=== PATIENT | male | born 1945 | race Caucasian/White ===

== ENCOUNTER → 2020-12-18 11:51 | Outpatient (CLI) | payer MEDICARE, SELFPAY ==
--- NOTE | ~2020-12-18 | XR_ITS ---
EXAMINATION: XR knee RT 3V DATE: 12/18/2020 12:29 INDICATION: Right knee pain. TECHNIQUE: 3 views of right knee were obtained. COMPARISON: None. FINDINGS: Bone alignment is normal. No fracture. There is mild tricompartmental osteoarthritis. There is a small knee joint effusion. IMPRESSION: 1. Mild right knee osteoarthritis. 2. Small right knee joint effusion. Reviewed, dictated and finalized at location A.
== END ==
PROVIDERS: PCP Family Medicine; Visit Provider Physician Assistant
DX: M17.11 Unilateral primary osteoarthritis, right knee (principal); M25.461 Effusion, right knee
CPT/HCPCS: 73562

== ENCOUNTER → 2021-02-05 10:34 | Outpatient (CLI) | payer MEDICARE, SELFPAY ==
--- NOTE | ~2021-02-05 | XR_ITS ---
EXAMINATION: XR foot RT min 3V DATE: 02/05/2021 11:13 INDICATION: Right foot pain TECHNIQUE: Dorsoplantar, two oblique and lateral views of the right foot were obtained. COMPARISON: None. FINDINGS: Bone alignment is normal. No fracture. Polyarticular osteoarthritis, mild to moderate at the first me tatarsophalangeal joint and minimal to mild at several tarsal metatarsal, interphalangeal and remaini ng metatarsophalangeal joints. Soft tissues are unremarkable. IMPRESSION: 1. 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 Reviewed, dictated and finalized at location A. IMPRESSION: 1. 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
== END ==
PROVIDERS: PCP Family Medicine; Visit Provider Physician Assistant Medical
DX: M19.071 Primary osteoarthritis, right ankle and foot (principal)
CPT/HCPCS: 73630

== ENCOUNTER 2021-12-25 18:33 | Emergency (ER) | payer MEDICARE, SELFPAY ==
[2021-12-25 18:44] VITALS: BP 167/83; PULSE 82; RESP 16; TEMP 36.2; O2SAT 99
--- NOTE | 2021-12-25 18:52 | ED.EYEPROB ---
HPI - Eye Problem General Chief complaint: Eye Problems Stated complaint: Left eye reddness Time Seen by Provider: 12/25/21 18:53 Source: patient Mode of arrival: ambulatory Limitations: no limitations History of Present Illness HPI Narrative: 76-year-old male presented for complaints of redness to the left eye, first noticed today about 3 hours prior to arrival. He denies injury. 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 He denies foreign body sensation, itching, pain, or drainage, denies headache or photophobia. Related Data Home Medications Medication Instructions Recorded Confirmed aspirin 81 mg tablet,delayed 81 mg PO DAILY 09/09/19 12/25/21 release biotin 5,000 mcg disintegrating 10,000 mcg PO DAILY 05/20/21 12/25/21 tablet mecobalamin (vitamin B12) 5,000 5,000 mcg PO DAILY tablet 05/20/21 12/25/21 mcg disintegrating tablet Allergies Allergy/AdvReac Type Severity Reaction Status Date / Time celecoxib [From Celebrex] AdvReac Intermediate diarrhea Verified 12/25/21 18:37 Review of Systems Review of Systems: CONSTITUTIONAL: Denies body aches, fever, chills EYES:Endorses redness to left eye; denies FB sensation, photophobia, visual changes or pain ENT: Denies rhinorrhea, congestion, sore throat, or otalgia. CARDIOVASCULAR: Denies chest pain, palpitations RESPIRATORY: Denies cough or dyspnea. GASTROINTESTINAL: Denies abdominal pain, nausea, vomiting, or diarrhea. SKIN: Denies rash, itching, or wounds. MUSCULOSKELETAL: Denies back pain, joint pain, or myalgia. NEUROLOGIC: Denies headache, numbness, tingling, or weakness. PSYCH: Denies depression or anxiety. All systems reviewed & are unremarkable except as noted in HPI and below PMFSH Past Medical History Medical History Bone spur Sacroiliitis Tendonitis of shoulder, right Surgical History Surgical History History of repair of right rotator cuff (06/27/19) Family History Family History Father Family history of malignant neoplasm of stomach, Onset Age: 57 Family history of lung cancer, Onset Age: 57 Family history of malignant neoplasm of esophagus, Onset Age: 57 Family history of malignant neoplasm Mother Family history of dementia Social History Social History Alcohol intake: current Comments At time of signature, I have reviewed and agree with nursing past medical, surgical, social and family history unless otherwise noted. Please see nursing chart for further information. There is no relevant family history pertinent to the presenting complaint Exam Narrative: GENERAL: Well-appearing HEAD: Normocephalic, atraumatic. EYES: subconjunctival hemorrhage to left medial eye and spreading under the pupil, no eye lid swelling; PERRLA, EOMI. Lid eversion shows no FB. ENT: Mucous membranes pink and moist. No rhinorrhea. TMs normal bilaterally. Throat normal. Uvula midline. NECK: Normal AROM. Supple. No lymphadenopathy. CHEST: No respiratory distress. Clear to auscultation. HEART: Regular rate and rhythm. No murmur appreciated. Normal peripheral pulses. ABDOMEN: Soft, nontender, nondistended MUSCULOSKELETAL: No bony tenderness. EXTREMITIES: Normal range of motion. SKIN: Warm, dry, no rash. Normal skin turgor. NEURO: No focal deficits. Alert and oriented x3. Steady gait PSYCH: Normal affect. Course Course Emergency Course: Patient is aware of diagnosis, understands and agrees to treatment plan. Anticipatory guidance given. Patient agrees to follow-up as directed and is aware of reasons to seek care at the emergency department. Portions of this record may have been created with voice recognition software Level of Care: Tabyb Limon
[2021-12-25] MEDS: DACRIOSE EYE IRRIGATION 118 ML BOTTLE LEFT EYE (19:03)
[2021-12-25] MEDS: FLUORESCEIN SOD 1 MG/STRIP EACH EYE (19:03)
[2021-12-25] MEDS: TETRACAINE HCL 0.5% OPHTH SOLN 4 ML BTL 1 DROP EACH EYE (19:04)
== END 2021-12-25 19:08 | disposition home or self-care (01) ==
PROVIDERS: Emergency Provider Nurse Practitioner Family
DX: H11.32 Conjunctival hemorrhage, left eye (principal); I10 Essential (primary) hypertension; N40.0 Benign prostatic hyperplasia without lower urinary tract symptoms; M17.11 Unilateral primary osteoarthritis, right knee; E11.9 Type 2 diabetes mellitus without complications; E03.9 Hypothyroidism, unspecified
CPT/HCPCS: 99213; A9270; G0463

== ENCOUNTER 2022-06-12 14:03 | Emergency (ER) | payer MEDICARE, SELFPAY ==
[2022-06-12 14:30] VITALS: BP 142/65; PULSE 80; RESP 16; TEMP 36.8; O2SAT 100
--- NOTE | 2022-06-12 15:29 | ED.MALEGU ---
HPI - Male Genitourinary General Chief complaint: Urogenital-Male Stated complaint: UTI Time Seen by Provider: 06/12/22 15:29 Source: patient and RN notes reviewed Mode of arrival: ambulatory Limitations: no limitations History of Present Illness HPI Narrative: 77-year-old male presents to the [facility] with complaints of urinary frequency. States he was fine yesterday. Got up at 430 this morning and started having frequency and urgency of urination. Patient states he has no symptoms currently. Denies any abdominal pain or flank pain. No CVA tenderness. Had a history of similar in the past. Related Data Home Medications Medication Instructions Recorded Confirmed aspirin 81 mg tablet,delayed 81 mg PO DAILY 09/09/19 06/12/22 release biotin 5,000 mcg disintegrating 10,000 mcg PO DAILY 05/20/21 06/12/22 tablet mecobalamin (vitamin B12) 5,000 5,000 mcg PO DAILY 05/20/21 06/12/22 mcg disintegrating tablet Allergies Allergy/AdvReac Type Severity Reaction Status Date / Time celecoxib [From Celebrex] AdvReac Intermediate diarrhea Verified 04/22/22 11:01 Review of Systems Review of Systems: All systems reviewed & are unremarkable except as noted in HPI and below Constitutional: Constitutional: Reports no additional constitutional complaints, Denies chills and Denies fever(s) Eyes: Eyes: Reports no additional eye complaints ENT: Reports system reviewed and no additional complaints, except as documented Cardiovascular: Cardiovascular: Reports no additional cardiovascular complaints Respiratory: Respiratory: Reports no additional respiratory complaints Gastrointestinal: Gastrointestinal: Reports no additional gastrointestinal complaints Genitourinary: Genitourinary: Reports as per HPI, Reports urinary frequency and Reports urinary urgency Musculoskeletal: Musculoskeletal: Reports no additional musculoskeletal complaints Integumentary/Breasts: Skin/Breast: Reports system reviewed and no additional complaints, except as docu Neurologic: Reports system reviewed and no additional complaints, except as documented Psychiatric: Psychiatric: Reports no additional psychiatric complaints Allergic/Immunologic: Allergic/Immunologic: Reports no additional allergic/immunologic complaints [facility] Past Medical History Medical History Bone spur Sacroiliitis Tendonitis of shoulder, right Surgical History Surgical History History of repair of right rotator cuff (06/27/19) Family History Family History Father Family history of malignant neoplasm of stomach, Onset Age: 57 Family history of lung cancer, Onset Age: 57 Family history of malignant neoplasm of esophagus, Onset Age: 57 Family history of malignant neoplasm Mother Family history of dementia Social History Social History Smoking status: Never smoker Alcohol intake: current Comments At the time of my signature, I reviewed and agree with the nursing past medical, surgical, social, and family history. There is no relevant family history pertinent to the patient complaint. Exam Const: General: healthy appearing, no acute distress, alert and well nourished Nutritional Appearance: well nourished Orientation/consciousness: patient oriented x3 Limitations: no limitations HENMT: Head: normal to inspection Ears: external ears normal Eyes: General: appearance normal, both eyes and all related structures Pupils: Equal, round and reactive pupils present Neck: Neck: normal visual inspection, no lymphadenopathy and no meningeal signs Chest: Chest palpation & inspection: normal inspection of the chest Resp: Effort & Inspection: normal respiratory effort and no use of accessory muscles Auscultation: clear to auscultation bilaterally
== END 2022-06-12 15:42 | disposition home or self-care (01) ==
PROVIDERS: Emergency Provider Nurse Practitioner; PCP Emergency Medicine
DX: R35.0 Frequency of micturition (principal); Z79.82 Long term (current) use of aspirin
CPT/HCPCS: 81003; 99212; G0463

== ENCOUNTER → 2022-08-07 10:11 | Outpatient (CLI) | payer MEDICARE, SELFPAY ==
--- NOTE | ~2022-08-07 | XR_ITS ---
XR knee LT min 4V DATE: 08/07/2022 10:36 INDICATION: Bilateral knee pain for 3 to 4 years. No injury. TECHNIQUE: 4 views COMPARISON: 03/13/2004 left knee FINDINGS: There is moderately severe loss of medial compartment joint space and mild medial compartme nt and periarticular spurring. There is periarticular spurring at the patellofemoral compartment. Lat eral compartment joint space appears well preserved. No fracture or dislocation or significant joint effusion is noted. No radiopaque intra-articular loos e body or chondrocalcinosis. No periosteal reaction or bone destruction. IMPRESSION: Osteoarthritis primarily at the medial and patellofemoral compartments Reviewed, dictated and finalized at location B. UCTION TECHNICIAN IMPRESSION: Osteoarthritis primarily at the medial and patellofemoral compartme nts
--- NOTE | ~2022-08-07 | XR_ITS ---
XR knee RT min 4V DATE: 08/07/2022 10:37 INDICATION: Bilateral knee pain for 3 to 4 years. No injury. TECHNIQUE: 4 views COMPARISON: 12/18/2020 right knee FINDINGS: There is prominent loss of height of the lateral and patellofemoral compartments.. There is periarticular spurring at all 3 compartments of the knee. There is hypertrophic change of the tibial spines. Mild suprapatellar knee joint effusion. No fracture or dislocation, periosteal reaction or bone destruction. No radiopaque intra-articular lo ose body or chondrocalcinosis. IMPRESSION: Prominent osteoarthritis, greatest at the lateral and patellofemoral compartments Mild suprapatellar knee joint effusion Reviewed, dictated and finalized at location B. LER MAKER IMPRESSION: Prominent osteoarthritis, greatest at the lateral and patellofemora l compartments Mild suprapatellar knee joint effusion
== END ==
PROVIDERS: PCP Emergency Medicine; Visit Provider Emergency Medicine
DX: M17.0 Bilateral primary osteoarthritis of knee (principal); M25.461 Effusion, right knee
CPT/HCPCS: 73564

== ENCOUNTER → 2022-08-07 10:16 | Outpatient (CLI) | payer MEDICARE, SELFPAY ==
--- NOTE | ~2022-08-07 | XR_ITS ---
XR_CERV2-3V_CR DATE: 08/07/2022 10:37 INDICATION: Neck pain for 3 weeks. No injury. TECHNIQUE: AP, open-mouth and lateral views COMPARISON: None FINDINGS: There is a suture of the anterior left body of the mandible. C1 and C2 are normally aligned and the odontoid process is intact. No fracture or dislocation or lock ed facet or prevertebral soft tissue swelling is evident. There is prominent degenerative change throughout the apophyseal joints of the cervical spine. There is associated mild anterolisthesis at C5-6. Mild loss of interspace height at C2-3, moderate loss of interspace height at C4-5. There is uncovertebral joint spurring in the mid and lower cervical spine. IMPRESSION: Moderate cervical spondylosis Reviewed, dictated and finalized at Location A. Reviewed, dictated and finalized at location B. ERSAL WINDING MACHINE OPERATOR
== END ==
PROVIDERS: PCP Emergency Medicine; Visit Provider Clinical Nurse Specialist
DX: M47.892 Other spondylosis, cervical region (principal)
CPT/HCPCS: 72040

== ENCOUNTER 2022-12-12 09:24 | Emergency (ER) | payer MEDICARE, SELFPAY ==
[2022-12-12 09:36] VITALS: BP 143/79; PULSE 79; RESP 16; TEMP 36.4; O2SAT 98
--- NOTE | 2022-12-12 09:37 | ED.URI ---
HPI - URI/Sore Throat General Chief Complaint: Upper Respiratory Infection Stated Complaint: Cough/Sinus Time Seen by Provider: 12/12/22 09:37 Source: patient Mode of arrival: ambulatory Limitations: no limitations History of Present Illness HPI Narrative: Jony is a 77-year-old male patient presenting to the clinic today with complaints of sinus drainage and cough times 2-3 days. He reports cough is productive at times with clear phlegm. He denies being a smoker. Denies any fever or chills. Did at home COVID test today and was negative. MD elicited complaint: sore throat and nasal congestion Related Data Home Medications Medication Instructions Recorded Confirmed aspirin 81 mg tablet,delayed 81 mg PO DAILY 09/09/19 10/27/22 release multivitamin 1 tablet PO DAILY 10/27/22 10/27/22 Allergies Allergy/AdvReac Type Severity Reaction Status Date / Time celecoxib [From Celebrex] AdvReac Intermediate diarrhea Verified 12/12/22 09:44 Review of Systems Review of Systems: Pertinent positives per HPI. Patient denies any fever, chills, rash, headache, visual changes, dizziness, sore throat, shortness of breath, chest pain, palpitations, nausea, vomiting, diarrhea, constipation, abdominal pain, or any urinary issues. [facility] Past Medical History Medical History Bone spur Sacroiliitis Tendonitis of shoulder, right Surgical History Surgical History History of repair of right rotator cuff (06/27/19) Family History Family History Father Family history of malignant neoplasm of stomach, Onset Age: 57 Family history of lung cancer, Onset Age: 57 Family history of malignant neoplasm of esophagus, Onset Age: 57 Family history of malignant neoplasm Mother Family history of dementia Social History Social History Smoking status: Never smoker Alcohol intake: current Comments At the time of my signature, I reviewed and agree with the nursing past medical, surgical, social, and family history. There is no relevant family history pertinent to the patient complaint. Exam Narrative: General: Well-developed, well nourished, in no apparent distress Head: Normocephalic, atraumatic Eyes: Pupils equally round and reactive to light bilaterally, EOM intact, sclera and conjunctive clear, no discharge, lids normal Ears: TMs intact and clear, ear canals clear, no drainage, grossly hearing normal. Nose: Nares patent, clear discharge, no inflammation, no sinus tenderness. Mouth: Oropharynx without lesions or masses, good dentition, MMM. Postnasal drip Neck: Supple, trachea midline, no enlargement of anterior or posterior cervical nodes, no thyroid masses or goiter palpable. Cardio: Regular rate and rhythm, s1 and s2 normal, no murmur appreciated. Resp: Clear to auscultation bilaterally anteriorly and posteriorly, no rhonchi, rales, wheezing or rubs Course Course Emergency Course: Portions of this record may have been created with voice recognition software. Level of Care: Express Care Visit Vital Signs Vital signs: Vital Signs Temperature 36.4 C 12/12/22 09:36 Pulse Rate 79 12/12/22 09:36 Respiratory Rate 16 12/12/22 09:36 Blood Pressure 143/79 H 12/12/22 09:36 Pulse Oximetry 98 12/12/22 09:36 Oxygen Delivery Room Air 12/12/22 09:36 Temperature 36.4 C 12/12/22 09:36 Pulse Rate 79 12/12/22 09:36 Respiratory Rate 16 12/12/22 09:36 Blood Pressure 143/79 H 12/12/22 09:36 Pulse Oximetry 98 12/12/22 09:36 Oxygen Delivery Room Air 12/12/22 09:36 Vital signs reviewed MDM - URI/Sore Throat MDM Narrative Medical decision making narrative: At the time of visit patient is resting comfortably on the exam table. I suspect patient h
== END 2022-12-12 09:48 | disposition home or self-care (01) ==
PROVIDERS: Emergency Provider Nurse Practitioner Family; PCP Emergency Medicine
DX: J30.9 Allergic rhinitis, unspecified (principal)
CPT/HCPCS: 99213; G0463

== ENCOUNTER → 2023-04-16 13:27 | Outpatient (CLI) | payer MEDICARE, SELFPAY ==
--- NOTE | ~2023-04-16 | XR_ITS ---
EXAM: XR lumbar spine 2-3V DATE: 04/16/2023 13:49 HISTORY: M25.551 - Pain in right hip . COMPARISON: 08/05/2011. FINDINGS: Moderate lumbar scoliosis. Partial sacralization on the left at L5. 4 mm retrolisthesis at L1-2. 5 nonrib-bearing lumbar-type vertebral bodies. Pedicles intact. Vertebral body heights preserve d. Disc space narrowing and marginal osteophytosis at all lumbar levels, severe at L1-2, L4-5, and L5 -S1. Large lateral bridging osteophytes on the left at L1-2 and L2-3. Severe mid and lower lumbar fac et hypertrophy and sclerosis, with interspinous narrowing. No fracture or dislocation. IMPRESSION: Grade 1 retrolisthesis at L1-2. Multilevel severe degenerative disc disease and facet arthropathy. Reviewed, dictated and finalized at location K.
--- NOTE | ~2023-04-16 | XR_ITS ---
AP and lateral views of the right hip Clinical history: Pain Findings: No acute fracture or dislocation is seen. Osseous alignment is anatomic. Right hip joint an d right SI joint are preserved. Soft tissues are unremarkable. Impression: No significant abnormality is seen. Reviewed, dictated and finalized at [facility]. Impression: No significant abnormality is seen.
== END ==
PROVIDERS: PCP Emergency Medicine; Visit Provider Physician Assistant
DX: M25.551 Pain in right hip (principal); M54.16 Radiculopathy, lumbar region; M51.36 Other intervertebral disc degeneration, lumbar region
CPT/HCPCS: 72100; 73502

== ENCOUNTER → 2023-05-14 08:53 | Outpatient (CLI) | payer MEDICARE, SELFPAY ==
--- NOTE | ~2023-05-14 | MR_ITS ---
MRI of the lumbar spine Clinical History: Radiculopathy Technique: Axial T2-weighted images, and sagittal T1-weighted, T2-weighted, and T2 fat-sat images wer e acquired. Findings: No acute fracture identified. There is 6 mm retrolisthesis of L1 over L2. There is 3 mm ret rolisthesis of L2 over L3. There is a 6 mm anterolisthesis of L4 over L5. No suspicious bone marrow s ignal abnormality seen. At L1-L2, there is severe degenerative disc narrowing. There is mild diffuse disc bulge with advanced facet arthropathy. No central canal stenosis. There is severe bilateral neural foraminal narrowing, left worse than right. At L2-L3, there is advanced degenerative disc narrowing. There is mild disc bulge with severe facet a rthropathy. No central canal stenosis. There is severe bilateral neural foraminal narrowing. At L3-L4, there is diffuse disc bulge and severe facet arthropathy. There is severe central canal dejuan nosis/thecal sac compression. There is severe right neural foraminal narrowing. There is moderate lef t neural foraminal narrowing. At L4-L5, there is advanced degenerative disc narrowing. There is severe facet arthropathy with disc bulge and severe right lateral recess stenosis. There is severe right neural foraminal narrowing, and moderate to severe left neural foraminal narrowing. At L5-S1, there is advanced degenerative disc narrowing. There is severe facet arthropathy with minim al disc bulge. There is moderate to severe left neural foraminal narrowing, and mild to moderate righ t neural foraminal narrowing. Paravertebral soft tissues are unremarkable. Impression: Severe degenerative spondylosis, as detailed above, probably worst at L3-L4. 6 mm retrolisthesis of L1 over L2. 3 mm retrolisthesis of L2 over L3. 6 mm anterolisthesis of L4 over L5. Reviewed, dictated and finalized at location . Impression: Severe degenerative spondylosis, as detailed above, probably worst at L3-L4. 6 mm retrolisthesis of L1 over L2. 3 mm retrolisthesis of L2 over L3. 6 mm anterolisthesis of L4 over L5.
--- NOTE | ~2023-05-14 | MR_ITS ---
EXAMINATION: MR cervical spine wo con DATE: 05/14/2023 09:35 INDICATION: Neck pain. TECHNIQUE: Magnetic resonance imaging (MRI) of the cervical spine was performed without intravenous c ontrast. COMPARISON: Cervical spine radiographs 08/07/2022 FINDINGS: There is 7 degrees levocurvature of cervicothoracic spine. There is 2 mm anterolisthesis of C3 on C4. Vertebral body heights are normal. There is mildly decreased disc height at C4-C5. There i s severe osteoarthritis of anterior atlantoaxial joint with peridens inflammatory pseudopannus with m ild central canal stenosis. The spinal cord signal intensity is normal. The following disc levels are specifically discussed: C2-C3: There is a right central protrusion. There is moderate right uncovertebral joint osteoarthriti s. There is severe bilateral facet joint osteoarthritis. There is mild lateral neural foraminal steno sis. There is no central canal stenosis. C3-C4: The disc does not extend beyond the endplate margin. There is mild right and severe left uncov ertebral joint osteoarthritis. There is moderate right and severe left facet joint osteoarthritis. Th ere is mild right and severe left neural foraminal stenosis. There is mild central canal stenosis. C4-C5: The disc is bulging. There is severe bilateral uncovertebral joint osteoarthritis. There is se quang bilateral facet joint osteoarthritis. There is mild bilateral neural foraminal stenosis. There i s mild central canal stenosis. C5-C6: The disc does not extend beyond the endplate margin. There is moderate bilateral uncovertebral joint osteoarthritis. There is severe bilateral facet joint osteoarthritis. There is mild bilateral neural foraminal stenosis. There is no central canal stenosis. C6-C7: There is a central protrusion. There is mild bilateral uncovertebral joint osteoarthritis. The re is mild bilateral facet joint osteoarthritis. There is no neural foraminal stenosis. There is mild central canal stenosis. C7-T1: The disc does not extend beyond the endplate margin. There is no uncovertebral joint osteoarth ritis. There is mild bilateral facet joint osteoarthritis. There is mild bilateral neural foraminal s tenosis. There is no central canal stenosis. IMPRESSION: 1. Moderate cervical spondylosis. Reviewed, dictated and finalized at location E.
== END ==
PROVIDERS: PCP Physician Assistant; Visit Provider Physician Assistant
DX: M47.22 Other spondylosis with radiculopathy, cervical region (principal); M43.16 Spondylolisthesis, lumbar region
CPT/HCPCS: 72141; 72148

== ENCOUNTER → 2023-05-28 13:49 | Outpatient (CLI) | payer MEDICARE, SELFPAY ==
--- NOTE | ~2023-05-28 | XR_ITS ---
Left ankle Technique: AP, oblique, and lateral views were obtained. Clinical History: Injury Findings: No acute fracture or dislocation is seen. Osseous alignment is anatomic. Ankle mortise and other visualized joint spaces are preserved. Soft tissues are otherwise unremarkable. Impression: Unremarkable left ankle. Reviewed, dictated and finalized at location . Impression: Unremarkable left ankle.
== END ==
PROVIDERS: PCP Physician Assistant; Visit Provider Physician Assistant
DX: M25.572 Pain in left ankle and joints of left foot (principal)
CPT/HCPCS: 73610

== ENCOUNTER 2023-07-07 07:22 | Day surgery (SDC) | payer MEDICARE, SELFPAY ==
[2023-07-03 14:04] VITALS: BMI 24.3
--- NOTE | ~2023-07-07 | XR_ITS ---
Indication: Left C2-3, C3-4 medial branch block TECHNIQUE: Fluoroscopy used during Left C2-3, C3-4 medial branch block performed by [Lul Bernal MD] on 07/07/2023. 71 seconds of fluoroscopy with 2 fluoroscopic images captured. FINDINGS: Correlate with procedure note. IMPRESSION: Fluoroscopy used during Left C2-3, C3-4 medial branch block. Reviewed, dictated and finalized at location A.
--- NOTE | 2023-07-07 05:51 | WPDHPUPDATE1 ---
History and Physical Update Update Date/Time: 07/07/23 05:51 History and Physical has been reviewed, including an updated exam of the patient. There are NO changes in the patient's condition. Risks, benefits, and alternatives have been discussed and questions answered. Patient agrees to proceed with procedure.
[2023-07-07 09:56] VITALS: BP 121/81; PULSE 75; RESP 20; TEMP 37.2; O2SAT 97
[2023-07-07 12:20] VITALS: BP 149/66; PULSE 71; RESP 17; O2SAT 96
[2023-07-07] MEDS: LIDOCAINE HCL 1% PF INJ 5 ML VIAL 1 ML INFILTRATE (12:24)
[2023-07-07 12:28] VITALS: BP 135/57; PULSE 71; RESP 17; O2SAT 96
[2023-07-07] MEDS: BUPivacaine HCL 0.5% 10 ML AMP INFILTRATE (12:29)
--- NOTE | 2023-07-07 12:31 | W.PM.PROC2 ---
Procedure Note - Detailed Date of Procedure 07/07/23 Pre-op Diagnosis Cervical Spondylosis, Cervicalgia Post-op Diagnosis Same Procedure Performed Left C2-3, C3, C4 medial branch blocks addressing the left C2-3, C3-4 facet joints under fluoroscopic guidance with contrast. Surgeon Lul Bernal MD Anesthesia Local Description of Procedure INFORMED CONSENT: Risks, benefits and alternatives to the procedure were discussed in detail with the patient who expressed explicit understanding and consent to proceed. Patient was informed verbally and in written form regarding the risks associated with the procedure including the low risk of serious infection, bleeding/bruising, allergic reaction, nerve or organ injury, paralysis, procedural site pain or discomfort, worsening pain and/or mobility, failure to treat and/or disfigurement. The patient expressed explicit understanding and consent to proceed. All materials required for the procedure were available prior to procedure start. Site and side was marked prior to procedure and confirmed in the presence of the patient. PROCEDURE IN DETAIL: The patient was brought to the procedural suite and placed in the right lateral decubitus position with head stabilized. Patient was made comfortable with use of pillows under the head/chest and between the knees and ankles. Skin overlying the injection site on the affected side(s) was prepared broadly with ChloraPrep applicator and draped in a sterile manner. Aseptic technique was used throughout. The endplates of the vertebral bodies at the site(s) of interest were aligned in the Lateral view. Image was optimized for visualization of the pars interarticularis at each target site. Local anesthesia was established by infiltration with approximately 5 mL of 1% lidocaine via a 1-1/2 inch 27- gauge needle. A 25-gauge 3.5 inch Quincke spinal needle was advanced until the needle tip contacted the periosteum of the pars interarticularis at the target site, left C2-3 peripheral branch. AP view was utilized to confirm the appropriate placement of the needle tip just lateral to the periosteum at the center point of the pars interarticularis. In the Lateral view, 0.25 mL of Omnipaque 300 contrast medium was injected after negative aspiration for CSF, blood or other bodily fluid, showing appropriate extra-articular spread of contrast without evidence of intravascular, foraminal or intrathecal placement. A 0.5 mL solution of 0.5% PF bupivacaine was injected after negative repeat aspiration. Appropriate spread of the injectate was confirmed with washout of previously injected contrast. No parasthesias were elicited. Needle was removed completely intact without difficulty. The same procedure was repeated for all additional intended levels/structures treated on the ipsilateral side, left C3, C4 medial branches with identical methodology modified to compensate for different location, with similar results and no evidence of complication. Patient tolerated this well. Images were saved and documented in the patient chart. Patient's skin was cleaned and sterile bandage applied. The patient tolerated the procedure well. The patient was transported to the recovery area in stable condition where they were observed for an appropriate amount of time prior to discharge, without evidence of complication. Patient was instructed on the appropriate completion of a pain diary over the next 12-24 hours. The patient was instructed to avoid excessive activity for the next 48 hours, including climbing and frequent use of stairs. Showers only for 48 hours. They were instructed not to drive or operate heavy machinery for 24 hours. They are to monitor for severe headaches, fevers, chills, night sweats, erythema/swelling at the site or any other signs of infection, bleeding/bruising, bowel or bladder changes as well as new pain, weakness or numbness in the upper or lower extremity. Should they notice these changes, they a
[2023-07-07 12:35] VITALS: BP 159/86; PULSE 79; RESP 18; TEMP 36.8; O2SAT 100
== END 2023-07-07 12:50 | disposition home or self-care (01) ==
LOC: ASC 09:32
PROVIDERS: PCP Emergency Medicine; Visit Provider Anesthesiology Pain Medicine
PROC: (CPT 64490; principal; 2023-07-07 10:30)
DX: M47.812 Spondylosis without myelopathy or radiculopathy, cervical region (principal); M54.2 Cervicalgia
CPT/HCPCS: 64490; 64491; 99199

== ENCOUNTER 2023-07-08 12:53 | Outpatient (CLI) | payer MEDICARE, SELFPAY | END 2023-07-08 12:54 | disposition home or self-care (01) | LOC: ANHAUDASC 12:54 | PROVIDERS: PCP Emergency Medicine; Visit Provider Physician Assistant | DX: H90.3 Sensorineural hearing loss, bilateral (principal) | CPT/HCPCS: 92557; 92567 ==

== ENCOUNTER 2023-08-18 09:53 | Day surgery (SDC) | payer MEDICARE, SELFPAY ==
[2023-08-13 10:55] VITALS: BMI 24.6
--- NOTE | ~2023-08-18 | XR_ITS ---
EXAMINATION: XR fluoroscopy no charge INDICATION: Left C3, C4, and C5 medial block TECHNIQUE: 47 intraoperative fluoroscopic images are submitted for review. Total fluoroscopic time wa s 18.8 seconds. COMPARISON: 07/07/2023 FINDINGS: Fluoroscopic images appear to demonstrate injections of the C3, C4, and C5 neural foramina. Please refer to procedure note for full details. IMPRESSION: 1. Please refer to procedure note for full details. Reviewed, dictated and finalized at location L. R POOL DRIVER
--- NOTE | 2023-08-18 05:51 | PM.HPGS ---
History of Present Illness History of Present Illness Consent: Risks, benefits, and alternatives have been discussed and questions answered. Patient agrees to proceed with procedure. Chief complaint: Cervical Spondylosis, Cervicalgia Narrative: Jony Rice is a 78 year old male at baseline health with chronic, recalcitrant and disabling right-sided neck pain secondary to cervical spondylosis and cervical facet syndrome unresponsive to more conservative therapies over the past several years who presents for Diagnostic/prognostic right-sided C3, C4, C5 medial branch blocks to address the right C3-4, C4-5 facet joints under fluoroscopic guidance. Review of Systems Review of Systems: All systems reviewed & are unremarkable except as noted in HPI and below PMFSH Past Medical History Medical History BMI 25.0-25.9,adult Bone spur H/O facial injury Sacroiliitis Tendonitis of shoulder, right Surgical History Surgical History History of repair of right rotator cuff (06/27/19) Family History Family History Father Family history of malignant neoplasm of stomach, Onset Age: 57 Family history of lung cancer, Onset Age: 57 Family history of malignant neoplasm of esophagus, Onset Age: 57 Family history of malignant neoplasm , Onset Age: 50 exposure to dioxin. 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 Gender identity (if verbalized by the patient): Male Spiritual care concerns: No Meds Home Medications and Allergies Home Medications Medication Instructions Recorded Confirmed Type aspirin 81 mg tablet,delayed 81 mg PO DAILY 09/09/19 08/13/23 History release multivitamin 1 tablet PO DAILY 10/27/22 08/13/23 History levothyroxine 50 mcg tablet See Rx Instructions .Route 07/22/23 08/13/23 Rx .COMPLEX #100 tabs meloxicam 15 mg tablet 15 mg PO DAILY #90 tabs 07/22/23 08/13/23 Rx simvastatin 40 mg tablet See Rx Instructions .Route 07/22/23 08/13/23 Rx .COMPLEX #90 tabs metformin 500 mg tablet,extended See Rx Instructions .Route .COMPLEX 08/05/23 08/13/23 History release 24 hr Allergies Allergy/AdvReac Type Severity Reaction Status Date / Time diclofenac Allergy Mild Nausea and Verified 08/13/23 10:53 Vomiting Exam Const: General: cooperative, healthy appearing and no acute distress Orientation/consciousness: patient oriented x3 HENMT: Head: normal to inspection, normocephalic and atraumatic Eyes: General: appearance normal, both eyes and all related structures Neck: Neck: normal visual inspection Chest: Chest palpation & inspection: normal inspection of the chest Resp: Effort & Inspection: normal respiratory effort Auscultation: clear to auscultation bilaterally Cardio: Rate: regular rate Rhythm: regular rhythm Peripheral pulses: Peripheral pulses 2+ throughout GI: Inspection: normal to inspection Back/Spine/Pelvis: Back: no CVA tenderness Skin: General skin exam: normal color and no rashes or lesions noted Neuro: General: moves all extremities Cranial nerves: Yes CN's II-XII in
--- NOTE | 2023-08-18 05:55 | WPDHPUPDATE1 ---
History and Physical Update Update Date/Time: 08/18/23 05:55 History and Physical has been reviewed, including an updated exam of the patient. There are NO changes in the patient's condition. Risks, benefits, and alternatives have been discussed and questions answered. Patient agrees to proceed with procedure.
[2023-08-18 10:40] VITALS: BP 134/89; PULSE 78; RESP 20; TEMP 37.2; O2SAT 98
[2023-08-18 12:00] VITALS: BP 156/79; PULSE 72; RESP 19; O2SAT 98
[2023-08-18 12:05] VITALS: BP 144/79; PULSE 72; RESP 17; O2SAT 96
[2023-08-18] MEDS: BUPivacaine HCL 0.5% 10 ML AMP 2 ML INFILTRATE (12:11)
[2023-08-18] MEDS: LIDOCAINE HCL 1% PF INJ 5 ML VIAL 3 ML AFFCTD EYE (12:11)
[2023-08-18 12:13] VITALS: BP 147/82; PULSE 78; RESP 16; O2SAT 100
--- NOTE | 2023-08-18 12:25 | W.PM.PROC2 ---
Procedure Note - Detailed Date of Procedure 08/18/23 Pre-op Diagnosis Cervical Spondylosis, Cervicalgia Post-op Diagnosis Same Procedure Performed left C3, C4, C5 medial branch blocks addressing the left C3-4, C4-5 facet joints under fluoroscopic guidance with contrast control. Surgeon Lul Bernal MD Anesthesia Local Description of Procedure INFORMED CONSENT: Risks, benefits and alternatives to the procedure were discussed in detail with the patient who expressed explicit understanding and consent to proceed. Patient was informed verbally and in written form regarding the risks associated with the procedure including the low risk of serious infection, bleeding/bruising, allergic reaction, nerve or organ injury, paralysis, procedural site pain or discomfort, worsening pain and/or mobility, failure to treat and/or disfigurement. The patient expressed explicit understanding and consent to proceed. All materials required for the procedure were available prior to procedure start. Site and side were marked prior to procedure and confirmed in the presence of the patient. PROCEDURE IN DETAIL: The patient was brought to the procedural suite and placed in the prone position with head stabilized with a ProneView pillow. Patient was made comfortable with use of pillows under the head/chest, hips and ankles. Skin overlying the injection site on the affected side(s) was prepared broadly with ChloraPrep applicator and draped in a sterile manner. Aseptic technique was used throughout. The endplates of the vertebral bodies at the site(s) of interest were aligned in the AP view. Ipsilateral oblique angulation was utilized to optimize visualization of the pars interarticularis at each target site. Local anesthesia was established by infiltration with approximately 5 mL of 1% lidocaine via a 1-1/2 inch 27-gauge needle. A 25-gauge 3.5 inch Quincke spinal needle was advanced until the needle tip contacted the periosteum of the pars interarticularis at the target site, Left C5. Lateral view was utilized to confirm the appropriate placement of the needle tip just anterior to the center point of the interarticularis. In the Lateral view, 0.25 mL of Omnipaque 300 contrast medium was injected after negative aspiration for CSF, blood or other bodily fluid, showing appropriate extra-articular spread of contrast without evidence of intravascular, foraminal or intrathecal placement. A 0.25 mL solution of 0.5% PF bupivacaine was injected after negative repeat aspiration. Appropriate spread of the injectate was confirmed with washout of previously injected contrast. No parasthesias were elicited. Needle was removed completely intact without difficulty. The same exact procedure was repeated for all remaining levels on the ipsilateral side, left C3, C4 medial branches, modified as necessary to accommodate for the new target location with identical findings and results and no evidence of complication. Images were saved and documented in the patient chart. Patient's skin was cleansed and sterile bandage applied. The patient tolerated the procedure well. The patient was transported to the recovery area in stable condition where they were observed for an appropriate amount of time prior to discharge, without evidence of complication. Patient was instructed on the appropriate completion of a pain diary over the next 12-24 hours. The patient was instructed to avoid excessive activity for the next 48 hours, including climbing and frequent use of stairs. Showers only for 48 hours. They were instructed not to drive or operate heavy machinery for 24 hours. They are to monitor for severe headaches, fevers, chills, night sweats, erythema/swelling at the site or any other signs of infection, bleeding/bruising, bowel or bladder changes as well as new pain, weakness or numbness in the upper or lower extremity. Should they notice these changes, they are instructed to call our office immediately or report
== END 2023-08-18 12:27 | disposition home or self-care (01) ==
LOC: ASC 10:27
PROVIDERS: PCP Emergency Medicine; Visit Provider Anesthesiology Pain Medicine
PROC: (CPT 64490; principal; 2023-08-18 11:30)
DX: M47.812 Spondylosis without myelopathy or radiculopathy, cervical region (principal); M54.2 Cervicalgia
CPT/HCPCS: 64490; 64491; 64492; 99199

== ENCOUNTER → 2023-09-04 08:42 | Outpatient (CLI) | payer MEDICARE, SELFPAY ==
--- NOTE | ~2023-09-04 | XR_ITS ---
XR elbow LT min 3V DATE: 09/04/2023 09:14 INDICATION: Medial elbow pain. No injury. TECHNIQUE: 4 views COMPARISON: None FINDINGS: There is osteoarthritic spurring of the elbow. No fracture or dislocation or joint effusion is evident. No periosteal reaction or bone destruction. IMPRESSION: Osteoarthritis Reviewed, dictated and finalized at location A. ER DRIER TAILER IMPRESSION: Osteoarthritis
== END ==
PROVIDERS: PCP Nurse Practitioner Family; Visit Provider Nurse Practitioner Family
DX: M19.022 Primary osteoarthritis, left elbow (principal)
CPT/HCPCS: 73080

== ENCOUNTER 2023-09-29 07:42 | Day surgery (SDC) | payer MEDICARE, SELFPAY ==
[2023-09-14 11:04] VITALS: BMI 24.3
--- NOTE | ~2023-09-29 | XR_ITS ---
EXAMINATION: XR fluoroscopy no charge DATE: 09/29/2023 11:07 INDICATION: Cervical spondylosis. Neck pain. TECHNIQUE: 13 intraoperative fluoroscopic views of the cervical spine were obtained. I was not presen t. Fluoroscopy exposure time was 15 seconds. COMPARISON: None. FINDINGS: [place] and contrast are seen at the left C3, C4, and C5 medial branch nerves. IMPRESSION: 1. Left C3, C4, and C5 medial branch nerve blocks. Reviewed, dictated and finalized at location E. HANDISE MARKER
--- NOTE | 2023-09-29 08:49 | PM.HPGS ---
History of Present Illness History of Present Illness Consent: Risks, benefits, and alternatives have been discussed and questions answered. Patient agrees to proceed with procedure. Chief complaint: Cervical Spondylosis, Cervicalgia Narrative: Jony Rice is a 78 year old male with chronic, recalcitrant and disabling left cervical pain secondary to degenerative spondylosis with failure to respond to aggressive conservative measures including PT, oral and topical analgesics, opioid and nonopioid analgesics, rest, time and activity/behavioral modification over the past 1-2 years who presents for diagnostic/prognostic medial branch blocks (#2) under fluoroscopic guidance and with contrast control. patient has had a successful and concordant response to a previous left-sided cervical medial branch block procedure with bupivacaine within the past 1-2 months. Review of Systems Review of Systems: Patient denies any new infectious, allergic, cardiopulmonary, neurologic or constitutional symptoms or changes in activity tolerance or exercise capacity including new or progressive SOB/BETTENCOURT, peripheral edema, productive cough, dysuria, nausea/vomiting, diarrhea, weight change, fevers/chills/night sweats, new or progressive neurologic deficit, cognitive or mood changes since last seen, except as documented in the HPI. [facility] Past Medical History Medical History (Updated 09/16/23 @ 13:48 by Mary Jane Condon) BMI 25.0-25.9,adult Bone spur H/O facial injury Primary osteoarthritis of left knee Sacroiliitis Tendonitis of shoulder, right Surgical History Surgical History History of repair of right rotator cuff (06/27/19) Family History Family History Father Family history of malignant neoplasm of stomach, Onset Age: 57 Family history of lung cancer, Onset Age: 57 Family history of malignant neoplasm of esophagus, Onset Age: 57 Family history of malignant neoplasm , Onset Age: 50 exposure to dioxin. Mother Family history of dementia Septicemia Social History Social History Smoking status: Never smoker Second hand tobacco smoke exposure: No Alcohol intake: current Substance use: never Substance use type: does not use Do You Feel Safe in your Home?: Yes Lack of Transportation: No Lack of Food: Never True Current Housing: I Have Housing Concerned About Future Housing: No Difficulty Paying Gas/Electric Bills: No Difficulty Paying for Meds: No Currently Unemployed: No Education: Trade/Vocational Certificate Difficulty w/ Childcare or Family Care: No Living arrangements: with family Occupation/Education: retired 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 Gender identity (if verbalized by the patient): Male Spiritual care concerns: No Meds Home Medications and Allergies Home Medications Medication Instructions Recorded Confirmed Type aspirin 81 mg tablet,delayed 81 mg PO DAILY 09/09/19 09/16/23 History release multivitamin 1 tablet PO DAILY 10/27/22 09/16/23 History levothyroxine 50 mcg tablet See Rx Instructions .Route 07/22/23 09/16/23 Rx .COMPLEX #100 tabs metformin 500 mg tablet,extended See Rx Instructions .Route .COMPLEX 08/05/23 09/16/23 History release 24 hr meloxicam 15 mg tablet 15 mg PO DAILY #90 tabs 09/15/23 09/16/23 Rx simvastatin 40 mg tablet See Rx Instructions .Route 09/15/23 09/16/23 Rx .COMPLEX #90 tabs Allergies Allergy/AdvReac Type Severity Reaction Status Date / Time diclofenac Allergy Mild Nausea and Verified 09/16/23 13:28 Vomiting Exam Narrative: The patient's physical exam is essentially unchanged from prior examination on 08/25/2023. Specifically, patient demonstrates normal lung capacity, tidal
--- NOTE | 2023-09-29 08:52 | WPDHPUPDATE1 ---
History and Physical Update Update Date/Time: 09/29/23 08:52 History and Physical has been reviewed, including an updated exam of the patient. There are NO changes in the patient's condition. Risks, benefits, and alternatives have been discussed and questions answered. Patient agrees to proceed with procedure.
[2023-09-29 09:00] VITALS: BP 141/79; PULSE 74; RESP 20; TEMP 37.1; O2SAT 97
[2023-09-29 09:30] VITALS: BP 147/83; PULSE 71; RESP 26; O2SAT 97
[2023-09-29] MEDS: LIDOCAINE HCL 1% PF INJ 5 ML VIAL XX (09:36)
[2023-09-29 09:40] VITALS: BP 142/88; PULSE 70; RESP 16; O2SAT 95
[2023-09-29] MEDS: LIDOCAINE HCL 2% PF INJ 5 ML VIAL INFILTRATE (09:43)
--- NOTE | 2023-09-29 09:44 | W.PM.PROC2 ---
Procedure Note - Detailed Date of Procedure 09/29/23 Pre-op Diagnosis Cervical Spondylosis, Cervicalgia Post-op Diagnosis Same Procedure Performed left C3, C4, C5 medial branch blocks (#2) addressing the left C3-4, C4-5 facet joints under fluoroscopic guidance with contrast control Surgeon Lul Bernal MD Anesthesia Local Description of Procedure INFORMED CONSENT: Risks, benefits and alternatives to the procedure were discussed in detail with the patient who expressed explicit understanding and consent to proceed. Patient was informed verbally and in written form regarding the risks associated with the procedure including the low risk of serious infection, bleeding/bruising, allergic reaction, nerve or organ injury, paralysis, procedural site pain or discomfort, worsening pain and/or mobility, failure to treat and/or disfigurement. The patient expressed explicit understanding and consent to proceed. All materials required for the procedure were available prior to procedure start. Site and side were marked prior to procedure and confirmed in the presence of the patient. PROCEDURE IN DETAIL: The patient was brought to the procedural suite and placed in the prone position with head stabilized with a ProneView pillow. Patient was made comfortable with use of pillows under the head/chest, hips and ankles. Skin overlying the injection site on the affected side(s) was prepared broadly with ChloraPrep applicator and draped in a sterile manner. Aseptic technique was used throughout. The endplates of the vertebral bodies at the site(s) of interest were aligned in the AP view. Ipsilateral oblique angulation was utilized to optimize visualization of the pars interarticularis at each target site. Local anesthesia was established by infiltration with approximately 5 mL of 1% lidocaine via a 1-1/2 inch 27-gauge needle. A 25-gauge 3.5 inch Quincke spinal needle was advanced until the needle tip contacted the periosteum of the pars interarticularis at the target site, left C5. Lateral view was utilized to confirm the appropriate placement of the needle tip just anterior to the center point of the interarticularis. In the Lateral view, 0.25 mL of Omnipaque 300 contrast medium was injected after negative aspiration for CSF, blood or other bodily fluid, showing appropriate extra-articular spread of contrast without evidence of intravascular, foraminal or intrathecal placement. A 0.25 mL solution of 2.0% preservative-free lidocaine was injected after negative repeat aspiration. Appropriate spread of the injectate was confirmed with washout of previously injected contrast. No parasthesias were elicited. Needle was removed completely intact without difficulty. The same exact procedure was repeated for all remaining levels on the ipsilateral side, left C3, C4 medial branches, modified as necessary to accommodate for the new target location with identical findings and results and no evidence of complication. Images were saved and documented in the patient chart. Patient's skin was cleansed and sterile bandage applied. The patient tolerated the procedure well. The patient was transported to the recovery area in stable condition where they were observed for an appropriate amount of time prior to discharge, without evidence of complication. Patient was instructed on the appropriate completion of a pain diary over the next 12-24 hours. The patient was instructed to avoid excessive activity for the next 48 hours, including climbing and frequent use of stairs. Showers only for 48 hours. They were instructed not to drive or operate heavy machinery for 24 hours. They are to monitor for severe headaches, fevers, chills, night sweats, erythema/swelling at the site or any other signs of infection, bleeding/bruising, bowel or bladder changes as well as new pain, weakness or numbness in the upper or lower extremity. Should they notice these changes, they are instructed to call our office immedi
[2023-09-29 09:49] VITALS: BP 148/80; PULSE 73; RESP 16; O2SAT 100
== END 2023-09-29 10:00 | disposition home or self-care (01) ==
PROVIDERS: PCP Emergency Medicine; Visit Provider Anesthesiology Pain Medicine
PROC: (CPT 64490; principal; 2023-09-29 09:30)
DX: M47.812 Spondylosis without myelopathy or radiculopathy, cervical region (principal); M54.2 Cervicalgia
CPT/HCPCS: 64490; 64491; 64492; 99199

== ENCOUNTER 2023-10-08 09:03 | Outpatient (CLI) | payer MEDICARE, SELFPAY ==
--- NOTE | ~2023-10-08 | CT_ITS ---
EXAMINATION: CT LE LT wo con DATE: 10/08/2023 08:57 INDICATION: Left knee primary osteoarthritis. Preoperative planning. TECHNIQUE: Computed tomography (CT) of the left lower extremity was performed without intravenous con trast. Automated exposure control and iterative reconstruction technique were employed. The dose-octavia th product was 1810.52 mGy-cm. COMPARISON: None FINDINGS: Bone alignment is normal. No fracture. There is mild left hip osteoarthritis. Left knee dem onstrates severe osteoarthritis of medial compartment, mild osteoarthritis of lateral compartment, an d moderate osteoarthritis of the left femoral compartment. There is a small left knee joint effusion. There are loose bodies in the knee joint posteriorly. There is a small Moser's cyst. There is an old healed fracture deformity of calcaneus. 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 There is moderate ankle joint osteoarthritis. IMPRESSION: 1. Severe left knee osteoarthritis. 2. Small left knee joint effusion with loose bodies. 3. Small Moser's cyst. Reviewed, dictated and finalized at location A. WARE SALES ASSISTANT
[2023-10-08 09:26] LABS: Hematocrit 47.2 % (42.0-52.0); Hemoglobin 15.2 g/dL (14.0-18.0)
[2023-10-08 09:48] LABS: Albumin Level 4.6 g/dL (3.5-5.1); Estimated Glomerular Filt Rate > 60; Glucose 113 mg/dL (65-110)
--- NOTE | 2023-10-08 10:44 | ECG_ITS ---
Measurements Intervals [place] Rate: 61 P: 49 IN: 212 QRS: -23 QRSD: 97 T: 32 QT: 394 QTc: 399 Interpretive Statements SINUS RHYTHM WITH FIRST DEGREE AV BLOCK BORDERLINE LEFT AXIS DEVIATION [QRS AXIS < -20] MODERATE VOLTAGE CRITERIA FOR LVH, CONSIDER NORMAL VARIANT [MEETS CRITERIA IN ONE OF: R(aVL), S(V1), R(V5), R(V5/V6)+S(V1)] COMPARED TO ECG 06/23/2019 14:52:29 FIRST DEGREE AV BLOCK NOW PRESENT Electronically Signed On 10-08-2023 14:05:27 STRUCTURAL FITTER by Carrol Mccoy M.D.
[2023-10-08 11:40] LABS: Hemoglobin A1C 7.4 % (<5.7)
[2023-10-08 12:09] LABS: Urine Cotinine NEGATIVE
== END 2023-10-08 09:04 | disposition home or self-care (01) ==
PROVIDERS: PCP Emergency Medicine; Visit Provider Orthopaedic Surgery
DX: M17.12 Unilateral primary osteoarthritis, left knee (principal); E11.59 Type 2 diabetes mellitus with other circulatory complications; I15.2 Hypertension secondary to endocrine disorders; G89.29 Other chronic pain; M54.2 Cervicalgia; M25.462 Effusion, left knee; M23.42 Loose body in knee, left knee; M71.22 Synovial cyst of popliteal space [Baker], left knee; I44.0 Atrioventricular block, first degree
CPT/HCPCS: 73700; 80307; 82040; 82565; 82947; 83036; 85014; 85018; 93005

== ENCOUNTER 2023-11-19 09:19 | Outpatient (CLI) | payer MEDICARE, SELFPAY ==
--- NOTE | ~2023-11-19 | NM_ITS ---
EXAMINATION: NM ashley stress w perfusion DATE: 11/19/2023 11:44 INDICATION: Other forms of dyspnea TECHNIQUE: Rest images were obtained following intravenous administration of 9.4 mCi Tc99m tetrofosmi n (Myoview). The patient was infused intravenously with Lexiscan (Regadenoson). Then, 29.4 mCi Tc99m tetrofosmin (Myoview) was administered intravenously, and stress images were obtained. Data was recon structed into short axis and horizontal and vertical long axis SPECT images. Gated SPECT images were also obtained. COMPARISON: None. FINDINGS: There is no definite reversible or fixed perfusion abnormality to suggest ischemia or infar ction. There is normal left ventricular chamber size, wall motion and ejection fraction. Left ventr icular ejection fraction measures >70%. IMPRESSION: 1. Normal myocardial perfusion at rest and during stress. 2. Left ventricular ejection fraction measuring >70%. Reviewed, dictated and finalized at location L.
--- NOTE | 2023-11-19 10:47 | EST_ITS ---
Patient Info Name: Jony Rice Age: 78 years : 1945 Gender: Male Ht: 68 in Wt: 160 lbs BSA: 1.87 m2 HR: 74 bpm BP: 167 / 84 mmHg Heart Rhythm: Sinus Rhythm Exam Date: 11/19/2023 11:00 AM Exam Location: Echo Lab Patient Status: Outpatient Admit Date: 11/19/2023 Staff Ordering Physician: Maciel Wen DO Attending Provider: Maciel Wen DO Exercise Technologist: Roxanne Fajardo CT Exercise Physician: Maciel Wen DO Exam Type: CA stress ashley w NM Study Info Indications R06.09 - Other forms of dyspnea A regadenoson stress test was performed. Summary 1. 1. Negative lexiscan stress test for ischemic ST changes by ECG criteria. 2. 2. Baseline hypertension. 3. 3. Nuclear scan to follow and will be reported separately. Please correlate with it. 4. 4. Patient informed of the above results. Protocol: Lexiscan Stress ECG Details Stage: REST Duration (min): 1 min : 45 sec HR (bpm): 72 SBP (mmHg): 167 DBP (mmHg): 84 Stage: REST Duration (min): 6 min : 19 sec HR (bpm): 72 SBP (mmHg): 167 DBP (mmHg): 84 Stage: STAGE 1 Duration (min): 0 min : 59 sec HR (bpm): 98 SBP (mmHg): 155 DBP (mmHg): 68 Stage: RECOVERY Duration (min): 1 min : 0 sec HR (bpm): 97 SBP (mmHg): 155 DBP (mmHg): 68 Stage: RECOVERY Duration (min): 2 min : 0 sec HR (bpm): 95 SBP (mmHg): 155 DBP (mmHg): 68 Stage: RECOVERY Duration (min): 2 min : 58 sec HR (bpm): 91 SBP (mmHg): 166 DBP (mmHg): 79 Rest HR: 72 bpm Peak HR: 99 bpm Rest Sys BP: 167 mmHg Peak Sys BP: 166 mmHg Max Pred HR: 142 bpm % Max Pred HR: 70 % Target HR: 121 bpm Max RPP: 16,434 bpm*mmHg Termination Reason: Completed protocol Cardiac Symptoms: Shortness of breath, Stomach discomfort Total Time: 1 min : 0 sec Rest Vicente BP: 84 mmHg Peak Vicente BP: 79 mmHg Total Dose: 0.4 mg Resting ECG Sinus rhythm. Stress ECG No ST changes. Arrhythmias None. Report Signatures
== END 2023-11-19 09:20 | disposition home or self-care (01) ==
PROVIDERS: PCP Emergency Medicine; Visit Provider Internal Medicine Cardiovascular Disease
DX: R06.09 Other forms of dyspnea (principal)
CPT/HCPCS: 78452; 93017; A9502; J2785

== ENCOUNTER 2023-11-24 05:51 | Day surgery (SDC) | payer MEDICARE, SELFPAY ==
[2023-11-12 11:26] VITALS: BMI 23.4
--- NOTE | ~2023-11-24 | XR_ITS ---
EXAMINATION: XR fluoroscopy no charge DATE: 11/24/2023 7:25 CDT INDICATION: LEFT C3,C4,C5 NERVE THERMAL RADIOFREQUENCY ABLATION . TECHNIQUE: 7 fluoroscopic images and 2 cine clips of 12 and 4 images of the cervical spine were obtai rush during left C3-C5 nerve thermal radiofrequency ablation, performed by Lul Bernal MD. I was not present during the procedure. Fluoroscopy exposure time was 25.6 seconds. Air Kerma 3.15 mGy. COMPARISON: None FINDINGS/IMPRESSION: Fluoroscopic documentation of left C3-C5 nerve thermal radiofrequency ablation. Please refer to the o perative note for complete procedural details. Reviewed, dictated and finalized at location K.
[2023-11-24 06:25] VITALS: BP 151/83; PULSE 78; RESP 14; TEMP 37.2; O2SAT 97
[2023-11-24 06:50] LABS: Glucose Point of Care 127 mg/dl (65-105)
--- NOTE | 2023-11-24 06:54 | WPDANESEPPF ---
Anes - Initial Pre Proc Eval Procedure: Operation Date: 11/24/23 07:30 Proposed Procedures p Left C3, C4, C5 Nerve Thermal Radiofrequency Ablation to Denervate Left C3-4, C4-5 Facet Joints under Fluoroscopic Guidance - Lul Bernal MD Date/Time: 11/24/23 06:54 Surgeon: Lul Bernal MD Pre Op Diagnosis: Cervical Spondylosis Patient Data Age: 78 Gender: M Height: 1.73 m Weight: 76 kg Last Vital Signs Temp 37.2 C 11/24/23 06:25 Pulse 78 11/24/23 06:25 Resp 14 11/24/23 06:25 BP 151/83 H 11/24/23 06:25 Pulse Ox 97 11/24/23 06:25 O2 Del Method Room Air 11/24/23 06:25 Allergies Allergy/AdvReac Type Severity Reaction Status Date / Time diclofenac AdvReac Mild Nausea and Verified 11/24/23 06:21 Vomiting Home Medications Medication Instructions Recorded Confirmed Type aspirin 81 mg tablet,delayed 81 mg PO DAILY 09/09/19 11/24/23 History release multivitamin 1 tablet PO DAILY 10/27/22 11/24/23 History levothyroxine 50 mcg tablet See Rx Instructions .Route 07/22/23 11/24/23 Rx .COMPLEX #100 tabs metformin 500 mg tablet,extended See Rx Instructions .Route .COMPLEX 08/05/23 11/24/23 History release 24 hr simvastatin 40 mg tablet See Rx Instructions .Route 09/15/23 11/24/23 Rx .COMPLEX #90 tabs meloxicam 15 mg tablet 15 mg PO DAILY #90 tabs 10/26/23 11/24/23 Rx Laboratory Tests 11/24/23 06:38 POC Capillary Glucose 127 H mg/dl (65-105) Patient hx anesthesia problems: none Family hx anesthesia problems: none Results Review: All pre-operative results and documents have been reviewed as part of the pre-operative evaluation. [facility] Past Medical History Medical History (Updated 11/24/23 @ 06:55 by Nasir Corona DO) BMI 25.0-25.9,adult Bone spur H/O facial injury Hyperlipidemia associated with type 2 diabetes mellitus Hypertension associated with diabetes Primary osteoarthritis of left knee Sacroiliitis Tendonitis of shoulder, right Type 2 diabetes mellitus with hyperglycemia Surgical History Surgical History History of repair of right rotator cuff (06/27/19) Family History Family History Father Family history of malignant neoplasm of stomach, Onset Age: 57 Family history of lung cancer, Onset Age: 57 Family history of malignant neoplasm of esophagus, Onset Age: 57 Family history of malignant neoplasm , Onset Age: 50 exposure to dioxin. Mother Family history of dementia Septicemia Social History Social History Smoking status: Never smoker Second hand tobacco smoke exposure: No Alcohol intake: never Substance use: never Substance use type: does not use Do You Feel Safe in your Home?: Yes Lack of Transportation: No Lack of Food: Never True Current Housing: I Have Housing Concerned About Future Housing: No Difficulty Paying Gas/Electric Bills: No Difficulty Paying for Meds: No Currently Unemployed: No Education: Trade/Vocational Certificate Difficulty w/ Childcare or Family Care: No Living arrangements: alone Occupation/Education: retired 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/education comments: [employer]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
[2023-11-24] MEDS: LACTATED RINGERS 1,000 ML 30 ML IV CONT (06:59)
--- NOTE | 2023-11-24 07:17 | PM.HPGS ---
History of Present Illness History of Present Illness Consent: Risks, benefits, and alternatives have been discussed and questions answered. Patient agrees to proceed with procedure. Chief complaint: Cervical Spondylosis Narrative: Jony Rice is a 78 year old male with chronic, recalcitrant and disabling cervical pain secondary to degenerative spondylosis with failure to respond to aggressive conservative measures including PT, oral and topical analgesics, opioid and nonopioid analgesics, rest, time and activity/behavioral modification over the past 1-2 years who presents for thermal radiofrequency ablation left C3, C4, C5 medial branches under fluoroscopic guidance. patient has had Priorconsistent response to series to cervical medial branch blocks with concordant pain relief within the past 6 months. [facility] Past Medical History Medical History (Updated 11/24/23 @ 06:55 by Nasir Corona DO) BMI 25.0-25.9,adult Bone spur H/O facial injury Hyperlipidemia associated with type 2 diabetes mellitus Hypertension associated with diabetes Primary osteoarthritis of left knee Sacroiliitis Tendonitis of shoulder, right Type 2 diabetes mellitus with hyperglycemia Surgical History Surgical History History of repair of right rotator cuff (06/27/19) Family History Family History Father Family history of malignant neoplasm of stomach, Onset Age: 57 Family history of lung cancer, Onset Age: 57 Family history of malignant neoplasm of esophagus, Onset Age: 57 Family history of malignant neoplasm , Onset Age: 50 exposure to dioxin. Mother Family history of dementia Septicemia Social History Social History Smoking status: Never smoker Second hand tobacco smoke exposure: No Alcohol intake: never Substance use: never Substance use type: does not use Do You Feel Safe in your Home?: Yes Lack of Transportation: No Lack of Food: Never True Current Housing: I Have Housing Concerned About Future Housing: No Difficulty Paying Gas/Electric Bills: No Difficulty Paying for Meds: No Currently Unemployed: No Education: Trade/Vocational Certificate Difficulty w/ Childcare or Family Care: No Living arrangements: alone Occupation/Education: retired 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/education comments: [employer]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 Gender identity (if verbalized by the patient): Male Spiritual care concerns: No Meds Home Medications and Allergies Home Medications Medication Instructions Recorded Confirmed Type aspirin 81 mg tablet,delayed 81 mg PO DAILY 09/09/19 11/24/23 History release multivitamin 1 tablet PO DAILY 10/27/22 11/24/23 History levothyroxine 50 mcg tablet See Rx Instructions .Route 07/22/23 11/24/23 Rx .COMPLEX #100 tabs metformin 500 mg tablet,extended See Rx Instructions .Route .COMPLEX 08/05/23 11/24/23 History release 24 hr simvastatin 40 mg tablet See Rx Instructions .Route 09/15/23 11/24/23 Rx .COMPLEX #90 tabs meloxicam 15 mg tablet 15 mg PO DAILY #90 tabs 10/26/23 11/24/23 Rx Allergies Allergy/AdvReac Type Severity Reaction Status Date / Time diclofenac AdvReac Mild Nausea and Verified 11/24/23 06:21 Vomiting Vital Signs Vital Signs - 24 hr 11/24/23 06:25 Temperature 99 F Pulse Rate 78 Respiratory Rate 14 Blood Pressure 151/83 H Pulse Oximetry 97 Oxygen Delivery Room Air Exam Narrative: The patient's physical exam is essentially unchanged from prior examination on 10/20/2023. Specifically, patient demonstrates normal lung capacity, tidal volume and respiratory rate without wheezes, crackles, rales or rubs. Heart rate and rhythm are regular without murmurs, gallops or rubs. No JVD. Pulses 2+ globally without increasing peripheral
--- NOTE | 2023-11-24 07:21 | WPDHPUPDATE1 ---
History and Physical Update Update Date/Time: 11/24/23 07:21 History and Physical has been reviewed, including an updated exam of the patient. There are NO changes in the patient's condition. Risks, benefits, and alternatives have been discussed and questions answered. Patient agrees to proceed with procedure.
--- NOTE | 2023-11-24 07:21 | W.PM.PROC2 ---
Procedure Note - Detailed Date of Procedure 11/24/23 Pre-op Diagnosis Cervical Spondylosis Post-op Diagnosis Same Procedure Performed Left C3, C4, C5 medial branch thermal radiofrequency ablation under fluoroscopic guidance. Surgeon Lul Bernal MD Anesthesia MAC and Local Description of Procedure INFORMED CONSENT: Risks, benefits and alternatives to the procedure were discussed in detail with the patient who expressed explicit understanding and consent to proceed. Patient was informed verbally and in written form regarding the risks associated with the procedure including the low risk of serious infection, bleeding/bruising, allergic reaction, nerve or organ injury, paralysis, procedural site pain or discomfort, worsening pain and/or mobility, failure to treat and/or disfigurement. The patient expressed explicit understanding and consent to proceed. All materials required for the procedure were available prior to procedure start. Site and side was marked prior to procedure and confirmed in the presence of the patient. PROCEDURE IN DETAIL: The patient was brought to the procedural suite and placed in the prone position with head stabilized with a ProneView pillow. Patient was made comfortable with use of pillows under the head/chest, hips and ankles. Skin overlying the injection site on the affected side(s) was prepared broadly with ChloraPrep applicator and draped in a sterile manner. Aseptic technique was used throughout. The endplates of the vertebral bodies at the site(s) of interest were aligned in the AP view. Ipsilateral oblique angulation was utilized to optimize visualization of the pars interarticularis at each target site. Local anesthesia was established by infiltration with approximately 5 mL of 1% lidocaine via a 1-1/2 inch 27-gauge needle. An 18-gauge 100mm RF needle with curved 10mm active tip was advanced in the AP view until the needle tip contacted the periosteum of the pars interarticularis at the target site, Left C3 parallel to the course of the targeted branch. Lateral view was utilized to adjust and confirm the appropriate placement of the needle tip just anterior to the center point of the interarticularis, bisecting the distance between adjacent joint spaces. The appropriately-sized RF cannula was inserted into the RF needle and motor stimulation performed with no subjective or objective evidence of recruited muscle activity with stimulation up to 3.0 volts at a frequency of 2Hz. 0.5 mL solution of 2.0% PF lidocaine was injected after negative aspiration. Grounding electrode in place and functioning. After a 90s pause, lesioning was performed to 90 degrees centigrade for 90s ensuring lack of symptoms in the extremity throughout. Needle was withdrawn approcimately 1-2 mm and rotated 180 degrees. Lesioning repeated in a similar manner. Patient tolerated this well. No parasthesias were elicited. Needle was removed completely intact without difficulty. The same procedure was repeated for all intended levels/ structures on the ipsilateral side, left C4, C5 with identical methodology, modified to compensate for new location, with similar results and no evidence of complication. Patient tolerated this well. Images were saved and documented in the patient chart. Patient's skin was cleaned and sterile bandage applied. The patient tolerated the procedure well. The patient was transported to the recovery area in stable condition where they were observed for an appropriate amount of time prior to discharge, without evidence of complication. The patient was instructed to avoid excessive activity for the next 48 hours, including overhead work, reaching and device/computer usage. Showers only for 48 hours. They were instructed not to drive or operate heavy machinery for 24 hours. They are to monitor for severe headaches, fevers, chills, night sweats, erythema/swelling at the site or any other signs of infection, bleeding/bruising, bowel or bladd
[2023-11-24] MEDS: LIDOCAINE HCL 2% PF INJ 5 ML VIAL INFILTRATE (07:37)
[2023-11-24] MEDS: LIDOCAINE HCL 1% PF INJ 5 ML VIAL XX (07:55)
[2023-11-24 08:16] VITALS: BP 149/77; PULSE 74; RESP 16; O2SAT 99
[2023-11-24 08:34] VITALS: BP 144/110; PULSE 70; RESP 16; O2SAT 100
[2023-11-24 08:43] VITALS: BP 163/83; PULSE 74; RESP 16; O2SAT 100
--- NOTE | 2023-11-24 09:15 | WPDANESPN ---
Anes - Prog Note Post-Op Date/Time: 11/24/23 09:15 Cardiovascular status: normal Respiratory status: normal Airway patency: baseline Mental status: baseline Post-Op hydration status: normal Vital Signs: Last Vital Signs Temp 37.2 C 11/24/23 06:25 Pulse 74 11/24/23 08:43 Resp 16 11/24/23 08:43 BP 163/83 H 11/24/23 08:43 Pulse Ox 100 11/24/23 08:43 O2 Del Method Room Air 11/24/23 08:43 Pain Score (VAS): 0 I/O: Intake & Output 11/23/23 11/24/23 11/24/23 23:59 07:59 15:59 Intake Total 0 Balance 0 11/24/23 06:38 POC Capillary Glucose 127 H Post-procedural complaints: none Patient Feedback: Patient satisfied with anesthetic care. Other Findings: Patient vital signs back to baseline. Patient denies nausea and vomiting. Patient's pain under control. Patient OK for discharge.
== END 2023-11-24 08:49 | disposition home or self-care (01) ==
PROVIDERS: PCP Emergency Medicine; Visit Provider Anesthesiology Pain Medicine
PROC: (CPT 64633; principal; 2023-11-24 07:30)
DX: M47.812 Spondylosis without myelopathy or radiculopathy, cervical region (principal)
CPT/HCPCS: 64633; 64634; 99199

== ENCOUNTER 2023-11-30 05:43 | Emergency (ER) | payer MEDICARE, SELFPAY ==
--- NOTE | ~2023-11-30 | CT_ITS ---
EXAMINATION: CT abdomen pelvis w con DATE: 11/30/2023 06:39 INDICATION: Right lower quadrant abdominal pain. TECHNIQUE: Computed tomography (CT) of the abdomen and pelvis was performed with 100 mL Omnipaque 350 intravenous contrast. Automated exposure control and iterative reconstruction technique were employe d. The dose-length product was 508.35 mGy-cm. COMPARISON: None. FINDINGS: The visualized portions of the lung bases demonstrate mild atelectasis. No pleural effusion . The heart size is normal. No pericardial effusion. There is a small sliding hiatal hernia. Calcific ations in the liver and spleen are consistent with old granulomatous disease. There are gallstones in the gallbladder, which is normal in size. There is a 4.7 x 2.1 cm cystic lesion of the body of pancr eas with likely communication with the pancreatic duct. There is a peripheral calcification. The panc reatic duct is mildly dilated to 6 mm. The adrenal glands are normal. There are approximately 3 stone s in right kidney measuring up to 3 mm. There is mild right hydronephrosis. There is a delayed right- sided contrast nephrogram. There is a 5 mm stone in proximal right ureter. The prostate is mildly enl arged. There is diverticulosis of the colon without evidence of diverticulitis. The appendix is marisol l. There is an umbilical hernia containing fat. There are no pathologically enlarged lymph nodes. The re is no free intraperitoneal fluid. There is lumbar dextroscoliosis and severe spondylosis. IMPRESSION: 1. 5 mm stone in proximal right ureter with mild right hydronephrosis. 2. Nonobstructing kidney stones. 3. 4.7 cm cystic lesion of the body of pancreas. The differential diagnosis includes pseudocyst, intr aductal papillary mucinous neoplasm (IPMN), mucinous cystic neoplasm (MCN), serous cystadenoma, and n euroendocrine tumor. Surgical consultation is recommended. Reviewed, dictated and finalized at location E. IMPRESSION: 1. 5 mm stone in proximal right ureter with mild right hydronephrosis. 2. Nonobstructing kidney stones. 3. 4.7 cm cystic lesion of the body of pancreas. The differential diagnosis inc ludes pseudocyst, intraductal papillary mucinous neoplasm (IPMN), mucinous cyst ic neoplasm (MCN), serous cystadenoma, and neuroendocrine tumor. Surgical consu ltation is recommended.
[2023-11-30 05:44] VITALS: BP 159/74; PULSE 90; RESP 18; TEMP 36.5; O2SAT 100
[2023-11-30 06:01] VITALS: BP 144/78; PULSE 81; RESP 19; O2SAT 100
[2023-11-30 06:07] LABS: Basophils Percent Auto 0.2 % (0.2-1.2); Eosinophils Absolute Auto 0.1 K/mm3 (0-0.3); Eosinophils Percent Auto 0.5 % (0-4.4); Hematocrit 49.8 % (42.0-52.0); Hemoglobin 16.3 g/dL (14.0-18.0); Immature Granulocyte Absolute 0.04 K/mm3 (0.00-0.031); Immature Granulocyte Percent A 0.3 % (0-0.5); Lymphocytes Absolute Auto 1.65 K/mm3 (0.9-3.2); Mean Corpuscular HGB Conc 32.7 g/dl (32-36); Mean Corpuscular Hemoglobin 31.2 pg (26-34); Mean Corpuscular Volume 95.4 fl (80-100); Mean Platelet Volume 8.9 fl (7.4-10.4); Monocytes Absolute Auto 1.1 K/mm3 (0.1-0.6); Monocytes Percent Auto 9.1 % (2.6-8.5); Neutrophils Percent Auto 75.9 % (45.5-73.1); Platelet Count Result 274 k/mm3 (150-375); Red Blood Count 5.22 M/mm3 (4.6-6.20); Red Cell Distribution Width 12.4 % (11.5-14.5); White Blood Count 11.8 K/mm3 (4.5-10.0)
[2023-11-30 06:16] VITALS: BP 144/89; RESP 22; O2SAT 98
[2023-11-30 06:16] LABS: Alanine Aminotransferase 21 U/L (6-50); Albumin Level 4.9 g/dL (3.5-5.1); Alkaline Phosphatase 82 U/L (38-126); Anion Gap 10 mmol/L (8-16); Aspartate Amino Transferase 26 U/L (17-59); Bilirubin,Total 1.6 mg/dL (0.2-1.3); Blood Urea Nitrogen 20 mg/dL (9-20); Carbon Dioxide 28 mmol/L (22-30); Chloride 100 mmol/L (98-107); Estimated CRCL calculation 33 ml/min; Estimated Glomerular Filt Rate 42; Glucose 117 mg/dL (65-110); Lipase 59 U/L (23-300); Potassium 3.7 mmol/L (3.4-5.0); Sodium 138 mmol/L (137-145)
[2023-11-30] MEDS: MORPHINE SULFATE (*CRX) 2 MG/ML INJ IV PUSH (06:21)
[2023-11-30] MEDS: ONDANSETRON INJ 4 MG/2 ML VIAL IV PUSH (06:21)
--- NOTE | 2023-11-30 06:27 | PC.NURSE ---
Patient taken to CT via w/c at this time.
--- NOTE | 2023-11-30 06:42 | ED.ABDPAIN ---
HPI - Abdominal Pain General Chief Complaint: Abdominal Pain Stated Complaint: abdominal pain Time Seen by Provider: 11/30/23 06:04 History of Present Illness HPI narrative: Patient is 78-year-old male who presents to the emergency department this morning complaining of right mid abdominal pain. Patient states that symptoms started Thursday with nausea and vomiting. Patient states that he vomited most of the day Thursday and by Thursday evening the vomiting did subside. Patient then started to have right-sided periumbilical abdominal pain that does not radiate. Patient admits that the pain is colicky and does come and go but mild discomfort so was present. Patient denies any urinary symptoms including dysuria or hematuria, he denies any diarrhea and any back pain. Patient admits that he does have a history of inflammatory bowel disease and normally has 3 bowel movements a day, however, the last 2 days he has only had 1 bowel movement per day which is very unusual for him. He denies any additional symptoms including chest pain or shortness of breath, any fevers or chills. There are no other modifying, alleviating, or precipitating factors at this time. Related Data Home Medications Medication Instructions Recorded Confirmed aspirin 81 mg tablet,delayed 81 mg PO DAILY 09/09/19 11/24/23 release multivitamin 1 tablet PO DAILY 10/27/22 11/24/23 Allergies Allergy/AdvReac Type Severity Reaction Status Date / Time diclofenac AdvReac Mild Nausea and Verified 11/30/23 05:46 Vomiting Review of Systems Review of Systems: All systems are reviewed and are negative unless stated otherwise in the HPI. [facility] Past Medical History Medical History BMI 25.0-25.9,adult Bone spur H/O facial injury Hyperlipidemia associated with type 2 diabetes mellitus Hypertension associated with diabetes Primary osteoarthritis of left knee Sacroiliitis Tendonitis of shoulder, right Type 2 diabetes mellitus with hyperglycemia Surgical History Surgical History History of repair of right rotator cuff (06/27/19) Family History Family History Father Family history of malignant neoplasm of stomach, Onset Age: 57 Family history of lung cancer, Onset Age: 57 Family history of malignant neoplasm of esophagus, Onset Age: 57 Family history of malignant neoplasm , Onset Age: 50 exposure to dioxin. Mother Family history of dementia Septicemia Social History Social History Smoking status: Never smoker Second hand tobacco smoke exposure: No Alcohol intake: never Substance use: never Substance use type: does not use Do You Feel Safe in your Home?: Yes Lack of Transportation: No Lack of Food: Never True Current Housing: I Have Housing Concerned About Future Housing: No Difficulty Paying Gas/Electric Bills: No Difficulty Paying for Meds: No Currently Unemployed: No Education: Trade/Vocational Certificate Difficulty w/ Childcare or Family Care: No Living arrangements: alone Occupation/Education: retired 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 HEENT: PERRL, no rhinorrhea, no post nasal drip, oropharynx clear. Neck: Trachea midline, no JVD, no lymphadenopathy. Cardiovascular: Regular rate and rhythm, no murmurs, rubs or gallops, no peripheral edema. Respiratory: Clear to auscultation bilaterally, no tachypnea, no wheezing, no rhonchi, no rubs, no respiratory distress. Abdomen: Soft, tenderness to palpation over the right mid abdominal region, nondistended, no rebound
[2023-11-30 06:43] LABS: Lactic Acid Reflex 1.5 mmol/L (0.7-2.0)
[2023-11-30 06:46] VITALS: BP 146/71; PULSE 82; RESP 19; TEMP 36.6; O2SAT 95
[2023-11-30 07:15] VITALS: PULSE 83; RESP 19; O2SAT 97
[2023-11-30] MEDS: KETOROLAC 15 MG/ML VIAL (*BKC) IV PUSH (07:20)
[2023-11-30 07:30] VITALS: BP 142/80; PULSE 80; RESP 16; TEMP 36.6; O2SAT 98
[2023-11-30 07:40] LABS: Appearance Urine Clear (Clear); Bacteria Urine None Seen /hpf; Bilirubin Urine 1+ (Negative); Blood Urine 1+ (Negative); Color Urine Yellow (Yellow); Glucose Urine UA Negative (Negative); Ketones Urine 3+ (Negative); Nitrate Urine Negative (Negative); Non Pathogenic Casts 0-2; Protein Urine Negative (Negative); Squamous Epithelial Cell Urine None Seen /hpf (Few); WBC Urine 0-5 /hpf (0-3); pH Urine 5.5 (5.0-8.0)
[2023-11-30 07:41] LABS: Add Urine Microscopic? YES; Leukocyte Esterase Ur Negative LEU/UL (Negative); Urobilinogen Urine 0.2 mg/dL (0.2-1.0)
[2023-11-30] MEDS: SODIUM CHLORIDE 0.9% IV 1,000 ML 999 ML IV CONT (07:49)
== END 2023-11-30 08:20 | disposition home or self-care (01) ==
PROVIDERS: Emergency Provider Emergency Medicine; PCP Emergency Medicine
DX: N13.2 Hydronephrosis with renal and ureteral calculous obstruction (principal); N17.9 Acute kidney failure, unspecified; E86.0 Dehydration; K86.2 Cyst of pancreas; E11.69 Type 2 diabetes mellitus with other specified complication; E78.5 Hyperlipidemia, unspecified; I15.2 Hypertension secondary to endocrine disorders; Z79.82 Long term (current) use of aspirin; Z79.84 Long term (current) use of oral hypoglycemic drugs
CPT/HCPCS: 36415; 74177; 80053; 81001; 83605; 83690; 85025; 96361; 96374; 96375; 99284; J1885; J2270; J2405; J7030; Q9967

== ENCOUNTER 2023-12-22 09:42 | Outpatient (CLI) | payer MEDICARE, SELFPAY ==
--- NOTE | ~2023-12-22 | XR_ITS ---
Supine and upright views of the abdomen Clinical history: Right ureteral stone Findings: Bowel gas pattern is nonspecific. No evidence for obstruction or free air. Questionable 4 m m distal right ureteral stone versus calcified pelvic phleboliths. Osseous structures are intact. Impression: Questionable 4 mm distal right ureteral stone versus calcified pelvic phleboliths. Correlate with pat ient's symptomatology. Reviewed, dictated and finalized at [facility]. Impression: Questionable 4 mm distal right ureteral stone versus calcified pelvic phlebolit hs. Correlate with patient's symptomatology.
== END 2023-12-22 09:43 ==
LOC: MICIMG 09:44
PROVIDERS: PCP Urology; Visit Provider Urology
DX: N20.1 Calculus of ureter (principal)
CPT/HCPCS: 74018

== ENCOUNTER 2024-01-07 00:41 | Day surgery (SDC) | payer MEDICARE, SELFPAY ==
[2024-01-04 15:45] VITALS: BMI 24.5
--- NOTE | 2024-01-04 16:04 | PC.NURSE ---
Report to the Outpatient Waiting Room, entrance under the green pavilion located off [facility], at time __6:00AM on date __01/07/24 . Planned Procedure Time: ___7:30AM . Time changes happen often and if your time is changed the preop area will call you the afternoon before. - You and your visitor will be asked to self-screen and do not enter if you have any COVID symptoms. - A mask is optional within the hospital at this time. Patients may have clear liquids (water, carbonated beverages, clear teas, apple juice) until 3 hours prior to surgery with a maximum of 20 ounces. - No food from midnight until time of surgery. Take the following medications with a SIP of water the morning of surgery: LEVOTHYROXINE DO NOT STOP ANY OF YOUR OTHER PRESCRIPTION MEDICATIONS PRIOR TO SURGERY ?EXCEPT THE FOLLOWING Medications to discontinue per physician ___HOLD ASPIRIN, MELOXICAM AND ALL VITAMINS/SUPPLEMENTS 7 DAYS PRE-OP PER DR ALFONSO_ Date to take last dose 12/30/23 Please no make-up, nail amharic, hairspray, perfume, deodorant, or body powder the day of surgery. No jewelry (including any body piercings) or valuables the day of surgery, leave them at home. Please take a shower or bath the night before, or the morning of, surgery with an antibacterial soap. Wear comfortable, loose fitting clothing. Children are encouraged to wear pajamas. - Jewelry must be removed prior to entering the operating room. Rings and piercings that are not removed may be cut off. - The hospital will not accept responsibility for valuables. - Please leave all valuables, including medications, at home the day of surgery. If you are going home after surgery, a licensed dedicated regional driver must drive you home. - NO public transportation without another adult if you receive anesthesia. - We recommend that an adult stay with you for 24 hours following discharge. - We also recommend that you do not drive, make important decision, drink alcoholic beverages, or take any drugs that were not prescribed by your health care provider for at least 24 hours after your discharge time. For Pediatric surgeries, we recommend two adults accompany the child home. Follow any additional instructions given to you from your surgeon. If you or anyone in your household have experienced Covid symptoms in the past week, please notify your surgeon or the nurse liaison at the phone number below for possible testing. Telephone instructions given to ____PATIENT and asked if any additional questions and then verbalized understanding. Patient advised to call surgeon office or pre surgery nurse liaison [phone] if any additional questions.
[2024-01-07] VITALS (8 sets, daily range): BP systolic 119–152; BP diastolic 70–86; PULSE 53–75; RESP 12–20; TEMP 35.9–36.6; O2SAT 97–100
--- NOTE | ~2024-01-07 | XR_ITS ---
XR fluoroscopy no charge Indication: Stone extraction TECHNIQUE: Fluoroscopy used during Stone extraction performed by [Alex Gilliam MD] on 10/2023. 12 seconds of fluoroscopy with 3 fluoroscopic images captured. FINDINGS: Correlate with procedure note. IMPRESSION: Fluoroscopy used during Stone extraction. Please refer to procedural report. Reviewed, dictated and finalized at location B. IMPRESSION: Fluoroscopy used during Stone extraction. Please refer to procedura l report.
[2024-01-07 07:32] LABS: Glucose Point of Care 121 mg/dl (65-105)
[2024-01-07] MEDS: LACTATED RINGERS 1,000 ML 30 ML IV CONT (07:45)
--- NOTE | 2024-01-07 08:20 | WPDANESEPPF ---
Anes - Initial Pre Proc Eval Procedure: Operation Date: 01/07/24 07:30 Proposed Procedures p Cystoscopy, Right Ureteroscopy, Right Stone Extraction, Possible Right Retrograde Pyelogram, Possible Right Stent Placement, Possible Holmium Laser - Alex Gilliam MD Date/Time: 01/07/24 08:20 Surgeon: Alex Gilliam MD Pre Op Diagnosis: right ureteral stone Patient Data Age: 78 Gender: M Height: 1.73 m Weight: 73 kg Allergies Allergy/AdvReac Type Severity Reaction Status Date / Time diclofenac AdvReac Mild Nausea and Verified 01/04/24 15:41 Vomiting Home Medications Medication Instructions Recorded Confirmed Type aspirin 81 mg tablet,delayed 81 mg PO DAILY 09/09/19 01/04/24 History release multivitamin 1 tablet PO DAILY 10/27/22 01/04/24 History simvastatin 40 mg tablet See Rx Instructions .Route 09/15/23 01/04/24 Rx .COMPLEX #90 tabs meloxicam 15 mg tablet 15 mg PO DAILY #90 tabs 10/26/23 01/04/24 Rx levothyroxine 50 mcg tablet 50 mcg PO QAM 01/04/24 01/04/24 History metformin 750 mg tablet,extended 750 mg PO BID 01/04/24 01/04/24 History release 24 hr Laboratory Tests 01/07/24 07:27 POC Capillary Glucose 121 H mg/dl (65-105) Patient hx anesthesia problems: none Family hx anesthesia problems: none Results Review: All pre-operative results and documents have been reviewed as part of the pre-operative evaluation. [facility] Past Medical History Medical History BMI 25.0-25.9,adult Bone spur H/O facial injury Hyperlipidemia associated with type 2 diabetes mellitus Hypertension associated with diabetes Primary osteoarthritis of left knee Sacroiliitis Tendonitis of shoulder, right Type 2 diabetes mellitus with hyperglycemia Surgical History Surgical History History of repair of right rotator cuff (06/27/19) Family History Family History Father Family history of malignant neoplasm of stomach, Onset Age: 57 Family history of lung cancer, Onset Age: 57 Family history of malignant neoplasm of esophagus, Onset Age: 57 Family history of malignant neoplasm , Onset Age: 50 exposure to dioxin. Mother Family history of dementia Septicemia Social History Social History Smoking status: Never smoker Second hand tobacco smoke exposure: No Alcohol intake: current Substance use: never Substance use type: does not use Do You Feel Safe in your Home?: Yes Lack of Transportation: No Lack of Food: Never True Current Housing: I Have Housing Concerned About Future Housing: No Difficulty Paying Gas/Electric Bills: No Difficulty Paying for Meds: No Currently Unemployed: No Education: Trade/Vocational Certificate Difficulty w/ Childcare or Family Care: No Living arrangements: with family Additional living arrangements comments: DAUGHTER Occupation/Education: retired 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 Informed Consent: The patient's anesthetic plan and its attendant risks and benefits were discussed with the patient/family/POA. Questions were solicited and answers provided to the sati
--- NOTE | 2024-01-07 08:43 | WPDHPUPDATE1 ---
History and Physical Update Update Date/Time: 01/07/24 08:43 History and Physical has been reviewed, including an updated exam of the patient. There are NO changes in the patient's condition. Risks, benefits, and alternatives have been discussed and questions answered. Patient agrees to proceed with procedure.
[2024-01-07] MEDS: ceFAZolin 2 GM/D5W 50 ML 2 GM/50 ML BAG IVPB (08:45)
[2024-01-07] MEDS: LIDOCAINE HCL 2% GEL UROJET 10 ML PKG MUCOUS MEM (08:59)
--- NOTE | 2024-01-07 08:59 | W.PM.PROC2 ---
Procedure Note - Detailed Date of Procedure 01/07/24 Pre-op Diagnosis Right ureteral stone Post-op Diagnosis Same Procedure Performed Cystoscopy, right ureteroscopy with stone extraction Surgeon Alex Gilliam MD Anesthesia General Description of Procedure patient brought to the operative suite where he was prepped and draped in routine sterile fashion while in dorsal lithotomy position and after the uneventful induction of a general anesthetic. Cystoscopy was undertaken with a 19 F rigid cystoscope. There was no urethral stricture. He has lateral lobe hyperplasia with a very small median lobe. Bladder mucosa is normal the hyperemia and there was no intravesical neoplasm. Prostatic urethra was 2.5 cm. The bladder was slightly trabeculated. A 0.035 in glidewire was advanced in his right renal pelvis. Distal ureter was dilated with an 8 F 10 F dilator. distal ureteroscopy undertaken with a semi-rigid ureteral scope. His ureteral stone is extracted with a 1.9 cm disposable stone basket with ease. Because of the ease of this manipulation I opted not to place ureteral stent. Scopes/wires removed he was taken recovery room good condition. Drains No Packing No Pathology None sent Complications No immediate complications Condition Stable
[2024-01-07 09:10] LABS: Glucose Point of Care 134 mg/dl (65-105)
== END 2024-01-07 10:40 | disposition home or self-care (01) ==
PROVIDERS: PCP Emergency Medicine; Visit Provider Urology
PROC: (CPT 52352; principal; 2024-01-07 07:30)
DX: N20.1 Calculus of ureter (principal); N40.0 Benign prostatic hyperplasia without lower urinary tract symptoms; I10 Essential (primary) hypertension; E78.5 Hyperlipidemia, unspecified; E11.65 Type 2 diabetes mellitus with hyperglycemia; Z79.82 Long term (current) use of aspirin; Z79.84 Long term (current) use of oral hypoglycemic drugs; Z98.890 Other specified postprocedural states; Z80.0 Family history of malignant neoplasm of digestive organs; Z80.1 Family history of malignant neoplasm of trachea, bronchus and lung
CPT/HCPCS: 52352; 82365; 82948; 88300; 99199; C1769; J0690; J1100; J2405; J2704; J3010; J7120

== ENCOUNTER 2024-01-19 07:18 | Day surgery (SDC) | payer MEDICARE, SELFPAY ==
--- NOTE | ~2024-01-19 | XR_ITS ---
EXAMINATION: XR fluoroscopy no charge DATE: 01/19/2024 8:45 CDT INDICATION: RIGHT L3-4,L4-5 TRANSFORAMINAL EPIDURAL STEROID INJ . TECHNIQUE: 5 fluoroscopic images and 3 cine clips of the lumbar spine were obtained during right L3-4 and L4-5 transforaminal epidural steroid injection, performed by Lul Bernal MD. I was not pres ent during the procedure. Fluoroscopy exposure time was 17.1 seconds. Air Kerma 4.22 mGy. COMPARISON: None FINDINGS/IMPRESSION: Fluoroscopic documentation of right L3-4 and L4-5 transforaminal epidural steroid injection. Please r efer to the operative note for complete procedural details . Reviewed, dictated and finalized at location K.
--- NOTE | 2024-01-19 05:55 | WPDHPUPDATE1 ---
History and Physical Update Update Date/Time: 01/19/24 05:55 History and Physical has been reviewed, including an updated exam of the patient. There are NO changes in the patient's condition. Risks, benefits, and alternatives have been discussed and questions answered. Patient agrees to proceed with procedure.
--- NOTE | 2024-01-19 05:56 | W.PM.PROC2 ---
Procedure Note - Detailed Date of Procedure 01/19/24 Pre-op Diagnosis Lumbar Radiculopathy, Chronic Pain Post-op Diagnosis Same Procedure Performed right Lumbar Transforaminal Epidural Steroid Injection under Fluoroscopic Guidance and with Contrast Control at L3-4, L4-5. Surgeon Lul Bernal MD Anesthesia Local Description of Procedure INFORMED CONSENT: Risks, benefits and alternatives to the procedure were discussed in detail with the patient who expressed explicit understanding and consent to proceed. Patient was informed verbally and in written form regarding the risks associated with the procedure including the low risk of serious infection, bleeding/bruising, allergic reaction, nerve or organ injury, paralysis, procedural site pain or discomfort, worsening pain and/or mobility, failure to treat and/or disfigurement. The patient expressed explicit understanding and consent to proceed. All materials required for the procedure were available prior to procedure start. Site and side was marked prior to procedure and confirmed in the presence of the patient. PROCEDURE IN DETAIL: The patient was brought to the procedural suite and placed in the prone position. Patient was made comfortable with use of pillows under the head/chest, hips and ankles. Skin overlying the injection site was prepared broadly with ChloraPrep applicator and draped in a sterile manner. Aseptic technique was employed throughout. The endplates of the vertebral body at the site of interest were aligned in the AP view. Ipsilateral oblique angulation was utilized to better visualize the neuroforamen of interest. Local anesthesia was established by infiltration with approximately 5 mL of 2% lidocaine via a 1-1/2 inch 27-gauge needle. A 22-gauge 3.5 inch [place] (pencil point) spinal needle was advanced until the needle approached the 6 o'clock position on the pedicle just superior to the exiting nerve root. on the right at L4-5. Lateral view was utilized to confirm appropriate position of the needle tip within the superior and posterior portion of the respective foramen. In an AP view, 1 mL of Omnipaque 300 contrast medium was injected after negative aspiration for CSF, blood or other bodily fluid, showing appropriate neurogram without evidence of intravascular or intrathecal spread of contrast. Digital subtraction imaging was used with an additional 1ml of the same contrast medium to confirm absence of intravascular contrast spread. A 1mL solution containing 3 mg of betamethasone was injected after negative repeat aspiration. Appropriate spread of the injectate was confirmed with washout of previously injected contrast. No parasthesias were elicited. Needle was removed completely intact without difficulty. The same exact procedure was repeated for all remaining levels on the ipsilateral side, right L3-4 neural foramen, modified as necessary to accommodate for the new target location with identical findings and results and no evidence of complication. Images were saved and documented in the patient chart. Patient's skin was cleaned and sterile bandage applied. The patient tolerated the procedure well. The patient was transported to the recovery area in stable condition where they were observed for an appropriate amount of time prior to discharge, without evidence of complication. The patient was instructed to avoid excessive activity for the next 48 hours, including climbing and frequent use of stairs. Showers only for 48 hours. They were instructed not to drive or operate heavy machinery for 24 hours. They are to monitor for severe headaches, fevers, chills, night sweats, erythema/swelling at the site or any other signs of infection, bleeding/bruising, bowel or bladder changes as well as new pain, weakness or numbness in the upper or lower extremity. Should they notice these changes, they are instructed to call our office immediately or report directly to the nearest Emergency Department if no
[2024-01-19 08:10] VITALS: BP 144/82; PULSE 76; RESP 16; TEMP 36.9; O2SAT 97
[2024-01-19 08:22] VITALS: BMI 24.3
[2024-01-19 08:50] VITALS: BP 143/78; PULSE 74; RESP 15; O2SAT 97
[2024-01-19 08:55] VITALS: BP 139/76; PULSE 73; RESP 16; O2SAT 95
[2024-01-19 09:00] VITALS: BP 132/75; PULSE 73; RESP 16; O2SAT 95
[2024-01-19 09:05] VITALS: BP 138/74; PULSE 74; RESP 15; O2SAT 95
[2024-01-19] MEDS: LIDOCAINE HCL 1% PF INJ 5 ML VIAL 3 ML INFILTRATE (09:05)
[2024-01-19] MEDS: LIDOCAINE HCL 2% PF INJ 5 ML VIAL 1 ML INFILTRATE (09:06)
[2024-01-19] MEDS: BETAMETHASONE SODIUM PHOSPHATE PF INJ 6 MG/ML VIAL INFILTRATE (09:06)
[2024-01-19 09:10] VITALS: BP 138/78; PULSE 74; RESP 14; O2SAT 98
== END 2024-01-19 09:20 | disposition home or self-care (01) ==
PROVIDERS: PCP Emergency Medicine; Visit Provider Anesthesiology Pain Medicine
PROC: (CPT 64483; principal; 2024-01-19 09:00)
DX: M54.16 Radiculopathy, lumbar region (principal); G89.4 Chronic pain syndrome
CPT/HCPCS: 64483; 64484; 99199

== ENCOUNTER 2024-01-20 10:05 | Outpatient (CLI) | payer MEDICARE, SELFPAY ==
--- NOTE | ~2024-01-20 | XR_ITS ---
Right Knee Technique: AP, lateral, and sunrise views were obtained. Clinical History: Pain Findings: No fracture or dislocation is seen. Moderate tricompartmental osteoarthritis is present. Th ere is collateral compartment narrowing. Soft tissues are unremarkable. No joint effusion is seen. Impression: Moderate tricompartmental osteoarthritis, with lateral compartment narrowing. Reviewed, dictated and finalized at location . Impression: Moderate tricompartmental osteoarthritis, with lateral compartment narrowing.
--- NOTE | ~2024-01-20 | XR_ITS ---
Left Knee Technique: AP, lateral, and sunrise views were obtained. Clinical History: Osteoporosis arthritis Findings: No fracture or dislocation is seen. There is medial compartment narrowing. There is mild tr icompartmental degenerative spurring. Probable loose body posteriorly measuring 9 mm.. Soft tissues a re unremarkable. No joint effusion is seen. Impression: Medial compartment narrowing with mild bicompartmental degenerative spurring. Probable 9 mm posterior loose body. Reviewed, dictated and finalized at location . Impression: Medial compartment narrowing with mild bicompartmental degenerative spurring. Probable 9 mm posterior loose body.
== END 2024-01-20 10:06 | disposition home or self-care (01) ==
LOC: ANHIMG 10:08
PROVIDERS: PCP Emergency Medicine; Visit Provider Orthopaedic Surgery
DX: M17.0 Bilateral primary osteoarthritis of knee (principal)
CPT/HCPCS: 73564

== ENCOUNTER 2024-05-06 09:50 | Outpatient (CLI) | payer MEDICARE, SELFPAY ==
[2024-05-06 11:21] LABS: Hematocrit 44.1 % (42.0-52.0); Hemoglobin 14.8 g/dL (14.0-18.0)
[2024-05-06 11:37] LABS: Albumin Level 4.6 g/dL (3.5-5.1)
[2024-05-06 11:39] LABS: Urine Cotinine NEGATIVE
[2024-05-06 11:40] LABS: Anion Gap 11 mmol/L (4-12); Blood Urea Nitrogen 21 mg/dL (9-20); Calcium 9.7 mg/dL (8.4-10.2); Carbon Dioxide 28 mmol/L (22-30); Chloride 100 mmol/L (98-107); Estimated Glomerular Filt Rate > 60; Glucose 108 mg/dL (65-110); Potassium 4.3 mmol/L (3.4-5.0); Sodium 139 mmol/L (137-145)
[2024-05-06 11:47] LABS: Basophils Percent Auto 0.3 % (0.2-1.2); Eosinophils Absolute Auto 0.1 K/mm3 (0-0.3); Eosinophils Percent Auto 0.9 % (0-4.4); Hematocrit 44.1 % (42.0-52.0); Hemoglobin 14.8 g/dL (14.0-18.0); Immature Granulocyte Absolute 0.02 K/mm3 (0.00-0.031); Immature Granulocyte Percent A 0.2 % (0-0.5); Lymphocytes Absolute Auto 1.72 K/mm3 (0.9-3.2); Mean Corpuscular HGB Conc 33.6 g/dl (32-36); Mean Corpuscular Hemoglobin 31.6 pg (26-34); Mean Platelet Volume 9.3 fl (7.4-10.4); Monocytes Absolute Auto 0.7 K/mm3 (0.1-0.6); Monocytes Percent Auto 7.7 % (2.6-8.5); Neutrophils Absolute Auto 6.1 K/mm3 (1.3-6.7); Neutrophils Percent Auto 70.9 % (45.5-73.1); Platelet Count Result 316 k/mm3 (150-375); Red Blood Count 4.69 M/mm3 (4.6-6.20); Red Cell Distribution Width 13.3 % (11.5-14.5); White Blood Count 8.6 K/mm3 (4.5-10.0)
[2024-05-06 12:01] LABS: Hemoglobin A1C 6.6 % (<5.7)
[2024-05-06 12:34] LABS: MRSA (PCR) NOT DETECTED (NOT DETECTE)
== END 2024-05-06 09:51 | disposition home or self-care (01) ==
PROVIDERS: Anesthesiology; PCP Emergency Medicine; Visit Provider Orthopaedic Surgery
DX: Z01.818 Encounter for other preprocedural examination (principal); E11.65 Type 2 diabetes mellitus with hyperglycemia; E11.59 Type 2 diabetes mellitus with other circulatory complications; I15.2 Hypertension secondary to endocrine disorders; M17.12 Unilateral primary osteoarthritis, left knee
CPT/HCPCS: 36415; 80048; 80307; 82040; 83036; 85014; 85018; 85025; 87641

== ENCOUNTER 2024-05-23 01:29 | Day surgery (SDC) | payer MEDICARE, SELFPAY ==
[2024-05-06 10:53] VITALS: BMI 24.4
--- NOTE | 2024-05-06 10:56 | PC.NURSE ---
Addendum entered by Anna Henderson RN 05/06/24 11:18: Pt was again reminded to hold all vitamins, supplements, probiotics and herbs 3 days prior to Surgery per Anesthesia, last dose 05/19/24. Original Note: Report to the Outpatient Waiting Room, entrance under the green pavilion located off [facility], at time __0700am__on date 05/23/24 . Planned Procedure Time: ___0900am .? Time changes happen often and if your time is changed the preop area will call you the afternoon before. - You and your visitor will be asked to self-screen and do not enter if you have any COVID symptoms. Please call surgeon if you need to reschedule. - A mask is optional within the hospital at this time. - No food from midnight until time of surgery and no smoking Take only the following medications with a SIP of water on the morning of surgery: ____Levothyroxine DO NOT STOP ANY OF YOUR OTHER PRESCRIPTION MEDICATIONS PRIOR TO SURGERY EXCEPT THE FOLLOWING Medications to discontinue per physician ___Pt to check with Dr Bernal regarding dates to hold these if needed Preop. Date to take last dose___Per Dr Bernal ____ Please no make-up, nail singaporean, hairspray, perfume, deodorant, or body powder the day of surgery.? No jewelry (including any body piercings) or valuables the day of surgery, leave them at home.? Please take a shower or bath the night before, or the morning of, surgery with an antibacterial soap.? Wear comfortable, loose fitting clothing.? Children are encouraged to wear pajamas. - Jewelry must be removed prior to entering the operating room.? Rings and piercings that are not removed may be cut off. - The hospital will not accept responsibility for valuables.? - Please leave all valuables, including medications, at home the day of surgery. If you are going home after surgery, a licensed tilt tray driver must drive you home.? - NO public transportation without another adult if you receive anesthesia. - We recommend that an adult stay with you for 24 hours following discharge. - We also recommend that you do not drive, make important decision, drink alcoholic beverages, or take any drugs that were not prescribed by your health care provider for at least 24 hours after your discharge time. Follow any additional instructions given to you from your surgeon. Telephone instructions given to _patient and asked if any additional questions and then verbalized understanding. Patient advised to call surgeon office or pre surgery nurse liaison [phone] if any additional questions.
[2024-05-23] VITALS (8 sets, daily range): BP systolic 123–140; BP diastolic 54–85; PULSE 56–81; RESP 13–20; TEMP 36.1–36.2; O2SAT 98–100
--- NOTE | ~2024-05-23 | XR_ITS ---
EXAMINATION: XR fluoroscopy no charge DATE: 05/23/2024 9:46 CDT INDICATION: BILATERAL L3-4, L4-5 MINIMALLY INVASIVE LUMBAR DECOMPRESSION . TECHNIQUE: 19 fluoroscopic images of the lumbar spine were obtained during bilateral L3-4 and L4-5 mi nimally invasive lumbar decompression, performed by Lul Bernal MD. I was not present during the procedure. Fluoroscopy exposure time was 4 minutes 7.2 seconds. Air Kerma 133.06 mGy. DAP 18.285 mGy m2. COMPARISON: None FINDINGS/IMPRESSION: Fluoroscopic documentation of bilateral L3-4 and L4-5 minimally invasive lumbar decompression. Please refer to the operative note for complete procedural details . Reviewed, dictated and finalized at location K.
[2024-05-23] MEDS: LACTATED RINGERS 1,000 ML 30 ML IV CONT ×2 (07:15→10:08)
[2024-05-23 07:53] LABS: Glucose Point of Care 105 mg/dl (65-105)
--- NOTE | 2024-05-23 08:40 | PM.HPGS ---
History of Present Illness History of Present Illness Consent: Risks, benefits, and alternatives have been discussed and questions answered. Patient agrees to proceed with procedure. 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 Review of Systems Review of Systems: Patient denies any new infectious, allergic, cardiopulmonary, neurologic or constitutional symptoms or changes in activity tolerance or exercise capacity including new or progressive SOB/BETTENCOURT, peripheral edema, productive cough, dysuria, nausea/vomiting, diarrhea, weight change, fevers/chills/night sweats, new or progressive neurologic deficit, cognitive or mood changes since last seen, except as documented in the HPI. All systems reviewed & are unremarkable except as noted in HPI and below PMFSH Past Medical History Medical History BMI 25.0-25.9,adult Bone spur H/O facial injury Hyperlipidemia associated with type 2 diabetes mellitus Hypertension associated with diabetes Primary osteoarthritis of left knee Sacroiliitis Tendonitis of shoulder, right Type 2 diabetes mellitus with hyperglycemia Surgical History Surgical History History of repair of right rotator cuff (06/27/19) Family History Family History Father Family history of malignant neoplasm of stomach, Onset Age: 57 Family history of lung cancer, Onset Age: 57 Family history of malignant neoplasm of esophagus, Onset Age: 57 Family history of malignant neoplasm , Onset Age: 50 exposure to dioxin. Mother Family history of dementia Septicemia Social History Social History Smoking status: Never smoker Second hand tobacco smoke exposure: No Alcohol intake: current Alcohol use details: 1 drink per month Substance use: never Substance use type: does not use Do You Feel Safe in your Home?: Yes Lack of Transportation: No Lack of Food: Never True Current Housing: I Have Housing Concerned About Future Housing: No Difficulty Paying Gas/Electric Bills: No Difficulty Paying for Meds: No Currently Unemployed: No Education: High School Diploma/GED Difficulty w/ Childcare or Family Care: No Living arrangements: with family Additional living arrangements comments: daughter Occupation/Education: retired 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 Gender identity (if verbalized by the patient): Male Spiritual care concerns: No Meds Home Medications and Allergies Home Medications Medication Instructions Recorded Confirmed Type aspirin 81 mg tablet,delayed 81 mg PO DAILY 09/09/19 05/23/24 History release multivitamin 1 tablet PO DAILY 10/27/22 05/06/24 History levothyroxine 50 mcg tablet 50 mcg PO QAM #90 tabs 01/18/24 05/06/24 Rx simvastatin 40 mg tablet See Rx Instructions .Route 04/04/24 05/06/24 Rx .COMPLEX #90 tabs meloxicam 15 mg tablet 15 mg PO DAILY #90 tabs 04/05/24 05/23/24 Rx biotin 1,000 mcg chewable tablet 1,000 mcg PO DAILY 05/06/24 05/06/24 History psyllium husk (aspartame) 3.4 gram 1 packet PO DAILY 05/06/24 05/06/24 History oral powder packet (Metamucil
--- NOTE | 2024-05-23 08:44 | WPDHPUPDATE1 ---
History and Physical Update Update Date/Time: 05/23/24 08:44 History and Physical has been reviewed, including an updated exam of the patient. There are NO changes in the patient's condition. Risks, benefits, and alternatives have been discussed and questions answered. Patient agrees to proceed with procedure.
--- NOTE | 2024-05-23 08:45 | W.PM.PROC2 ---
Procedure Note - Detailed Date of Procedure 05/23/24 Pre-op Diagnosis lumbar stenosis w/ Neurogenic Claudication Post-op Diagnosis Same Procedure Performed Bilateral Minimally Invasive Lumbar Decompression (MILD) at L3-4, L4-5 under Fluoroscopic Guidance. Surgeon Lul Bernal MD Health Plan Manager None Anesthesia Other ([Moderate IV sedation/MAC] with local anesthetic infiltration in the prone position) Description of Procedure INFORMED CONSENT: Risks, benefits, and alternatives to the procedure were discussed in detail with the patient who expressed explicit understanding and consent to proceed. Risks discussed with the patient included but were not limited to risk of serious local or systemic infection, bleeding/bruising, epidural hematoma, dural puncture or tear resulting in CSF leak and acute or chronic post-dural puncture headache, scarring/deformity, immediate or delayed allergic reaction, decreased mobility, failure to treat pain, inadvertent neurologic injury resulting in increased pain, weakness/paralysis or numbness, inadvertent organ injury, need for additional surgery, allergic reaction, heart attack, stroke, seizure, coma, . Anesthetic risks were also briefly discussed by myself and the vaccine manager. The patient expressed understanding and consent to proceed, agreeing that potential benefits outweigh risk of harm. All materials required for the procedure were immediately available prior to procedure start. Site and side were confirmed with the patient, compared carefully to the patient chart and consent, and marked prior to transport to the operating room. Appropriate time out procedure was performed per protocol prior to procedure start. PROCEDURE IN DETAIL: The patient was brought to the operative suite and placed in the prone position. Appropriate ASA standard monitors were attached. Anesthesia was initiated without difficulty or event. Eyes were protected. Pressure points were padded with joints in neutral position. When appropriate, breasts and genitals were evaluated and protected. Eyes were checked and were free from undue pressure. Skin overlying the procedure site was marked with sterile marker. Surgical area was prepared in a typical sterile fashion with ChloraPrep and allowed to dry for at least 3 minutes prior to sterilely draping the surgical site. The lumbar spine was identified in the AP fluoroscopic view with slight cephalad tilt perfectly aligning the endplates at the targeted levels with spinous processes bisecting the transpedicular plane. After identifying the intended incision site approximately 1.5 levels inferior to the level of interest, the area was anesthetized by infiltration with no more than 10ml of a 1:1 admixture of 0.5% PF bupivacaine with epinephrine and 2% PF lidocaine with epinepherine via a 27-gauge needle after negative aspiration. A 22-gauge spinal needle was used to provide additional and adequate local anesthesia to the level of the interspinous ligament, ligamentum flavum and the periosteum of the lamina at the intended treatment levels. In the AP view, a #11 scalpel blade was used to create a single stab incision at the intended incision site on the targeted side. The Vertos MILD kit was opened and the included cannula and trocar assembly was advanced through the incision to contact the midportion of the right lamina just adjacent to the spinous process at L5. Once seated, the lateral view was used to gauge depth demonstrating the most anterior tip of the trocar posterior to the epidural space at all times. The cattle producers-provided cannula stabilizer was placed over the trocar flush to the patient's lumbar flank. Cannula obturator with handle was removed. Included depth guide was then attached to the insertion port on the cannula and set to an intitial depth of 15 mm. The bone rongeur was advanced to the depth of the lumbar lamina at the targeted level. Depth gauge was then adjusted allowing rongeu
--- NOTE | 2024-05-23 08:46 | WPDANESEPPF ---
Anes - Initial Pre Proc Eval Procedure: Operation Date: 05/23/24 09:00 Proposed Procedures p Bilateral L3-4, L4-5 Minimally Invasive Lumbar Decompression Under Flurosocopic Guidance, Possible Epidurogram - Lul Bernal MD Date/Time: 05/23/24 08:46 Surgeon: Lul Bernal MD Pre Op Diagnosis: lumbar stenosis w/ Neurogenic Claudication Patient Data Age: 79 Gender: M Height: 1.73 m Weight: 72.9 kg Last Vital Signs Temp 36.2 C L 05/23/24 06:48 Pulse 81 05/23/24 06:48 Resp 20 05/23/24 06:48 BP 130/67 05/23/24 06:48 Pulse Ox 98 05/23/24 06:48 O2 Del Method Room Air 05/23/24 06:48 Allergies Allergy/AdvReac Type Severity Reaction Status Date / Time diclofenac AdvReac Mild Nausea and Verified 05/06/24 10:05 Vomiting Home Medications Medication Instructions Recorded Confirmed Type aspirin 81 mg tablet,delayed 81 mg PO DAILY 09/09/19 05/23/24 History release multivitamin 1 tablet PO DAILY 10/27/22 05/06/24 History levothyroxine 50 mcg tablet 50 mcg PO QAM #90 tabs 01/18/24 05/06/24 Rx simvastatin 40 mg tablet See Rx Instructions .Route 04/04/24 05/06/24 Rx .COMPLEX #90 tabs meloxicam 15 mg tablet 15 mg PO DAILY #90 tabs 04/05/24 05/23/24 Rx biotin 1,000 mcg chewable tablet 1,000 mcg PO DAILY 05/06/24 05/06/24 History psyllium husk (aspartame) 3.4 gram 1 packet PO DAILY 05/06/24 05/06/24 History oral powder packet (Metamucil Fiber Singles) metformin 750 mg tablet,extended 750 mg PO BID #180 tabs 05/20/24 Rx release 24 hr Laboratory Tests 05/23/24 07:22 POC Capillary Glucose 105 mg/dl (65-105) Patient hx anesthesia problems: none Family hx anesthesia problems: none Results Review: All pre-operative results and documents have been reviewed as part of the pre-operative evaluation. [facility] Past Medical History Medical History BMI 25.0-25.9,adult Bone spur H/O facial injury Hyperlipidemia associated with type 2 diabetes mellitus Hypertension associated with diabetes Primary osteoarthritis of left knee Sacroiliitis Tendonitis of shoulder, right Type 2 diabetes mellitus with hyperglycemia Surgical History Surgical History History of repair of right rotator cuff (06/27/19) Family History Family History Father Family history of malignant neoplasm of stomach, Onset Age: 57 Family history of lung cancer, Onset Age: 57 Family history of malignant neoplasm of esophagus, Onset Age: 57 Family history of malignant neoplasm , Onset Age: 50 exposure to dioxin. Mother Family history of dementia Septicemia Social History Social History Smoking status: Never smoker Second hand tobacco smoke exposure: No Alcohol intake: current Alcohol use details: 1 drink per month Substance use: never Substance use type: does not use Do You Feel Safe in your Home?: Yes Lack of Transportation: No Lack of Food: Never True Current Housing: I Have Housing Concerned About Future Housing: No Difficulty Paying Gas/Electric Bills: No Difficulty Paying for Meds: No Currently Unemployed: No Education: High School Diploma/GED Difficulty w/ Childcare or Family Care: No Living arrangements: with family Additional living arrangements comments: daughter Occupation/Education: retired 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
[2024-05-23] MEDS: ceFAZolin SODIUM 1 GM VIAL 2 GM IV PUSH (09:13)
[2024-05-23] MEDS: LIDOCAINE HCL 1% LOCAL INJ 20 ML VIAL 10 ML INFILTRATE (09:57)
[2024-05-23] MEDS: BUPIVACAINE/EPINEPHRINE 0.5% 50 ML VIAL 10 ML INFILTRATE (09:58)
[2024-05-23 10:47] LABS: Glucose Point of Care 104 mg/dl (65-105)
== END 2024-05-23 11:40 | disposition home or self-care (01) ==
PROVIDERS: PCP Emergency Medicine; Visit Provider Anesthesiology Pain Medicine
PROC: (CPT 0275T; principal; 2024-05-23 09:00)
DX: M48.062 Spinal stenosis, lumbar region with neurogenic claudication (principal); I10 Essential (primary) hypertension; E78.5 Hyperlipidemia, unspecified; E11.65 Type 2 diabetes mellitus with hyperglycemia; M17.12 Unilateral primary osteoarthritis, left knee; G89.18 Other acute postprocedural pain; Z79.82 Long term (current) use of aspirin; Z79.84 Long term (current) use of oral hypoglycemic drugs; Z98.890 Other specified postprocedural states; Z80.0 Family history of malignant neoplasm of digestive organs; Z80.1 Family history of malignant neoplasm of trachea, bronchus and lung; Z00.6 Encounter for examination for normal comparison and control in clinical research program
CPT/HCPCS: 0275T; 82948; 99199; C1889; J0330; J0690; J2405; J2704; J7120; Q9965

== ENCOUNTER 2024-06-02 01:31 | Day surgery (SDC) | payer MEDICARE, SELFPAY ==
[2024-05-06 10:11] VITALS: BP 130/86; PULSE 96; RESP 16; TEMP 37.4; O2SAT 96; BMI 24.4
--- NOTE | 2024-05-06 10:32 | PC.NURSE ---
Report to the Outpatient Waiting Room, entrance under the green pavilion located off [facility], at time _0600am__ on date _06/02/24 . Planned Procedure Time: __07:30am .? Time changes happen often and if your time is changed the preop area will call you the afternoon before. - You and your visitor will be asked to self-screen and do not enter if you have any COVID symptoms. Please call surgeon if you need to reschedule. - A mask is optional within the hospital at this time. Patients may have clear liquids (water, carbonated beverages, clear teas, apple juice) until 3 hours (0430am) prior to surgery with a maximum of 20 ounces. - No food from midnight until time of surgery and no smoking Take only the following medications with a SIP of water on the morning of surgery: ____Levothyroid DO NOT STOP ANY OF YOUR OTHER PRESCRIPTION MEDICATIONS PRIOR TO SURGERY EXCEPT THE FOLLOWING Medications to discontinue per physician Hold Meloxicam and Aspirin 7 days prior to surgery per Dr. Fernandes Date to take last dose____05/25/24 All vitamins, supplements, probiotics and herbs for 3 days prior to surgery per Anesthesia. Date to take last dose 05/29/24. Please no make-up, nail vietnamese, hairspray, perfume, deodorant, or body powder the day of surgery.? No jewelry (including any body piercings) or valuables the day of surgery, leave them at home.? Please take a shower or bath the night before, or the morning of, surgery with an antibacterial soap.? Wear comfortable, loose fitting clothing.? Children are encouraged to wear pajamas. - Jewelry must be removed prior to entering the operating room.? Rings and piercings that are not removed may be cut off. - The hospital will not accept responsibility for valuables.? - Please leave all valuables, including medications, at home the day of surgery. If you are going home after surgery, a licensed taxi truck driver must drive you home.? - NO public transportation without another adult if you receive anesthesia. - We recommend that an adult stay with you for 24 hours following discharge. - We also recommend that you do not drive, make important decision, drink alcoholic beverages, or take any drugs that were not prescribed by your health care provider for at least 24 hours after your discharge time. Follow any additional instructions given to you from your surgeon. Telephone instructions given to ___patient and asked if any additional questions and then verbalized understanding. Patient advised to call surgeon office or pre surgery nurse liaison [phone] if any additional questions.
[2024-06-02] VITALS (15 sets, daily range): BP systolic 107–148; BP diastolic 58–75; PULSE 60–83; RESP 8–18; TEMP 36.1–36.7; O2SAT 96–100; BMI 25.4
--- NOTE | ~2024-06-02 | XR_ITS ---
[id number] Ordering provider: Donavon Fernandes MD History: . POST-OP, LEFT CUSTOM TKA . Comparison: None. FINDINGS: BONES: No acute fracture or dislocation. JOINT SPACES: Total knee arthroplasty. SOFT TISSUES: Postoperative changes in the subcutaneous tissues. IMPRESSION: No acute osseous abnormality right knee. Total knee arthroplasty. Reviewed, dictated and finalized at location A.
[2024-06-02 06:12] LABS: Glucose Point of Care 103 mg/dl (65-105)
[2024-06-02] MEDS: LACTATED RINGERS 1,000 ML 30 ML IV CONT ×2 (06:58→09:27)
[2024-06-02] MEDS: ACETAMINOPHEN 500 MG TABLET 1000 MG PO (06:58)
--- NOTE | 2024-06-02 07:15 | WPDANESEPPF ---
Anes - Initial Pre Proc Eval Procedure: Operation Date: 06/02/24 07:30 Proposed Procedures p Left Custom Total Knee Arthroplasty - Donavon Fernandes MD Date/Time: 06/02/24 07:15 Surgeon: Donavon Fernandes MD Pre Op Diagnosis: Prim OA Left Knee Patient Data Age: 79 Gender: M Height: 1.73 m Weight: 76 kg Last Vital Signs Temp 97.4 F L 06/02/24 06:56 Pulse 80 06/02/24 06:56 Resp 16 05/06/24 10:11 BP 127/64 06/02/24 06:56 Pulse Ox 98 06/02/24 06:56 O2 Del Method Room Air 06/02/24 06:56 Allergies Allergy/AdvReac Type Severity Reaction Status Date / Time diclofenac AdvReac Mild Nausea and Verified 06/02/24 06:52 Vomiting Home Medications Medication Instructions Recorded Confirmed Type aspirin 81 mg tablet,delayed 81 mg PO DAILY 09/09/19 05/23/24 History release multivitamin 1 tablet PO DAILY 10/27/22 05/06/24 History levothyroxine 50 mcg tablet 50 mcg PO QAM #90 tabs 01/18/24 05/06/24 Rx simvastatin 40 mg tablet See Rx Instructions .Route 04/04/24 05/06/24 Rx .COMPLEX #90 tabs meloxicam 15 mg tablet 15 mg PO DAILY #90 tabs 04/05/24 05/23/24 Rx biotin 1,000 mcg chewable tablet 1,000 mcg PO DAILY 05/06/24 05/06/24 History psyllium husk (aspartame) 3.4 gram 1 packet PO DAILY 05/06/24 05/06/24 History oral powder packet (Metamucil Fiber Singles) metformin 750 mg tablet,extended 750 mg PO BID #180 tabs 05/20/24 Rx release 24 hr cyclobenzaprine 10 mg tablet 10 mg PO TID PRN muscle spasm 7 05/23/24 Rx days #21 tabs hydrocodone 5 mg-acetaminophen 325 1 tablet PO Q6-8H PRN pain 7 days 05/23/24 Rx mg tablet #20 tabs Laboratory Tests 06/02/24 06:09 POC Capillary Glucose 103 mg/dl (65-105) Patient hx anesthesia problems: none Family hx anesthesia problems: none Results Review: All pre-operative results and documents have been reviewed as part of the pre-operative evaluation. [facility] Past Medical History Medical History BMI 25.0-25.9,adult Bone spur H/O facial injury Hyperlipidemia associated with type 2 diabetes mellitus Hypertension associated with diabetes Primary osteoarthritis of left knee Sacroiliitis Tendonitis of shoulder, right Type 2 diabetes mellitus with hyperglycemia Surgical History Surgical History History of repair of right rotator cuff (06/27/19) Family History Family History Father Family history of malignant neoplasm of stomach, Onset Age: 57 Family history of lung cancer, Onset Age: 57 Family history of malignant neoplasm of esophagus, Onset Age: 57 Family history of malignant neoplasm , Onset Age: 50 exposure to dioxin. Mother Family history of dementia Septicemia Social History Social History Smoking status: Never smoker Second hand tobacco smoke exposure: No Alcohol intake: current Alcohol use details: 1 drink per month Substance use: never Substance use type: does not use Do You Feel Safe in your Home?: Yes Lack of Transportation: No Lack of Food: Never True Current Housing: I Have Housing Concerned About Future Housing: No Difficulty Paying Gas/Electric Bills: No Difficulty Paying for Meds: No Currently Unemployed: No Education: High School Diploma/GED Difficulty w/ Childcare or Family Care: No Living arrangements: other Additional living arrangements comments: daughter Occupation/Education: retired 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
--- NOTE | 2024-06-02 07:16 | WPDHPUPDATE1 ---
History and Physical Update Update Date/Time: 06/02/24 07:16 History and Physical has been reviewed, including an updated exam of the patient. There are NO changes in the patient's condition. Risks, benefits, and alternatives have been discussed and questions answered. Patient agrees to proceed with procedure.
[2024-06-02] MEDS: ceFAZolin 2 GM/D5W 50 ML 2 GM/50 ML BAG IVPB ×2 (07:26→14:41)
[2024-06-02] MEDS: TRANEXAMIC ACID 1,000MG/ISO100 1,000 MG/100 ML BAG 200 MG IVPB (07:26)
[2024-06-02] MEDS: SODIUM CHLORIDE 0.9% IV 37.7 ML, MORPHINE SULFATE INJ (*CRX) 2 MG, ROPivacaine HCL 1% 2... INFILTRATE (08:09)
[2024-06-02 09:50] LABS: Glucose Point of Care 117 mg/dl (65-105)
--- NOTE | 2024-06-02 11:07 | ADMGEN ---
This patient, Jony Riec IV, was admitted to 3 Med Surg Room 309-01. Report received from ODETTE Tam. Patient/family oriented to hospital policies and general routines including ID bracelet, bed and alarms, visiting hours, pain management, procedures, bathroom and other care routines, personal items, smoking policy, room service/diet, and visiting hours. Information on how to activate the Rapid Response Team has been discussed. Patient/Family are encouraged to report perceived risks to care and to ask questions if they do not understand what they are told or what they should do.
[2024-06-02] MEDS: ACETAMINOPHEN 325 MG TABLET 650 MG PO ×2 (11:13→17:24)
[2024-06-02] MEDS: SODIUM CHLORIDE 0.9% IV 1,000 ML 125 ML IV CONT (11:13)
[2024-06-02 11:18] LABS: Basophils Percent Auto 0.2 % (0.2-1.2); Eosinophils Percent Auto 0.5 % (0-4.4); Hematocrit 36.8 % (42.0-52.0); Hemoglobin 11.8 g/dL (14.0-18.0); Immature Granulocyte Absolute 0.04 K/mm3 (0.00-0.031); Immature Granulocyte Percent A 0.5 % (0-0.5); Lymphocytes Absolute Auto 1.33 K/mm3 (0.9-3.2); Mean Corpuscular HGB Conc 32.1 g/dl (32-36); Mean Corpuscular Hemoglobin 30.6 pg (26-34); Mean Corpuscular Volume 95.3 fl (80-100); Mean Platelet Volume 8.4 fl (7.4-10.4); Monocytes Absolute Auto 0.5 K/mm3 (0.1-0.6); Monocytes Percent Auto 6.5 % (2.6-8.5); Neutrophils Absolute Auto 6.3 K/mm3 (1.3-6.7); Neutrophils Percent Auto 76.3 % (45.5-73.1); Platelet Count Result 337 k/mm3 (150-375); Red Blood Count 3.86 M/mm3 (4.6-6.20); Red Cell Distribution Width 12.8 % (11.5-14.5); White Blood Count 8.3 K/mm3 (4.5-10.0)
[2024-06-02 11:22] LABS: Anion Gap 9 mmol/L (4-12); Blood Urea Nitrogen 14 mg/dL (9-20); Calcium 8.9 mg/dL (8.4-10.2); Carbon Dioxide 27 mmol/L (22-30); Chloride 102 mmol/L (98-107); Estimated CRCL calculation 51 ml/min; Estimated Glomerular Filt Rate > 60; Glucose 119 mg/dL (65-110); Potassium 3.8 mmol/L (3.4-5.0); Sodium 138 mmol/L (137-145)
--- NOTE | 2024-06-02 12:35 | W.PM.PROC2 ---
Procedure Note - Detailed Date of Procedure 06/02/24 Pre-op Diagnosis Severe left knee osteoarthritis Post-op Diagnosis Same Procedure Performed Total knee arthroplasty, left knee Surgeon Donavon Fernandes MD Fee Clerk Mercy Rico PA-C Anesthesia General and Regional (Subsartorial block.) Description of Procedure Preoperative antibiotics were given. The limb was prepped and draped in the usual sterile fashion with a well-padded tourniquet high on the thigh. The limb was exsanguinated and the tourniquet inflated to 300 mmHg, during exposure. A longitudinal incision was created just medial to the patella. A trivector approach to the knee was performed. Arthrotomy was taken down through the joint capsule. No significant releases were initially taken. The femur was exposed and the F1 jig was applied. The coring tool was used to remove the cartilage for the F2 jig to sit flush with the bone. The jig was pinned and the distal cut carefully taken. Caliper measurements confirmed appropriate bony resections according to the preoperative templated plan. The F4 cutting jig for the femur was applied, at the standard rotation. The AP and anterior chamfer cuts were taken. The F5 jig was applied and the posterior chamfer cuts were taken. The tibia was prepared using the T1 jig, after removing cartilage for the jig contact points. Proper alignment was checked with the alignment thelma. The tibia was cut using the T1u guide. Gap balancing was performed. Gap measurements were taken and the knee was trialed. Excellent alignment and soft tissue balancing was confirmed. The posterior cruciate ligament was recessed along the proximal tibia. The patella was cut for resurfacing. Three lug holes were drilled. Meniscal remnants were removed. The trial components were assembled. Excellent range of motion and proper soft tissue balancing were confirmed throughout the full range of motion. Patellar tracking was excellent. The knee was copiously irrigated periodically throughout the procedure. The real implants were cemented into position. Excess cement was carefully removed. The wound was closed in layers with interrupted #1 Vicryl suture, 2-0 strata fix suture, 0 strata fix suture, 2-0 strata fix suture. Steri-Strips placed on the skin with the knee flexed. Sterile bulky dressing applied. The patient was brought to the recovery room in stable condition. There were no complications. Physician medical lab assistant, Mercy Pisarski, PA-C, required for surgery; including patient positioning, draping, tissue retraction, maintaining instrument position, cement removal, wound closure, and dressing placement. Implants Conformis Custom total knee arthroplasty. Cemented. Cruciate retaining. 7C insert. 41 mm oval patella. Drains No Complications No immediate complications Condition Stable Disposition PACU [facility] Billing Surgery - Charge Forward: Surgery Billing
[2024-06-02] MEDS: ONDANSETRON INJ 4 MG/2 ML VIAL IV PUSH ×2 (13:34→17:26)
[2024-06-02] MEDS: SENNA/DOCUSATE SODIUM TABLET 2 TAB PO (17:24)
[2024-06-02] MEDS: predniSONE 5 MG TABLET PO (17:25)
[2024-06-02] MEDS: MELOXICAM 7.5 MG TABLET PO (17:25)
[2024-06-02] MEDS: ASPIRIN 81 MG ENTERIC TABLET PO (17:25)
[2024-06-02] MEDS: oxyCODONE/ACETAMINOPHEN (*CRX) 10-325 MG TABLET 1 TAB PO (20:19)
[2024-06-02] MEDS: FAMOTIDINE 20 MG TABLET PO (21:24)
[2024-06-02] MEDS: SIMVASTATIN 20 MG TABLET 40 MG PO (21:24)
[2024-06-02] MEDS: CYCLOBENZAPRINE HCL 10 MG TABLET PO (21:24)
[2024-06-03 04:30] VITALS: BP 109/62; PULSE 63; RESP 14; TEMP 36.4; O2SAT 98
[2024-06-03] MEDS: HYDROmorphone HCL INJ (*CRX) 1 MG/ML SYR IV PUSH (04:30)
[2024-06-03] MEDS: ceFAZolin 2 GM/D5W 50 ML 2 GM/50 ML BAG IVPB ×2 (06:11)
[2024-06-03] MEDS: ACETAMINOPHEN 325 MG TABLET 650 MG PO ×2 (06:11)
[2024-06-03 06:24] LABS: Basophils Percent Auto 0.2 % (0.2-1.2); Eosinophils Absolute Auto 0.1 K/mm3 (0-0.3); Eosinophils Percent Auto 0.5 % (0-4.4); Hematocrit 35.4 % (42.0-52.0); Hemoglobin 11.5 g/dL (14.0-18.0); Immature Granulocyte Absolute 0.08 K/mm3 (0.00-0.031); Immature Granulocyte Percent A 0.8 % (0-0.5); Lymphocytes Absolute Auto 1.28 K/mm3 (0.9-3.2); Lymphocytes Percent Auto 12.4 % (18.3-44.2); Mean Corpuscular HGB Conc 32.5 g/dl (32-36); Mean Corpuscular Hemoglobin 31.1 pg (26-34); Mean Corpuscular Volume 95.7 fl (80-100); Mean Platelet Volume 8.8 fl (7.4-10.4); Monocytes Percent Auto 9.9 % (2.6-8.5); Neutrophils Absolute Auto 7.9 K/mm3 (1.3-6.7); Neutrophils Percent Auto 76.2 % (45.5-73.1); Platelet Count Result 351 k/mm3 (150-375); Red Cell Distribution Width 13.1 % (11.5-14.5); White Blood Count 10.3 K/mm3 (4.5-10.0)
[2024-06-03 06:39] LABS: Anion Gap 7 mmol/L (4-12); Blood Urea Nitrogen 13 mg/dL (9-20); Calcium 8.3 mg/dL (8.4-10.2); Carbon Dioxide 26 mmol/L (22-30); Chloride 103 mmol/L (98-107); Estimated CRCL calculation 51 ml/min; Estimated Glomerular Filt Rate > 60; Glucose 111 mg/dL (65-110); Potassium 3.8 mmol/L (3.4-5.0); Sodium 136 mmol/L (137-145)
--- NOTE | 2024-06-03 07:35 | PM.DS ---
DS: Admitting Diagnosis Discharge Date 06/03/24 Admitting Diagnosis knee arthritis DS: Discharge Diagnosis Discharge Diagnosis (1) Status post total left knee replacement: Code(s): Z96.652 - Presence of left artificial knee joint Status: Acute Assessment and Plan: Postop day 1: Left total knee arthroplasty. Patient tolerated procedure well. No complications. Pain manageable with pain medication. No numbness or tingling. We had a lengthy discussion regarding postoperative wound care, limitations, expectations, and exercises. Patient shows good understanding. He has had initial physical therapy and is tolerating it well. DVT prophylaxis: 81 mg baby aspirin b.i.d. for 14 days. Pain medication: Percocet. Prednisone. Patient has followup appointment with Dr. Fernandes in 3 weeks. DS: Summary Hospital Course Reason for hospitalization: Total knee arthroplasty Hospital Course: Patient tolerated procedure well. Has had initial PT/OT. Status at Discharge Functional status at discharge: uses cane/walker Overall status at discharge: patient is progressing back to baseline Time Spent with Patient Time attestation: Total time spent providing and/or coordinating discharge services: Exam Narrative: Normal weight 79 y/o Male. Resting comfortably in bed. Wearing compression socks bilaterally. Dressing intact with no drainage. Moderate swelling. Small area of ecchymosis. No erythema. No hematoma. Range of motion limited due to pain. Calf nontender. Neurologic status intact. No varicosities. Distal pulses palpable. DS: Data Data Completed and Pending Labs on day of discharge: Labs from last 24 hours 06/03/24 06/02/24 06/02/24 05:43 11:04 09:47 WBC 10.3 H 8.3 RBC 3.70 L 3.86 L Hgb 11.5 L 11.8 L D Hct 35.4 L 36.8 L MCV 95.7 95.3 MCH 31.1 30.6 MCHC 32.5 32.1 RDW 13.1 12.8 Plt Count 351 337 MPV 8.8 8.4 Immature Gran % (Auto) 0.8 H 0.5 Neut % (Auto) 76.2 H 76.3 H Lymph % (Auto) 12.4 L 16.0 L Hughes % (Auto) 9.9 H 6.5 Eos % (Auto) 0.5 0.5 Baso % (Auto) 0.2 0.2 Lymph # (Auto) 1.28 1.33 Hughes # (Auto) 1.0 H 0.5 Eos # (Auto) 0.1 0.0 Baso # (Auto) 0.0 0.0 Abs Immat Gran (auto) 0.08 H 0.04 H Absolute Neuts (auto) 7.9 H 6.3 Absolute Nucleated RBC 0.000 0.000 Nucleated RBC % 0.0 0.0 Sodium 136 L 138 Potassium 3.8 3.8 Chloride 103 102 Carbon Dioxide 26 27 Anion Gap 7 9 BUN 13 14 D Creatinine 1.00 1.00 Estim Creat Clear Calc 51 51 Estimated GFR > 60 > 60 Glucose 111 H 119 H POC Capillary Glucose 117 H Calcium 8.3 L 8.9 Discharge Plan Discharge Patient Disposition: Home, Self-Care Discharge Instructions: See green instruction sheets Stand Alone Forms: General Discharge Instructions Follow-up/Referrals: Mercy Rico PA [Physician Ophthalmologist] - Discharge Medications: New aspirin 81 mg tablet,delayed release (DR/EC) 81 mg PO BID 14 Days Qty: 28 0RF prednisone 5 mg tablet 5 mg PO DAILY 21 Days Qty: 21 0RF oxycodone-acetaminophen 5-325 mg tablet 1 - 2 tablet PO Q4-6H MDD 6 PRN (Reason: pain) 7 Days Qty: 30 0RF Continued aspirin 81 mg tablet,delayed release (DR/EC) 81 mg PO DAILY Hold Instructions: Resume on 05/26/24. hold x 48 hours post procedure multivitamin Tablet 1 tablet PO DAILY Metamucil Fiber Singles 3.4 gram Powder In Packet 1 packet PO DAILY biotin 1,000 mcg Tablet,Chewable 1,000 mcg PO DAILY hydrocodone-acetaminophen 5-325 mg tablet 1 tablet PO Q6-8H MDD 3 PRN (Reason: pain) 7 Days Qty: 20 0RF Rx Instructions: take one tab po every 6-8 hours as needed for severe postoperative pain, max 3/day cyclobenzaprine 10 mg tablet 10 mg PO TID MDD 3 PRN (Reason: muscle spasm) 7 Days Qty: 21 0RF Rx Instructions: take one tab po q8 hours prn spasm levothyroxine 50 mcg table
[2024-06-03 08:30] VITALS: BP 107/59; PULSE 62; RESP 18; TEMP 36.1; O2SAT 100
[2024-06-03] MEDS: polyethylene glycoL 3350 17 GM POWD.PACK PO (09:02)
[2024-06-03] MEDS: oxyCODONE/ACETAMINOPHEN (*CRX) 10-325 MG TABLET 1 TAB PO (09:02)
[2024-06-03] MEDS: LEVOTHYROXINE SODIUM 50 MCG TABLET PO (09:03)
[2024-06-03] MEDS: FAMOTIDINE 20 MG TABLET PO (09:03)
[2024-06-03] MEDS: SENNA/DOCUSATE SODIUM TABLET 2 TAB PO (09:03)
[2024-06-03] MEDS: MULTIVITAMINS THERAPEUTIC TAB (*BKC) 1 TABLET PO (09:03)
[2024-06-03] MEDS: MELOXICAM 7.5 MG TABLET PO (09:03)
[2024-06-03] MEDS: ASPIRIN 81 MG ENTERIC TABLET PO (09:03)
[2024-06-03 09:22] VITALS: O2SAT 93
== END 2024-06-03 10:20 | disposition home or self-care (01) ==
LOC: ANHSURGERY 05:46 → ANH3MEDSUR 10:46
PROVIDERS: Physician Assistant Surgical; PCP Emergency Medicine; Visit Provider Orthopaedic Surgery
PROC: (CPT 27447; principal; 2024-06-02 07:30)
DX: M17.12 Unilateral primary osteoarthritis, left knee (principal); I10 Essential (primary) hypertension; E78.5 Hyperlipidemia, unspecified; E11.9 Type 2 diabetes mellitus without complications
CPT/HCPCS: 27447; 36415; 73560; 80048; 80307; 82040; 82948; 83036; 85014; 85018; 85025; 86850; 86900; 86901; 87641; 97110; 97116; 97161; 97165; 97530; 97535; A9270; C1713; C1776; J0171; J0690; J1100; J1170; J1885; J2250; J2270; J2405; J2704; J2795; J3010; J7030; J7120; J7512

== ENCOUNTER 2024-07-20 13:47 | Outpatient (CLI) | payer MEDICARE, SELFPAY ==
--- NOTE | ~2024-07-20 | XR_ITS ---
XR knee LT 3V Ordering provider: Donavon Fernandes MD History: . Z47.1 - Aftercare following joint replacement surgery . Comparison: None. FINDINGS: BONES: No acute fracture or dislocation. JOINT SPACES: Total knee arthroplasty. SOFT TISSUES: Normal. IMPRESSION: No acute osseous abnormality left knee. Total knee arthroplasty. Reviewed, dictated and finalized at location A. 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
== END 2024-07-20 13:48 | disposition home or self-care (01) ==
PROVIDERS: PCP Orthopaedic Surgery; Visit Provider Orthopaedic Surgery
DX: Z47.1 Aftercare following joint replacement surgery (principal)
CPT/HCPCS: 73562

== ENCOUNTER 2024-09-30 10:15 | Outpatient (CLI) | payer MEDICARE, SELFPAY ==
[2024-09-30 11:00] LABS: Anion Gap 8 mmol/L (4-12); Blood Urea Nitrogen 23 mg/dL (9-20); Calcium 9.5 mg/dL (8.4-10.2); Carbon Dioxide 28 mmol/L (22-30); Chloride 102 mmol/L (98-107); Estimated Glomerular Filt Rate > 60; Glucose 113 mg/dL (65-110); Potassium 4.6 mmol/L (3.4-5.0); Sodium 138 mmol/L (137-145)
== END 2024-09-30 10:16 | disposition home or self-care (01) ==
LOC: ANHSURGERY 10:18
PROVIDERS: Anesthesiology; PCP Nurse Practitioner Family; Visit Provider Anesthesiology Pain Medicine
DX: Z01.818 Encounter for other preprocedural examination (principal); E11.65 Type 2 diabetes mellitus with hyperglycemia
CPT/HCPCS: 36415; 80048

== ENCOUNTER 2024-10-04 00:21 | Day surgery (SDC) | payer MEDICARE, SELFPAY ==
--- NOTE | 2024-09-28 11:01 | PC.NURSE ---
Report to the Outpatient Waiting Room, entrance under the green pavilion located off [facility], at time 11:15 am on date _10/04/24 . Planned Procedure Time: _1:15 pm .? Time changes happen often and if your time is changed the preop area will call you the afternoon before. - You and your visitor will be asked to self-screen and do not enter if you have any COVID symptoms. Please call surgeon if you need to reschedule. - A mask is optional within the hospital at this time. NOTHING TO EAT OR DRINK AFTER MIDNIGHT PER DR JADE Take only the following medications with a SIP of water on the morning of surgery: __LEVOTHYROXINE DO NOT STOP ANY OF YOUR OTHER PRESCRIPTION MEDICATIONS PRIOR TO SURGERY EXCEPT THE FOLLOWING Medications to discontinue per physician _ASPIRIN PER DR JADE. HOLD ALL VITAMINS AND SUPPLEMENTS 3 DAYS PRE OP Date to take last dose__09/30/24 Please no make-up, nail scottish, hairspray, perfume, deodorant, or body powder the day of surgery.? No jewelry (including any body piercings) or valuables the day of surgery, leave them at home.? Please take a shower or bath the night before, AND the morning of, surgery with an antibacterial soap.? Wear comfortable, loose fitting clothing.? Children are encouraged to wear pajamas. - Jewelry must be removed prior to entering the operating room.? Rings and piercings that are not removed may be cut off. - The hospital will not accept responsibility for valuables.? - Please leave all valuables, including medications, at home the day of surgery. If you are going home after surgery, a licensed otr company truck driver must drive you home.? - NO public transportation without another adult if you receive anesthesia. - We recommend that an adult stay with you for 24 hours following discharge. - We also recommend that you do not drive, make important decision, drink alcoholic beverages, or take any drugs that were not prescribed by your health care provider for at least 24 hours after your discharge time. Follow any additional instructions given to you from your surgeon. Telephone instructions given to __patient and asked if any additional questions and then verbalized understanding. Patient advised to call surgeon office or pre surgery nurse liaison [phone] if any additional questions.
[2024-09-28 11:21] VITALS: BMI 24.3
--- NOTE | ~2024-10-04 | XR_ITS ---
INTRAOPERATIVE FLUOROSCOPY: CLINICAL HISTORY: 79 years old Male; CERVICAL ABLATION C3-5 PROCEDURE COMMENTS: Limited intraoperative fluoroscopy of the cervical spine was performed. CUMULATIVE DOSE: 14.5 mGy FLUOROSCOPY TIME: 51 seconds FINDINGS/IMPRESSION: Please refer to operative note for further details. Reviewed, dictated and finalized at location A. TS SIFTER
--- OUTSIDE RECORDS SUMMARY | 2024-10-04 00:28 | XMS_ITS | Encounter Summary ---
Author Organization [facility] Address [address] [place] [address] Phone Care Team Providers Care Cloth Dyer Name Role Phone Referral, Self Primary Care Provider Unavailabl e Fidel Ferguson MD Primary Care Provider [phone] Encounter Details Date Type Department Care Team (Late st Contact Info) Description 11/30/2023 Orders Only [facility] Scanning, Provider Social History Tobacco Use Types Packs/Day Years Used Date Smoking Tobacco: Never Assessed Sex and Gender Information Value Date Recorded Sex Assigned at Not on file Legal Sex Male 8:12 AM CDT Gender Identity Male 03/01/2024 5:54 AM CDT Sexual Orientation Straight 03/01/2024 5: 54 AM CDT documented as of this encounter Plan of Treatment Not on file documented as of this encounter Procedures Procedure Name Priority Date/Time Associated Diagnosis Comments SCAN - RADIOLOGY/IMAGING 11/30/2023 documented in this encounter Results * SCAN - RADIOLOGY/IMAGING (11/30/2023) Anatomical Region Laterality Modality Other us Provider Scanning Final Result documented in this encounter Visit Diagnoses Not on filedocumented in this encounter Care Teams Cloth Dyer Relationship Specialty Start Date End Date Referral, Self PCP - General 02/02/24 06/15/24 Fidel Ferguson MD [facility] [place] [address] PCP - General Family Medicine 06/16/24 documented as of this encounter
--- OUTSIDE RECORDS SUMMARY | 2024-10-04 00:28 | XMS_ITS | Clinical Summary ---
Author Organization [facility] Address [facility] [place] [address] Care Team Providers Care Script Manager Name Role Phone Fidel Ferguson MD Primary Care Provider [phone] Allergies Active Allergy Reactions Criticality Noted Date Comments Diclofenac Nausea & Vomiting Low 08/02/2024 Medications levothyroxine (SYNTHROID) 50 mcg tablet 01/24/2024 Active simvastatin (ZOCOR) 40 mg tablet 01/24/2024 Active metFORMIN XR (GLUCOPHAGE XR) 750 mg 24 hr tablet 01/29/2024 Active meloxicam (MOBIC) 15 mg tablet 01/29/2024 Active Active Problems Problem Noted Date Diagnosed Date Cyst of pancreas 02/02/2024 Encounters Date Type Department Care Team Description 08/02/2024 11:45 AM GLUE JOINTER OPERATOR Lab [facility] [address] [place] [address] [address] [place] [place] [phone] 08/02/2024 11:30 AM GLUE JOINTER OPERATOR Lab [facility] at [address] [place] [phone] Cyst of pancreas; 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 08/02/2024 11:00 AM GLUE JOINTER OPERATOR Office Visit [facility] [address] [place] [address] [address] [place] [place] [phone] Shanique Gutierrez MD IPMN (intraductal papillary mucinous neoplasm); Cyst of pancreas 08/02/2024 Orders Only [facility] [address] [facility] [address] [place] [phone] Shanique Gutierrez MD IPMN (intraductal papillary mucinous neoplasm) (Primary Dx); Neoplasm of uncertain behavior of digestive organ, unspecified 07/19/2024 Orders Only [facility] [address] [place] [facility] [address] [place] [address] Melida Chen PA Cyst of pancreas (Primary Dx); 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 07/18/2024 Telephone [facility] [address] [facility] 12th [place] [address] [place] [address] Vivi Espitia RN GI Results and MD Recommendations 07/18/2024 Telephone [facility] [address] [facility] [address], [address] [place] [address] Nadine King RN Procedure Results from Last 3 Months Immunizations Name Administration Dates Next Due Influenza, Quadrivalent, Hig h Dose, Preservative Free, Intrr 06/11/2023,06/19/2022,06/10/2021 Influenza, Quadrivalent, Rec ombinant, Egg Free, Preservative Free, Intramuscular 07/13/2018 RSV Vaccine, Pref, Recombina nt, Subunit, Adjuvanted, PF, IM (Arexvy) 06/11/2023 Tdap 08/23/2016 ZOSTER Recombinant 04/09/2023,01/30/2023 Surgical History Surgery Date Site/Laterality Comments FACIAL COSMETIC SURGERY ROTATOR CUFF REPAIR Right WRIST FRACTURE SURGERY Medical History Medical History Date Comments Heart block atrioventricular Hyperlipidemia Hypothyroidism Diabetes (HCC) Arthritis History of transfusion Social History Tobacco Use Types Packs/Day Years Used Date Smoking Tobacco: Never Tobacco Cessation:Counseling Given: Not Answered AUDIT-C Answer Date Recorded Q1: How often do you have a drink containing alcohol? Monthly or less 02/11/2024 Q2: How many drinks containi ng alcohol do you have on a typical day when you are drinking? Patient does not drink Q3: How often do you have si x or more drinks on one occasion? Never 02/11/2024 Personal Safety Answer Date Recorded Have you ever been in or are you currently in a harmful physical or emotional relationship or is someone making you feel afraid or unsafe? Denies 02/11/2024 Sex and Gender Information Value Date Recorded Sex Assigned at Not on file Legal Sex Male 8:12 AM CDT Gender Identity Male 03/01/2024 5:54 AM CDT Sexual Orientation Straight 03/01/2024 5: 54 AM CDT Obstetrics History Last Filed Vital Signs Vital Sign Reading Time Taken Comments Blood Pressure 168/82 08/02/2024 10:46 AM GLUE JOINTER OPERATOR Pulse 61 08/02/2024 10:46 AM GLUE JOINTER OPERATOR Temperature 36.3 ??C (97.3 ??F) 08/02/2024 10:[address] Respiratory Rate 15 08/02/2024 10:46 AM GLUE JOINTER OPERATOR Oxygen Saturation 98% 08/02/2024 10:46 AM GLUE JOINTER OPERATOR Inhaled Oxygen Concentration - - Weight 73.7 kg (162 lb 8 oz) 08/02/2024 10:46 AM GLUE JOINTER OPERATOR Height 169 cm (5' 6.54 ) 08/02/2024 10:46 AM GLUE JOINTER OPERATOR Body Mass Index 25.81 08/02/2024 10:46 AM GLUE JOINTER OPERATOR Plan of Treatment Health Maintenance Due Date Last Done Comments Depression Screening 1945 Hepatitis C Screening 1945 Hepatitis B Screening 1963 Pneumococcal vaccine 65+ (1 of 1 - PCV) 2010 Well Visit 65+ 2010 Covid-19 Vaccine (2023-2 5 season) 2024 06/29/2023, 05/29/2022, 12/17/2021, Additional history exists Influenza Vaccine (#1) 2024 , 06/19/2022, 06/10/2021, Additional history exists Fall Risk Assessment 02/10/2025 02/11/2024 DTaP/Tdap/Td Vaccine (2 - Td or Tdap) 08/23/2026 08/23/2016 Zoster Vaccine Completed 04/09/2023, 01/30/2023 Procedures Procedure Name Priority Date/Time Associated Diagnosis Comments CANCER ANTIGEN 19-9 Routine 08/02/2024 1 1:39 AM GLUE JOINTER OPERATOR Cyst of pancreas 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 from Last 3 Months Results * Cancer antigen 19-9 (08/02/2024 11:39 AM GLUE JOINTER OPERATOR) CA 19-9 ag 34.2 0.0 - 35.0 units/mL Comment: Interpretive Data The Asuncion CA 19-9 assay procedure was used. Results from different manufacturers or methods may not be comparable. Serial testing should be performed using the same method. Testing performed by: [facility], [facility], [place]., [address] Blood 08/02/2024 11:3 9 AM GLUE JOINTER OPERATOR 08/02/2024 2:39 PM GLUE JOINTER OPERATOR Melida ESTRADA LAB BLOOD ORDERABLES Yin kumar Result Performing Organization Address City/State/[facility] Co de Phone Number [facility] [address] [facility]. [place] [address] from Last 3 Months Insurance MEDICARE [employer] [facility] MEDICARE Address: [facility] [address] [place] [address] MEDICARE SOL[employer]IONS Advance Directives For more information, please contact: [phone] * Full Code (Latest Code Status on File) Date Activated Date Inactivated Comments 02/11/2024 12:25 PM 02/11/2024 7:22 PM Care Teams Script Manager Relationship Specialty Start Date End Date Fidel Ferguson MD [facility] [place] [address] PCP - General Family Medicine 06/16/24
--- OUTSIDE RECORDS SUMMARY | 2024-10-04 00:28 | XMS_ITS | Referral Summary ---
Author Organization [facility] Address [facility] [place] [address] Care Team Providers Care Manager Residential Name Role Phone Fidel Ferguson MD Primary Care Provider Encounters Date Type Department Care Team Description 08/02/2024 Orders Only [facility] [address] [place] [address] [address] [place] [phone] Shanique Gutierrez MD IPMN (intraductal papillary mucinous neoplasm) (Primary Dx); Neoplasm of uncertain behavior of digestive organ, unspecified 08/02/2024 11:30 AM MOLD FILLER Lab [facility] at [address] [place] [phone] Cyst of pancreas; 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 08/02/2024 11:45 AM MOLD FILLER Lab [facility] Oncology [address] [place] [address] [address] [place] [phone] 08/02/2024 11:00 AM MOLD FILLER Office Visit [facility] Surgery [address] [place] [address] [address] [place] [phone] Shanique Gutierrez MD IPMN (intraductal papillary mucinous neoplasm); Cyst of pancreas 07/19/2024 Orders Only [facility] Surgery [address] [place] [address] [address] [place] [phone] Melida Chen PA Cyst of pancreas (Primary Dx); 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 07/18/2024 Telephone [facility] Gastroenterology [address] [facility] 12th [place] [address] [place] [address] Vivi Espitia RN GI Results and MD Recommendations 07/18/2024 Telephone [facility] Gastroenterology [address] [facility] [address], [address] [place] [address] Nadine King RN Procedure Results from Last 3 Months Allergies Active Allergy Reactions Criticality Noted Date Comments Diclofenac Nausea & Vomiting Low 08/02/2024 Medications levothyroxine (SYNTHROID) 50 mcg tablet 01/24/2024 Active simvastatin (ZOCOR) 40 mg tablet 01/24/2024 Active metFORMIN XR (GLUCOPHAGE XR) 750 mg 24 hr tablet 01/29/2024 Active meloxicam (MOBIC) 15 mg tablet 01/29/2024 Active Active Problems Problem Noted Date Diagnosed Date Cyst of pancreas 02/02/2024 Immunizations Name Administration Dates Next Due Influenza, Quadrivalent, Hig h Dose, Preservative Free, Intrr 06/11/2023,06/19/2022,06/10/2021 Influenza, Quadrivalent, Rec ombinant, Egg Free, Preservative Free, Intramuscular 07/13/2018 RSV Vaccine, Pref, Recombina nt, Subunit, Adjuvanted, PF, IM (Arexvy) 06/11/2023 Tdap 08/23/2016 ZOSTER Recombinant 04/09/2023,01/30/2023 Social History Tobacco Use Types Packs/Day Years [...] Orientation Straight 03/01/2024 5: 54 AM CDT Last Filed Vital Signs Vital Sign Reading Time Taken Comments Blood Pressure 168/82 08/02/2024 10:46 AM MOLD FILLER Pulse 61 08/02/2024 10:46 AM MOLD FILLER Temperature 36.3 ??C (97.3 ??F) 08/02/2024 10:[address] Respiratory Rate 15 08/02/2024 10:46 AM MOLD FILLER Oxygen Saturation 98% 08/02/2024 10:46 AM MOLD FILLER Inhaled Oxygen Concentration - - Weight 73.7 kg (162 lb 8 oz) 08/02/2024 10:46 AM MOLD FILLER Height 169 cm (5' 6.54 ) 08/02/2024 10:46 AM MOLD FILLER Body Mass Index 25.81 08/02/2024 10:46 AM MOLD FILLER Plan of Treatment Not on file Procedures Procedure Name Priority Date/Time Associated Diagnosis Comments CANCER ANTIGEN 19-9 Routine 08/02/2024 1 1:39 AM MOLD FILLER Cyst of pancreas 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 from Last 3 Months Results * Cancer antigen 19-9 (08/02/2024 11:39 AM MOLD FILLER) CA 19-9 ag 34.2 0.0 - 35.0 units/mL Comment: Interpretive Data The Asuncion CA 19-9 assay procedure was used. Results from different manufacturers or methods may not be comparable. Serial testing should be performed using the same method. Testing performed by: [facility], [facility] [facility], [place]., [address] Blood 08/02/2024 11:3 9 AM MOLD FILLER 08/02/2024 2:39 PM MOLD FILLER us Melida ESTRADA LAB BLOOD ORDERABLES Yin kumar Result [facility] [address] [facility]. [place] [address] from Last 3 Months Insurance [employer] Advance Directives For more information, please contact: [phone] * Full Code (Latest Code Status on File) Date Activated Date Inactivated Comments 02/11/2024 12:25 PM 02/11/2024 7:22 PM Care Teams Manager Residential Relationship Specialty Start Date End Date Fidel Ferguson MD [address] [facility] [place] [place] [address] PCP - General Family Medicine 06/16/24
[2024-10-04 11:10] VITALS: BP 147/71; PULSE 73; RESP 14; TEMP 36.8; O2SAT 97
[2024-10-04] MEDS: LACTATED RINGERS 1,000 ML 30 ML IV CONT (11:30)
[2024-10-04 11:37] LABS: Glucose Point of Care 98 mg/dl (65-105)
[2024-10-04 11:44] VITALS: BMI 25.3
--- NOTE | 2024-10-04 13:49 | WPDANESEPPF ---
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 and Patient Data Age: 79 Gender: M Height: 1.73 m Weight: 75.6 kg Last Vital Signs Temp 36.8 C 10/04/24 11:10 Pulse 73 10/04/24 11:10 Resp 14 10/04/24 11:10 BP 147/71 H 10/04/24 11:10 Pulse Ox 97 10/04/24 11:10 O2 Del Method Room Air 10/04/24 11:10 Allergies Allergy/AdvReac Type Severity Reaction Status Date / Time diclofenac AdvReac Mild Nausea and Verified 10/04/24 11:43 Vomiting Home Medications ?Medication ?Instructions ?Recorded ?Confirmed ?Type aspirin 81 mg tablet,delayed 81 mg PO DAILY 09/09/19 10/04/24 History release multivitamin 1 tablet PO DAILY 10/27/22 10/04/24 History biotin 1,000 mcg chewable tablet 1,000 mcg PO DAILY 05/06/24 10/04/24 History psyllium husk (aspartame) 3.4 gram 1 packet PO DAILY 05/06/24 10/04/24 History oral powder packet (Metamucil Fiber Singles) metformin 750 mg tablet,extended 750 mg PO BID #180 tabs 05/20/24 10/04/24 Rx release 24 hr levothyroxine 50 mcg tablet 50 mcg PO QAM #90 tabs 06/17/24 10/04/24 Rx meloxicam 15 mg tablet 15 mg PO DAILY #90 tabs 09/05/24 09/29/24 Rx simvastatin 40 mg tablet See Rx Instructions .Route 09/05/24 10/04/24 Rx .COMPLEX #90 tabs Laboratory Tests 10/04/24 11:32 POC Capillary Glucose 98 mg/dl (65-105) Patient hx anesthesia problems: none Family hx anesthesia problems: none Results Review: All pre-operative results and documents have been reviewed as part of the pre-operative evaluation. [facility] Past Medical History Medical History (Updated 09/29/24 @ 11:15 by Izzy Maradiaga APRN) Primary osteoarthritis of left knee H/O facial injury BMI 25.0-25.9,adult Hypertension associated with diabetes Hyperlipidemia associated with type 2 diabetes mellitus Bone spur Sacroiliitis Tendonitis of shoulder, right Type 2 diabetes mellitus with hyperglycemia Surgical History Surgical History History of repair of right rotator cuff (06/27/19) Family History Family History Father Family history of malignant neoplasm of stomach, Onset Age: 57 Family history of lung cancer, Onset Age: 57 Family history of malignant neoplasm of esophagus, Onset Age: 57 Family history of malignant neoplasm , Onset Age: 50 exposure to dioxin. Mother Family history of dementia Septicemia Social History Social History Smoking status: Never smoker Second hand tobacco smoke exposure: No Alcohol intake: current Drinks per week: 1 Alcohol use details: 1 - 2 DRINKS PER MONTH Substance use: never Substance use type: does not use Do You Feel Safe in your Home?: Yes Lack of Transportation: No Lack of Food: Never True Current Housing: I Have Housing Concerned About Future Housing: No Difficulty Paying Gas/Electric Bills: No Difficulty Paying for Meds: No Currently Unemployed: No Education: High School Diploma/GED Difficulty w/ Childcare or Family Care: No Living arrangements: with family Additional living arrangements comments: daughter Occupation/Education: retired 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 Informed Consent: The patient's anesthetic plan and its attendant risks and benefits were discussed with the patient/family/POA. Questions were solicited and answers provided to the satisfaction of the patient/family/POA.
--- NOTE | 2024-10-04 14:25 | PM.HPGS ---
History of Present Illness History of Present Illness Consent: Risks, benefits, and alternatives have been discussed and questions answered. Patient agrees to proceed with procedure. 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 Review of Systems Review of Systems: Patient denies any new infectious, allergic, cardiopulmonary, neurologic or constitutional symptoms or changes in activity tolerance or exercise capacity including new or progressive SOB/BETTENCOURT, peripheral edema, productive cough, dysuria, nausea/vomiting, diarrhea, weight change, fevers/chills/night sweats, new or progressive neurologic deficit, cognitive or mood changes since last seen, except as documented in the HPI. All systems reviewed & are unremarkable except as noted in HPI and below PMFSH Past Medical History Medical History (Updated 09/29/24 @ 11:15 by Izzy Maradiaga, GONZALES) Primary osteoarthritis of left knee H/O facial injury BMI 25.0-25.9,adult Hypertension associated with diabetes Hyperlipidemia associated with type 2 diabetes mellitus Bone spur Sacroiliitis Tendonitis of shoulder, right Type 2 diabetes mellitus with hyperglycemia Surgical History Surgical History History of repair of right rotator cuff (06/27/19) Family History Family History Father Family history of malignant neoplasm of stomach, Onset Age: 57 Family history of lung cancer, Onset Age: 57 Family history of malignant neoplasm of esophagus, Onset Age: 57 Family history of malignant neoplasm , Onset Age: 50 exposure to dioxin. Mother Family history of dementia Septicemia Social History Social History Smoking status: Never smoker Second hand tobacco smoke exposure: No Alcohol intake: current Drinks per week: 1 Alcohol use details: 1 - 2 DRINKS PER MONTH Substance use: never Substance use type: does not use Do You Feel Safe in your Home?: Yes Lack of Transportation: No Lack of Food: Never True Current Housing: I Have Housing Concerned About Future Housing: No Difficulty Paying Gas/Electric Bills: No Difficulty Paying for Meds: No Currently Unemployed: No Education: High School Diploma/GED Difficulty w/ Childcare or Family Care: No Living arrangements: with family Additional living arrangements comments: daughter Occupation/Education: retired 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 Gender identity (if verbalized by the patient): Male Spiritual care concerns: No Meds Home Medications and Allergies Home Medications ?Medication ?Instructions ?Recorded ?Confirmed ?Type aspirin 81 mg tablet,delayed 81 mg PO DAILY 09/09/19 10/04/24 History release multivitamin 1 tablet PO DAILY 10/27/22 10/04/24 History biotin 1,000 mcg chewable tablet 1,000 mcg PO DAILY 05/06/24 10/04/24 History psyllium husk (aspartame) 3.4 gram 1 packet PO DAILY 05/06/24 10/04/24 History oral powder packet (Metamucil Fiber Singles) metformin 750 mg tablet,extended 750 mg PO BID #180 tabs 05/20/24 10/04/24 Rx release 24 hr levothyroxine 50 mcg tablet 50 mcg PO QAM #90 tabs 06/17/24 10/04/24 Rx meloxicam 15 mg tablet 15 mg PO DAILY #90 tabs 09/05/24 09/29/24 Rx simvastatin 40 mg tablet See Rx Instructions .Route 09/05/24 10/04/24 Rx .COMPLEX #90 tabs Allergies Allergy/AdvReac Type Severity Reaction Status Date / Time diclofenac AdvReac Mild Nausea and Verified 10/04/24 11:43 Vomiting Vital Signs Vital Signs - 24 hr 10/04/24 11:10 Temperature 98.2 F Pulse Rate 73 Respiratory Rate 14 Blood Pressure 147/71 H Pulse Oximetry 97 Oxygen Delivery Room Air Exam Narrative: The patient's physical exam is essentially unchanged from prior examination on 07/04/2024. Specifically, patient demonstrates normal lung capacity, tidal volume and respiratory rate without wheezes, crackles, rales or rubs. Heart rate and rhythm are regular without murmurs, gallops or rubs. No JVD. Pulses 2+ globally without increasing peripheral edema. AAOx3 with no evidence of confusion, intoxication or altered mental state, NC/AT without acute distress or altered consciousness. Speech, cognition, mood, insight and judgment at baseline and within normal limits. Assessment and Plan Assessment and plan (1) Spondylosis of cervical region without myelopathy or radiculopathy: Code(s): M47.812 - Spondylosis without myelopathy or radiculopathy, cervical region Status: Acute (2) Cervicalgia: Code(s): M54.2 - Cervicalgia Status: Acute (3) Chronic neck pain: Code(s): M54.2 - Cervicalgia; G89.29 - Other chronic pain Status: Acute Plan Proceed with planned left C3, C4, C5 thermal radiofrequency ablation under fluoroscopic guidance to address the left C3-4, C4-5 facet joints.
--- NOTE | 2024-10-04 14:28 | WPDHPUPDATE1 ---
History and Physical Update Update Date/Time: 10/04/24 14:28 History and Physical has been reviewed, including an updated exam of the patient. There are NO changes in the patient's condition. Risks, benefits, and alternatives have been discussed and questions answered. Patient agrees to proceed with procedure.
--- NOTE | 2024-10-04 14:30 | W.PM.PROC2 ---
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 Surgeon Lul Bernal MD Telemarketing Supervisor None. Anesthesia Local (w/ IV Moderate Sedation) Description of Procedure INFORMED CONSENT: Risks, benefits and alternatives to the procedure were discussed in detail with the patient who expressed explicit understanding and consent to proceed. Patient was informed verbally and in written form regarding the risks associated with the procedure including the low risk of serious infection, bleeding/bruising, allergic reaction, nerve or organ injury, paralysis, procedural site pain or discomfort, worsening pain and/or mobility, failure to treat and/or disfigurement. The patient expressed explicit understanding and consent to proceed. All materials required for the procedure were available prior to procedure start. Site and side was marked prior to procedure and confirmed in the presence of the patient. PROCEDURE IN DETAIL: The patient was brought to the procedural suite and placed in the prone position with head stabilized with a horseshoe pillow and cervical ramp. Patient was made comfortable with use of pillows under the head/chest, hips and ankles. Skin overlying the injection site on the affected side(s) was prepared broadly with 10mL tinted ChloraPrep applicator and draped in a sterile manner. Strict aseptic technique was utilized throughout. The endplates of the vertebral bodies at the site(s) of interest were aligned in the AP view. Ipsilateral oblique angulation was utilized to optimize visualization of the pars interarticularis at each target site. Local anesthesia was established by infiltration with approximately 5 mL of 1% lidocaine via a 1-1/2 inch 27-gauge needle. An 18-gauge 100mm RF needle with curved 10mm active tip was advanced in the AP view until the needle tip contacted the periosteum of the pars interarticularis at the target site, left C3 parallel to the course of the targeted peripheral nerve branch. Lateral view was utilized to adjust and confirm the appropriate placement of the needle tip just anterior to the center point of the interarticularis, bisecting the distance between adjacent joint spaces. The appropriately-sized RF cannula was inserted into the RF needle and motor stimulation performed with no subjective or objective evidence of recruited muscle activity with stimulation up to 2.0 volts at a frequency of 2Hz. A 1.5 mL solution of 2.0% PF lidocaine was injected via the appropriately positioned RF cannula after negative aspiration. The grounding electrode was confirmed to be in place with good contact and functioning appropriately. After a 90s pause, lesioning was performed to 90 degrees centigrade for 90s ensuring lack of symptoms in the extremity throughout. Needle was withdrawn approximately 1-2 mm and rotated 180 degrees at each level. Lesioning was then repeated in a similar manner as above. The patient tolerated this well. No parasthesias were elicited. Needle was removed completely intact without difficulty. The same procedure was then repeated for all intended levels/ structures on the ipsilateral side, left C4, C5, with identical methodology, modified to compensate for new location, with similar results and no evidence of complication. Images were saved and documented in the patient's chart. The patient's skin was cleaned and sterile bandages applied. The patient tolerated the procedure well. The patient was transported to the recovery area in stable condition where they were observed for an appropriate amount of time prior to discharge, without evidence of complication. The patient was instructed to avoid excessive activity for the next 48 hours, including overhead work, reaching and device/computer usage. Showers only for 48 hours. They were instructed not to drive or operate heavy machinery for 24 hours. They are to monitor for severe headaches, fevers, chills, night sweats, erythema/swelling at the site or any other signs of infection, bleeding/bruising, bowel or bladder changes as well as new pain, weakness or numbness in the upper or lower extremity. Should they notice these changes, they are instructed to call our office immediately or report directly to the nearest Emergency Department if no answer or if after posted office hours. Complications None Condition Stable Disposition PACU [facility] Billing Surgery - Charge Forward: Surgery Billing
[2024-10-04] MEDS: ceFAZolin 2 GM/D5W 50 ML 2 GM/50 ML BAG IVPB (15:32)
[2024-10-04] MEDS: BUPivacaine HCL 0.5% 10 ML AMP 5 ML INFILTRATE (15:42)
[2024-10-04] MEDS: LIDOCAINE 2% PF LOCAL INJ 5 ML VIAL 10 ML INFILTRATE (15:42)
[2024-10-04] MEDS: LIDOCAINE 1% LOCAL INJ 10 ML VIAL 5 ML INFILTRATE (15:43)
[2024-10-04 16:01] VITALS: BP 135/69; PULSE 72; RESP 16; O2SAT 97
[2024-10-04 16:20] LABS: Glucose Point of Care 100 mg/dl (65-105)
[2024-10-04 16:30] VITALS: BP 122/53; PULSE 61; O2SAT 97
[2024-10-04 17:00] VITALS: BP 140/65; PULSE 62
[2024-10-04 17:20] VITALS: BP 137/63; PULSE 63; RESP 18
== END 2024-10-04 17:29 | disposition home or self-care (01) ==
PROVIDERS: PCP Nurse Practitioner Family; Visit Provider Anesthesiology Pain Medicine
PROC: (CPT 64633; principal; 2024-10-04 13:15)
DX: M47.812 Spondylosis without myelopathy or radiculopathy, cervical region (principal); G89.29 Other chronic pain; E11.9 Type 2 diabetes mellitus without complications; Z79.84 Long term (current) use of oral hypoglycemic drugs
CPT/HCPCS: 64633; 64634; 82948; 99199; J0690; J2003; J2250; J3010; J7120

== ENCOUNTER 2024-11-22 07:33 | Day surgery (SDC) | payer MEDICARE, SELFPAY ==
--- NOTE | ~2024-11-22 | XR_ITS ---
XR fluoroscopy no charge Indication: Right L4-5, L5-S1 transforaminal epidural steroid injection TECHNIQUE: Fluoroscopy used during Right L4-5, L5-S1 transforaminal epidural steroid injection perfo rmed by [Lul Bernal MD] on 11/22/2024. Fluoroscopy time of 51 seconds with 39 fluoroscopic i mages captured. FINDINGS: Correlate with procedure note. IMPRESSION: Fluoroscopy used during Right L4-5, L5-S1 transforaminal epidural steroid injection. Reviewed, dictated and finalized at location B. IMPRESSION: Fluoroscopy used during Right L4-5, L5-S1 transforaminal epidural s teroid injection.
--- OUTSIDE RECORDS SUMMARY | 2024-11-22 08:15 | XMS_ITS | Referral Summary ---
Author Organization [facility] Address [address] [place] [address] Care Team Providers Care Training Personnel Supervisor Name Role Phone Fidel Ferguson MD Primary Care Provider [phone] Encounters Date Type Department Care Team Description 11/03/2024 Telephone [facility] Gastroenterology [address] [facility] Advanced Medicine 12th [place] [address] [place] [address] Bairon Watts 11/02/2024 Telephone [facility] Gastroenterology [address] [facility] Medicine 12th [place] [address] [place] [address] Bairon Watts imaging due 11/02/2024 Telephone [facility] Gastroenterology [address] [facility] 12th [place] [address] [place] [address] Bairon Watts imaging due 11/01/2024 1:30 PM TUNG NUT GROWER Lab [facility] at [facility] [address] [facility] [place] [place] [phone] IPMN (intraductal papillary mucinous neoplasm); Neoplasm of uncertain behavior of digestive organ, unspecified 11/01/2024 7:30 AM TUNG NUT GROWER - 11/01/2024 11:59 PM TUNG NUT GROWER Hospital Encounter [facility] Imaging [address] [place] [address] IPMN (intraductal papillary mucinous neoplasm) Discharge Disposition: Discharge to home or self care 11/01/2024 10:45 AM TUNG NUT GROWER Office Visit [facility] Surgery [address] [facility] [address] [place] [address] Shanique Gutierrez MD IPMN (intraductal papillary mucinous neoplasm) (Primary Dx); 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) from Last 3 Months Allergies Active Allergy Reactions Criticality Noted Date Comments Diclofenac Nausea & Vomiting Low 08/02/2024 Medications levothyroxine (SYNTHROID) 50 mcg tablet 01/24/2024 Active simvastatin (ZOCOR) 40 mg tablet 01/24/2024 Active metFORMIN XR (GLUCOPHAGE XR) 750 mg 24 hr tablet 01/29/2024 Active meloxicam (MOBIC) 15 mg tablet 01/29/2024 Active Active Problems Problem Noted Date Diagnosed Date Cyst of pancreas 02/02/2024 Immunizations Immunization Administration Dates Next Due Influenza, Quadrivalent, Hig [...] Sign Reading Time Taken Comments Blood Pressure 144/81 11/01/2024 10:50 AM TUNG NUT GROWER Pulse 85 11/01/2024 10:50 AM TUNG NUT GROWER Temperature 36.5 C (97.7 F) 11/01/2024 10:50 AM TUNG NUT GROWER Respiratory Rate 16 11/01/2024 10:5 0 AM TUNG NUT GROWER Oxygen Saturation 96% 11/01/2024 10: 50 AM TUNG NUT GROWER Inhaled Oxygen Concentration - - Weight 77.5 kg (170 lb 12.8 oz) 025 10:50 AM TUNG NUT GROWER Height 169 cm (5' 6.54 ) 11/01/2024 10: 50 AM TUNG NUT GROWER Body Mass Index 27.13 11/01/2024 10:50 AM TUNG NUT GROWER Plan of Treatment Not on file Procedures Procedure Name Priority Date/Time Associated Diagnosis Comments CANCER ANTIGEN 19-9 Routine 11/01/2024 11:25 AM TUNG NUT GROWER IPMN (intraductal papillary mucinous neoplasm) Neoplasm of uncertain behavior of digestive organ, unspecified MRI ABDOMEN MRCP W WO CONTRAST Schedule Routine, Read Routine (OP Routine) 11/01/2024 9:04 AM TUNG NUT GROWER IPMN (intraductal papillary mucinous neoplasm) from Last 3 Months Results * Cancer antigen 19-9 (11/01/2024 11:25 AM TUNG NUT GROWER) CA 19-9 ag 30.0 0.0 - 35.0 units/mL Comment: Interpretive Data The Asuncion CA 19-9 assay procedure was used. Results from different manufacturers or methods may not be comparable. Serial testing should be performed using the same method. Testing performed by: [facility], [address] [facility], [place]., [address] Blood 11/01/2024 11:2 5 AM TUNG NUT GROWER 11/01/2024 4:04 PM TUNG NUT GROWER us Shanique Gutierrez MD LAB BLOOD ORDERABLE S Final Result [facility] [address] [facility] [address] * MRI Abdomen MRCP W WO Contrast (11/01/2024 9:04 AM TUNG NUT GROWER) Anatomical Region Laterality Modality Body N/A Magnetic Resonan ce 11/01/2024 11:2 2 AM TUNG NUT GROWER Impressions 11/01/2024 11:22 AM TUNG NUT GROWER 1. 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 No enhancing mural nodularity. Electronically signed by: Maninder Ortiz M.D. Narrative 11/01/2024 11:22 AM TUNG NUT GROWER EXAMINATION: 1. MAGNETIC RESONANCE IMAGING OF THE ABDOMEN WITH AND WITHOUT CONTRAST 2. THREE DIMENSIONAL RECONSTRUCTION OF THE BILIARY TREE AND PANCREATIC DUCT HISTORY: 79-year-old male with pancreatic cystic lesion TECHNIQUE: Magnetic resonance imaging of the abdomen was performed prior to and following the uneventful administration of intravenous Gadolinium contrast. The raw data was processed on the scanner by the technologist for 3 dimensional reconstructions of the intrahepatic ducts, extrahepatics ducts, and pancreatic duct. Protocol: Liver MRCP Contrast: gadoterate 14 mL COMPARISON: 06/29/2024, 03/03/2020 FINDINGS: Liver: No morphologic features of cirrhosis. No hepatic steatosis or increased iron deposition. - Bile ducts: No intra or extrahepatic bile duct dilatation. - Focal liver lesions: No suspicious liver lesion. Small area of hypoenhancement in segment IVb just anterior to the gallbladder is unchanged dating back to 11/30/2023 and may represent a sclerosed hemangioma (series 37, image 42). - Vasculature: Patent hepatic and portal veins. Sensory right hepatic artery arising from the superior mesenteric artery. Gallbladder: Distended, but otherwise unremarkable Pancreas: The duct through the pancreatic head measures up to 0.7 cm and is unchanged. There is dilation of the main pancreatic duct at the level of the body measuring up to 1.6 cm, unchanged. Overall, the most marked area of dilation coalescing into a cystic mass spans 5.5 cm and is unchanged. There is layering at T2 intermediate hypointense debris, likely small mucin balls. There is diffuse parenchymal atrophy present. Several dilated side branches are also present and unchanged. Spleen: Normal Adrenals: Normal Kidneys: No suspicious enhancing renal lesions. Bilateral renal cysts, one of which is hemorrhagic on the right, and left peripelvic cysts. Other Findings: Visualized lung bases are unremarkable. No abdominal ascites. The visualized bowel is normal in caliber without intestinal obstruction. Normal caliber abdominal aorta. No upper abdominal or retroperitoneal lymphadenopathy. No aggressive marrow replacing lesions. Multilevel degenerative disc disease. Multilevel degenerative disc disease. Procedure Note Maninder Ortiz MD - 11/01/2024 EXAMINATION: 1. MAGNETIC RESONANCE IMAGING OF THE ABDOMEN WITH AND WITHOUT CONTRAST 2. THREE DIMENSIONAL RECONSTRUCTION OF THE BILIARY TREE AND PANCREATIC DUCT HISTORY: 79-year-old male with pancreatic cystic lesion TECHNIQUE: Magnetic resonance imaging of the abdomen was performed prior to and following the uneventful administration of intravenous Gadolinium contrast. The raw data was processed on the scanner by the technologist for 3 dimensional reconstructions of the intrahepatic ducts, extrahepatics ducts, and pancreatic duct. Protocol: Liver MRCP Contrast: gadoterate 14 mL COMPARISON: 06/29/2024, 03/03/2020 FINDINGS: Liver: No morphologic features of cirrhosis. No hepatic steatosis or increased iron deposition. - Bile ducts: No intra or extrahepatic bile duct dilatation. - Focal liver lesions: No suspicious liver lesion. Small area of hypoenhancement in segment IVb just anterior to the gallbladder is unchanged dating back to 11/30/2023 and may represent a sclerosed hemangioma (series 37, image 42). - Vasculature: Patent hepatic and portal veins. Sensory right hepatic artery arising from the superior mesenteric artery. Gallbladder: Distended, but otherwise unremarkable Pancreas: The duct through the pancreatic head measures up to 0.7 cm and is unchanged. There is dilation of the main pancreatic duct at the level of the body measuring up to 1.6 cm, unchanged. Overall, the most marked area of dilation coalescing into a cystic mass spans 5.5 cm and is unchanged. There is layering at T2 intermediate hypointense debris, likely small mucin balls. There is diffuse parenchymal atrophy present. Several dilated side branches are also present and unchanged. Spleen: Normal Adrenals: Normal Kidneys: No suspicious enhancing renal lesions. Bilateral renal cysts, one of which is hemorrhagic on the right, and left peripelvic cysts. Other Findings: Visualized lung bases are unremarkable. No abdominal ascites. The visualized bowel is normal in caliber without intestinal obstruction. Normal caliber abdominal aorta. No upper abdominal or retroperitoneal lymphadenopathy. No aggressive marrow replacing lesions. Multilevel degenerative disc disease. Multilevel degenerative disc disease. IMPRESSION: 1. 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 No enhancing mural nodularity. Electronically signed by: Maninder Ortiz M.D. [facility] Raymond Marx MD IMG MRI PROCEDURES Final Result from Last 3 Months Insurance MEDICARE SOLUTIONS MEDICARE SOLUTIONS Advance Directives For more information, please contact: [phone] * Full Code (Latest Code Status on File) Date Activated Date Inactivated Comments 02/11/2024 12:25 PM 02/11/2024 7:22 PM Care Teams Training Personnel Supervisor Relationship Specialty Start Date End Date Fidel Ferguson MD [facility] [facility] [place] [address] PCP - General Family Medicine 06/16/24
--- OUTSIDE RECORDS SUMMARY | 2024-11-22 08:15 | XMS_ITS | Encounter Summary ---
Author Organization [facility] Address [address] [place] [address] Phone Care Team Providers Care Boat Camp Operator Name Role Phone Referral, Self Primary Care Provider Judy e Fidel Ferguson MD Primary Care Provider [phone] Encounter Details Date Type Department Care Team [...] on filedocumented in this encounter Care Teams Boat Camp Operator Relationship Specialty Start Date End Date Referral, Self PCP - General 02/02/24 06/15/24 Fidel Ferguson MD [address] [address] PCP - General Family Medicine 06/16/24 documented as of this encounter
--- OUTSIDE RECORDS SUMMARY | 2024-11-22 08:15 | XMS_ITS | Clinical Summary ---
Author Organization [facility] Address [address] [place] [address] Care Team Providers Care Industrial Real Estate Agent Name Role Phone Fidel Ferguson MD Primary Care Provider [phone] Allergies Active Allergy Reactions Criticality Noted Date [...] Type Department Care Team Description 11/03/2024 Telephone [facility] Gastroenterology [facility] Medicine [address]th [place] [address] [place] [address] Bairon Watts 11/02/2024 Telephone [facility] Gastroenterology [address] [facility] Medicine [address]th [place] [address] [place] [address] Bairon Watts imaging due 11/02/2024 Telephone [facility] Gastroenterology [address] [facility] 12th [place] [address] [place] [address] Bairon Watts imaging due 11/01/2024 1:30 PM TEACHER CCLC Lab [facility] [address] [facility] [place] [phone] IPMN (intraductal papillary mucinous neoplasm); Neoplasm of uncertain behavior of digestive organ, unspecified 11/01/2024 10:45 AM TEACHER CCLC Office Visit [facility] Surgery [address] [facility] [address] [place] [phone] Shanique Gutierrez MD IPMN (intraductal papillary mucinous neoplasm) (Primary Dx); 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) 11/01/2024 7:30 AM TEACHER CCLC - 11/01/2024 11:59 PM TEACHER CCLC Hospital Encounter [facility] Imaging [address] [place] [address] IPMN (intraductal papillary mucinous neoplasm) Discharge Disposition: Discharge to home or self care from Last 3 Months Immunizations Immunization Administration Dates Next Due Influenza, [...] Comments Blood Pressure 144/81 11/01/2024 10:50 AM TEACHER CCLC Pulse 85 11/01/2024 10:50 AM TEACHER CCLC Temperature 36.5 C (97.7 F) 11/01/2024 10:50 AM TEACHER CCLC Respiratory Rate 16 11/01/2024 10:5 0 AM TEACHER CCLC Oxygen Saturation 96% 11/01/2024 10: 50 AM TEACHER CCLC Inhaled Oxygen Concentration - - Weight 77.5 kg (170 lb 12.8 oz) 025 10:50 AM TEACHER CCLC Height 169 cm (5' 6.54 ) 11/01/2024 10: 50 AM TEACHER CCLC Body Mass Index 27.13 11/01/2024 10:50 AM TEACHER CCLC Plan of Treatment Health Maintenance Due Date Last Done Comments Depression Screening 1945 Hepatitis C Screening 1945 Hepatitis B Screening 1963 Pneumococcal vaccine 65+ (1 of 1 - PCV) 1995 Well Visit 65+ 2010 Covid-19 Vaccine (2023-2 5 season) 2024 06/29/2023, 05/29/2022, 12/17/2021, Additional history exists Influenza Vaccine (#1) 2024 , 06/19/2022, 06/10/2021, Additional history exists Fall Risk Assessment 02/10/2025 02/11/2024 DTaP/Tdap/Td Vaccine (2 - Td or Tdap) 08/23/2026 08/23/2016 Zoster Vaccine Completed 04/09/2023, 01/30/2023 Procedures Procedure Name Priority Date/Time Associated Diagnosis Comments CANCER ANTIGEN 19-9 Routine 11/01/2024 11:25 AM TEACHER CCLC IPMN (intraductal papillary mucinous neoplasm) Neoplasm of uncertain behavior of digestive organ, unspecified MRI ABDOMEN MRCP W WO CONTRAST Schedule Routine, Read Routine (OP Routine) 11/01/2024 9:04 AM TEACHER CCLC IPMN (intraductal papillary mucinous neoplasm) from Last 3 Months Results * Cancer antigen 19-9 (11/01/2024 11:25 AM TEACHER CCLC) CA 19-9 ag 30.0 0.0 - 35.0 units/mL Comment: Interpretive Data The Asuncion CA 19-9 assay procedure was used. Results from different manufacturers or methods may not be comparable. Serial testing should be performed using the same method. Testing performed by: [facility], [facility] [facility], [place]., [address] Blood 11/01/2024 11:2 5 AM TEACHER CCLC 11/01/2024 4:04 PM TEACHER CCLC us Shanique Gutierrez MD LAB BLOOD ORDERABLE S Final Result Performing Organization Address [facility] Co de Phone Number [facility] [address] [facility] [place] [address] * MRI Abdomen MRCP W WO Contrast (11/01/2024 9:04 AM TEACHER CCLC) Anatomical Region Laterality Modality Body N/A Magnetic Resonan ce 11/01/2024 11:2 2 AM TEACHER CCLC Impressions 11/01/2024 11:22 AM TEACHER CCLC 1. 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 No enhancing mural nodularity. Electronically signed by: Maninder Ortiz M.D. Narrative 11/01/2024 11:22 AM TEACHER CCLC EXAMINATION: 1. MAGNETIC RESONANCE IMAGING OF THE [...] nodularity. Electronically signed by: Maninder Ortiz M.D. [facility] Raymond Marx MD IM MRI PROCEDURES Final Result from Last 3 Months Insurance MEDICARE SOLUTIONS [facility] MEDICARE Address: [address] [address] [place] [address] MEDICARE SOLUTIONS Advance Directives For more information, please contact: [phone] * Full Code (Latest Code Status on File) Date Activated Date Inactivated Comments 02/11/2024 12:25 PM 02/11/2024 7:22 PM Care Teams Industrial Real Estate Agent Relationship Specialty Start Date End Date Fidel Ferguson MD [facility] [place] [address] PCP - General Family Medicine 06/16/24
[2024-11-22 08:36] VITALS: BP 134/82; PULSE 70; RESP 18; TEMP 36.4; O2SAT 100; BMI 25.9
--- NOTE | 2024-11-22 09:38 | WPDHPUPDATE1 ---
History and Physical Update Update Date/Time: 11/22/24 09:38 History and Physical has been reviewed, including an updated exam of the patient. There are NO changes in the patient's condition. Risks, benefits, and alternatives have been discussed and questions answered. Patient agrees to proceed with procedure.
--- NOTE | 2024-11-22 09:39 | W.PM.PROC2 ---
Procedure Note - Detailed Date of Procedure 11/22/24 Pre-op Diagnosis Spinal Stenosis, Lumbar Region with Post-op Diagnosis Same Procedure Performed Right Lumbar Transforaminal Epidural Steroid Injection under Fluoroscopic Guidance and with Contrast Control at L4-5, L5-S1. Surgeon Lul Bernal MD Anesthesia Local Description of Procedure INFORMED CONSENT: Risks, benefits and alternatives to the procedure were discussed in detail with the patient who expressed explicit understanding and consent to proceed. Patient was informed verbally and in written form regarding the risks associated with the procedure including the low risk of serious infection, bleeding/bruising, allergic reaction, nerve or organ injury, paralysis, procedural site pain or discomfort, worsening pain and/or mobility, failure to treat and/or disfigurement. The patient expressed explicit understanding and consent to proceed. All materials required for the procedure were available prior to procedure start. Site and side was marked prior to procedure and confirmed in the presence of the patient. PROCEDURE IN DETAIL: The patient was brought to the procedural suite and placed in the prone position. Patient was made comfortable with use of pillows under the head/chest, hips and ankles. Skin overlying the injection site was prepared broadly with ChloraPrep applicator and draped in a sterile manner. Aseptic technique was employed throughout. The endplates of the vertebral body at the site of interest were aligned in the AP view. Ipsilateral oblique angulation was utilized to better visualize the neuroforamen of interest. Local anesthesia was established by infiltration with approximately 5 mL of 0.5% PF lidocaine via a 1-1/2 inch 27-gauge needle. A 22-gauge 3.5 inch [place] (pencil point) spinal needle was advanced until the needle approached the 6 o'clock position on the pedicle just superior to the exiting nerve root. on the right at L4-5. Lateral view was utilized to confirm appropriate position of the needle tip within the superior and posterior portion of the respective foramen. In an AP view, 1 mL of Omnipaque 300 contrast medium was injected after negative aspiration for CSF, blood or other bodily fluid, showing appropriate neurogram without evidence of intravascular or intrathecal spread of contrast. Digital subtraction imaging was used with an additional 1ml of the same contrast medium to confirm absence of intravascular contrast spread. A 1mL solution containing 3 mg of betamethasone was injected after negative repeat aspiration. Appropriate spread of the injectate was confirmed with washout of previously injected contrast. No parasthesias were elicited. Needle was removed completely intact without difficulty. The same exact procedure was repeated for all remaining levels on the ipsilateral side, right L5-S1 neuroforamen, modified as necessary to accommodate for the new target location with identical findings and results and no evidence of complication. Images were saved and documented in the patient chart. Patient's skin was cleaned and sterile bandage applied. The patient tolerated the procedure well. The patient was transported to the recovery area in stable condition where they were observed for an appropriate amount of time prior to discharge, without evidence of complication. The patient was instructed to avoid excessive activity for the next 48 hours, including climbing and frequent use of stairs. Showers only for 48 hours. They were instructed not to drive or operate heavy machinery for 24 hours. They are to monitor for severe headaches, fevers, chills, night sweats, erythema/swelling at the site or any other signs of infection, bleeding/bruising, bowel or bladder changes as well as new pain, weakness or numbness in the upper or lower extremity. Should they notice these changes, they are instructed to call our office immediately or report directly to the nearest Emergency Department if no answer or if after posted office hours. COMPLICATIONS: None COMMENTS: None CONTRAST WASTED: 26 mL Omnipaque 300. STEROID WASTED: 0 mg of betamethasone. Complications No immediate complications Condition Stable Disposition Same day [facility] Billing Surgery - Charge Forward: Surgery Billing
[2024-11-22 09:45] VITALS: BP 138/65; PULSE 67; RESP 14; O2SAT 98
[2024-11-22 09:49] VITALS: BP 143/68; PULSE 65; RESP 12; O2SAT 98
[2024-11-22] MEDS: BETAMETHASONE SODIUM PHOSPHATE PF INJ 6 MG/ML VIAL INFILTRATE (09:51)
[2024-11-22] MEDS: LIDOCAINE 2% PF LOCAL INJ 5 ML VIAL 3 ML INFILTRATE (09:51)
[2024-11-22 09:52] VITALS: BP 136/70; PULSE 66; RESP 12; O2SAT 99
[2024-11-22] MEDS: LIDOCAINE 1% PF INJ 5 ML VIAL 3 ML INFILTRATE (09:52)
[2024-11-22 09:56] VITALS: BP 121/71; PULSE 72; RESP 18; O2SAT 100
== END 2024-11-22 10:08 | disposition home or self-care (01) ==
PROVIDERS: PCP Emergency Medicine; Visit Provider Anesthesiology Pain Medicine
PROC: (CPT 64483; principal; 2024-11-22 09:30)
DX: M48.061 Spinal stenosis, lumbar region without neurogenic claudication (principal); M54.16 Radiculopathy, lumbar region
CPT/HCPCS: 64483; 64484; 99199

== ENCOUNTER 2024-12-08 14:43 | Outpatient (CLI) | payer MEDICARE, SELFPAY ==
--- NOTE | ~2024-12-08 | XR_ITS ---
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 Pelvic rings are intact. No acute fractu re or traumatic malalignment. No significant soft tissue abnormality. There is lower lumbar spondylos is. Sacral foramen are symmetric. Impression: 1: Mild-moderate symmetric osteoarthritis of the hips. Reviewed, dictated and finalized at location A. Impression: 1: Mild-moderate symmetric osteoarthritis of the hips.
--- OUTSIDE RECORDS SUMMARY | 2024-12-08 15:06 | XMS_ITS | Referral Summary ---
Author Organization [facility] Address [address] [place] [address] Care Team Providers Care Sulky Driver Name Role Phone Fidel Ferguson MD Primary Care Provider [phone] Encounters Date Type Department Care Team Description 11/03/2024 Telephone [facility] Gastroenterology [address] [facility] [address]th [place] [address] [place] [address] Bairon Watts 11/02/2024 Telephone [facility] Gastroenterology [address] [facility] 12th [place] [address] [place] [address] Bairon Watts imaging due 11/02/2024 Telephone [facility] Gastroenterology [address] [facility] 12th [place] [address] [place] [address] Bairon Watts imaging due 11/01/2024 1:30 PM LOBSTER MAN Lab [facility] [address] [facility] [place] [phone] IPMN (intraductal papillary mucinous neoplasm); Neoplasm of uncertain behavior of digestive organ, unspecified 11/01/2024 7:30 AM LOBSTER MAN - 11/01/2024 11:59 PM LOBSTER MAN Hospital Encounter [facility] Imaging [address] [place] [address] IPMN (intraductal papillary mucinous neoplasm) Discharge Disposition: Discharge to home or self care 11/01/2024 10:45 AM LOBSTER MAN Office Visit [facility] Surgery [address] [facility] [address] [place] [address] Shanique Gutierrez MD IPMN (intraductal papillary [...] Comments Blood Pressure 144/81 11/01/2024 10:50 AM LOBSTER MAN Pulse 85 11/01/2024 10:50 AM LOBSTER MAN Temperature 36.5 C (97.7 F) 11/01/2024 10:50 AM LOBSTER MAN Respiratory Rate 16 11/01/2024 10:5 0 AM LOBSTER MAN Oxygen Saturation 96% 11/01/2024 10: 50 AM LOBSTER MAN Inhaled Oxygen Concentration - - Weight 77.5 kg (170 lb 12.8 oz) 025 10:50 AM LOBSTER MAN Height 169 cm (5' 6.54 ) 11/01/2024 10: 50 AM LOBSTER MAN Body Mass Index 27.13 11/01/2024 10:50 AM LOBSTER MAN Plan of Treatment Not on file Procedures Procedure Name Priority Date/Time Associated Diagnosis Comments CANCER ANTIGEN 19-9 Routine 11/01/2024 11:25 AM LOBSTER MAN IPMN (intraductal papillary mucinous neoplasm) Neoplasm of uncertain behavior of digestive organ, unspecified MRI ABDOMEN MRCP W WO CONTRAST Schedule Routine, Read Routine (OP Routine) 11/01/2024 9:04 AM LOBSTER MAN IPMN (intraductal papillary mucinous neoplasm) from Last 3 Months Results * Cancer antigen 19-9 (11/01/2024 11:25 AM LOBSTER MAN) CA 19-9 ag 30.0 0.0 - 35.0 units/mL Comment: Interpretive Data The Asuncion CA 19-9 assay procedure was used. Results from different manufacturers or methods may not be comparable. Serial testing should be performed using the same method. Testing performed by: [facility], [address] [facility], [place]., [address] Blood 11/01/2024 11:2 5 AM LOBSTER MAN 11/01/2024 4:04 PM LOBSTER MAN us Shanique Gutierrez MD LAB BLOOD ORDERABLE S Final Result [facility] [address] [facility] [address] * MRI Abdomen MRCP W WO Contrast (11/01/2024 9:04 AM LOBSTER MAN) Anatomical Region Laterality Modality Body N/A Magnetic Resonan ce 11/01/2024 11:2 2 AM LOBSTER MAN Impressions 11/01/2024 11:22 AM LOBSTER MAN 1. 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 No enhancing mural nodularity. Electronically signed by: Maninder Ortiz M.D. Narrative 11/01/2024 11:22 AM LOBSTER MAN EXAMINATION: 1. MAGNETIC RESONANCE IMAGING OF THE [...] nodularity. Electronically signed by: Maninder Ortiz M.D. [facility] Raymond Marx MD IMG MRI PROCEDURES Final Result from Last 3 Months Insurance MEDICARE ADVANTAGE [employer] MEDICARE ADVANTAGE Advance Directives For more information, please contact: [phone] * Full Code (Latest Code Status on File) Date Activated Date Inactivated Comments 02/11/2024 12:25 PM 02/11/2024 7:22 PM Care Teams Sulky Driver Relationship Specialty Start Date End Date Fidel Ferguson MD [facility] [facility] [place] [place] [address] PCP - General Family Medicine 06/16/24
--- OUTSIDE RECORDS SUMMARY | 2024-12-08 15:06 | XMS_ITS | Clinical Summary ---
Author Organization [facility] Address [address] [place] [address] Care Team Providers Care Division Road Supervisor Name Role Phone Fidel Ferguson MD Primary Care Provider [phone] Allergies Active Allergy Reactions Criticality Noted Date [...] Type Department Care Team Description 11/03/2024 Telephone [facility] G[facility]enterology [facility] Medicine [address]th [place] [address] [place] [address] Bairon Watts 11/02/2024 Telephone [facility] Gastroenterology [address] [facility] Medicine [address]th [place] [address] [place] [address] Bairon Watts imaging due 11/02/2024 Telephone [facility] Gastroenterology [address] [facility] 12th [place] [address] [place] [address] Bairon Watts imaging due 11/01/2024 1:30 PM OLIVER FILTER OPERATOR Lab [facility] [address] [facility] [place] [phone] IPMN (intraductal papillary mucinous neoplasm); Neoplasm of uncertain behavior of digestive organ, unspecified 11/01/2024 10:45 AM OLIVER FILTER OPERATOR Office Visit [facility] Surgery [address] 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) 11/01/2024 7:30 AM OLIVER FILTER OPERATOR - 11/01/2024 11:59 PM OLIVER FILTER OPERATOR Hospital Encounter [facility] [address] [place] [address] IPMN (intraductal papillary mucinous neoplasm) Discharge Disposition: [...] Comments Blood Pressure 144/81 11/01/2024 10:50 AM OLIVER FILTER OPERATOR Pulse 85 11/01/2024 10:50 AM OLIVER FILTER OPERATOR Temperature 36.5 C (97.7 F) 11/01/2024 10:50 AM OLIVER FILTER OPERATOR Respiratory Rate 16 11/01/2024 10:5 0 AM OLIVER FILTER OPERATOR Oxygen Saturation 96% 11/01/2024 10: 50 AM OLIVER FILTER OPERATOR Inhaled Oxygen Concentration - - Weight 77.5 kg (170 lb 12.8 oz) 025 10:50 AM OLIVER FILTER OPERATOR Height 169 cm (5' 6.54 ) 11/01/2024 10: 50 AM OLIVER FILTER OPERATOR Body Mass Index 27.13 11/01/2024 10:50 AM OLIVER FILTER OPERATOR Plan of Treatment Health Maintenance Due [...] CANCER ANTIGEN 19-9 Routine 11/01/2024 11:25 AM OLIVER FILTER OPERATOR IPMN (intraductal papillary mucinous neoplasm) Neoplasm of uncertain behavior of digestive organ, unspecified MRI ABDOMEN MRCP W WO CONTRAST Schedule Routine, Read Routine (OP Routine) 11/01/2024 9:04 AM OLIVER FILTER OPERATOR IPMN (intraductal papillary mucinous neoplasm) from Last 3 Months Results * Cancer antigen 19-9 (11/01/2024 11:25 AM OLIVER FILTER OPERATOR) CA 19-9 ag 30.0 0.0 - 35.0 units/mL Comment: Interpretive Data The Asuncion CA 19-9 assay procedure was used. Results from different manufacturers or methods may not be comparable. Serial testing should be performed using the same method. Testing performed by: [facility], [facility] [facility], [place]., [address] Blood 11/01/2024 11:2 5 AM OLIVER FILTER OPERATOR 11/01/2024 4:04 PM OLIVER FILTER OPERATOR us Shanique Gutierrez MD LAB BLOOD ORDERABLE S Final Result Performing Organization Address City/State/[facility] Co de Phone Number [facility] [address] [facility] Department [place] [employer] [place] [address] * MRI Abdomen MRCP W WO Contrast (11/01/2024 9:04 AM OLIVER FILTER OPERATOR) Anatomical Region Laterality Modality Body N/A Magnetic Resonan ce 11/01/2024 11:2 2 AM OLIVER FILTER OPERATOR Impressions 11/01/2024 11:22 AM OLIVER FILTER OPERATOR 1. 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 No enhancing mural nodularity. Electronically signed by: Maninder Ortiz M.D. Narrative 11/01/2024 11:22 AM OLIVER FILTER OPERATOR EXAMINATION: 1. MAGNETIC RESONANCE IMAGING OF THE [...] nodularity. Electronically signed by: Maninder Ortiz M.D. [facility] Raymond Marx MD IMG MRI PROCEDURES Final Result from Last 3 Months Insurance [facility] MEDICARE ADVANTAGE [facility] MEDICARE ADVANTAGE Advance Directives For more information, please contact: [phone] * Full Code (Latest Code Status on File) Date Activated Date Inactivated Comments 02/11/2024 12:25 PM 02/11/2024 7:[address] Supervisor Relationship Specialty Start Date End Date Fidel Ferguson MD [address] [facility] [address] PCP - General Family Medicine 06/16/24
--- OUTSIDE RECORDS SUMMARY | 2024-12-08 15:06 | XMS_ITS | Encounter Summary ---
Author Organization [facility] Address [address] [place] [address] Phone Care Team Providers Care Aging Room Hand Name Role Phone Referral, Self Primary Care Provider Judy e Fidel Ferguson MD Primary Care Provider [phone] Encounter Details Date Type Department Care Team [...] on filedocumented in this encounter Care Teams Aging Room Hand Relationship Specialty Start Date End Date Referral, Self PCP - General 02/02/24 06/15/24 Fidel Ferguson MD [address] [facility] [place] [address] PCP - General Family Medicine 06/16/24 documented as of this encounter
== END 2024-12-08 14:44 | disposition home or self-care (01) ==
PROVIDERS: PCP Nurse Practitioner Family; Visit Provider Anesthesiology Pain Medicine
DX: M16.0 Bilateral primary osteoarthritis of hip (principal)
CPT/HCPCS: 73502

== ENCOUNTER 2024-12-21 10:24 | Outpatient (CLI) | payer MEDICARE, SELFPAY ==
--- NOTE | ~2024-12-21 | MR_ITS ---
MRI of the cervical spine Clinical History: Radiculopathy Technique: Axial T2-weighted and gradient images, and sagittal T1-weighted, T2-weighted, and STIR antoine ges were acquired. COMPARISON: 05/14/2023 Findings: No acute fracture or subluxation. Osseous alignment unchanged. Stable severe degenerative c hange at the articulation of the odontoid process with the anterior arch of C1. No suspicious bone ma rrow signal abnormality seen. At C2-C3, there is no disc bulge or herniation. There is mild bilateral neural foraminal narrowing wi th bilateral facet arthropathy. No central canal stenosis or cord compression. C3-C4, there is severe left facet arthropathy and probable left foraminal osteophyte complex. No kyle l stenosis or cord compression. There is preservation right neural foramen. There is severe left neur al foraminal narrowing. At C4-C5, there is moderate degenerative disc narrowing. There is mild canal stenosis without pastora c ord compression. There is bilateral neural foraminal narrowing with bilateral facet arthropathy. At C5-C6 there is no significant disc bulge or herniation. No canal stenosis or cord compression. The re is probable mild bilateral neural foraminal narrowing, left worse on right, with bilateral facet a rthropathy. At C6-C7, there is no disc bulge or herniation. No spinal canal stenosis, cord compression, or defini te neural foraminal narrowing. No abnormal signal seen in the spinal cord. Paravertebral soft tissues are unremarkable. Impression: Moderate degenerative spondylosis, worst at C3-C4. Reviewed, dictated and finalized at [facility]. Impression: Moderate degenerative spondylosis, worst at C3-C4.
== END 2024-12-21 10:25 | disposition home or self-care (01) ==
LOC: GOSHIMG 10:24
PROVIDERS: PCP Anesthesiology Pain Medicine; Visit Provider Anesthesiology Pain Medicine
DX: M47.892 Other spondylosis, cervical region (principal)
CPT/HCPCS: 72141

== ENCOUNTER 2025-01-31 09:47 | Day surgery (SDC) | payer MEDICARE, SELFPAY ==
[2025-01-16 14:32] VITALS: BMI 24.5
--- NOTE | ~2025-01-31 | XR_ITS ---
INTRAOPERATIVE FLUOROSCOPY: CLINICAL HISTORY: 79 years old Male; LEFTWARD C6-7 INTERLAMINAR CERVICAL EPI STEROID INJ PROCEDURE COMMENTS: Limited intraoperative fluoroscopy of the cervical spine was performed. CUMULATIVE DOSE: 3.6 mGy FLUOROSCOPY TIME: 34.2 seconds FINDINGS/IMPRESSION: Please refer to operative note for further details. Reviewed, dictated and finalized at location A.
[2025-01-31 10:38] VITALS: BP 141/73; PULSE 62; RESP 16; TEMP 36.6; O2SAT 100
--- NOTE | 2025-01-31 11:22 | WPDHPUPDATE1 ---
History and Physical Update Update Date/Time: 01/31/25 11:22 History and Physical has been reviewed, including an updated exam of the patient. There are NO changes in the patient's condition. Risks, benefits, and alternatives have been discussed and questions answered. Patient agrees to proceed with procedure.
--- NOTE | 2025-01-31 11:23 | P.OP_ITS ---
Procedure Note - Detailed Date of Procedure 01/31/25 Pre-op Diagnosis Cervical radiculopathy, cervical spinal stenosis Post-op Diagnosis Same Procedure Performed Leftward Cervical Interlaminar Epidural Steroid Injection at C6-7 under Fluo roscopic Guidance and with Contrast Control. Surgeon Lul Bernal MD Anesthesia Local Description of Procedure INFORMED CONSENT: Risks, benefits and alternatives to the procedure were discussed in detail with the patient who expressed explicit understanding and consent to proceed. Patient was informed verbally and in written form regarding the risks associated with the procedure including the low risk of serious infection, bleeding/bruising, allergic reaction, nerve or organ injury, paralysis, procedural site pain or discomfort, worsening pain and/or mobility, failure to treat and/or disfigurement. The patient expressed explicit understanding and consent to proceed. All materials required for the procedure were available prior to procedure start. Site and side was marked prior to procedure and confirmed in the presence of the patient. PROCEDURE IN DETAIL: The patient was brought to the procedural suite and placed in the prone position. Patient's head was positioned and stabilized with a ProneView pillow or equivalent. Patient was made comfortable with use of pillows under the chest, hips and ankles. Skin overlying the injection site was prepared broadly with ChloraPrep applicator and draped in a sterile manner. Aseptic technique was employed throughout. The endplates of the vertebral body at the site of interest were aligned in the AP view. Slight caudad tilt and ipsilateral oblique angulation was utilized to optimize visualization of the targeted posterior intervertebral foramen at C6-7. Local anesthesia was established by infiltration with approximately 5 mL of 2% lidocaine via a 1-1/2 inch 27-gauge needle. A 20-gauge 4-inch Tuohy epidural needle was advanced intermittently until appropriate loss of resistance to air was identified via plastic loss of resistance syringe. Lateral view was used to confirm the appropriate positioning of the needle tip within the posterior epidural space. In the AP view, 2.0 mL of Omnipaque 300 contrast medium was injected after negative aspiration for CSF, blood or other bodily fluid, showing appropriate epidural spread of contrast without evidence of intravascular or intrathecal placement. After negative repeat aspiration for CSF, blood or other bodily fluid, A 4 mL solution containing 6 mg of betamethasone in sterile PF Normal Saline was injected after negative repeat aspiration. Appropriate spread of the injectate was confirmed with washout of previously injected contrast. No parasthesias were elicited. Needle was removed completely intact without difficulty. Images were saved and documented in the patient chart. Patient's skin was cleansed and sterile bandage applied. The patient tolerated the procedure well. The patient was transported to the recovery area in stable condition where they were observed for an appropriate amount of time prior to discharge, without evidence of complication. The patient was instructed to avoid excessive activity for the next 48 hours, including overhead work, reaching or extended device/computer usage. Showers only for 48 hours. They were instructed not to drive or operate heavy machinery for 24 hours. They are to monitor for severe headaches, fevers, chills, night sweats, erythema/swelling at the site or any other signs of infection, bleeding/bruising, bowel or bladder changes as well as new pain, weakness or numbness in the upper or lower extremity. Should they notice these changes, they are instructed to call our office immediately or report directly to the nearest Emergency Department if no answer or if after posted office hours. CONTRAST WASTED: 28mL Omnipaque 300. Complications No immediate complications Condition Stable Disposition Same day [facility] Billing Surgery - Charge Forward: Surgery Billing
[2025-01-31 12:03] VITALS: BP 143/67; PULSE 59; RESP 13; O2SAT 100
[2025-01-31 12:07] VITALS: PULSE 62; RESP 12; O2SAT 97
[2025-01-31] MEDS: LIDOCAINE 1% PF INJ 5 ML VIAL INFILTRATE (12:09)
[2025-01-31] MEDS: BETAMETHASONE SODIUM PHOSPHATE PF INJ 6 MG/ML VIAL INFILTRATE (12:09)
[2025-01-31 12:10] VITALS: BP 147/86; PULSE 60; RESP 15; O2SAT 100
== END 2025-01-31 12:24 | disposition home or self-care (01) ==
PROVIDERS: PCP Family Medicine; Visit Provider Anesthesiology Pain Medicine
PROC: (CPT 62321; principal; 2025-01-31 11:15)
DX: M48.02 Spinal stenosis, cervical region (principal); M54.12 Radiculopathy, cervical region
CPT/HCPCS: 62321; 99199

== ENCOUNTER 2025-03-20 10:19 | Emergency (ER) | payer MEDICARE, SELFPAY ==
--- NOTE | ~2025-03-20 | US_ITS ---
US venous doppler UE LT Ordering provider: Comfort Mata APRN History: . CT showing Left Jugular thrombosis requesting US . Comparison: None. FINDINGS/impression: Possible thrombus seen in the anterior wall of the distal left subclavian vein at the level of a valv e. Echoes are seen in the area with no color Doppler filling. Reviewed, dictated and finalized at location A.
--- NOTE | ~2025-03-20 | CT_ITS ---
CTA brain carotid Ordering provider: Comfort Mata APRN History: . headache . Comparison: None. Technique: CT angiogram head and neck was performed following timed intravenous injection of contrast . Thin slice axial images and reformatted coronal images were obtained. Three dimensional reformatted images of the brain were also obtained using a Yapp[employer] workstation. Radiation reduction technique ut ilized. The dose-length product was 1587.69 mGy-cm. 100 mL Omnipaque 350 was given IV. FINDINGS: HEAD: --ANTERIOR AND MIDDLE CEREBRAL ARTERIES AND BRANCHES: Normal caliber and contour. --INTERNAL CAROTID ARTERIES: Mild atheromatous disease but no significant stenosis. No occlusion. --BASILAR ARTERY AND BRANCHES: Normal caliber and contour. No atheromatous disease. --POSTERIOR CEREBRAL ARTERIES: Normal caliber and contour --POSTERIOR COMMUNICATING ARTERIES: Not visualized which is probably related to congenital absence or small size. --ANEURYSM: None visualized. --BRAIN: Mild brain atrophy with deep white matter ischemic changes. Old Lacunar infarct in the left basal ganglia. --BONES AND SUPERFICIAL SOFT TISSUES: Normal. --PARANASAL SINUSES AND MASTOIDS: Well aerated. NECK: --RIGHT CERVICAL CAROTID SYSTEM: Mild atheromatous disease of the carotid bulb and proximal internal carotid artery without significant stenosis. Percent stenosis per NASCET criteria is 0%. No carotid dissection. Otherwise, no significant atheromatous disease or stenosis of the cervical carotid system . --LEFT CERVICAL CAROTID SYSTEM: Mild atheromatous disease of the carotid bulb and proximal internal c arotid artery without significant stenosis. Percent stenosis per NASCET criteria is 0%. No carotid d issection. Otherwise, no significant atheromatous disease or stenosis of the cervical carotid system. --VERTEBRAL ARTERIES: Normal caliber and contour. --VISUALIZED AORTIC ARCH AND BRANCHING VESSELS: Normal caliber and contour. No significant atheromato us disease. --SOFT TISSUES: Normal. Possible thrombus in the left internal jugular vein are mixing of blood with contrast. Ultrasound juwan luation advised. --CERVICAL SPINE: Age appropriate degenerative changes. IMPRESSION: 1. Normal CTA head. 2. CTA neck. Percent stenosis per NASCET criteria is 0%. 3. Possible thrombus in the left internal jugular vein. Reviewed, dictated and finalized at location A.
--- OUTSIDE RECORDS SUMMARY | 2025-03-20 10:25 | XMS_ITS | Clinical Summary ---
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) 02/10/2025 2:15 PM CDT Office Visit [facility] Surgery [address] [place] [address] [address] [place] [id number] Melida Chen PA IPMN (intraductal papillary mucinous neoplasm) (Primary Dx); 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 02/10/2025 9:01 AM CDT - 02/10/2025 11:59 PM CDT Hospital Encounter [facility] [address] [place] [address] IPMN (intraductal papillary mucinous neoplasm) Discharge Disposition: [...] Sign Reading Time Taken Comments Blood Pressure 133/72 02/10/2025 2:13 PM CDT Pulse 84 02/10/2025 2:13 PM CDT Temperature 36.9 C (98.5 F) 02/10/2025 2:13 PM CDT Respiratory Rate 16 02/10/2025 2:13 PM CDT Oxygen Saturation 95% 02/10/2025 2:13 PM CDT Inhaled Oxygen Concentration - - Weight 76.7 kg (169 lb 1.5 oz) 02/10/2025 2:13 P M CDT Height 169.9 cm (5' 6.89) 02/10/2025 2:13 PM CD T Body Mass Index 26.57 02/10/2025 2:13 PM CDT Plan of Treatment Health Maintenance Due Date Last Done Comments Depression Screening 1945 Hepatitis B Screening 1963 Pneumococcal vaccine 65+ (1 of 1 - PCV) 1995 Well Visit 65+ 2010 Covid-19 Vaccine (2023-2 5 season) 2024 06/29/2023, 05/29/2022, 12/17/2021, Additional history exists Fall Risk Assessment 02/10/2025 02/11/2024 Influenza Vaccine (#1) 2025 , 06/19/2022, 06/10/2021, Additional history exists DTaP/Tdap/Td Vaccine (2 - Td or Tdap) 08/23/2026 08/23/2016 Zoster Vaccine Completed 04/09/2023, 01/30/2023 Medical Devices Implanted Type Area Supervisor Sawing [employer] Device Identifier Shelf Expiration Date Model / Serial / Lot Left Knee Replacement Knee Metal Wire In Jaw Mandible Procedures Procedure Name Priority Date/Time Associated Diagnosis Comments CANCER ANTIGEN 19-9 Routine 02/10/2025 3:00 PM CDT 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 Results from different manufacturers or methods may not be comparable. Serial testing should be performed using the same method. Testing performed by: [facility], [facility], [place]., [address] Blood 02/10/2025 3:00 PM CDT 02/10/2025 5:10 PM CDT us Shanique Gutierrez MD LAB BLOOD ORDERABLE S Final Result [facility] [address] [facility]. [place] [employer] [place] [place] [address] * MRI Abdomen MRCP W WO Contrast Incl 3D (02/10/2025 10:05 AM CDT) Anatomical Region Laterality Modality Body N/A Magnetic Resonan ce 02/10/2025 12:5 5 PM CDT Impressions 02/10/2025 12:55 PM CDT 1. 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 This is unchanged from prior examinations. 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 Narrative 02/10/2025 12:55 PM CDT EXAMINATION: 1. MAGNETIC RESONANCE IMAGING OF THE ABDOMEN WITH AND WITHOUT CONTRAST 2. THREE DIMENSIONAL RECONSTRUCTION OF THE BILIARY TREE AND PANCREATIC DUCT HISTORY: Pancreatic cyst follow-up TECHNIQUE: Magnetic resonance imaging of the abdomen was performed prior to and following the uneventful administration of intravenous Gadolinium contrast. The raw data was processed on the scanner by the technologist for 3 dimensional reconstructions of the intrahepatic ducts, extrahepatics ducts, and pancreatic duct. Protocol: Liver MRCP Contrast: gadoterate 15 mL COMPARISON: 11/01/2024, 03/03/2024 FINDINGS: Liver: No cirrhosis, steatosis, or iron deposition. - Bile ducts: No intrahepatic or extrahepatic biliary duct dilatation. - Focal liver lesions: Redemonstrated small area of hypoenhancement segment IVb adjacent to gallbladder and unchanged, possibly sclerosed hemangioma. - Vasculature: Hepatic veins portal veins and superior mesenteric vein are patent. Gallbladder: Normal Pancreas: Pancreatic parenchyma: atrophic within the body and tail distal to the below described cystic mass Peripancreatic soft tissues: normal Main pancreatic duct (MPD): dilated diffusely, up to 1.6 cm with dilatation of sidebranches up to 1 cm. MPD wall thickening or mural nodularity: absent Solid pancreatic mass: none Pancreatic cystic lesion(s): - Number of lesions: none Lesion 1: * Location: Neck and body, series 25, image 32 * Size (outer wall to outer wall): 5.5 cm cm in longest dimension * Morphology: multilocular and macrocystic * Shape: tubular * Communication with MPD: present * Wall thickening, septae or mural nodule within cyst: absent This is unchanged from prior examinations. Spleen: Normal Adrenals: Normal Kidneys: Unchanged tiny hemorrhagic and simple cysts. Other Findings: Lung bases are clear. Heart size normal. No pericardial effusion. Extensive colonic diverticulosis without evidence of diverticulitis. No abdominal adenopathy. No suspicious osseous lesions. Procedure Note Marco Antonio Harkins MD PhD - 02/10/2025 EXAMINATION: 1. MAGNETIC RESONANCE IMAGING OF THE ABDOMEN WITH AND WITHOUT CONTRAST 2. THREE DIMENSIONAL RECONSTRUCTION OF THE BILIARY TREE AND PANCREATIC DUCT HISTORY: Pancreatic cyst follow-up TECHNIQUE: Magnetic resonance imaging of the abdomen was performed prior to and following the uneventful administration of intravenous Gadolinium contrast. The raw data was processed on the scanner by the technologist for 3 dimensional reconstructions of the intrahepatic ducts, extrahepatics ducts, and pancreatic duct. Protocol: Liver MRCP Contrast: gadoterate 15 mL COMPARISON: 11/01/2024, 03/03/2024 FINDINGS: Liver: No cirrhosis, steatosis, or iron deposition. - Bile ducts: No intrahepatic or extrahepatic biliary duct dilatation. - Focal liver lesions: Redemonstrated small area of hypoenhancement segment IVb adjacent to gallbladder and unchanged, possibly sclerosed hemangioma. - Vasculature: Hepatic veins portal veins and superior mesenteric vein are patent. Gallbladder: Normal Pancreas: Pancreatic parenchyma: atrophic within the body and tail distal to the below described cystic mass Peripancreatic soft tissues: normal Main pancreatic duct (MPD): dilated diffusely, up to 1.6 cm with dilatation of sidebranches up to 1 cm. MPD wall thickening or mural nodularity: absent Solid pancreatic mass: none Pancreatic cystic lesion(s): - Number of lesions: none Lesion 1: * Location: Neck and body, series 25, image 32 * Size (outer wall to outer wall): 5.5 cm cm in longest dimension * Morphology: multilocular and macrocystic * Shape: tubular * Communication with MPD: present * Wall thickening, septae or mural nodule within cyst: absent This is unchanged from prior examinations. Spleen: Normal Adrenals: Normal Kidneys: Unchanged tiny hemorrhagic and simple cysts. Other Findings: Lung bases are clear. Heart size normal. No pericardial effusion. Extensive colonic diverticulosis without evidence of diverticulitis. No abdominal adenopathy. No suspicious osseous lesions. IMPRESSION: 1. 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 This is unchanged from prior examinations. 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 Shanique Gutierrez MD IMG MRI PROCEDURES Final Result from Last 3 Months Insurance [facility] MEDICARE ADVANTAGE [facility] Address: [address] [place], [place] [id number] MEDICARE ADVANTAGE [facility] Address: [address] [place] [address] Advance Directives For more information, please contact: [phone] * Full Code (Latest Code Status on File) Date Activated Date Inactivated Comments 02/11/2024 12:25 PM 02/11/2024 7:22 PM Care Teams Diesel Service Journeyman Relationship Specialty Start Date End Date Fidel Ferguson MD [facility] [place] [address] PCP - General Family Medicine 06/16/24
--- OUTSIDE RECORDS SUMMARY | 2025-03-20 10:25 | XMS_ITS | Encounter Summary ---
Author Organization [facility] Address [address] [place] [address] Phone Care Team Providers Care Railroad Carman Name Role Phone Referral, Self Primary Care Provider Judy e Fidel Ferguson MD Primary Care Provider [phone] Encounter Details Date Type Department Care Team [...] on filedocumented in this encounter Care Teams Railroad Carman Relationship Specialty Start Date End Date Referral, Self PCP - General 02/02/24 06/15/24 Fidel Ferguson MD [address] [facility] [place] [address] PCP - General Family Medicine 06/16/24 documented as of this encounter
--- OUTSIDE RECORDS SUMMARY | 2025-03-20 10:25 | XMS_ITS | Referral Summary ---
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 [address] [facility] [address] [place] [address] Melida Chen PA IPMN (intraductal papillary mucinous neoplasm) (Primary Dx); 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 from Last 3 Months Allergies Active Allergy [...] 02/10/2025 2:13 PM CDT Plan of Treatment Not on file Medical Devices Implanted Type Area Fieldwork Coordinator Device Identifier Shelf Expiration Date Model / [...] using the same method. Testing performed by: [facility], [facility], [place]., [address] Blood 02/10/2025 3:00 PM CDT 02/10/2025 5:10 PM CDT us Shanique Gutierrez MD LAB BLOOD ORDERABLE S Final Result [facility] [address] [facility]. [place] [address] * MRI Abdomen MRCP W [...] Electronically signed by: Marco Antonio Harkins M.D. [facility] Mariella Eun Gutierrez MD IMG MRI PROCEDURES Final Result from Last 3 Months Insurance [id number] MEDICARE ADVANTAGE [facility] MEDICARE ADVANTAGE Advance Directives For more information, please contact: [phone] * Full Code (Latest Code Status on File) Date Activated Date Inactivated Comments 02/11/2024 12:25 PM 02/11/2024 7:22 PM Care Teams Upholstery Bundler Relationship Specialty Start Date End Date Fidel Ferguson MD [address] [facility] [place] [address] PCP - General Family Medicine 06/16/24
[2025-03-20 10:35] VITALS: BP 136/70; PULSE 79; RESP 15; TEMP 36.8; O2SAT 96
--- NOTE | 2025-03-20 10:59 | ED.GENADULT ---
HPI - General Adult General Chief complaint: Headache <Comfort Mata, ADVERTISING DISPATCH CLERKS SUPERVISOR - Last Filed: 03/20/25 15:45> Stated complaint: shooting head pain <Comfort Mata, ADVERTISING DISPATCH CLERKS SUPERVISOR - Last Filed: 03/20/25 15:45> Time Seen by Provider: 03/20/25 10:27 <Comfort Chadwick January, ADVERTISING DISPATCH CLERKS SUPERVISOR - Last Filed: 03/20/25 15:45> History of Present Illness HPI narrative: Jony Mathis IV is an 80-year-old male with past medical history of chronic neck pain who takes Lyrica for this, who presents with complaints of having a left upper forehead pain that started 4 days ago worse with exertion. He states his pain gets a little bit better when he sits down and rests. He denies any trauma denies falls he is not on any blood thinners. He states that when the pain comes on it is throbbing it is always on the left frontal forehead area they also reports he gets nauseous with the pain. He is not taking anything for this pain. Denies any vision changes denies numbness tingling or weakness. <Comfort Chadwick January, ADVERTISING DISPATCH CLERKS SUPERVISOR - Last Filed: 03/20/25 15:45> Related Data Home medications: Home Medications ?Medication ?Instructions ?Recorded ?Confirmed ?Last Taken ?Type aspirin 81 mg tablet,delayed 81 mg PO DAILY 09/09/19 02/17/25 01/30/25 History release multivitamin 1 tablet PO DAILY 10/27/22 02/17/25 01/30/25 History biotin 1,000 mcg chewable tablet 1,000 mcg PO DAILY 05/06/24 02/17/25 01/30/25 History psyllium husk 3.4 gram oral powder 1 packet PO DAILY 05/06/24 02/17/25 01/30/25 History packet (Metamucil Fiber (aspartame)) pregabalin 150 mg capsule 150 mg PO DAILY 01/16/25 02/17/25 01/30/25 History <Comfort Mata, ADVERTISING DISPATCH CLERKS SUPERVISOR - Last Filed: 03/20/25 15:45> Allergies/adverse reactions: Allergies Allergy/AdvReac Type Severity Reaction Status Date / Time duloxetine Allergy Nausea and Verified 03/20/25 10:41 Vomiting diclofenac AdvReac Mild Nausea and Verified 03/20/25 10:41 Vomiting <Comfort Mata APRN - Last Filed: 03/20/25 15:45> Review of Systems Review of Systems: All systems reviewed & are unremarkable except as noted in HPI and below <Comfort Mata APRN - Last Filed: 03/20/25 15:45> [facility]LY [facility] Past Medical History Medical History: Medical History Primary osteoarthritis of left knee H/O facial injury BMI 25.0-25.9,adult Hypertension associated with diabetes Hyperlipidemia associated with type 2 diabetes mellitus Bone spur Sacroiliitis Tendonitis of shoulder, right Type 2 diabetes mellitus with hyperglycemia <Comfort Mata APRN - Last Filed: 03/20/25 15:45> Surgical History Surgical History: Surgical History History of repair of right rotator cuff (06/27/19) <Comfort Mata APRN - Last Filed: 03/20/25 15:45> Family History Family History: Family History Father Family history of malignant neoplasm of stomach, Onset Age: 57 Family history of lung cancer, Onset Age: 57 Family history of malignant neoplasm of esophagus, Onset Age: 57 Family history of malignant neoplasm , Onset Age: 50 exposure to dioxin. Mother Family history of dementia Septicemia <Comfort Mata APRN - Last Filed: 03/20/25 15:45> Social History Social History: Social History Smoking status: Never smoker Second hand tobacco smoke exposure: No Alcohol intake: current Drinks per week: 1 Alcohol use details: 1 - 2 DRINKS PER MONTH Substance use: never Substance use type: does not use Do You Feel Safe in your Home?: Yes Lack of Transportation: No Lack of Food: Never True Current Housing: I Have Housing Concerned About Future Housing: No Difficulty Paying Gas/Electric Bills: No Difficulty Paying for Meds: No Currently Unemployed: No Education: High School Diploma/GED Difficulty w/ Childcare or Family Care: No Living arrangements: with family Additional living arrangements comments: daughter Occupation/Education: retired 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 HEAD: Normocephalic, atraumatic. EYES: PERRLA and EOMI. ENT: Nares clear, no rhinorrhea or epistaxis. Mucous membranes moist. Oropharynx without tonsillar hypertrophy exudate or other lesions. NECK: Supple. No adenopathy or masses. No carotid bruits or JVD CHEST: Clear to auscultation. No respiratory distress. No wheezes rales or rhonchi HEART: Regular rate and rhythm. No murmur heard. Normal peripheral pulses. ABDOMEN: Soft, nontender, nondistended, normal active bowel sounds. EXTREMITIES: Normal range of motion. No edema. SKIN: Warm, dry, no rash. NEURO: No focal deficits. Alert and oriented x3. PSYCH: Normal mood and affect. <Comfort Chadwick January, ADVERTISING DISPATCH CLERKS SUPERVISOR - Last Filed: 03/20/25 15:45> Course JAVA XML DEVELOPER/PA Physician Supervision I agree with midlevel documentation; I performed the medical decision making component of this evaluation. Patient with some neck and headache, found to have possible thrombosis and subclavian/IJ, with shared decision making discussion with patient, will opt to anticoagulate at this time, no obvious signs of thoracic outlet obstruction, will have him follow up with Hematology and PCP with return precautions. <Yanique Driver MD - Last Filed: 03/20/25 15:48> Vital Signs Vital signs: Vital Signs Temperature 98.2 F 03/20/25 10:35 Pulse Rate 79 03/20/25 10:35 Respiratory Rate 15 03/20/25 10:35 Blood Pressure 136/70 03/20/25 10:35 Pulse Oximetry 96 03/20/25 10:35 Oxygen Delivery Room Air 03/20/25 10:35 Temperature 98.2 F 03/20/25 10:35 Pulse Rate 72 03/20/25 14:30 Respiratory Rate 15 03/20/25 14:30 Blood Pressure 132/69 03/20/25 14:30 Pulse Oximetry 95 03/20/25 14:30 Oxygen Delivery Room Air 03/20/25 10:35 <Comfort Mata APRN - Last Filed: 03/20/25 15:45> Vital Signs Temperature 98.2 F 03/20/25 10:35 Pulse Rate 79 03/20/25 10:35 Respiratory Rate 15 03/20/25 10:35 Blood Pressure 136/70 03/20/25 10:35 Pulse Oximetry 96 03/20/25 10:35 Oxygen Delivery Room Air 03/20/25 10:35 Temperature 98.2 F 03/20/25 10:35 Pulse Rate 72 03/20/25 14:30 Respiratory Rate 15 03/20/25 14:30 Blood Pressure 132/69 03/20/25 14:30 Pulse Oximetry 95 03/20/25 14:30 Oxygen Delivery Room Air 03/20/25 10:35 <Yanique Driver MD - Last Filed: 03/20/25 15:48> Medical Decision Making MDM Narrative Medical decision making narrative: 80 y/o with complaints of left frontal /forehead pain that comes on with activity for the past 4 days. He states that when he rests the pain improves but does not go completely away. Denies vision changes/ no numbness/tingling/ no generalized weakness / On exam patient is alert oriented x4 no focal deficits noted on exam hand audience development manager equal and strong lower extremities strong ambulatory without difficulty pupils equal reactive no nystagmus noted EOM intact negative test of skew Based on patient's age and complaint of headache that sounds like it is exertional with activity discussed case with Dr. Driver and plan to check CTA head and neck with non con while checking basic labs and treating him with acetaminophen and zofran as he states sometimes when his headache gets really bad he feels a little nauseated. CTA; 1. Normal CTA head. 2. CTA neck. Percent stenosis per NASCET criteria is 0%. 3. Possible thrombus in the left internal jugular vein. Venous Doppler CT: Possible thrombus seen in the anterior wall of the distal left subclavian vein at the level of a valve. Echoes are seen in the area with no color Doppler filling. Wth these findings, collaborated with Dr. Driver and plan to treat as DVT with Xeralto and provide follow up with Hematology Patient re-evaluated and updated on the results of imaging and labs and updated him on plan to start anticoagulants, this was thoroughly discussed regarding starting a blood thinner we talked about risks of being on blood thinners and it was stressed to return to the ER for any falls/ signs of bleeding / chest pain/ shortness of breath He verbalizes understanding and denies having any further questions or concerns. <Comfort Mata, ADVERTISING DISPATCH CLERKS SUPERVISOR - Last Filed: 03/20/25 15:45> Medical Records Medical records reviewed: Yes I reviewed the external patient's medical records. <Comfort Mata, ADVERTISING DISPATCH CLERKS SUPERVISOR - Last Filed: 03/20/25 15:45> Vital Signs Vital Signs: Vital Signs Temperature 98.2 F 03/20/25 10:35 Pulse Rate 79 03/20/25 10:35 Respiratory Rate 15 03/20/25 10:35 Blood Pressure 136/70 03/20/25 10:35 Pulse Oximetry 96 03/20/25 10:35 Oxygen Delivery Room Air 03/20/25 10:35 Temperature 98.2 F 03/20/25 10:35 Pulse Rate 72 03/20/25 14:30 Respiratory Rate 15 03/20/25 14:30 Blood Pressure 132/69 03/20/25 14:30 Pulse Oximetry 95 03/20/25 14:30 Oxygen Delivery Room Air 03/20/25 10:35 <Comfort Mata, ADVERTISING DISPATCH CLERKS SUPERVISOR - Last Filed: 03/20/25 15:45> Vital Signs Temperature 98.2 F 03/20/25 10:35 Pulse Rate 79 03/20/25 10:35 Respiratory Rate 15 03/20/25 10:35 Blood Pressure 136/70 03/20/25 10:35 Pulse Oximetry 96 03/20/25 10:35 Oxygen Delivery Room Air 03/20/25 10:35 Temperature 98.2 F 03/20/25 10:35 Pulse Rate 72 03/20/25 14:30 Respiratory Rate 15 03/20/25 14:30 Blood Pressure 132/69 03/20/25 14:30 Pulse Oximetry 95 03/20/25 14:30 Oxygen Delivery Room Air 03/20/25 10:35 <Yanique Driver MD - Last Filed: 03/20/25 15:48> Lab Data Lab results reviewed: Yes I reviewed the patient's lab results. <Comfort Mata, ADVERTISING DISPATCH CLERKS SUPERVISOR - Last Filed: 03/20/25 15:45> Result diagrams: 03/20/25 11:08 03/20/25 11:19 <Comfort Chadwick January, ADVERTISING DISPATCH CLERKS SUPERVISOR - Last Filed: 03/20/25 15:45> Labs: Lab Results 03/20/25 03/20/25 03/20/25 Range/Units 11:08 11:09 11:19 WBC 8.1 (4.5-10.0) K/mm3 RBC 4.18 L (4.6-6.20) M/mm3 Hgb 12.8 L (14.0-18.0) g/dL Hct 39.6 L (42.0-52.0) % MCV 94.7 (80-100) fl MCH 30.6 (26-34) pg MCHC 32.3 (32-36) g/dl RDW 12.9 (11.5-14.5) % Plt Count 245 (150-375) k/mm3 MPV 9.7 (7.4-10.4) fl Immature Gran % (Auto) 0.2 (0-0.5) % Neut % (Auto) 72.6 (45.5-73.1) % Lymph % (Auto) 19.2 (18.3-44.2) % Blanco % (Auto) 7.6 (2.6-8.5) % Eos % (Auto) 0.2 (0-4.4) % Baso % (Auto) 0.2 (0.2-1.2) % Lymph # (Auto) 1.55 (0.9-3.2) K/mm3 Blanco # (Auto) 0.6 (0.1-0.6) K/mm3 Eos # (Auto) 0.0 (0-0.3) K/mm3 Baso # (Auto) 0.0 (0.0-0.1) K/mm3 Abs Immat Gran (auto) 0.02 (0.00-0.031) K/mm3 Absolute Neuts (auto) 5.9 (1.3-6.7) K/mm3 Absolute Nucleated RBC 0.000 (0.0-0.012) K/mm3 Nucleated RBC % 0.0 (0.0-0.2) % PT 13.9 (11.1-14.7) Seconds INR 1.1 APTT 27.5 (22.3-36.8) Seconds Sodium 137 (137-145) mmol/L Potassium 3.9 (3.4-5.0) mmol/L Chloride 102 (98-107) mmol/L Carbon Dioxide 28 (22-30) mmol/L Anion Gap 7 (4-12) mmol/L BUN 22 H (9-20) mg/dL Creatinine 1.04 1.20 (0.7-1.3) mg/dL Estim Creat Clear Calc 49 42 ml/min Estimated GFR > 60 58 L (59 - ) Glucose 135 H (65-110) mg/dL Calcium 9.1 (8.4-10.2) mg/dL Total Bilirubin 0.4 (0.2-1.3) mg/dL AST 34 (17-59) U/L ALT 21 (6-50) U/L Alkaline Phosphatase 50 (38-126) U/L Total Protein 6.7 (6.3-8.2) g/dL Albumin 4.2 (3.5-5.1) g/dL <Comfort Mata, ADVERTISING DISPATCH CLERKS SUPERVISOR - Last Filed: 03/20/25 15:45> Lab Results 03/20/25 03/20/25 03/20/25 Range/Units 11:08 11:09 11:19 WBC 8.1 (4.5-10.0) K/mm3 RBC 4.18 L (4.6-6.20) M/mm3 Hgb 12.8 L (14.0-18.0) g/dL Hct 39.6 L (42.0-52.0) % MCV 94.7 (80-100) fl MCH 30.6 (26-34) pg MCHC 32.3 (32-36) g/dl RDW 12.9 (11.5-14.5) % Plt Count 245 (150-375) k/mm3 MPV 9.7 (7.4-10.4) fl Immature Gran % (Auto) 0.2 (0-0.5) % Neut % (Auto) 72.6 (45.5-73.1) % Lymph % (Auto) 19.2 (18.3-44.2) % Blanco % (Auto) 7.6 (2.6-8.5) % Eos % (Auto) 0.2 (0-4.4) % Baso % (Auto) 0.2 (0.2-1.2) % Lymph # (Auto) 1.55 (0.9-3.2) K/mm3 Blanco # (Auto) 0.6 (0.1-0.6) K/mm3 Eos # (Auto) 0.0 (0-0.3) K/mm3 Baso # (Auto) 0.0 (0.0-0.1) K/mm3 Abs Immat Gran (auto) 0.02 (0.00-0.031) K/mm3 Absolute Neuts (auto) 5.9 (1.3-6.7) K/mm3 Absolute Nucleated RBC 0.000 (0.0-0.012) K/mm3 Nucleated RBC % 0.0 (0.0-0.2) % PT 13.9 (11.1-14.7) Seconds INR 1.1 APTT 27.5 (22.3-36.8) Seconds Sodium 137 (137-145) mmol/L Potassium 3.9 (3.4-5.0) mmol/L Chloride 102 (98-107) mmol/L Carbon Dioxide 28 (22-30) mmol/L Anion Gap 7 (4-12) mmol/L BUN 22 H (9-20) mg/dL Creatinine 1.04 1.20 (0.7-1.3) mg/dL Estim Creat Clear Calc 49 42 ml/min Estimated GFR > 60 58 L (59 - ) Glucose 135 H (65-110) mg/dL Calcium 9.1 (8.4-10.2) mg/dL Total Bilirubin 0.4 (0.2-1.3) mg/dL AST 34 (17-59) U/L ALT 21 (6-50) U/L Alkaline Phosphatase 50 (38-126) U/L Total Protein 6.7 (6.3-8.2) g/dL Albumin 4.2 (3.5-5.1) g/dL <Yanique Driver MD - Last Filed: 03/20/25 15:48> Imaging Data Radiologist's impression: Impressions Head/Neck CTA 03/20/25 11:32 IMPRESSION: 1. Normal CTA head. 2. CTA neck. Percent stenosis per NASCET criteria is 0%. 3. Possible thrombus in the left internal jugular vein. <Comfort Chadwick January, Last Filed: 03/20/25 15:45> Discharge Plan Discharge Clinical Impression: Acute thrombosis of left subclavian vein <Comfort Chadwick January, Last Filed: 03/20/25 15:45> Patient Disposition: Home <Comfort Chadwick January, Last Filed: 03/20/25 15:45> Condition: Stable <Comfort Chadwick January, Last Filed: 03/20/25 15:45> Instructions: Antibiotic Form, Rivaroxaban (By mouth), Blood Thinners (ED) <Comfort NicholasGertrude January, Last Filed: 03/20/25 15:45> Additional Instructions: Start taking the Xarelto once daily for the next 35 days, You cannot take any additional Ibuprofen or Meloxicam with this medication As we talked about this is a blood thinner, meaning that you will bleed more from injuries, if you fall or hit your head you will need to come to the ER for a head CT. If you develop any bleeding, headaches, vision changes, chest pain, or shortness of breath return to the ER Follow up with your PCP in the next 3-5 days Call to follow up with the Upholstery Restorer Dr. Davis as we discussed <Comfort PetersonGertrude January, Last Filed: 03/20/25 15:45> Patient Language: Palestinian <Comfort Chadwick January, Last Filed: 03/20/25 15:45> Prescriptions: New Xarelto 10 mg tablet 10 mg PO DAILY Qty: 35 0RF Rx Instructions: for 35 days No Action aspirin 81 mg tablet,delayed release (DR/EC) 81 mg PO DAILY multivitamin Tablet 1 tablet PO DAILY ondansetron HCl 4 mg tablet 4 mg PO Q8H PRN (Reason: nausea and vomiting) Qty: 30 0RF levothyroxine 50 mcg tablet 50 mcg PO QAM Qty: 90 1RF Rx Instructions: TAKE 1 TABLET BY MOUTH DAILY meloxicam 15 mg tablet 15 mg PO DAILY Qty: 90 1RF metformin 750 mg tablet extended release 24 hr 750 mg PO BID Qty: 180 1RF simvastatin 40 mg tablet See Rx Instructions .ROUTE .COMPLEX Qty: 90 1RF Dose Instruction: TAKE 1 TABLET BY MOUTH DAILY Rx Instructions: TAKE 1 TABLET BY MOUTH DAILY sulfamethoxazole-trimethoprim 800-160 mg tablet 1 tablet PO Q12H Qty: 14 0RF phenazopyridine [Pyridium] 200 mg tablet 200 mg PO TID PRN (Reason: pain with urination) Qty: 10 0RF Metamucil Fiber (aspartame) 3.4 gram Powder In Packet 1 packet PO DAILY biotin 1,000 mcg Tablet,Chewable 1,000 mcg PO DAILY pregabalin 150 mg capsule 150 mg PO Q12H 30 Days Qty: 60 2RF Rx Instructions: take one capsule po q12 pregabalin 150 mg capsule 150 mg PO DAILY Rx Instructions: take one capsule po q12 as tolerated <Comfort Mata APRN - Last Filed: 03/20/25 15:45> Follow-up/Referrals: Izzy Maradiaga APRN [Primary Care Provider] - 1 Week <Comfort Mata APRN - Last Filed: 03/20/25 15:45> Time of Disposition: 14:13 <Comfort Mata APRN - Last Filed: 03/20/25 15:45> 14:13 <Yanique Driver MD - Last Filed: 03/20/25 15:48>
[2025-03-20] MEDS: ACETAMINOPHEN 500 MG TABLET 1000 MG PO (11:12)
[2025-03-20] MEDS: ONDANSETRON INJ 4 MG/2 ML VIAL IV PUSH (11:13)
[2025-03-20 11:21] LABS: Estimated CRCL calculation 42 ml/min; Estimated Glomerular Filt Rate 58
[2025-03-20 11:22] LABS: Hematocrit 39.6 % (42.0-52.0); Hemoglobin 12.8 g/dL (14.0-18.0); Immature Granulocyte Percent A 0.2 % (0-0.5); Lymphocytes Absolute Auto 1.55 K/mm3 (0.9-3.2); Mean Corpuscular HGB Conc 32.3 g/dl (32-36); Mean Corpuscular Hemoglobin 30.6 pg (26-34); Mean Corpuscular Volume 94.7 fl (80-100); Nucleated Red Blood Cells Absolute Auto 0.000 K/mm3 (0.0-0.012); Nucleated Red Blood Cells Perc 0.0 % (0.0-0.2); Platelet Count Result 245 k/mm3 (150-375); Red Blood Count 4.18 M/mm3 (4.6-6.20); White Blood Count 8.1 K/mm3 (4.5-10.0)
[2025-03-20 11:30] LABS: INR 1.1; Prothrombin Time 13.9 Seconds (11.1-14.7)
[2025-03-20 11:31] LABS: Partial Thromboplastin Time 27.5 Seconds (22.3-36.8)
[2025-03-20 11:38] LABS: Alanine Aminotransferase 21 U/L (6-50); Albumin Level 4.2 g/dL (3.5-5.1); Alkaline Phosphatase 50 U/L (38-126); Anion Gap 7 mmol/L (4-12); Aspartate Amino Transferase 34 U/L (17-59); Bilirubin,Total 0.4 mg/dL (0.2-1.3); Blood Urea Nitrogen 22 mg/dL (9-20); Calcium 9.1 mg/dL (8.4-10.2); Carbon Dioxide 28 mmol/L (22-30); Chloride 102 mmol/L (98-107); Estimated CRCL calculation 49 ml/min; Estimated Glomerular Filt Rate > 60; Glucose 135 mg/dL (65-110); Potassium 3.9 mmol/L (3.4-5.0); Sodium 137 mmol/L (137-145); Total Protein 6.7 g/dL (6.3-8.2)
--- OUTSIDE RECORDS SUMMARY | 2025-03-20 11:43 | XMS_ITS | Encounter Summary ---
Author Organization [facility] Address [address] [place] [address] Phone Care Team Providers Care Funeral Director And Embalmer Name Role Phone Referral, Self Primary Care Provider Judy e Fidel Ferguson MD Primary Care Provider [phone] Encounter Details Date Type Department Care Team [...] on filedocumented in this encounter Care Teams Funeral Director And Embalmer Relationship Specialty Start Date End Date Referral, Self PCP - General 02/02/24 06/15/24 Fidel Ferguson MD [address] [place] [address] PCP - General Family Medicine 06/16/24 documented as of this encounter
--- OUTSIDE RECORDS SUMMARY | 2025-03-20 11:43 | XMS_ITS | Referral Summary ---
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 Testing performed by: [facility], [facility] [facility], [place]., [address] Blood 02/10/2025 3:00 PM CDT 02/10/2025 5:10 PM CDT us Shanique Gutierrez MD LAB BLOOD ORDERABLE S Final Result [facility] [id number] [facility]. Department [place] [address] * MRI Abdomen MRCP W [...] Electronically signed by: Marco Antonio Harkins M.D. [facility] Mariella Eun Gutierrez MD IMG MRI PROCEDURES Final Result from Last [address] Mon[id number] MEDIC[place] ADVANTAGE [facility] MEDICARE ADVANTAGE Advance Directives For more information, please contact: [phone] * Full Code (Latest Code Status on File) Date Activated Date Inactivated Comments 02/11/2024 12:25 PM 02/11/2024 7:22 PM Care Teams Circulation Supervisor Relationship Specialty Start Date End Date Fidel Ferguson MD [address] [facility] [address] PCP - General Family Medicine 06/16/24
--- OUTSIDE RECORDS SUMMARY | 2025-03-20 11:43 | XMS_ITS | Clinical Summary ---
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) 02/10/2025 2:15 PM CDT Office Visit [facility] Surgery [address] [place] [address] [address] [place] [phone] Melida Chen PA IPMN (intraductal papillary mucinous neoplasm) (Primary Dx); 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 Testing performed by: [facility], [facility] [facility], [place]., [address] Blood 02/10/2025 3:00 PM CDT 02/10/2025 5:10 PM CDT us Shanique Gutierrez MD LAB BLOOD ORDERABLE S Final Result [facility] [id number] [facility]. [place] [address] * MRI Abdomen MRCP W [...] Final Result from Last 3 Months Insurance [facility] MEDICARE ADVANTAGE [facility] Address: [address] [place], [place] [id number] MEDICARE ADVANTAGE [facility] Address: [address] [place] [address] Advance Directives For more information, please contact: [phone] * Full Code (Latest Code Status on File) Date Activated Date Inactivated Comments 02/11/2024 12:25 PM 02/11/2024 7:22 PM Care Teams Wire Wrapper Machine Operator Relationship Specialty Start Date End Date Fidel Ferguson MD [facility] [facility] [address] PCP - General Family Medicine 06/16/24
[2025-03-20 12:30] VITALS: BP 136/70; PULSE 79; RESP 16; O2SAT 96
[2025-03-20 14:30] VITALS: BP 132/69; PULSE 72; RESP 15; O2SAT 95
== END 2025-03-20 15:26 | disposition home or self-care (01) ==
PROVIDERS: Emergency Provider Nurse Practitioner Family; PCP Nurse Practitioner Family
DX: I82.B12 Acute embolism and thrombosis of left subclavian vein (principal); E11.69 Type 2 diabetes mellitus with other specified complication; E78.5 Hyperlipidemia, unspecified; I15.2 Hypertension secondary to endocrine disorders; M17.12 Unilateral primary osteoarthritis, left knee; Z79.82 Long term (current) use of aspirin; Z79.84 Long term (current) use of oral hypoglycemic drugs; Z79.899 Other long term (current) drug therapy
CPT/HCPCS: 36415; 70496; 70498; 80053; 85025; 85610; 85730; 93971; 96374; 99284; A9270; J2405; Q9967

== ENCOUNTER 2025-04-08 12:07 | Inpatient (IN) | payer MEDICARE, SELFPAY ==
[2025-04-08] VITALS (20 sets, daily range): BP systolic 138–156; BP diastolic 77–96; PULSE 71–96; RESP 13–21; TEMP 36.4–36.8; O2SAT 95–100; BMI 23.5
--- NOTE | ~2025-04-08 | XR_ITS ---
EXAMINATION: XR chest 1V portable DATE: 04/08/2025 12:53 INDICATION: Shortness of breath TECHNIQUE: frontal view of the chest was obtained. COMPARISON: Chest radiograph dated 07/19/2013 FINDINGS: Increase in airspace opacity extending between the apex of the heart and the left costophrenic angle but without definitive blunting to suggest pleural effusion and this could represent atelectasis or p neumonia in the appropriate clinical setting. There are few scattered bilateral calcified pulmonary n odules consistent with old granulomatous disease. No pulmonary edema,, pleural effusion or pneumothor ax. Heart size is normal. IMPRESSION: 1. Focal opacity at the left costophrenic angle which could represent atelectasis or less likely pneu monia. Reviewed, dictated and finalized at location A. IMPRESSION: 1. Focal opacity at the left costophrenic angle which could represent atelectas is or less likely pneumonia.
--- NOTE | ~2025-04-08 | CT_ITS ---
EXAMINATION: CTA BRAIN/CAROTID DATE: 04/08/2025 13:34 INDICATION: New confusion and neck pain. Internal jugular vein thrombosis. TECHNIQUE: Computed tomographic angiography (CTA) of the head and neck was performed with 100 mL Omni paque-350 intravenous contrast. Multiplanar reconstructions and maximum intensity projection 3D-recon structions of the carotid arteries and of the intracranial arteries were created by the technologist on a separate workstation. Automated exposure control and iterative reconstruction technique were emp loyed.The dose-length product was 958.71 mGy-cm. COMPARISON: Head CT dated 04/08/2025 and carotid and brain CT angiogram dated 03/20/2025 FINDINGS: Carotid arteries: Visualized portion of the aortic arch is normal caliber with no dissection. Minimal atherosclerotic p laque at the origin of the innominate artery. There is minimal atherosclerotic plaque with 0% stenosi s of the right and left carotid bulbs relative to normal distal artery lumen diameter (NASCET criteri a). Mild to moderate cervical spondylosis with multilevel severe bilateral facet osteoarthritis. Calc ified nodules in the right upper and left lower lobes along with calcified mediastinal lymph nodes co nsistent with old granulomatous disease. There is some inflow mixing artifact in the bilateral human resources intern al jugular veins resulting from inflow of less densely opacified or nonopacified blood from the veins in the neck. This appears likely to account for the apparent filling defect suspected as thrombus on the prior study. Intracranial arteries Vertebral arteries are codominant. There is no hemodynamically significant stenosis in the vertebral, basilar and internal carotid arteries. Both A1 and P1 segments are patent. Patent left posterior com municating artery. There are no aneurysms identified. Cerebral arterial arborization appears symmetr ic. Old healed right zygomaticomaxillary complex fracture. IMPRESSION: 1. Normal atherosclerotic plaque with 0% stenosis of the right and left carotid bulbs relative to nor mal distal artery lumen diameter (NASCET criteria). 2. Unremarkable cerebral CT angiogram with no hemodynamically significant stenosis, thrombosis or ane urysm. 3. Heterogeneous contrast in the bilateral internal jugular veins which appears much more likely to r eflect mixing artifact from additional veins draining into the internal jugular vein with unopacified are less well opacified blood due to to phase of contrast rather than thrombus. Reviewed, dictated and finalized at location A. IMPRESSION: 1. Normal atherosclerotic plaque with 0% stenosis of the right and left carotid bulbs relative to normal distal artery lumen diameter (NASCET criteria). 2. Unremarkable cerebral CT angiogram with no hemodynamically significant steno sis, thrombosis or aneurysm. 3. Heterogeneous contrast in the bilateral internal jugular veins which appears much more likely to reflect mixing artifact from additional veins draining int o the internal jugular vein with unopacified are less well opacified blood due to to phase of contrast rather than thrombus.
--- NOTE | ~2025-04-08 | CT_ITS ---
EXAMINATION: CT chest abdomen pelvis wo con DATE: 04/09/2025 09:02 INDICATION: right CVA tenderness, confusion . TECHNIQUE: Computed tomography (CT) of the chest, abdomen, and pelvis was performed without intraveno us contrast. Automated exposure control and iterative reconstruction technique were employed. The dos e-length product was 498.59 mGy-cm. COMPARISON: X-ray chest, same date; 11/30/2023 FINDINGS: CHEST: Thoracic aorta: No significant dilation. No dissection. Lung parenchyma and airways: Scattered calcified granulomas and noncalcified sub-6 mm pulmonary nodul es. Bibasilar scar/atelectasis. Patent airways. Thoracic inlet, axillae and chest wall: No thyroid mass. Mild symmetric gynecomastia. No axillary lym phadenopathy. Mediastinum: No mass or lymphadenopathy. Heart and pericardium: Normal heart size. No pericardial effusion. Coronary artery calcifications: Mild. Pleura: No effusion or mass. Thoracic bones: No acute osseous finding in the chest. ABDOMEN/PELVIS: Liver: Normal. Biliary/Gallbladder: Gallbladder is distended. Possible wall thickening. Multiple small gallstones. M ild surrounding inflammatory stranding. No bile duct dilation. Pancreas: Stable cystic lesion in the pancreatic body, with stable calcification and pancreatic duct dilation. Spleen: Normal. Adrenals:No mass. Kidneys: Mild bilateral cortical scarring. Excreted contrast in the collecting systems. Small nonobst ructing calculi bilaterally. GI tract: Small hiatal hernia. No small or large bowel dilation. Normal appendix. Diverticulosis with out diverticulitis. Mesentery/Peritoneum: No ascites, mass, or free air. Retroperitoneum: No mass Atherosclerotic calcifications of intra-abdominal arterial vessels. Pelvis: 5 x 7 mm calcification probably within the distal right ureter just proximal to the UVJ. 1.3 cm calcification in the inferior left urinary bladder. Prostatomegaly with calcification. Soft Tissues: Small uncomplicated fat-containing of local hernia. Abdominopelvic bones: No acute osseous finding in the abdomen/pelvis. Multilevel severe degenerative disc disease in the lumbar spine. Lumbar scoliosis. Multilevel minimal degenerative listheses. Sever e central canal narrowing at L3-4 secondary to degenerative changes. IMPRESSION: Multiple sub-6 mm pulmonary nodules, probably benign, consider an optional follow-up CT in 12 months if the patient is at high risk. The prior radiographic opacity in the left lower lung is likely relat ed to prominent pericardial fat. Mild symmetric gynecomastia. Distended gallbladder with mild inflammatory change and possible wall thickening, as can be seen with acute cholecystitis. Consider right upper quadrant ultrasound. Stable cystic lesion in the body of the pancreas. Prior recommendation for surgical consultation is u nchanged if not already performed. 5 x 7 mm calcification, probably within the distal right ureter, without hydronephrosis. 1.3 cm urinary bladder stone. Results pertaining to possible acute cholecystitis reported telephonically to Talib Kelsey RN by Dr. Thomas at 9:39 PM on 04/09/2025. Reviewed, dictated and finalized at location K. IMPRESSION: Multiple sub-6 mm pulmonary nodules, probably benign, consider an optional foll ow-up CT in 12 months if the patient is at high risk. The prior radiographic op acity in the left lower lung is likely related to prominent pericardial fat. Mild symmetric gynecomastia. Distended gallbladder with mild inflammatory change and possible wall thickenin g, as can be seen with acute cholecystitis. Consider right upper quadrant ultra sound. Stable cystic lesion in the body of the pancreas. Prior recommendation for surg ical consultation is unchanged if not already performed. 5 x 7 mm calcification, probably within the distal right ureter, without hydron ephrosis. 1.3 cm urinary bladder stone. Results pertaining to possible acute cholecystitis reported telephonically to Talib Kelsey RN by Dr. Thomas at 9:39 PM on 04/09/2025.
--- NOTE | ~2025-04-08 | MR_ITS ---
EXAMINATION: MR brain/brain stem wo con DATE: 04/09/2025 15:04 INDICATION: r/o CVA TECHNIQUE: Magnetic resonance imaging (MRI) of the brain and brainstem was performed without intraven ous contrast. Sequences included sagittal axial T1, axial T1 FSE, axial DWI, axial 3-D swan, axial T2 FLAIR, and axial T2 Propeller. Apparent diffusion coefficient (ADC) maps and axial eADC, 3D SWAN, an d MinIP sequences were created. COMPARISON: CT brain and CTA brain carotid 04/08/2025 FINDINGS: No abnormal restricted diffusion to suggest acute ischemic infarct. 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 Old focal infarcts in the bilateral frontal and parietal johnson radiata. No MRI evidence of hemorrhage or extra-axial collection. No suspicious foci of susceptibility to suggest prior intra parenchymal hemorrhage. Moderate patchy white matter hyperintensity, likely representing moderate sma ll vessel ischemic disease. Mild generalized parenchymal volume loss. The basilar cisterns are patent . Flow voids are preserved. Paranasal sinuses are within normal limits. Globes and orbital contents a re within normal limits. IMPRESSION: No acute intracranial process. Reviewed, dictated and finalized at location K.
--- NOTE | ~2025-04-08 | CT_ITS ---
EXAMINATION: CT brain wo con DATE: 04/08/2025 13:32 INDICATION: Acute confusion TECHNIQUE: Computed tomography (CT) of the head was performed without intravenous contrast. Sagittal and coronal reconstructions were performed. The mA was adjusted according to patient size. Iterative reconstruction technique was employed. The dose-length product was 681.00 mGy-cm. COMPARISON: head CT dated 03/20/2025 FINDINGS: No acute intracranial hemorrhage, acute infarction or abnormal extra axial fluid collection. Again se en is a small old infarct versus prominent perivascular space at the inferior left basal ganglia. Add itional unchanged small old lacunar infarcts in the bilateral frontal and parietal johnson radiata. Th ere is mild scattered white matter hypoattenuation consistent with chronic small vessel ischemic dise ase. Symmetric prominence of the sulci consistent with mild age-appropriate diffuse cerebral volume l oss. Ventricles are normal and symmetric. No mass/mass effect. The orbits and mastoid air cells are n ormal. Old healed tripod fracture involving the carnes of the right maxillary sinus and the right zygo matic arch.. No sinuses are otherwise unremarkable. IMPRESSION: 1. 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 No acute intracranial process. Reviewed, dictated and finalized at location A. IMPRESSION: 1. 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 No acute intracranial process.
--- NOTE | ~2025-04-08 | US_ITS ---
US abdomen limited INDICATION: Distended gallbladder PROCEDURE: Realtime right upper abdominal ultrasound. COMPARISON: CT dated 04/09/2025 FINDINGS: There is an oval irregular shaped cystic mass of the pancreas measuring 5.2 cm. Liver echo texture is normal without focal mass or intrahepatic biliary dilatation. There is normal directional flow in the portal vein. There is gallbladder sludge. There are gallstones. Common bile duct measures 2.6 mm. No sonographic Hunt's sign. IMPRESSION: 1: Cholelithiasis. Gallbladder sludge. 2: Irregular shaped 5.2 cm cystic mass of the pancreatic body. The differential diagnosis includes ps eudocyst, intraductal papillary mucinous neoplasm (IPMN), mucinous cystic neoplasm (MCN), and the les s common serous cystadenoma and neuroendocrine tumor. Reviewed, dictated and finalized at location A. IMPRESSION: 1: Cholelithiasis. Gallbladder sludge. 2: Irregular shaped 5.2 cm cystic mass of the pancreatic body. The differential diagnosis includes pseudocyst, intraductal papillary mucinous neoplasm (IPMN), mucinous cystic neoplasm (MCN), and the less common serous cystadenoma and susan roendocrine tumor.
--- OUTSIDE RECORDS SUMMARY | 2025-04-08 12:09 | XMS_ITS | Encounter Summary ---
Author Organization [facility] Address [address] [place] [address] Phone Care Team Providers Care Motor Racer Name Role Phone Referral, Self Primary Care Provider Judy e Fidel Ferguson MD Primary Care Provider [phone] Encounter Details Date Type Department Care Team [...] on filedocumented in this encounter Care Teams Motor Racer Relationship Specialty Start Date End Date Referral, Self PCP - General 02/02/24 06/15/24 Fidel Ferguson MD [address] [facility] [place] [address] PCP - General Family Medicine 06/16/24 documented as of this encounter
--- NOTE | 2025-04-08 12:10 | ECG_ITS ---
Test Date: 2025-04-08 12:20:10 Measurements Intervals [place] Rate: 90 P: 44 ID: [id number] QRS: -20 QRSD: 91 T: 66 QT: 342 QTc: 420 Interpretive Statements SINUS RHYTHM WITH FIRST DEGREE AV BLOCK DELAYED PRECORDIAL R/S TRANSITION BASELINE ARTIFACT- I, II, AVR, AVL BORDERLINE ECG No previous ECG available for comparison Electronically Signed On 04-08-2025 14:42:30 CDT by Maciel Wen D.O.
--- OUTSIDE RECORDS SUMMARY | 2025-04-08 12:10 | XMS_ITS | Continuity of Care Document ---
Author Organization [email or web address] [place] Address [address] [place] [address] [address] [place] [address] Phone Care Team Providers Care Acid Polymerization Operator Name Role Phone Bert Woodward Unavailable Unavailable Procedures Procedure Date Therapeutic Activities Neuromuscular Re-Ed Therapeutic Activities Neuromuscular Re-Ed Therapeutic Activities Neuromuscular Re-Ed Hot or Cold Pack Therapeutic Activities Neuromuscular Re-Ed Therapeutic Exercise Hot or Cold Pack Therapeutic Activities Neuromuscular Re-Ed Therapeutic Exercise Therapeutic Activities Neuromuscular Re-Ed Therapeutic Exercise Manual Therapy Hot or Cold Pack Therapeutic Activities Neuromuscular Re-Ed Therapeutic Exercise Hot or Cold Pack Therapeutic Activities Neuromuscular Re-Ed Manual Therapy Hot or Cold Pack Therapeutic Activities Neuromuscular Re-Ed Manual Therapy Hot or Cold Pack Therapeutic Activities Neuromuscular Re-Ed Hot or Cold Pack Therapeutic Activities Therapeutic Exercise Manual Therapy Hot or Cold Pack Doc neg elder mal no plan PT Evaluation Moderate Complexity Therapeutic Exercise Neuromuscular Re-Ed Progress Note Therapeutic Activities Neuromuscular Re-Ed Therapeutic Exercise Therapeutic Activities Neuromuscular Re-Ed Therapeutic Exercise Therapeutic Activities Neuromuscular Re-Ed Therapeutic Activities Neuromuscular Re-Ed Therapeutic Exercise Therapeutic Activities Neuromuscular Re-Ed Therapeutic Exercise Therapeutic Activities Neuromuscular Re-Ed Therapeutic Exercise Therapeutic Activities Neuromuscular Re-Ed Therapeutic Activities Neuromuscular Re-Ed Therapeutic Exercise Therapeutic Activities Neuromuscular Re-Ed Therapeutic Activities Neuromuscular Re-Ed Therapeutic Exercise Doc neg elder mal no plan PT Evaluation Moderate Complexity Therapeutic Activities Neuromuscular Re-Ed Therapeutic Activities Therapeutic Exercise Neuromuscular Re-Ed Therapeutic Activities Neuromuscular Re-Ed Therapeutic Exercise Therapeutic Activities Neuromuscular Re-Ed Therapeutic Exercise Therapeutic Exercise Therapeutic Activities Neuromuscular Re-Ed Therapeutic Activities Neuromuscular Re-Ed Therapeutic Exercise Therapeutic Activities Therapeutic Exercise Neuromuscular Re-Ed Doc neg elder mal no plan Therapeutic Exercise PT Evaluation Moderate Complexity Neuromuscular Re-Ed Therapeutic Activities Neuromuscular Re-Ed Therapeutic Exercise Hot or Cold Pack Therapeutic Activities Therapeutic Exercise Manual Therapy Hot or Cold Pack Electrical Stimulation Progress Note Therapeutic Activities Neuromuscular Re-Ed Therapeutic Exercise Electrical Stimulation Hot or Cold Pack Therapeutic Activities Neuromuscular Re-Ed Manual Therapy Hot or Cold Pack Electrical Stimulation Therapeutic Activities Neuromuscular Re-Ed Therapeutic Exercise Hot or Cold Pack Electrical Stimulation Therapeutic Activities Neuromuscular Re-Ed Therapeutic Exercise Hot or Cold Pack Electrical Stimulation Neuromuscular Re-Ed Therapeutic Exercise Manual Therapy Hot or Cold Pack Electrical Stimulation Therapeutic Activities Neuromuscular Re-Ed Therapeutic Exercise Hot or Cold Pack Therapeutic Activities Neuromuscular Re-Ed Therapeutic Exercise Manual Therapy Hot or Cold Pack Neuromuscular Re-Ed Therapeutic Exercise Hot or Cold Pack Manual Therapy Neuromuscular Re-Ed Therapeutic Exercise Hot or Cold Pack PT Evaluation Moderate Complexity Neuromuscular Re-Ed Therapeutic Exercise Electrical Stimulation Therapeutic Exercise Neuromuscular Re-Ed Therapeutic Activities Hot or Cold Pack Therapeutic Exercise Therapeutic Activities Neuromuscular Re-Ed Hot or Cold Pack Therapeutic Exercise Therapeutic Activities Neuromuscular Re-Ed Hot or Cold Pack Therapeutic Exercise Therapeutic Activities Neuromuscular Re-Ed Hot or Cold Pack Therapeutic Exercise Therapeutic Activities Neuromuscular Re-Ed Hot or Cold Pack Therapeutic Exercise Therapeutic Activities Neuromuscular Re-Ed Manual Therapy Hot or Cold Pack PT Evaluation Moderate Complexity Therapeutic Exercise Neuromuscular Re-Ed Manual Therapy Advance Directives Directive Yes / No Effective Date File Name No Information Encounters Encounter Description Practice Location Reason(s) For Visit Diagnoses Date Provider Providers Copied on Encounter [facility], [id number], tel:[phone] [place] No Information 4 Shemar Crane [address] [facility], [facility] [address], [place], [facility], [place]. tel:[phone] Referring Provider: Donavon Fernandes [address] [place] [address], [address]. tel:[phone] [facility] [address] [place] [address], [id number], tel:[phone] [place] No Information 4 Lainey Loredo Referring Provider: Donavon Fernandes [address] [facility] [address], [place], [address]. tel:[phone] [facility] [address] [facility] [address], [place], [id number], tel:[phone] [place] No Information [id number] [place] [address], [address], [place], [place], [facility], [place]. tel:[phone] Referring Provider: Donavon Fernandes [address] [place] [address], [address]. tel:[phone], [id number], tel:[phone] [place] No Information Jul-0 - 4 Muehl Bert. [address] [place] [address], [address], [place], [facility], [place]. tel:[phone] Referring Provider: Donavon Fernandes [address] [place] [address], [address]. tel:[phone], [id number], tel:[phone] [place] No Information Jul-0 - 4 Muehl Bert. [address] [place] [address], [address], [place], [facility], [place]. tel:[phone] Referring Provider: Donavon Fernandes [address] [place] [address] [place] [address], [address]. tel:[phone], [id number], tel:[phone] [place] No Information Jun-3 4 Muehl Bert. [address] [place] [address], [address], [place], [facility], [place]. tel:[phone] Referring Provider: Donavon Fernandes [address] [place] [address] [place] [address], [address]. tel:[phone], [id number], tel:[phone] [place] No Information Jun-2 - 4 Muehl Bert. [address] [place] [address], [address], [place], [facility], [place]. tel:[phone] Referring Provider: Donavon Fernandes [address] [place] [address] [address], [place], [address]. tel:[phone], [place], [place], [id number], [place] tel:[phone] [place] No Information 4 Muehl Bert. [address] [place] [address], [address], [place], [facility], [place]. tel:[phone] Referring Provider: Donavon Fernandes [address] [place] [address] [address], [place], [facility]. tel:[phone], [place], [id number], [place] tel:[phone] [place] No Information Jun- 2 4 Muehl Bert. [address] [place] [address], [address], [place], [facility], [place]. tel:[phone] Referring Provider: Donavon Fernandes [address] [place] [address] [address], [place], [facility]. tel:[phone] [address], [place], [id number], [place] tel:[phone] [place] No Information 4 Muehl Bert. [address] [place] [address], [address], [place], [facility], [place]. tel:[phone] Referring Provider: Donavon Fernandes [facility] [address], [place], [address]. tel:[phone], [place], [id number], [place] tel:[phone] [place] No Information 4 Muehl Bert. [address] [place] [address], [address], [place], [facility], [place]. tel:[phone] Referring Provider: Donavon Fernandes [address] [place] [address] [address], [place], [address]. tel:[phone] [facility] [address] [place] [address] [address], [place], [place], [id number], [place] tel:[phone] [place] No Information Oct 0-202 4 Muehl Bert. [address] [facility], [address], [place], [facility], . tel:[phone] Referring Provider: Donavon Fernandes [address], [place], [address]. tel:[phone] [address], [place], [place], [id number], tel:[phone] [place] No Information 8-202 3 Muehl Bert. [address] [facility], [address], [place], [facility], [place]. tel:[phone] Referring Provider: Mercy Rico [facility] [address] [facility] [address], [place], [address]. tel:[phone], [id number], tel:[phone] [place] No Information 4-202 3 Muehl Bert. [address] [place] [address], [address], [facility], [place]. tel:[phone] Referring Provider: Mercy Rico, [facility] [address], [place], [address]. tel:[phone], [id number], [place] tel:[phone] [place] No Information Dec-1 2-202 3 Muehl Bert. [address] [facility], [address], [place], [facility], [place]. tel:[phone] Referring Provider: Mercy Rico [facility] [address], [place], [address]. tel:[phone] [facility] [facility] [address], [place], [address], tel:[phone] [place] No Information Apr-0 4-202 3 Muehl Bert. [address] [facility], [address], [place], [facility], [place]. tel:[phone] Referring Provider: Ese Jordan [facility] [address], [place], [address]. tel:[phone], [place], [place], [id number], tel:[phone] [place] No Information Mar-3 0-202 3 Muehl Bert. [address] [facility], [address], [place], [facility], [place]. tel:[phone] Referring Provider: Ese Jordan [address], [place], [address]. tel:[phone] [place] [address], [place], [address], [place] tel:[phone] [place] No Information Mar-2 8-202 3 Muehl Bert. [address] [place] [address], [address], [facility], [place]. tel:[phone] Referring Provider: Ese Jordan [address], [place], [address]. tel:[phone] [address], [place], [id number], [place] tel:[phone] [place] No Information Mar-2 3-202 3 Muehl Bert. [address] [place] [address], [address], [place], [facility], [place]. tel:[phone] Referring Provider: Ese Jordan [address], [place], [address]. tel:[phone], [place], [id number], tel:[phone] [place] No Information Mar-2 1-202 3 Muehl Bert. [address] [facility], [address], [place], [address], [place]. tel:[phone] Referring Provider: Mercy Rico [facility] [address], [place], [address]. tel:[phone] [address] [address], [place], [place], [address], tel:[phone] [place] No Information 3 Muehl Bert. [address] [facility], [address], [place], [facility], [place]. tel:[phone] Referring Provider: Mercy Rico [facility] [address], [place], [address]. tel:[phone], [id number], tel:[phone] [place] No Information 3 Muehl Bert. [address] [facility], [address], [place], [facility], [place]. tel:[phone] Referring Provider: Mercy Rico [address] [place] [address] [address], [place], [address]. tel:[phone], [id number], tel:[phone] [place] No Information 3 Jc Harrington . Referring Provider: Mercy Rico [address] [place] [address] [address], [place], [address]. tel:[phone], [place], [address], [place] tel:[phone] [place] No Information 2 Muehl Bert. [address] [facility], [address], [place], [facility], [place]. tel:[phone] Referring Provider: Rose Marie Dougherty, [address] [place], [place], [address]. tel:[phone] [place] [address] [facility], [place], [place], [address], tel:[phone] [place] No Information 2 Muehl Bert. [address] [place] [address], [address], [place], [facility], [place]. tel:[phone] Referring Provider: Rose Marie Dougherty, [address] [place], [place], [address]. tel:[phone] [facility] [address], [id number], tel:[phone] [place] No Information 2 Muehl Bert. [address] [place] [address], [address], [place], [facility], [place]. tel:[phone] Referring Provider: Rose Marie Dougherty, [address] [place], [place], [address]. tel:[phone] [facility] [address] [place] [address], [id number], tel:[phone] [place] No Information 2 Muehl Bert. [address] [place] [address], [address], [place], [facility], [place]. tel:[phone] Referring Provider: Rose Marie Dougherty, [address] [place], [place], [address]. tel:[phone] [facility] [address] [place] [address], [id number], [place] tel:[phone] [place] No Information 2 Muehl Bert. [address] [place] [address], [address], [place], [facility], [place]. tel:[phone] Referring Provider: Rose Marie Dougherty, [address] [place], [address]. tel:[phone] [facility] [address], [id number], [place] tel:[phone] [place] No Information 2 Muehl Bert. [address] [place] [address], [address], [place], [facility], [place]. tel:[phone] Referring Provider: Rose Marie Dougherty, [address] [place], [place], [address]. tel:[phone] [address] [place] [address], [id number], tel:[phone] [place] No Information 0-202 2 Muehl Bert. [address] [place] [address], [address], [place], [facility], . tel:[phone] Referring Provider: Rose Marie Dougherty, [address] [place], [place], [address]. tel:[phone] [address] [place] [address], [id number], tel:[phone] [place] No Information 0 Muehl Bert. [address] [place] [address], [address], [place], [facility], . tel:[phone] Referring Provider: Donavon Fernandes [address] [place] [address] [address], [place], [address]. tel:[phone], [id number], tel:[phone] [place] No Information 3-202 0 Muehl Bert. [address] [place] [address], [address], [place], [facility], . tel:[phone] Referring Provider: Ese Vuong [facility] [address], [place], [address]. tel:[phone] [address], [place], [address], tel:[phone] [place] No Information 0 Muehl Bert. [address] [place] [address], [address], [place], [facility], . tel:[phone] Referring Provider: Ese Vuong [facility] [address], [place], [address]. tel:[phone] [address], [place], [place], [id number], tel:[phone] [place] No Information Francois-0 6-202 0 Muehl Bert. [address] [place] [address], [address], [place], [facility], . tel:[phone] Referring Provider: Donavon Fernandes [address] [place] [address] [address], [place], [facility]. tel:[phone] [address], [place], [place], [address], tel:[phone] [place] No Information Francois-0 2-202 0 Muehl Bert. [address] [place] [address], [address], [place], [facility], . tel:[phone] Referring Provider: Donavon Fernandes [address] [place] [address] [place] [address], [facility]. tel:[phone] [address], [place], [address], tel:[phone] [place] No Information Dec-3 0-201 9 Muehl Bert. [address] [place] [address], [address], [place], [facility], . tel:[phone] Referring Provider: Donavon Fernandes [address] [place] [address] [address], [place], [facility]. tel:[phone], [place], [address], tel:[phone] [place] No Information Dec-2 7-201 9 Muehl Bert. [address] [place] [address], [address], [place], [facility], . tel:[phone] Referring Provider: Donavon Fernandes [address] [place] [address] [address], [place], [facility]. tel:[phone], [place], [address], tel:[phone] [place] No Information Dec-2 3-201 9 Muehl Bert. [address] [facility], [address], [place], [address], [place]. tel:[phone] Referring Provider: Donavon Fernandes [address] [place] [address] [address], [place], [facility]. tel:[phone] [address], [place], [place], [address], [place] tel:[phone] [place] No Information Dec-2 0-201 9 Muehl Bert. [address] [facility], [address], [place], [address], [place]. tel:[phone] Referring Provider: Beny Vuong[address] [place] [address] [address], [place], [facility]. tel:[phone], [id number], [place] tel:[phone] [place] No Information Dec-1 8-201 9 Muehl Bert. [address] [place] [address], [address], [place], [facility], [place]. tel:[phone] Referring Provider: Ese Vuong [place] [address] [address], [place], [facility]. tel:[phone], [id number], [place] tel:[phone] [place] No Information Dec-1 1-201 9 Threl[place] Kina. . Referring Provider: Ese Vuong [place] [address] [address], [place], [address]. tel:[phone] [address], [place], [address], tel:[phone] [place] No Information Dec-0 9-201 9 Muehl Bert. [address] [facility], [address], [place], [address], [place]. tel:[phone] Referring Provider: Ese Vuong [address], [place], [address]. tel:[phone] [facility], [place], [place], [address], [place] tel:[phone] [place] No Information 9 Muehl Bert. [address] [facility], [address], [place], [facility], [place]. tel:[phone] Referring Provider: Ciro Armendariz, [address] [place], [address]. tel:[phone] [facility], [place], [place], [address], [place] tel:[phone] [place] No Information 9 Muehl Bert. [address] [facility], [address], [place], [address], [place]. tel:[phone] Referring Provider: Ciro Armendariz, [address] [place], [address]. tel:[phone] [facility] [facility], [place], [place], [address], [place] tel:[phone] [place] No Information 9 Muehl Bert. [address] [facility], [address], [place], [address], [place]. tel:[phone] Referring Provider: Ciro Armendariz, [address] [place], [address]. tel:[phone] [facility] [facility] [address], [place], [place], [address], [place] tel:[phone] [place] Low back painStiffness of unspecified joint, not elsewhere classifiedMuscl e weakness (generalized)Ot her specified disorders of muscle 9 [place]relk[place] Kina. . Referring Provider: Ciro Armendariz, [address] [place], [address]. tel:[phone] [facility] [facility], [place], [place], [address], [place] tel:[phone] [place] No Information 9 Muehl Bert. [address], [facility], . tel:[phone] Referring Provider: Ciro Armendariz, [address] [place], [address]. tel:[phone], [id number], tel:[phone] [place] No Information 9 Muehl Bert. [address] [facility] [address], [place], [facility], . tel:[phone] Referring Provider: Ciro Armendariz, [address] [place] [address], [address]. tel:[phone], [id number], tel:[phone] [place] Low back painStiffness of unspecified joint, not elsewhere classifiedMuscl e weakness (generalized)Ot her specified disorders of muscle 9 Muehl Bert. [address], [facility], . tel:[phone] Referring Provider: Ciro Armendariz, [address] [place] [address], [address]. tel:[phone] Family History Family Member Type Diagnosis Age At Onset No Information Payers Payer name Insurance type Covered alliance party ID Staci goff(s) [facility] [employer] [id number] Social History Type Description Quantity Date Captured Comments Sex Male Smoking Status No Information Chief Complaint And Reason For Visit No Information Reason For Referral Reason For Referral No Information History Of Present Illness Encounter Date Complaint History Of Prese nt Illness No Information Functional Status Date Functional Assessmen t No Information Instructions Date Instruction Additional Infor mation Prescribed activity/exercise edu cation Related to Overweight Dietary needs education Related to Overweight Dietary needs education Related to Overweight Prescribed activity/exercise edu cation Related to Overweight Assessments Type Assessment Date No Information Patient Care Teams Name Effective Dates (start - stop) Status Members No Information
--- OUTSIDE RECORDS SUMMARY | 2025-04-08 12:10 | XMS_ITS | Referral Summary ---
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 Testing performed by: [facility], [facility], [place]., [address] Blood 02/10/2025 3:00 PM CDT 02/10/2025 5:10 PM CDT us Shanique Gutierrez MD LAB BLOOD ORDERABLE S Final Result [facility] [address] [facility]. [place] [address] * MRI Abdomen MRCP W [...] Electronically signed by: Marco Antonio Harkins M.D. [facility] Mariella Eun Gutierrez MD IMG MRI PROCEDURES Final Result from Last 3 Months Insurance [id number] MEDICARE ADVANTAGE [facility] MEDICARE ADVANTAGE Advance Directives For more information, please contact: [phone] * Full Code (Latest Code Status on File) Date Activated Date Inactivated Comments 02/11/2024 12:25 PM 02/11/2024 7:22 PM Care Teams City Assessor Relationship Specialty Start Date End Date Fidel Ferguson MD [address] [place] [address] PCP - General Family Medicine 06/16/24
--- OUTSIDE RECORDS SUMMARY | 2025-04-08 12:10 | XMS_ITS | Clinical Summary ---
Author Organization [facility] Saurabh novoa [facility] Address [address] [place] [address] Care Team Providers Care Scouring Machine Tender Name Role Phone Unavailable Primary Care Provider Unavailabl e Social History Tobacco Use Types Packs/Day Years Used Date Smoking Tobacco: Never Assessed Sex and Gender Information Value Date Recorded Sex Assigned at Not on file Legal Sex Male 2:25 PM CDT Gender Identity Not on file Sexual Orientation Not on file Plan of Treatment Upcoming Encounters Date Type Department Care Team (Late st Contact Info) Description 07/19/2025 1:30 PM [employer]OR [employer] L[employer]UT[employer]NT Office Visit [facility] Oncology and Hematology - [place] [address] [facility] [address] [place] [address] Marky Davis MD [address] [place] [address] Health Maintenance Due Date Last Done Comments DTAP/TDAP/TD VACCINES (1 - Tdap) 1964 PNEUMOCOCCAL VACCINE 50+ YEARS (1 of 1 - PCV) 03/05/19 95 ZOSTER VACCINE (1 of 2) 1995 RSV VACCINE (60+ or ) (1 - 1-dose 75+ series) 2020 INFLUENZA VACCINE (#1) 2025 Insurance [facility] [id number]
--- OUTSIDE RECORDS SUMMARY | 2025-04-08 12:10 | XMS_ITS | Clinical Summary ---
Author Organization [facility] Address [address] [place] [address] Care Team Providers Care Scalping Machine Operator Name Role Phone Fidel Ferguson MD Primary Care Provider [phone] Allergies Active Allergy Reactions Criticality Noted Date [...] Team Description 02/10/2025 3:00 PM CDT Lab 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, [place]., [address] Blood 02/10/2025 3:00 PM CDT 02/10/2025 5:10 PM CDT us Shanique Gutierrez MD LAB BLOOD ORDERABLE S Final Result [facility] [address] [facility]. [place] [address] * MRI Abdomen MRCP W [...] Final Result from Last 3 Months Insurance [facility] MEDICARE ADVANTAGE [facility] Address: [address] [place], [place] [id number] MEDICARE ADVANTAGE [facility] Address: [address] [place] [address] Advance Directives For more information, please contact: [phone] * Full Code (Latest Code Status on File) Date Activated Date Inactivated Comments 02/11/2024 12:25 PM 02/11/2024 7:22 PM Care Teams Scalping Machine Operator Relationship Specialty Start Date End Date Fidel Ferguson MD [facility] [place] [address] PCP - General Family Medicine 06/16/24
--- OUTSIDE RECORDS SUMMARY | 2025-04-08 12:18 | XMS_ITS | Continuity of Care Document ---
Author Organization [employer] [place] Address [address] [place] [address] [address] [place] [address] Phone Care Team Providers Care Grades 1 Through 5 Teacher Name Role Phone Bert Woodward Unavailable Unavailable [...] Exercise Therapeutic Activities Neuromuscular Re-Ed Therapeutic Exercise Neuromuscular Re-Ed Therapeutic Exercise Therapeutic Activities Therapeutic Activities Neuromuscular Re-Ed Therapeutic Exercise Therapeutic Activities Therapeutic Exercise Neuromuscular Re-Ed Doc neg elder mal no plan Therapeutic Exercise Neuromuscular Re-Ed PT Evaluation Moderate Complexity Therapeutic Activities Neuromuscular Re-Ed Therapeutic Exercise Hot or Cold Pack Therapeutic Activities Therapeutic Exercise Manual Therapy Hot or Cold Pack Electrical Stimulation Progress Note Therapeutic Activities Therapeutic Exercise Neuromuscular Re-Ed Electrical Stimulation Hot or Cold Pack Therapeutic [...] Re-Ed Therapeutic Exercise Electrical Stimulation Therapeutic Exercise Therapeutic Activities Neuromuscular Re-Ed Hot [...] Diagnoses Date Provider Providers Copied on Encounter [facility], [id number], tel:[phone] [place] No Information 4 Shemar Crane [address] [facility], [facility] [address], [place], [facility], [place]. tel:[phone] Referring Provider: Donavon Fernandes [address] [place] [address], [address]. tel:[phone] [facility] [address] [place] [address], [id number], tel:[phone] [place] No Information 4 Lainey Loredo Referring Provider: Donavon Fernandes 6810 [facility] [address], [address]. tel:[phone] [facility] 2121 [facility] [address], [place], [id number], tel:[phone] [place] No Information [id number] [place] [address], [address], [place], [facility], [place]. tel:[phone] Referring Provider: Donavon Fernandes [address] [place] [address], [address]. tel:[phone], [id number], tel:[phone] [place] No Information Jul-0 - 4 Muehl Bert. [address] [place] [address], [address], [place], [facility], [place]. tel:[phone] Referring Provider: Donavon Fernandes [address] [place] [address], [address]. tel:[phone], [id number], tel:[phone] [place] No Information Jul-0 - 4 Muehl Bert. [address] [place] [address], [address], [place], [facility], [place]. tel:[phone] Referring Provider: Donavon Fernandes [address] [place] [address] [place] [address], [address]. tel:[phone], [id number], tel:[phone] [place] No Information Jun-3 4 Muehl Bert. [address] [place] [address], [address], [place], [facility], [place]. tel:[phone] Referring Provider: Donavon Fernandes [address] [place] [address] [place] [address], [address]. tel:[phone], [id number], tel:[phone] [place] No Information Jun-2 - 4 Muehl Bert. [address] [place] [address], [address], [place], [facility], [place]. tel:[phone] Referring Provider: Donavon Fernandes [address] [place] [address] [address], [place], [address]. tel:[phone], [place], [place], [id number], [place] tel:[phone] [place] No Information 4 Muehl Bert. [address] [place] [address], [address], [place], [facility], [place]. tel:[phone] Referring Provider: Donavon Fernandes [address] [place] [address] [address], [place], [facility]. tel:[phone], [place], [place], [id number], [place] tel:[phone] [place] No Information Jun- 2 4 Muehl Bert. [address] [place] [address], [address], [place], [facility], [place]. tel:[phone] Referring Provider: Donavon Fernandes [address] [place] [address] [address], [place], [facility]. tel:[phone] [address], [place], [id number], [place] tel:[phone] [place] No Information 4 Muehl Bert. [address] [place] [address], [address], [place], [facility], [place]. tel:[phone] Referring Provider: Donavon Fernandes [facility] [address], [place], [address]. tel:[phone], [place], [place], [id number], [place] tel:[phone] [place] No Information 4 Muehl Bert. [address] [place] [address], [address], [place], [facility], [place]. tel:[phone] Referring Provider: Donavon Fernandes [address] [place] [address] [address], [place], [address]. tel:[phone] [facility] [address] [place] [address] [address], [place], [place], [id number], [place] tel:[phone] [place] No Information Oct 0-202 4 Muehl Bert. [address] [facility], [address], [place], [facility], . tel:[phone] Referring Provider: Donavon Fernandes [address], [place], [address]. tel:[phone], [place], [place], [id number], tel:[phone] [place] No Information 8-202 3 Muehl Bert. [address] [facility], [address], [place], [facility], [place]. tel:[phone] Referring Provider: Mercy Rico [facility] [address] [facility] [place] [address], [address]. tel:[phone], [id number], tel:[phone] [place] No Information 4-202 3 Muehl Ebrt. [address] [place] [address], [address], [place], [facility], [place]. tel:[phone] Referring Provider: Mercy Rico, [facility] [address], [address]. tel:[phone], [id number], [place] tel:[phone] [place] No Information Dec-1 2-202 3 Muehl Bert. [address] [facility], [address], [place], [facility], [place]. tel:[phone] Referring Provider: eMrcy Rico [facility] [address], [address]. tel:[phone] [facility] 2[address] [facility] [address], [place], [id number], tel:[phone] [place] No Information Apr-0 4-202 3 Muehl Bert. [address] [facility], [address], [place], [facility], [place]. tel:[phone] Referring Provider: Ese Jordan [facility] [address], [place], [address]. tel:[phone], [place], [place], [id number], tel:[phone] [place] No Information Mar-3 0-202 3 Muehl Bert. [address] [facility], [address], [place], [facility], [place]. tel:[phone] Referring Provider: Ese Jordan [address], [place], [address]. tel:[phone] [place] [address], [place], [id number], [place] tel:[phone] [place] No Information Mar-2 8-202 3 Muehl Bert. [address] [place] [address], [address], [place], [facility], [place]. tel:[phone] Referring Provider: Ese Jordan [address], [place], [address]. tel:[phone] [address], [place], [place], [id number], [place] tel:[phone] [place] No Information Mar-2 3-202 3 Muehl Bert. [address] [place] [address], [address], [place], [facility], [place]. tel:[phone] Referring Provider: Ese Jordan [address], [place], [address]. tel:[phone], [place], [place], [id number], tel:[phone] [place] No Information Mar-2 1-202 3 Muehl Bert. [address] [facility], [address], [place], [address], [place]. tel:[phone] Referring Provider: Mercy Rico [facility] [address], [place], [address]. tel:[phone] [place] [address], [place], [place], [id number], tel:[phone] [place] No Information 3 Muehl Bert. [address] [facility], [address], [place], [facility], [place]. tel:[phone] Referring Provider: Mercy Rico [facility] [address], [place], [address]. tel:[phone], [id number], tel:[phone] [place] No Information 3 Muehl Bert. [address] [facility], [address], [place], [facility], [place]. tel:[phone] Referring Provider: Mercy Rico [address] [place] [address] [address], [place], [address]. tel:[phone], [id number], tel:[phone] [place] No Information 3 Jc Harrington . Referring Provider: Mercy Rico [address] [place] [address] [address], [place], [address]. tel:[phone], [place], [place], [id number], [place] tel:[phone] [place] No Information 2 Muehl Bert. [address] [facility], [address], [place], [facility], [place]. tel:[phone] Referring Provider: Rose Marie Dougherty, [address], [place], [address]. tel:[phone] [place] [address] [facility], [place], [place], [id number], tel:[phone] [place] No Information 2 Muehl Bert. [address] [place] [address], [address], [place], [facility], [place]. tel:[phone] Referring Provider: Rose Marie Dougherty, [address] [place], [place], [address]. tel:[phone] [facility] [address], [id number], tel:[phone] [place] No Information 2 Muehl Bert. [address] [place] [address], [address], [place], [facility], [place]. tel:[phone] Referring Provider: Rose Marie Dougherty, [address] [place], [place], [address]. tel:[phone] [facility] [address] [place] [address], [id number], tel:[phone] [place] No Information 2 Muehl Bert. [address] [place] [address], [address], [place], [facility], [place]. tel:[phone] Referring Provider: Rose Marie Dougherty, [address] [place], [place], [address]. tel:[phone] [facility] [address] [place] [address], [id number], [place] tel:[phone] [place] No Information 2 Muehl Bert. [address] [place] [address], [address], [place], [facility], [place]. tel:[phone] Referring Provider: Rose Marie Dougherty, [address] [place] [place], [address]. tel:[phone] [facility] [address], [id number], [place] tel:[phone] [place] No Information 2 Muehl Bert. [address] [place] [address], [address], [place], [facility], [place]. tel:[phone] Referring Provider: Rose Marie Dougherty, [address] [place], [place], [address]. tel:[phone] [address] [place] [address], [id number], tel:[phone] [place] No Information 0-202 2 Muehl Bert. [address] [place] [address], [address], [place], [facility], . tel:[phone] Referring Provider: Rose Marie Dougherty, [address] [place], [place], [address]. tel:[phone] [address] [place] [address], [id number], tel:[phone] [place] No Information 0 Muehl Bert. [address] [place] [address], [address], [place], [facility], . tel:[phone] Referring Provider: Donavon Fernandes [address] [place] [address] [address], [address]. tel:[phone], [id number], tel:[phone] [place] No Information 3-202 0 Muehl Bert. [address] [place] [address], [address], [place], [facility], . tel:[phone] Referring Provider: Ese Vuong [facility] [address], [address]. tel:[phone] [address], [place], [id number], tel:[phone] [place] No Information 0 Muehl Bert. [address] [place] [address], [address], [place], [facility], . tel:[phone] Referring Provider: Ese Vuong [facility] [address], [address]. tel:[phone] [address], [place], [place], [id number], tel:[phone] [place] No Information Francois-0 6-202 0 Muehl Bert. [address] [place] [address], [address], [place], [facility], . tel:[phone] Referring Provider: Donavon Fernandes [address] [place] [address] [address], [place], [facility]. tel:[phone] [address], [place], [id number], tel:[phone] [place] No Information Francois-0 2-202 0 Muehl Bert. [address] [place] [address], [address], [place], [facility], . tel:[phone] Referring Provider: Donavon Fernandes [address] [place] [address] [place] [address], [facility]. tel:[phone] [address], [place], [id number], tel:[phone] [place] No Information Dec-3 0-201 9 Muehl Bert. [address] [place] [address], [address], [place], [facility], . tel:[phone] Referring Provider: Donavon Fernandes [address] [place] [address] [address], [place], [facility]. tel:[phone], [place], [id number], tel:[phone] [place] No Information Dec-2 7-201 9 Muehl Bert. [address] [place] [address], [address], [place], [facility], . tel:[phone] Referring Provider: Donavon Fernandes [address] [place] [address] [address], [facility]. tel:[phone], [place], [id number], tel:[phone] [place] No Information Dec-2 3-201 9 Muehl Bert. [address] [facility], [address], [place], [address], [place]. tel:[phone] Referring Provider: Donavon Fernandes [address] [place] [address] [address], [place], [facility]. tel:[phone] [address], [place], [id number], [place] tel:[phone] [place] No Information Dec-2 0-201 9 Muehl Bert. [address] [facility], [address], [place], [address], [place]. tel:[phone] Referring Provider: Beny Vuong[address] [place] [address] [address], [place], [facility]. tel:[phone], [id number], [place] tel:[phone] [place] No Information Dec-1 8-201 9 Muehl Bert. [address] [place] [address], [address], [place], [facility], [place]. tel:[phone] Referring Provider: Ese Vuong [place] [address] [address], [place], [facility]. tel:[phone], [id number], [place] tel:[phone] [place] No Information Dec-1 1-201 9 Threlkeld Kina. . Referring Provider: Ese Vuong [place] [address] [address], [address]. tel:[phone], [place], [id number], tel:[phone] [place] No Information Dec-0 9-201 9 Muehl Bert. [address] [facility], [address], [place], [address], [place]. tel:[phone] Referring Provider: Ese Vuong [address], [place], [address]. tel:[phone] [facility], [place], [place], [id number], [place] tel:[phone] [place] No Information 9 Muehl Bert. [address] [facility], [address], [place], [facility], [place]. tel:[phone] Referring Provider: Ciro Armendariz, [address] [place], [address]. tel:[phone] [facility], [place], [place], [id number], [place] tel:[phone] [place] No Information 9 Muehl Bert. [address] [facility], [address], [place], [address], [place]. tel:[phone] Referring Provider: Ciro Armendariz, [address] [place], [address]. tel:[phone] [facility]2[address] [facility], [place], [place], [id number], [place] tel:[phone] [place] No Information 9 Muehl Bert. [address] [facility], [address], [place], [address], [place]. tel:[phone] Referring Provider: Ciro Armendariz, [address] [place], [address]. tel:[phone] [facility] [facility] [address], [place], [place], [id number], [place] tel:[phone] [place] Low back painStiffness of unspecified joint, not elsewhere classifiedMuscl e weakness (generalized)Ot her specified disorders of muscle 9 Threlkeld Kina. . Referring Provider: Ciro Armendariz, [address] [place], [address]. tel:[phone] [facility] [facility], [place], [place], [id number], [place] tel:[phone] [place] No Information 9 Muehl Bert. [address], [facility], . tel:[phone] Referring Provider: Ciro Armendariz, [address] [place], [address]. tel:[phone], [id number], tel:[phone] [place] No Information 9 Muehl Bert. [address] [facility] [address], [place], [facility], . tel:[phone] Referring Provider: Ciro Armendariz, [address] [place] [address], [address]. tel:[phone], [id number], tel:[phone] [place] Low back painStiffness of unspecified joint, not elsewhere classifiedMuscl e weakness (generalized)Ot her specified disorders of muscle 9 Muehl Bert. [address], [facility], . tel:[phone] Referring Provider: Ciro Armendariz, [address] [place] [address], [address]. tel:[phone] Family History Family Member Type Diagnosis Age At Onset No Information Payers Payer name Insurance type Covered constitution party ID Staci goff(s) [facility] [employer] [id number] Social History Type Description Quantity Date Captured [...]
--- NOTE | 2025-04-08 12:31 | ED_ITS ---
HPI - Altered Mental Status General Chief Complaint: Altered Mental Status Stated Complaint: Head/neck pain-confusion x 2 days Time Seen by Provider: 04/08/25 12:10 History of Present Illness HPI narrative: 80-year-old male with history of type 2 diabetes, hypertension, recently diagnosed IJ thrombus currently on Xarelto 15 mg daily. Patient presents to the emergency department with new onset confusion for last 2 days. Patient is normally alert oriented x3 but no history of encephalopathy or dementia. Patient currently is alert oriented times 1-2 with acute confusion for 48 hours time. Family states that he has been seen wandering around the household early and not knowing where he is and occasionally forgetting people's names. This is unusual for him and he has no history of anything like this happened to him previously. No reported trauma and patient denies any falls or head injuries. Patient states he is having some left-sided neck pain for several weeks which is how they found the thrombus during his previous ER visits. He is already followed up with his primary care provider and on anticoagulants for this but has not been able to follow-up with hematology yet. Patient's family and daughter at bedside states that he has a history of urinary infections but never had any confusion from them. Patient of self is very confused during encounter but denies any pain aside from the left side of his neck. No stiffness in his neck or fever, chills. No cough for shortness of breath. No abdominal pain, chest discomfort. No difficulties urinating or diarrhea. Family states otherwise been in his normal state of health. Related Data Home Medications ?Medication ?Instructions ?Recorded ?Confirmed ?Last Taken ?Type aspirin 81 mg tablet,delayed 81 mg PO DAILY 09/09/19 04/08/25 04/08/25 History release multivitamin 1 tablet PO DAILY 10/27/22 04/08/25 01/30/25 History biotin 1,000 mcg chewable tablet 1,000 mcg PO DAILY 05/06/24 04/08/25 01/30/25 History psyllium husk 3.4 gram oral powder 1 packet PO DAILY 05/06/24 04/08/25 01/30/25 History packet (Metamucil Fiber (aspartame)) Allergies Allergy/AdvReac Type Severity Reaction Status Date / Time duloxetine Allergy Nausea and Verified 03/29/25 11:24 Vomiting diclofenac AdvReac Mild Nausea and Verified 03/29/25 11:24 Vomiting Review of Systems 2 Review of Systems: As reviewed above in [facility] Past Medical History Medical History (Updated 04/08/25 @ 19:32 by Chapito Cano MD) Hypertension associated with diabetes Hypothyroidism (acquired) 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, on anticoagulation Primary osteoarthritis of left knee H/O facial injury BMI 25.0-25.9,adult Hyperlipidemia associated with type 2 diabetes mellitus Bone spur Sacroiliitis Tendonitis of shoulder, right Type 2 diabetes mellitus with hyperglycemia Surgical History Surgical History History of repair of right rotator cuff (06/27/19) Family History Family History Father Family history of malignant neoplasm of stomach, Onset Age: 57 Family history of lung cancer, Onset Age: 57 Family history of malignant neoplasm of esophagus, Onset Age: 57 Family history of malignant neoplasm , Onset Age: 50 exposure to dioxin. Mother Family history of dementia Septicemia Social History Social History Smoking status: Never smoker Second hand tobacco smoke exposure: No Alcohol intake: current Drinks per week: 1 Alcohol use details: 1 - 2 DRINKS PER MONTH Substance use: never Substance use type: does not use Do You Feel Safe in your Home?: Yes Lack of Transportation: No Lack of Food: Never True Current Housing: I Have Housing Concerned About Future Housing: No Difficulty Paying Gas/Electric Bills: No Difficulty Paying for Meds: No Currently Unemployed: No Education: High School Diploma/GED Difficulty w/ Childcare or Family Care: No Living arrangements: with family Additional living arrangements comments: daughter Occupation/Education: retired 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 Mucous membranes moist. NECK: Supple. CHEST: [Clear to auscultation. No respiratory distress.] HEART: [Regular rate and rhythm]. No murmur heard. [Normal peripheral pulses.] ABDOMEN: [Soft, nondistended], [nontender], [No rigidity or guarding] EXTREMITIES: Normal range of motion. [No edema.] SKIN: Warm, dry, no rash. NEURO: [No focal deficits]. Alert and oriented times 1-2. Confused on his own date of and the year. Knows his name and family in the room. Very slow to get correct response but does know the location PSYCH: [Normal mood and affect.] Course Vital Signs Vital signs: Vital Signs Temperature 36.4 C L 04/08/25 12:16 Pulse Rate 90 04/08/25 12:16 Respiratory Rate 20 04/08/25 12:16 Blood Pressure 156/86 H 04/08/25 12:16 Pulse Oximetry 100 04/08/25 12:16 Oxygen Delivery Room Air 04/08/25 12:16 Temperature 36.8 C 04/08/25 17:15 Pulse Rate 78 04/08/25 17:15 Respiratory Rate 18 04/08/25 17:15 Blood Pressure 142/77 H 04/08/25 17:15 Pulse Oximetry 99 04/08/25 17:15 Oxygen Delivery Room Air 04/08/25 12:16 MDM - Altered Mental Status MDM Narrative Medical decision making narrative: 80-year-old male with history of type 2 diabetes, hypertension, recently diagnosed IJ thrombus currently on Xarelto 15 mg daily. Patient presents to the emergency department with new onset confusion for last 2 days. Patient is normally alert oriented x3 but no history of encephalopathy or dementia. Patient currently is alert oriented times 1-2 with acute confusion for 48 hours time. Family states that he has been seen wandering around the household early and not knowing where he is and occasionally forgetting people's names. This is unusual for him and he has no history of anything like this happened to him previously. No reported trauma and patient denies any falls or head injuries. Patient states he is having some left-sided neck pain for several weeks which is how they found the thrombus during his previous ER visits. He is already followed up with his primary care provider and on anticoagulants for this but has not been able to follow-up with hematology yet. Patient's family and daughter at bedside states that he has a history of urinary infections but never had any confusion from them. Patient of self is very confused during encounter but denies any pain aside from the left side of his neck. No stiffness in his neck or fever, chills. No cough for shortness of breath. No abdominal pain, chest discomfort. No difficulties urinating or diarrhea. Family states otherwise been in his normal state of health. Patient's symptomatology could be multifactorial in nature, could be related to his new anticoagulation use with potential for intracranial hemorrhage or bleeding especially if there is some minor head trauma associated with this. Patient reports no signs injuries though. Infectious pathology such as urinary infection or pneumonia also possible. Patient has no signs of meningismus on examination is afebrile. His left-sided neck pain going on for several weeks and likely secondary to the thrombus on that side and could also be pointing towards infection such as Lemiere's syndrome, although rare and less likely. No acute neurological deficits other than confusion and he is greater than 48 hours outside window for stroke interventions. CT head and CT angiography of the head neck was obtained as well as a broad workup including chest x-ray, EKG, urinalysis, alcohol level, drug screen, CMP and CBC. Patient placed on chief mechanical engineer and re-evaluated. Workup was reassuring. No leukocytosis or anemia. Normal platelet count. Electrolytes are largely unremarkable. Normal creatinine, normal glucose and LFTs. TSH mildly low at 0.037 but normal T3 and T4, subclinical hyperthyroidism. Urinalysis with no signs of infection. UDS negative. Chest x-ray shows focal opacity in the left side consistent with atelectasis or pneumonia. CT of the head shows old infarcts but no acute intracranial process. CT angiography shows unremarkable CT angiography without any hemodynamic stenosis. No thrombosis or aneurysm. Some mixing contrast rather than occlusion in the bilateral IJ. I discussed with the hospitalist that we currently do not have a great explanation for patient's level of encephalopathy but unremarkable workup here. Recommendations to start antibiotics for the suspicious for atelectasis versus pneumonia. Patient started on azithromycin and Rocephin and admitted to the hospital on a telemetry monitored bed. Discussed with the family members were comfortable with the plan for further workup and admission to the hospital. Medical Records Attestation: I reviewed the patient's medical records. Lab Data Attestation: I reviewed the patient's lab results. 04/08/25 12:21 04/08/25 12:21 Labs: Lab Results 04/08/25 04/08/25 Range/Units 12:21 13:02 WBC 8.7 (4.5-10.0) K/mm3 RBC 4.83 (4.6-6.20) M/mm3 Hgb 14.6 (14.0-18.0) g/dL Hct 44.2 (42.0-52.0) % MCV 91.5 (80-100) fl MCH 30.2 (26-34) pg MCHC 33.0 (32-36) g/dl RDW 12.5 (11.5-14.5) % Plt Count 283 (150-375) k/mm3 MPV 9.1 (7.4-10.4) fl Immature Gran % (Auto) 0.2 (0-0.5) % Neut % (Auto) 73.7 H (45.5-73.1) % Lymph % (Auto) 16.9 L (18.3-44.2) % [place] % (Auto) 8.9 H (2.6-8.5) % Eos % (Auto) 0.1 (0-4.4) % Baso % (Auto) 0.2 (0.2-1.2) % Lymph # (Auto) 1.48 (0.9-3.2) K/mm3 [place] # (Auto) 0.8 H (0.1-0.6) K/mm3 Eos # (Auto) 0.0 (0-0.3) K/mm3 Baso # (Auto) 0.0 (0.0-0.1) K/mm3 Abs Immat Gran (auto) 0.02 (0.00-0.031) K/mm3 Absolute Neuts (auto) 6.4 (1.3-6.7) K/mm3 Absolute Nucleated RBC 0.000 (0.0-0.012) K/mm3 Nucleated RBC % 0.0 (0.0-0.2) % PT 16.5 H (11.1-14.7) Seconds INR 1.3 APTT 33.9 (22.3-36.8) Seconds Sodium 136 L (137-145) mmol/L Potassium 4.1 (3.4-5.0) mmol/L Chloride 97 L (98-107) mmol/L Carbon Dioxide 25 (22-30) mmol/L Anion Gap 14 H (4-12) mmol/L BUN 20 (9-20) mg/dL Creatinine 1.16 (0.7-1.3) mg/dL Estim Creat Clear Calc 47 ml/min Estimated GFR > 60 (59 - ) Glucose 119 H (65-110) mg/dL Calcium 10.4 H (8.4-10.2) mg/dL Total Bilirubin 1.0 (0.2-1.3) mg/dL AST 43 (17-59) U/L ALT 29 (6-50) U/L Alkaline Phosphatase 91 (38-126) U/L Total Protein 7.7 (6.3-8.2) g/dL Albumin 4.7 (3.5-5.1) g/dL TSH (Reflex) 0.037 L (0.465-4.68) uIU/mL Free T4 1.53 (0.78-2.19) ng/dL Total T3 0.97 (0.82-1.58) NG/ML Urine Color Yellow (Yellow) Urine Appearance Clear (Clear) Urine pH 7.0 (5.0-9.0) Ur Specific [place] 1.019 (1.001-1.035) Urine Protein Trace (Negative) mg/dL Urine Glucose (UA) Negative (Negative) mg/dL Urine Ketones 2+ H (Negative) mg/dL Ur Blood (Man) Negative (Negative) Urine Nitrate Negative (Negative) Urine Bilirubin Negative (Negative) Urine Urobilinogen 1.0 (<2.0) mg/dL Leukocyte Esterase Rfl Trace H (Negative) RENAE/UL Urine RBC 0-2 (0-2) /hpf Urine WBC 0-5 (0-3) /hpf Ur Squamous Epith Cells None seen (Few) /hpf Urine Bacteria None seen /hpf Urine Casts 0-2 Urine Opiates Screen Negative (Negative) Urine Methadone Screen Negative (Negative) Ur Barbiturates Screen Negative (Negative) Ur Phencyclidine Scrn Negative (Negative) Ur Amphetamine Screen Negative (Negative) U Benzodiazepines Scrn Negative (Negative) Urine Cocaine Screen Negative (Negative) U Cannabinoids Screen Negative (Negative) Ethyl Alcohol < 10 (<10) mg/dL Imaging Data Attestation: I personally reviewed and interpreted this imaging study as follows: My impression: Impressions Chest X-Ray 04/08/25 13:22 IMPRESSION: 1. Focal opacity at the left costophrenic angle which could represent atelectasis or less likely pneumonia. Head CT 04/08/25 13:33 IMPRESSION: 1. 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 No acute intracranial process. Head/Neck CTA 04/08/25 13:38 IMPRESSION: 1. Normal atherosclerotic plaque with 0% stenosis of the right and left carotid bulbs relative to normal distal artery lumen diameter (NASCET criteria). 2. Unremarkable cerebral CT angiogram with no hemodynamically significant stenosis, thrombosis or aneurysm. 3. Heterogeneous contrast in the bilateral internal jugular veins which appears much more likely to reflect mixing artifact from additional veins draining into the internal jugular vein with unopacified are less well opacified blood due to to phase of contrast rather than thrombus. Discharge Plan Discharge Clinical Impression: Acute alteration in mental status, Pneumonia Patient Disposition: Still a Patient Condition: Stable
[2025-04-08 12:32] LABS: Hematocrit 44.2 % (42.0-52.0); Hemoglobin 14.6 g/dL (14.0-18.0); Immature Granulocyte Percent A 0.2 % (0-0.5); Lymphocytes Absolute Auto 1.48 K/mm3 (0.9-3.2); Mean Corpuscular HGB Conc 33.0 g/dl (32-36); Mean Corpuscular Hemoglobin 30.2 pg (26-34); Mean Corpuscular Volume 91.5 fl (80-100); Nucleated Red Blood Cells Absolute Auto 0.000 K/mm3 (0.0-0.012); Nucleated Red Blood Cells Perc 0.0 % (0.0-0.2); Platelet Count Result 283 k/mm3 (150-375); Red Blood Count 4.83 M/mm3 (4.6-6.20); White Blood Count 8.7 K/mm3 (4.5-10.0)
[2025-04-08 12:39] LABS: INR 1.3; Prothrombin Time 16.5 Seconds (11.1-14.7)
[2025-04-08 12:40] LABS: Partial Thromboplastin Time 33.9 Seconds (22.3-36.8)
[2025-04-08 12:46] LABS: Alanine Aminotransferase 29 U/L (6-50); Albumin Level 4.7 g/dL (3.5-5.1); Alkaline Phosphatase 91 U/L (38-126); Anion Gap 14 mmol/L (4-12); Aspartate Amino Transferase 43 U/L (17-59); Bilirubin,Total 1.0 mg/dL (0.2-1.3); Blood Urea Nitrogen 20 mg/dL (9-20); Calcium 10.4 mg/dL (8.4-10.2); Carbon Dioxide 25 mmol/L (22-30); Chloride 97 mmol/L (98-107); Estimated CRCL calculation 47 ml/min; Estimated Glomerular Filt Rate > 60; Glucose 119 mg/dL (65-110); Potassium 4.1 mmol/L (3.4-5.0); Sodium 136 mmol/L (137-145); Total Protein 7.7 g/dL (6.3-8.2)
[2025-04-08 13:15] LABS: Add Urine Microscopic? YES; Appearance Urine Clear (Clear); Glucose Urine UA Negative (Negative); Leukocyte Esterase Ur Trace LEU/UL (Negative); Nitrate Urine Negative (Negative); Non Pathogenic Casts 0-2; Specific Grav Ur 1.019 (1.001-1.035)
[2025-04-08 13:20] LABS: Thyroid Stimulating Hormone Reflex 0.037 uIU/mL (0.465-4.68)
[2025-04-08 13:27] LABS: Cannabinoid Screen Urine Negative (Negative)
[2025-04-08 13:56] LABS: Free T4 Free Thyroxine Reflex 1.53 ng/dL (0.78-2.19)
--- NOTE | 2025-04-08 14:29 | P.HP_ITS ---
H&P: HPI History of Present Illness Date/Time: 04/08/25 14:29 Chief Complaint: Confusion Narrative: 80 y/o M with PMH of HTN, HLD, thrombus of the left IJ on anticoagulation (03/2025), kidney stones, and DM or oral regimen presents here with confusion. Patient presents here from home for further evaluation of confusion on 04/08. The patient and his daughter provided the following history. New onset confus ion and fatigue developed approximately 2 days ago. At baseline the patient is A&Ox4 with no prior history of encephalopathy, dementia, or Alzheimer's. Does have a history of urinary tract infection, however no previously associated confusion with the infections. He arrived to the emergency department A&O times 1-2. Family at the bedside reported that the patient has been wandering around the house and occasionally forgetting people's names. Confusion was precipitated by trauma, head injury, or fall. He does report some ongoing left- sided neck pain, however this was worked up previously and he was discovered to have a thrombus of the left internal jugular vein for which he was started on anticoagulation. Endorsing accompanying poor p.o. intake. The patient denies neck stiffness, vision changes, focal weakness, focal numbness, dizziness, fever, chills, body aches, chest pain, shortness of breath, abdominal pain, or urinary symptoms. Developed nausea, vomiting, and flank pain that is more on one side (not able to provide which side) post-admission. No blood in his stool, dark tarry stools, diarrhea, or constipation. Denies daily alcohol use. Initial VS at presentation: 97.5? F, HR 90, RR 20, 156/86, and 100% on RA. ED workup showed: No leukocytosis, no anemia, INR 1.3, no significant electrolyte derangements, creatinine 1.16 and GFR >60, glucose 119, TSH 0.037 with normal T3/T4. UA showed 2+ ketones and trace leuk esterase otherwise unremarkable. UDS negative. ETOH negative. CXR showed focal opacity at the left costophrenic angle which could represent atelectasis or less likely pneumonia. 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 Head/neck CTA showed normal atherosclerotic plaque with 0% stenosis of the right and left carotid bulbs, unremarkable cervical CT angiogram, and heterogeneous contrast in the bilateral internal jugular veins which appears much more likely to reflects mixing artifact from additional vein stranding into the internal jugular vein with unopacified are less well opacified blood due to phase of contrast rather than thrombus. 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, on anticoagulation Primary osteoarthritis of left knee H/O facial injury BMI 25.0-25.9,adult Hyperlipidemia associated with type 2 diabetes mellitus Bone spur Sacroiliitis Tendonitis of shoulder, right Type 2 diabetes mellitus with hyperglycemia Surgical History Surgical History History of repair of right rotator cuff (06/27/19) Family History Family History Father Family history of malignant neoplasm of stomach, Onset Age: 57 Family history of lung cancer, Onset Age: 57 Family history of malignant neoplasm of esophagus, Onset Age: 57 Family history of malignant neoplasm , Onset Age: 50 exposure to dioxin. Mother Family history of dementia Septicemia Social History Social History Smoking status: Never smoker Second hand tobacco smoke exposure: No Alcohol intake: current Drinks per week: 1 Alcohol use details: 1 - 2 DRINKS PER MONTH Substance use: never Substance use type: does not use Do You Feel Safe in your Home?: Yes Lack of Transportation: No Lack of Food: Never True Current Housing: I Have Housing Concerned About Future Housing: No Difficulty Paying Gas/Electric Bills: No Difficulty Paying for Meds: No Currently Unemployed: No Education: High School Diploma/GED Difficulty w/ Childcare or Family Care: No Living arrangements: with family Additional living arrangements comments: daughter Occupation/Education: retired 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 Gender identity (if verbalized by the patient): Male Spiritual care concerns: No Meds Home Medications and Allergies Home Medications ?Medication ?Instructions ?Recorded ?Confirmed ?Type aspirin 81 mg tablet,delayed 81 mg PO DAILY 09/09/19 04/08/25 History release multivitamin 1 tablet PO DAILY 10/27/22 04/08/25 History biotin 1,000 mcg chewable tablet 1,000 mcg PO DAILY 05/06/24 04/08/25 History psyllium husk 3.4 gram oral powder 1 packet PO DAILY 05/06/24 04/08/25 History packet (Metamucil Fiber (aspartame)) levothyroxine 50 mcg tablet 50 mcg PO QAM #90 tabs 01/12/25 04/08/25 Rx metformin 750 mg tablet,extended 750 mg PO BID #180 tabs 01/12/25 04/08/25 Rx release 24 hr simvastatin 40 mg tablet See Rx Instructions .Route 01/12/25 04/08/25 Rx .COMPLEX #90 tabs pregabalin 150 mg capsule 150 mg PO Q12H 30 days #60 caps 03/06/25 04/08/25 Rx apixaban 5 mg (74 tabs) tablets in See Rx Instructions PO PER PKG DIR 03/29/25 04/08/25 Rx a dose pack (Ahonya DVT-PE Treat #74 ea 30D Start) rivaroxaban 10 mg tablet (Xarelto) 15 mg (1.5 x 10 mg) PO DAILY #35 03/29/25 04/08/25 Rx tabs tramadol 50 mg tablet 50 mg PO Q6H PRN pain #30 tabs 03/29/25 04/08/25 Rx meloxicam 15 mg tablet 15 mg PO DAILY #90 tabs 04/05/25 04/08/25 Rx Allergies Allergy/AdvReac Type Severity Reaction Status Date / Time duloxetine Allergy Nausea and Verified 03/29/25 11:24 Vomiting diclofenac AdvReac Mild Nausea and Verified 03/29/25 11:24 Vomiting Vital Signs Vital Signs - 24 hr 04/08/25 12:16 Temperature 97.5 F L Pulse Rate 90 Respiratory Rate 20 Blood Pressure 156/86 H Pulse Oximetry 100 Oxygen Delivery Room Air Exam Const: General: comfortable and no acute distress Other: , male, elderly, ill-appearing without toxic appearance HENMT: Face/Nose/Sinus: Normal nares present Mouth: Yes moist mucous membranes Eyes: General: appearance normal, both eyes and all related structures Sclera: sclerae normal Pupils: Equal, round and reactive pupils present EOM: EOMs intact bilaterally Resp: Effort & Inspection: normal respiratory effort Auscultation: clear to auscultation bilaterally Cardio: Rate: regular rate Rhythm: regular rhythm Other: S1-S2 present without murmur, rub, ectopy GI: Other: Abdomen soft, nondistended, nontender. Normoactive bowel sounds in all quadrant s. : Other: Right CVA tenderness Skin: General skin exam: normal color and no rashes or lesions noted Wounds: no wounds Neuro: Speech: normal speech Motor exam (neuro): 5/5 motor strength present throughout Sensory Exam: normal sensation Other: A/Ox self, place, time. Poor situational recall but able to provide majority of his history. Extrem: General: normal to inspection Psych: Mental Status: mental status grossly normal Affect: normal affect Other: Fair to poor insight and judgment at present, pleasant H&P: Results Labs Labs: Short CBC 04/08/25 Range/Units 12:21 WBC 8.7 (4.5-10.0) K/mm3 Hgb 14.6 (14.0-18.0) g/dL Hct 44.2 (42.0-52.0) % Plt Count 283 (150-375) k/mm3 BMP 04/08/25 12:21 Sodium 136 L Potassium 4.1 Chloride 97 L Carbon Dioxide 25 BUN 20 Creatinine 1.16 Glucose 119 H Calcium 10.4 H Liver Function 04/08/25 Range/Units 12:21 Total Bilirubin 1.0 (0.2-1.3) mg/dL AST 43 (17-59) U/L ALT 29 (6-50) U/L Alkaline Phosphatase 91 (38-126) U/L Albumin 4.7 (3.5-5.1) g/dL Urine 04/08/25 Range/Units 13:02 Urine Color Yellow (Yellow) Urine Appearance Clear (Clear) Urine pH 7.0 (5.0-9.0) Ur Specific [place] 1.019 (1.001-1.035) Urine Protein Trace (Negative) mg/dL Urine Glucose (UA) Negative (Negative) mg/dL Assessment and Plan Assessment and plan (1) AMS (altered mental status): Qualifiers: Altered mental status type: disorientation Qualified Code(s): R41.0 - Disorientation, unspecified Code(s): R41.82 - Altered mental status, unspecified Status: Acute Assessment and Plan: - CT head, 04/08: 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 No acute intracranial process. - CTA head/neck, 04/08: 1. Normal atherosclerotic plaque with 0% stenosis of the right and left carotid bulbs relative to normal distal artery lumen diameter (NASCET criteria). 2. Unremarkable cerebral CT angiogram with no hemodynamically significant stenosis, thrombosis or aneurysm. 3. Heterogeneous contrast in the bilateral internal jugular veins which appea rs much more likely to reflect mixing artifact from additional veins draining into the internal jugular vein with unopacified are less well opacified blood due to to phase of contrast rather than thrombus. - CXR, 04/08: Focal opacity at the left costophrenic angle which could represent atelectasis or less likely pneumonia. - no neck pain concerning meningitis, UA showed no signs of infection - recently transitioned from Eliquis to Xarelto around 03/29 due to cost, possible medication SE? Will continue at this time. - now reporting N/V and right flank pain, will check CT of the chest/abdomen/pelvis w/o con and bladder scan - will start broad spectrum abx for PNA as there are no other indicators or abnormalities on the patient's workup to suggest alternative etiology. if no improvement, consider MRI and neurology consultation - neurochecks Q6H (2) Type 2 diabetes mellitus with hyperglycemia: Qualifiers: Diabetes mellitus senior living insulin use: without parts counterman use Qualified Code(s): E11.65 - Type 2 diabetes mellitus with hyperglycemia Code(s): E11.65 - Type 2 diabetes mellitus with hyperglycemia Status: Chronic Assessment and Plan: - hypoglycemia protocol - POC blood glucose ACHS - home medication: Hold metformin in case of need for contrast - correct regimen ordered - low dose TIDWM, based off BMI - A1C 6.9% on 01/05/2025 (3) Hypothyroidism (acquired): Code(s): E03.9 - Hypothyroidism, unspecified Status: Chronic Assessment and Plan: - TSH 0.037, T4 1.53 and T3 0.97 on 04/08 - stable - continue home medication: Synthroid 50 mcg (4) Hypertension associated with diabetes: Code(s): E11.59 - Type 2 diabetes mellitus with other circulatory complications; I15.2 - Hypertension secondary to endocrine disorders Status: Chronic Assessment and Plan: - chronic, currently 156/86 - continue home medications - monitor Plan Diet: regular GI Prophylaxis: n/a DVT Prophylaxis: Xarelto IV fluids: none Lines/Tubes: peripheral IV Code Status: full code Quality VTE Prophylaxis VTE prophylaxis: pharmacologic ordered Hospitalist MIPS Advance Care Plan I have confirmed that the patient's Advanced Care Plan is present, code status is documented, or surrogate decision maker is listed in patient medical record.: Yes Medication Reconciliation I have utilized all available resources to obtain, update and review the patients current medications (includes all prescriptions, OTC, herbals, cannabis, and nutritional supplements).: Yes
[2025-04-08 14:38] LABS: Total Triiodothyronine (T3) 0.97 NG/ML (0.82-1.58)
[2025-04-08] MEDS: cefTRIAXone 1 GM in SODIUM CHLORIDE 0.9% IV 50 ML 100 ML IVPB (15:30)
--- NOTE | 2025-04-08 15:56 | ADMGEN ---
This patient, Jony Rice IV, was admitted to Medical Room 253-01. Patient/family oriented to hospital policies and general routines including ID bracelet, bed and alarms, visiting hours, pain management, procedures, bathroom and other care routines, personal items, smoking policy, room service/diet, and visiting hours. Information on how to activate the Rapid Response Team has been discussed. Patient/Family are encouraged to report perceived risks to care and to ask questions if they do not understand what they are told or what they should do.
--- OUTSIDE RECORDS SUMMARY | 2025-04-08 16:45 | XMS_ITS | Clinical Summary ---
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
--- OUTSIDE RECORDS SUMMARY | 2025-04-08 16:45 | XMS_ITS | Encounter Summary ---
Author Organization [facility] Address [address] [place] [address] Phone Care Team Providers Care Pre Press Manager Name Role Phone Referral, Self Primary Care Provider Judy e Fidel Ferguson MD Primary Care Provider [phone] Encounter Details Date Type Department Care Team [...] on filedocumented in this encounter Care Teams Pre Press Manager Relationship Specialty Start Date End Date Referral, Self PCP - General 02/02/24 06/15/24 Fidel Ferguson MD [address] [place] [address] PCP - General Family Medicine 06/16/24 documented as of this encounter
--- OUTSIDE RECORDS SUMMARY | 2025-04-08 16:45 | XMS_ITS | Clinical Summary ---
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 Testing performed by: [facility], [facility], [place]., [address] Blood 02/10/2025 3:00 PM CDT 02/10/2025 5:10 PM CDT us Shanique Gutierrez MD LAB BLOOD ORDERABLE S Final Result [facility]RELL BJW[facility] [id number] [facility] [address] * MRI Abdomen MRCP W [...] Result from Last 3 Months Insurance [facility] MEDICARE ADVANTAGE MEDICARE ADVANTAGE Advance Directives For more information, please contact: [phone] * Full Code (Latest Code Status on File) Date Activated Date Inactivated Comments 02/11/2024 12:25 PM 02/11/2024 7:22 PM Care Teams Career Counselor Relationship Specialty Start Date End Date Fidel Ferguson MD [facility] [place] [address] PCP - General Family Medicine 06/16/24
--- OUTSIDE RECORDS SUMMARY | 2025-04-08 16:45 | XMS_ITS | Continuity of Care Document ---
Author Organization [employer] [place] Address [address] [place] [address] [address] [place] [address] Phone Care Team Providers Care Block Sawyer Name Role Phone Bert Woodward Unavailable Unavailable [...] Diagnoses Date Provider Providers Copied on Encounter [facility], [id number], tel:[phone] [place] No Information 4 Shemar Crane [address] [facility], [facility] [address], [place], [facility], [place]. tel:[phone] Referring Provider: Donavon Fernandes [address] [place] [address], [address]. tel:[phone] [facility] [address] [place] [address], [id number], tel:[phone] [place] No Information 4 Lainey Loredo Referring Provider: Donavon Fernandes [address] [facility] [address], [place], [address]. tel:[phone] [facility] [address] [facility] [address], [place], [id number], tel:[phone] [place] No Information 4 Shemar Crane [address] [place] [address], [address], [place], [facility], [place]. tel:[phone] Referring Provider: Donavon Fernandes [address] [place] [address], [address]. tel:[phone], [id number], tel:[phone] [place] No Information Jul-0 - 4 Muehl Bert. [address] [place] [address], [address], [place], [facility], [place]. tel:[phone] Referring Provider: Donavon Fernandes [address] [place] [address], [address]. tel:[phone], [id number], tel:[phone] [place] No Information Jul-0 - 4 Muehl Bert. [address] [place] [address], [address], [place], [facility], [place]. tel:[phone] Referring Provider: Donavon Fernandes [address] [place] [address] [place] [address], [address]. tel:[phone], [id number], tel:[phone] [place] No Information Jun-3 4 Muehl Bert. [address] [place] [address], [address], [place], [facility], [place]. tel:[phone] Referring Provider: Donavon Fernandes [address] [place] [address] [place] [address], [address]. tel:[phone], [id number], tel:[phone] [place] No Information Jun-2 - 4 Muehl Bert. [address] [place] [address], [address], [place], [facility], [place]. tel:[phone] Referring Provider: Donavon Fernandes [address] [place] [address] [address], [place], [address]. tel:[phone], [place], [place], [address], [place] tel:[phone] [place] No Information 4 Muehl Bert. [address] [place] [address], [address], [place], [facility], [place]. tel:[phone] Referring Provider: Donavon Fernandes [address] [place] [address] [address], [place], [facility]. tel:[phone], [place], [place], [id number], [place] tel:[phone] [place] No Information Jun- 2 4 Muehl Bert. [address] [place] [address], [address], [place], [facility], [place]. tel:[phone] Referring Provider: Dnoavon Fernandes [address] [place] [address] [address], [place], [facility] [place]. tel:[phone] [address], [place], [id number], [place] tel:[phone] [place] No Information 4 Muehl Bert. [address] [place] [address], [address], [place], [facility], [place]. tel:[phone] Referring Provider: Donavon Fernandes [facility] [address], [place], [address]. tel:[phone], [place], [place], [address], [place] tel:[phone] [place] No Information 4 Muehl Bert. [address] [place] [address], [address], [place], [facility], [place]. tel:[phone] Referring Provider: Donavon Fernandes [address] [place] [address] [address], [place], [address]. tel:[phone] [facility] [address] [place] [address] [address], [place], [id number], [place] tel:[phone] [place] No Information Oct 0-202 4 Muehl Bert. [address] [facility], [address], [place], [facility], . tel:[phone] Referring Provider: Donavon Fernandes [address], [place], [address]. tel:[phone], [place], [place], [address], tel:[phone] [place] No Information 8-202 3 Muehl Bert. [address] [facility], [address], [place], [facility], [place]. tel:[phone] Referring Provider: Mercy Rico [facility] [address] [facility] [address], [place], [address]. tel:[phone], [id number], tel:[phone] [place] No Information 4-202 3 Muehl Bert. [address] [place] [address], [address], [place], [facility], [place]. tel:[phone] Referring Provider: Mercy Rico, [facility] [address], [place], [address]. tel:[phone], [id number], [place] tel:[phone] [place] No Information Dec-1 2-202 3 Muehl Bert[address] [address] [facility], [address], [place], [facility], [place]. tel:[phone] Referring Provider: Mercy Rico [facility] [address], [place], [address]. tel:[phone] [facility] [address] [facility] [address], [place], [id number], tel:[phone] [place] No Information Apr-0 4-202 3 Muehl Bert. [address] [facility], [address], [place], [facility], [place]. tel:[phone] Referring Provider: Ese Jordan [facility] [address], [place], [address]. tel:[phone], [place], [place], [address], tel:[phone] [place] No Information Mar-3 0-202 3 Muehl Bert. [address] [facility], [address], [place], [facility], [place]. tel:[phone] Referring Provider: Ese Jordan [address], [place], [address]. tel:[phone] [address] [address], [place], [place], [address], [place] tel:[phone] [place] No Information Mar-2 8-202 3 Muehl Bert. [address] [place] [address], [address], [place], [facility], [place]. tel:[phone] Referring Provider: Ese Jordan [address], [place], [address]. tel:[phone] [address], [place], [place], [address], [place] tel:[phone] [place] No Information Mar-2 3-202 3 Muehl Bert. [address] [place] [address], [address], [place], [facility], [place]. tel:[phone] Referring Provider: Ese Jordan [address], [place], [address]. tel:[phone], [place], [place], [id number], tel:[phone] [place] No Information Mar-2 1-202 3 Muehl Bert. [address] [facility], [address], [place], [address], [place]. tel:[phone] Referring Provider: Mercy Rico [facility] [address], [place], [address]. tel:[phone] [address] [address], [place], [place], [address], tel:[phone] [place] No Information 3 Muehl Bert. [address] [facility], [address], [place], [facility], [place]. tel:[phone] Referring Provider: Mercy Rico [facility] [address], [place], [address]. tel:[phone], [id number], tel:[phone] [place] No Information 3 Muehl Bert. [address] [facility], [address], [place], [facility], [place]. tel:[phone] Referring Provider: Mercy Rico [address] [place] [address] [address], [place], [address]. tel:[phone], [id number], tel:[phone] [place] No Information 3 Jc Harrington . Referring Provider: Mercy Rico [address] [place] [address] [address], [place], [address]. tel:[phone], [place], [address], [place] tel:[phone] [place] No Information 2 Muehl Bert. [address] [facility], [address], [place], [facility], [place]. tel:[phone] Referring Provider: Rose Marie Dougherty, [address], [place], [address]. tel:[phone] [place] [address] [facility], [place], [place], [address], tel:[phone] [place] No Information 2 Muehl Bert. [address] [place] [address], [address], [place], [facility], [place]. tel:[phone] Referring Provider: Rose Marie Dougherty, [address] [place], [place], [address]. tel:[phone] [facility] [address], [id number], tel:[phone] [place] No Information 2 Muehl Bert. [address] [place] [address], [address], [place], [facility], [place]. tel:[phone] Referring Provider: Rose Marie Dougherty, [address] [place], [place], [address]. tel:[phone] [facility] [address] [place] [address], [id number], tel:[phone] [place] No Information 2 Muehl Bert. [address] [place] [address], [address], [place], [facility], [place]. tel:[phone] Referring Provider: Rose Marie Dougherty, [address] [place], [place], [address]. tel:[phone] [facility] [address] [place] [address], [id number], [place] tel:[phone] [place] No Information 2 Muehl Bert. [address] [place] [address], [address], [place], [facility], [place]. tel:[phone] Referring Provider: Rose Marie Dougherty, [address] [place], [address]. tel:[phone] [facility] [address], [id number], [place] tel:[phone] [place] No Information 2 Muehl Bert. [address] [place] [address], [address], [place], [facility], [place]. tel:[phone] Referring Provider: Rose Marie Dougherty, [address], [place], [address]. tel:[phone] [address] [place] [address], [id number], tel:[phone] [place] No Information 0-202 2 Muehl Bert. [address] [place] [address], [address], [place], [facility], . tel:[phone] Referring Provider: Rose Marie Dougherty, [address] [place], [place], [address]. tel:[phone] [address] [place] [address], [id number], tel:[phone] [place] No Information 0 Muehl Bert. [address] [place] [address], [address], [place], [facility], . tel:[phone] Referring Provider: Donavon Fernandes [address] [address] [address], [address]. tel:[phone], [id number], tel:[phone] [place] No Information 3-202 0 Muehl Bert. [address] [place] [address], [address], [place], [facility], . tel:[phone] Referring Provider: Ese Vuong [facility] [address], [place], [address]. tel:[phone] [address], [place], [address], tel:[phone] [place] No Information 0 Muehl Bert. [address] [place] [address], [address], [place], [facility], . tel:[phone] Referring Provider: Ese Vuong [facility] [address], [place], [address]. tel:[phone] [address], [place], [place], [address], tel:[phone] [place] No Information Francois-0 6-202 0 Muehl Bert. [address] [place] [address], [address], [place], [facility], . tel:[phone] Referring Provider: Donavon Fernandes [address] [place] [address] [address], [place], [facility] [place]. tel:[phone] [address], [place], [place], [address], tel:[phone] [place] No Information Francois-0 2-202 0 Muehl Bert. [address] [place] [address], [address], [place], [facility], . tel:[phone] Referring Provider: Donavon Fernandes [address] [place] [address] [place] [address], [facility] [place]. tel:[phone] [address], [place], [address], tel:[phone] [place] No Information Dec-3 0-201 9 Muehl Bert. [address] [place] [address], [address], [place], [facility], . tel:[phone] Referring Provider: Donavon Fernandes [address] [place] [address] [address], [place], [facility] [place]. tel:[phone], [place], [address], tel:[phone] [place] No Information Dec-2 7-201 9 Muehl Bert. [address] [place] [address], [address], [place], [facility], . tel:[phone] Referring Provider: Donavon Fernandes [address] [place] [address] [address], [facility] [place]. tel:[phone], [place], [address], tel:[phone] [place] No Information Dec-2 3-201 9 Muehl Bert. [address] [facility], [address], [place], [address], [place]. tel:[phone] Referring Provider: Donavon Fernandes [address] [place] [address] [address], [place], [facility] [place]. tel:[phone] [address], [place], [place], [address], [place] tel:[phone] [place] No Information Dec-2 0-201 9 Muehl Bert. [address] [facility], [address], [place], [address], [place]. tel:[phone] Referring Provider: Beny Vuong[address] [place] [address] [address], [place], [facility] [place]. tel:[phone], [id number], [place] tel:[phone] [place] No Information Dec-1 8-201 9 Muehl Bert. [address] [place] [address], [address], [place], [facility], [place]. tel:[phone] Referring Provider: Ese Vuong [place] [address] [address], [place], [facility] [place]. tel:[phone], [id number], [place] tel:[phone] [place] No Information Dec-1 1-201 9 Threlkeld Kina. . Referring Provider: Ese Vuong [address] [address] [address], [place], [address]. tel:[phone], [place], [address], tel:[phone] [place] No Information Dec-0 9-201 9 Muehl Bert. [address] [facility], [address], [place], [address], [place]. tel:[phone] Referring Provider: Ese Vuong [address], [place], [address]. tel:[phone] [facility], [place], [place], [address], [place] tel:[phone] [place] No Information 9 Muehl Bert. [address] [facility], [address], [place], [facility], [place]. tel:[phone] Referring Provider: Ciro Armendariz, [address] [place], [address]. tel:[phone] [facility], [place], [place], [address], [place] tel:[phone] [place] No Information 9 Muehl Bert. [address] [facility], [address], [place], [address], [place]. tel:[phone] Referring Provider: Ciro Armendariz, [address] [place], [address]. tel:[phone] [facility]2[address] [facility], [place], [address], [place] tel:[phone] [place] No Information 9 Muehl Bert. [address] [facility], [address], [place], [address], [place]. tel:[phone] Referring Provider: Ciro Armendariz, [address] [place], [address]. tel:[phone] [facility] [facility], [place], [place], [address], [place] tel:[phone] [place] Low back painStiffness of unspecified joint, not elsewhere classifiedMuscl e weakness (generalized)Ot her specified disorders of muscle 9 Threlkeld Kina. . Referring Provider: Ciro Armendariz, [address] [place], [address]. tel:[phone] [facility] [facility], [place], [address], [place] tel:[phone] [place] No Information 9 Muehl Bert[address], [facility], . tel:[phone] Referring Provider: Ciro Armendariz, [address] [place], [address]. tel:[phone], [id number], tel:[phone] [place] No Information 9 Muehl Bert. [address] [facility] [address], [place], [facility], . tel:[phone] Referring Provider: Ciro Armendariz, [address] [place] [address], [address]. tel:[phone], [id number], tel:[phone] [place] Low back painStiffness of unspecified joint, not elsewhere classifiedMuscl e weakness (generalized)Ot her specified disorders of muscle 9 Muehl Bert[address], [facility], . tel:[phone] Referring Provider: Ciro Armendariz, [address] [place] [address], [address]. tel:[phone] Family History Family Member Type Diagnosis Age At Onset No Information Payers Payer name Insurance type Covered libertarian ID Staci goff(s) [facility] [employer] [id number] Social History Type Description Quantity Date Captured [...]
--- OUTSIDE RECORDS SUMMARY | 2025-04-08 16:45 | XMS_ITS | Referral Summary ---
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 Testing performed by: [facility], [facility], [place]., [address] Blood 02/10/2025 3:00 PM CDT 02/10/2025 5:10 PM CDT us Shanique Gutierrez MD LAB BLOOD ORDERABLE S Final Result [facility] [address] [facility]. [place] [address] * MRI Abdomen MRCP W [...] Electronically signed by: Marco Antonio Harkins M.D. Formerly [facility] Mariella Eun Gutierrez MD IMG MRI PROCEDURES Final Result from Last 3 Months Insurance [id number] MEDICARE ADVANTAGE [facility] MEDICARE ADVANTAGE Advance Directives For more information, please contact: [phone] * Full Code (Latest Code Status on File) Date Activated Date Inactivated Comments 02/11/2024 12:25 PM 02/11/2024 7:22 PM Care Teams Noodle Press Operator Relationship Specialty Start Date End Date Fidel Ferguson MD [address] [facility] [place] [address] PCP - General Family Medicine 06/16/24
--- OUTSIDE RECORDS SUMMARY | 2025-04-08 16:46 | XMS_ITS | Continuity of Care Document ---
Author Organization [facility] Address [address] [place] [address] [address] [place] [address] Phone Care Team Providers Care Chief Investigator Name Role Phone Bert Woodward Unavailable Unavailable [...] Diagnoses Date Provider Providers Copied on Encounter [facility], [id number], tel:[phone] Lindsay No Information [address] [facility], [facility] [address], [place], [facility], [place]. tel:[phone] Referring Provider: Donavon Fernandes [address] [place] [address], [address]. tel:[phone] [facility] [address] [place] [address], [id number], tel:[phone] Lindsay No Information 4 Lainey Loredo Referring Provider: Donavon Fernandes [address] [facility] [address], [address]. tel:[phone] [facility] [address] [facility] [address], [place], [id number], tel:[phone] Lindsay No Information [address] [place] [address], [address], [place], [facility], [place]. tel:[phone] Referring Provider: Donavon Fernandes [address] [place] [address], [address]. tel:[phone], [id number], tel:[phone] Lindsay No Information Jul-0 - 4 Muehl Bert. [address] [place] [address], [address], [place], [facility], [place]. tel:[phone] Referring Provider: Donavon Fernandes [address] [place] [address], [address]. tel:[phone], [id number], tel:[phone] Lindsay No Information Jul-0 - 4 Muehl Bert. [address] [place] [address], [address], [place], [facility], [place]. tel:[phone] Referring Provider: Donavon Fernandes [address] [place] [address] [place] [address], [address]. tel:[phone], [id number], tel:[phone] Lindsay No Information Jun-3 4 Muehl Bert. [address] [place] [address], [address], [place], [facility], [place]. tel:[phone] Referring Provider: Donavon Fernandes [address] [place] [address] [place] [address], [address]. tel:[phone], [id number], tel:[phone] Lindsay No Information Jun-2 - 4 Muehl Bert. [address] [place] [address], [address], [place], [facility], [place]. tel:[phone] Referring Provider: Donavon Fernandes [address] [place] [address] [address], [place], [address]. tel:[phone], [place], [place], [id number], [place] tel:[phone] Lindsay No Information 4 Muehl Bert. [address] [place] [address], [address], [place], [facility], [place]. tel:[phone] Referring Provider: Donavon Fernandes [address] [place] [address] [address], [place], [facility]. tel:[phone], [place], [place], [id number], [place] tel:[phone] Lindsay No Information Jun- 2 4 Muehl Bert. [address] [place] [address], [address], [place], [facility], [place]. tel:[phone] Referring Provider: Donavon Fernandes [address] [place] [address] [address], [place], [facility]. tel:[phone] [address], [place], [place], [id number], [place] tel:[phone] Lindsay No Information 4 Muehl Bert. [address] [place] [address], [address], [place], [facility], [place]. tel:[phone] Referring Provider: Donavon Fernandes [facility] [address], [place], [address]. tel:[phone], [place], [place], [id number], [place] tel:[phone] Lindsay No Information 4 Muehl Bert. [address] [place] [address], [address], [place], [facility], [place]. tel:[phone] Referring Provider: Donavon Fernandes [address] [place] [address] [address], [place], [address]. tel:[phone] [facility] [address] [place] [address] [address], [place], [place], [id number], [place] tel:[phone] Lindsay No Information Oct 0-[address] [facility], [address], [place], [facility], . tel:[phone] Referring Provider: Donavon Fernandes [address], [place], [address]. tel:[phone] [address], [place], [place], [id number], tel:[phone] Lindsay No Information 8-[address] [facility], [address], [place], [facility], [place]. tel:[phone] Referring Provider: Mercy Rico [facility] [address] [facility] [address], [place], [address]. tel:[phone], [id number], tel:[phone] Lindsay No Information 4-202 3 Muehl Bert. [address] [place] [address], [address], [place], [facility], [place]. tel:[phone] Referring Provider: Mercy Rico, [facility] [address], [place], [address]. tel:[phone], [id number], [place] tel:[phone] Lindsay No Information Dec-1 2-[address] [facility], [address], [place], [facility], [place]. tel:[phone] Referring Provider: Mercy Rico [facility] [address], [place], [address]. tel:[phone] [facility] [address] [facility] [address], [place], [id number], tel:[phone] Lindsay No Information Apr-0 4-[address] [facility], [address], [place], [facility], [place]. tel:[phone] Referring Provider: Ese Jordan [facility] [address], [place], [address]. tel:[phone], [place], [place], [id number], tel:[phone] Lindsay No Information Mar-3 0-[address] [facility], [address], [place], [facility], [place]. tel:[phone] Referring Provider: Ese Jordan [address], [place], [address]. tel:[phone] [place] [address], [place], [place], [id number], [place] tel:[phone] Lindsay No Information Mar-2 8-202 3 Muehl Bert. [address] [place] [address], [address], [place], [facility], [place]. tel:[phone] Referring Provider: Ese Jordan [address], [place], [address]. tel:[phone] [address], [place], [place], [id number], [place] tel:[phone] Lindsay No Information Mar-2 3-202 3 Muehl Bert. [address] [place] [address], [address], [place], [facility], [place]. tel:[phone] Referring Provider: Ese Jordan [address], [place], [address]. tel:[phone], [place], [place], [id number], tel:[phone] Lindsay No Information Mar-2 1-[address] [facility], [address], [place], [address], [place]. tel:[phone] Referring Provider: Mercy Rico [facility] [address], [place], [address]. tel:[phone] [place] [address], [place], [place], [address], tel:[phone] Lindsay No Information [address] [facility], [address], [place], [facility], [place]. tel:[phone] Referring Provider: Mercy Rico [facility] [address], [place], [address]. tel:[phone], [id number], tel:[phone] Lindsay No Information [address] [facility], [address], [place], [facility], [place]. tel:[phone] Referring Provider: Mercy Rico [address] [place] [address] [address], [place], [address]. tel:[phone], [id number], tel:[phone] Lindsay No Information 3 Jc Harrington . Referring Provider: Mercy Rico [address] [place] [address] [address], [place], [address]. tel:[phone], [place], [id number], [place] tel:[phone] Lindsay No Information [address] [facility], [address], [place], [facility], [place]. tel:[phone] Referring Provider: Rose Marie Dougherty, [address] [place], [place], [address]. tel:[phone] [place] [address] [facility], [place], [place], [id number], tel:[phone] Lindsay No Information 2 Muehl Bert. [address] [place] [address], [address], [place], [facility], [place]. tel:[phone] Referring Provider: Rose Marie Dougherty, [address] [place], [place], [address]. tel:[phone] [facility] [address], [id number], tel:[phone] Lindsay No Information 2 Muehl Bert. [address] [place] [address], [address], [place], [facility], [place]. tel:[phone] Referring Provider: Rose Marie Dougherty, [address] [place], [place], [address]. tel:[phone] [facility] [address] [place] [address], [id number], tel:[phone] Lindsay No Information 2 Muehl Bert. [address] [place] [address], [address], [place], [facility], [place]. tel:[phone] Referring Provider: Rose Marie Dougherty, [address] [place], [place], [address]. tel:[phone] [facility] [address] [place] [address], [id number], [place] tel:[phone] Lindsay No Information 2 Muehl Bert. [address] [place] [address], [address], [place], [facility], [place]. tel:[phone] Referring Provider: Rose Marie Dougherty, [address] [place], [address]. tel:[phone] [facility] [address], [id number], [place] tel:[phone] Lindsay No Information 2 Muehl Bert. [address] [place] [address], [address], [place], [facility], [place]. tel:[phone] Referring Provider: Rose Marie Dougherty, [address] [place], [place], [address]. tel:[phone] [address] [place] [address], [id number], tel:[phone] Lindsay No Information 0-202 2 Muehl Bert. [address] [place] [address], [address], [place], [facility], . tel:[phone] Referring Provider: Rose Marie Dougherty, [address] [place], [place], [address]. tel:[phone] [address] [place] [address], [id number], tel:[phone] Lindsay No Information 0 Muehl Bert. [address] [place] [address], [address], [place], [facility], . tel:[phone] Referring Provider: Donavon Fernandes [address] [address] [address], [place], [address]. tel:[phone], [id number], tel:[phone] Lindsay No Information 3-202 0 Muehl Bert. [address] [place] [address], [address], [place], [facility], . tel:[phone] Referring Provider: Ese Vuong [facility] [address], [place], [address]. tel:[phone] [address] [address], [place], [id number], tel:[phone] Lindsay No Information 0 Muehl Bert. [address] [place] [address], [address], [place], [facility], . tel:[phone] Referring Provider: Ese Vuong [facility] [address], [place], [address]. tel:[phone] [address], [place], [place], [id number], tel:[phone] Lindsay No Information Francois-0 6-202 0 Muehl Bert. [address] [place] [address], [address], [place], [facility], . tel:[phone] Referring Provider: Donavon Fernandes [address] [place] [address] [address], [place], [facility]. tel:[phone] [address], [place], [place], [id number], tel:[phone] Lindsay No Information Francois-0 2-202 0 Muehl Bert. [address] [place] [address], [address], [place], [facility], . tel:[phone] Referring Provider: Donavon Fernandes [address] [place] [address] [place] [address], [facility]. tel:[phone] [address] [address], [place], [id number], tel:[phone] Lindsay No Information Dec-3 0-201 9 Muehl Bert. [address] [place] [address], [address], [place], [facility], . tel:[phone] Referring Provider: Donavon Fernandes [address] [place] [address] [address], [place], [facility]. tel:[phone] [address], [place], [id number], tel:[phone] Lindsay No Information Dec-2 7-201 9 Muehl Bert. [address] [place] [address], [address], [place], [facility], . tel:[phone] Referring Provider: Donavon Fernandes [address] [place] [address] [address], [place], [facility]. tel:[phone] [address], [place], [id number], tel:[phone] Lindsay No Information Dec-2 3-[address] [facility], [address], [place], [address], [place]. tel:[phone] Referring Provider: Donavon Fernandes [address] [place] [address] [address], [place], [facility]. tel:[phone] [address], [place], [place], [id number], [place] tel:[phone] Lindsay No Information Dec-2 0-[address] [facility], [address], [place], [address], [place]. tel:[phone] Referring Provider: Beny Vuong[address] [place] [address] [address], [place], [facility]. tel:[phone], [id number], [place] tel:[phone] Lindsay No Information Dec-1 8-201 9 Muehl Bert. [address] [place] [address], [address], [place], [facility], [place]. tel:[phone] Referring Provider: Ese Vuong [place] [address] [address], [place], [facility]. tel:[phone], [id number], [place] tel:[phone] Lindsay No Information Dec-1 1-201 9 [place]rel[place] Kina. . Referring Provider: Ese Vuong [address] [address] [address], [place], [address]. tel:[phone] [address], [place], [id number], tel:[phone] Lindsay No Information Dec-0 9-[address] [facility], [address], [place], [address], [place]. tel:[phone] Referring Provider: Ese Vuong [address], [place], [address]. tel:[phone] [facility], [place], [place], [id number], [place] tel:[phone] Lindsay No Information [address] [facility], [address], [place], [facility], [place]. tel:[phone] Referring Provider: Ciro Armendariz, [address] [place], [address]. tel:[phone] [facility], [place], [place], [id number], [place] tel:[phone] Lindsay No Information [address] [facility], [address], [place], [address], [place]. tel:[phone] Referring Provider: Ciro Armendariz, [address] [place], [address]. tel:[phone] [facility] [facility], [place], [place], [id number], [place] tel:[phone] Lindsay No Information [address] [facility], [address], [place], [address], [place]. tel:[phone] Referring Provider: Ciro Armendariz, [address] [place], [address]. tel:[phone] [facility] [facility], [place], [place], [id number], [place] tel:[phone] Lindsay Low back painStiffness of unspecified joint, not elsewhere classifiedMuscl e weakness (generalized)Ot her specified disorders of muscle 9 [place]rel[place] Kina. . Referring Provider: Ciro Armendariz, [address] [place], [address]. tel:[phone] [facility] [facility], [place], [place], [id number], [place] tel:[phone] Lindsay No Information 9 Muehl Bert[address], [facility], . tel:[phone] Referring Provider: Ciro Armendariz, [address] [place], [address]. tel:[phone], [id number], tel:[phone] Lindsay No Information 9 Muehl Bert. [address] [facility] [address], [place], [facility], . tel:[phone] Referring Provider: Ciro Armendariz, [address] [place] [address], [address]. tel:[phone], [id number], tel:[phone] Lindsay Low back painStiffness of unspecified joint, not elsewhere classifiedMuscl e weakness (generalized)Ot her specified disorders of muscle 9 Muehl Bert[address], [facility], . tel:[phone] Referring Provider: Ciro Armendariz, [address] [place] [address], [address]. tel:[phone] Family History Family Member Type Diagnosis Age At Onset No Information Payers Payer name Insurance type Covered republican ID Staci goff(s) [facility] [employer] CI [id number] Social History Type Description Quantity Date Captured [...]
[2025-04-08] MEDS: AZITHROMYCIN IV 500 MG in SODIUM CHLORIDE 0.9% IV 250 ML IVPB (18:14)
[2025-04-08] MEDS: RIVAROXABAN 15 MG TABLET PO (18:15)
[2025-04-08] MEDS: PREGABALIN (*CRX) 75 MG CAPSULE 150 MG PO (20:45)
[2025-04-09] VITALS (10 sets, daily range): BP systolic 153–157; BP diastolic 68–72; PULSE 61–88; RESP 16–17; TEMP 36.3–36.7; O2SAT 94–100
[2025-04-09] MEDS: LEVOTHYROXINE SODIUM 50 MCG TABLET PO (05:23)
[2025-04-09] MEDS: ACETAMINOPHEN 325 MG TABLET 650 MG PO (05:23)
[2025-04-09 05:35] LABS: Hematocrit 42.8 % (42.0-52.0); Hemoglobin 13.8 g/dL (14.0-18.0); Immature Granulocyte Percent A 0.3 % (0-0.5); Lymphocytes Absolute Auto 1.72 K/mm3 (0.9-3.2); Mean Corpuscular HGB Conc 32.2 g/dl (32-36); Mean Corpuscular Hemoglobin 31.4 pg (26-34); Mean Corpuscular Volume 97.3 fl (80-100); Nucleated Red Blood Cells Absolute Auto 0.000 K/mm3 (0.0-0.012); Nucleated Red Blood Cells Perc 0.0 % (0.0-0.2); Platelet Count Result 266 k/mm3 (150-375); Red Blood Count 4.40 M/mm3 (4.6-6.20); White Blood Count 6.8 K/mm3 (4.5-10.0)
[2025-04-09 06:44] LABS: Alanine Aminotransferase 22 U/L (6-50); Albumin Level 4.4 g/dL (3.5-5.1); Alkaline Phosphatase 80 U/L (38-126); Anion Gap 9 mmol/L (4-12); Aspartate Amino Transferase 35 U/L (17-59); Bilirubin,Total 0.8 mg/dL (0.2-1.3); Blood Urea Nitrogen 17 mg/dL (9-20); Calcium 10.0 mg/dL (8.4-10.2); Carbon Dioxide 30 mmol/L (22-30); Chloride 99 mmol/L (98-107); Estimated CRCL calculation 50 ml/min; Estimated Glomerular Filt Rate > 60; Glucose 116 mg/dL (65-110); Potassium 4.6 mmol/L (3.4-5.0); Sodium 138 mmol/L (137-145); Total Protein 7.2 g/dL (6.3-8.2)
[2025-04-09] MEDS: MULTIVITAMINS THERAPEUTIC TAB (*BKC) 1 TABLET PO (08:12)
[2025-04-09] MEDS: MELOXICAM 7.5 MG TABLET 15 MG PO (08:12)
[2025-04-09] MEDS: ASPIRIN 81 MG ENTERIC TABLET PO (08:12)
[2025-04-09] MEDS: SIMVASTATIN 20 MG TABLET 40 MG PO (08:12)
[2025-04-09] MEDS: PSYLLIUM SUGAR FREE POWDER PACKET 1 PACKET PO (08:12)
[2025-04-09] MEDS: PREGABALIN (*CRX) 75 MG CAPSULE 150 MG PO ×2 (08:12→20:39)
[2025-04-09] MEDS: cefTRIAXone 1 GM in SODIUM CHLORIDE 0.9% IV 50 ML 100 ML IVPB (08:15)
[2025-04-09] MEDS: AZITHROMYCIN IV 500 MG in SODIUM CHLORIDE 0.9% IV 250 ML IVPB (08:55)
[2025-04-09] MEDS: ONDANSETRON INJ 4 MG/2 ML VIAL IV PUSH ×3 (09:30→17:15)
--- NOTE | 2025-04-09 10:20 | PM.IMPN ---
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 No acute intracranial process. - CTA head/neck, 04/08: 1. Normal atherosclerotic plaque with 0% stenosis of the right and left carotid bulbs relative to normal distal artery lumen diameter (NASCET criteria). 2. Unremarkable cerebral CT angiogram with no hemodynamically significant stenosis, thrombosis or aneurysm. 3. Heterogeneous contrast in the bilateral internal jugular veins which appears much more likely to reflect mixing artifact from additional veins draining into the internal jugular vein with unopacified are less well opacified blood due to to phase of contrast rather than thrombus. - CXR, 04/08: Focal opacity at the left costophrenic angle which could represent atelectasis or less likely pneumonia. - no neck pain concerning meningitis, UA showed no signs of infection - recently transitioned from Eliquis to Xarelto around 03/29 due to cost, possible medication SE? Will continue at this time. - now reporting N/V and right flank pain, will check CT of the chest/abdomen/pelvis w/o con and bladder scan - will start broad spectrum abx for PNA as there are no other indicators or abnormalities on the patient's workup to suggest alternative etiology. 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 (2) Type 2 diabetes mellitus with hyperglycemia: Qualifiers: Diabetes mellitus buttermaker continuous churn insulin use: without buttermaker continuous churn use Qualified Code(s): E11.65 - Type 2 diabetes mellitus with hyperglycemia Code(s): E11.65 - Type 2 diabetes mellitus with hyperglycemia Status: Chronic Assessment and Plan: - hypoglycemia protocol - POC blood glucose ACHS - home medication: Hold metformin in case of need for contrast - correct regimen ordered - low dose TIDWM, based off BMI - A1C 6.9% on 01/05/2025 (3) Hypothyroidism (acquired): Code(s): E03.9 - Hypothyroidism, unspecified Status: Chronic Assessment and Plan: - TSH 0.037, T4 1.53 and T3 0.97 on 04/08 - stable - continue home medication: Synthroid 50 mcg (4) Hypertension associated with diabetes: Code(s): E11.59 - Type 2 diabetes mellitus with other circulatory complications; I15.2 - Hypertension secondary to endocrine disorders Status: Chronic Assessment and Plan: - chronic, currently 156/86 - continue home medications - monitor Plan Diet: regular GI Prophylaxis: n/a DVT Prophylaxis: Xarelto IV fluids: none Lines/Tubes: peripheral IV Code Status: full code Subjective Date/time seen: 04/09/25 10:20 Interval history: Patient is resting well. Ordered MRI and consulted Neurology and Heme-Onc Review of Systems Review of Systems: All systems reviewed & are unremarkable except as noted in HPI and below (limited, confusion) Exam Narrative: A/Ox self, place, time. Poor situational recall but able to provide majority of his history. R CVA tenderness. Const: General: comfortable and no acute distress Other: , male, elderly, ill-appearing without toxic appearance HENMT: Face/Nose/Sinus: Normal nares present Mouth: Yes moist mucous membranes Eyes: General: appearance normal, both eyes and all related structures Sclera: sclerae normal Pupils: Equal, round and reactive pupils present EOM: EOMs intact bilaterally Resp: Effort & Inspection: normal respiratory effort Auscultation: clear to auscultation bilaterally Cardio: Rate: regular rate Rhythm: regular rhythm Other: S1-S2 present without murmur, rub, ectopy GI: Other: Abdomen soft, nondistended, nontender. Normoactive bowel sounds in all quadrants. : Other: Right CVA tenderness Skin: General skin exam: normal color and no rashes or lesions noted Wounds: no wounds Neuro: Cranial nerves: Yes Equal, round and reactive pupils present Speech: normal speech Motor exam (neuro): 5/5 motor strength present throughout Sensory Exam: normal sensation Other: A/Ox self, place, time. Poor situational recall but able to provide majority of his history. Extrem: General: normal to inspection Psych: Mental Status: mental status grossly normal Affect: normal affect Other: Fair to poor insight and judgment at present, pleasant Objective Data Vital Signs Vital Signs: Vital Signs - 24 hr 04/08/25 12:16 04/08/25 12:16 04/08/25 12:17 Temperature 97.5 F L Pulse Rate 90 89 93 Respiratory Rate 20 21 H 20 Blood Pressure 156/86 H 156/86 H Pulse Oximetry 100 99 95 Oxygen Delivery Room Air 04/08/25 12:30 04/08/25 12:32 04/08/25 12:49 Temperature Pulse Rate 89 89 96 Respiratory Rate 19 17 20 Blood Pressure 142/80 H Pulse Oximetry 99 Oxygen Delivery 04/08/25 13:00 04/08/25 13:34 04/08/25 13:45 Temperature Pulse Rate 81 81 80 Respiratory Rate 19 16 16 Blood Pressure Pulse Oximetry 96 99 98 Oxygen Delivery 04/08/25 14:03 04/08/25 14:15 04/08/25 14:34 Temperature Pulse Rate 80 82 74 Respiratory Rate 16 17 21 H Blood Pressure Pulse Oximetry 98 98 100 Oxygen Delivery 04/08/25 14:45 04/08/25 15:00 04/08/25 15:15 Temperature Pulse Rate Respiratory Rate 13 16 13 Blood Pressure Pulse Oximetry 100 98 99 Oxygen Delivery 04/08/25 15:28 04/08/25 15:43 04/08/25 16:00 Temperature Pulse Rate 74 72 78 Respiratory Rate 18 16 Blood Pressure 143/91 H 143/96 H Pulse Oximetry 100 98 Oxygen Delivery 04/08/25 17:15 04/08/25 20:00 04/08/25 20:00 Temperature 98.2 F Pulse Rate 78 78 78 Respiratory Rate 18 18 Blood Pressure 142/77 H Pulse Oximetry 99 99 Oxygen Delivery Room Air 04/08/25 20:00 04/08/25 21:40 04/09/25 00:00 Temperature 97.6 F Pulse Rate 71 78 81 Respiratory Rate 16 Blood Pressure 138/77 Pulse Oximetry 97 Oxygen Delivery 04/09/25 04:00 04/09/25 04:34 04/09/25 09:17 Temperature 97.6 F Pulse Rate 67 72 Respiratory Rate 16 Blood Pressure 157/72 H Pulse Oximetry 95 94 Oxygen Delivery Room Air Intake/Output Intake/Output: Intake & Output 04/06/25 04/07/25 04/08/25 04/09/25 23:59 23:59 23:59 23:59 Intake Total 540 500 Balance 540 500 Meds/Results Medications: Active Medications Generic Name Dose Route Start Last Admin Trade Name Benjamínq PRN Reason Stop Dose Admin Acetaminophen 650 mg 04/08/25 14:34 04/09/25 05:23 Acetaminophen 325 Mg Tablet PO 650 mg Q4H PRN Administration Mild Pain (1-3) or Fever Aspirin 81 mg 04/09/25 09:00 04/09/25 08:12 Aspirin 81 Mg Enteric Tablet PO 81 mg DAILY AMNA Administration Dextrose 12.5 gm 04/08/25 15:00 Dextrose 50% 25 Gm/50 Ml Syringe IV PUSH PRN PRN Hypoglycemia Protocol Glucagon 1 mg 04/08/25 15:00 Glucagon For Inj 1 Mg Vial IM PRN PRN Hypoglycemia Protocol Glucose 15 gm 04/08/25 15:00 Glucose Oral Gel 15 Gm Of Glucse In 37.5 Gm Tube PO PRN PRN Hypoglycemia Protocol Ceftriaxone Sodium 1 gm/ 50 mls @ 100 mls/hr 04/09/25 09:00 04/09/25 08:15 Sodium Chloride IVPB 100 mls/hr Q24H AMNA Administration Azithromycin 500 mg/ Sodium 250 mls @ 250 mls/hr 04/09/25 09:00 04/09/25 08:55 Chloride IVPB 04/12/25 09:59 250 mls/hr Q24H AMNA Administration Dextrose 1,000 mls @ 100 mls/hr 04/08/25 15:00 Dextrose 5% 1,000 Ml IVPB PRN PRN Hypoglycemia Protocol Insulin Aspart 2 - 5 units 04/08/25 17:00 04/09/25 08:05 Insulin Aspart (*Bkc) 100 Units/Ml SUB-Q Not Given TIDWM AMNA Protocol Levothyroxine Sodium 50 mcg 04/09/25 06:30 04/09/25 05:23 Levothyroxine Sodium 50 Mcg Tablet PO 50 mcg DAILY@0630 AMNA Administration Meloxicam 15 mg 04/09/25 09:00 04/09/25 08:12 Meloxicam 7.5 Mg Tablet PO 15 mg DAILY AMNA Administration Miscellaneous Information 1 each 04/09/25 00:01 Clarify Xarelto--Med Rec. States Pt Is Supposed To Take It For 35 Days, What Day Is Patien XX 05/09/25 00:00 CLARIFY AMNA Multivitamins Therapeutic 1 tablet 04/09/25 09:00 04/09/25 08:12 Multivitamins Therapeutic Tab (*Bkc) PO 1 tablet DAILY AMNA Administration Non-Formulary Medication 1 each 04/08/25 17:56 Nonformulary Nutritional Supplement XX 04/09/25 17:55 PRN PRN PROTOCOL Ondansetron HCl 4 mg 04/08/25 14:34 04/09/25 09:30 Ondansetron Inj 4 Mg/2 Ml Vial IV PUSH 4 mg Q4H PRN Administration Nausea Pregabalin 150 mg 04/08/25 21:00 04/09/25 08:12 Pregabalin (*Crx) 75 Mg Capsule PO 150 mg Q12HR AMNA Administration Psyllium Hydrophilic Mucilloid 1 packet 04/09/25 09:00 04/09/25 08:12 Psyllium Sugar Free Powder Packet PO 1 packet DAILY AMNA Administration Rivaroxaban 15 mg 04/08/25 17:55 04/08/25 18:15 Rivaroxaban 15 Mg Tablet PO 15 mg DAILY@1700 AMNA Administration Simvastatin 40 mg 04/09/25 09:00 04/09/25 08:12 Simvastatin 20 Mg Tablet PO 40 mg DAILY AMNA Administration Tramadol HCl 50 mg 04/08/25 17:33 Tramadol Hcl (*Crx) 50 Mg Tablet PO Q6H PRN PAIN RATED 4-6 Radiology Results: ITS Impressions Chest X-Ray 04/08/25 13:22 IMPRESSION: 1. Focal opacity at the left costophrenic angle which could represent atelectasis or less likely pneumonia. Head CT 04/08/25 13:33 IMPRESSION: 1. 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 No acute intracranial process. Head/Neck CTA 04/08/25 13:38 IMPRESSION: 1. Normal atherosclerotic plaque with 0% stenosis of the right and left carotid bulbs relative to normal distal artery lumen diameter (NASCET criteria). 2. Unremarkable cerebral CT angiogram with no hemodynamically significant stenosis, thrombosis or aneurysm. 3. Heterogeneous contrast in the bilateral internal jugular veins which appears much more likely to reflect mixing artifact from additional veins draining into the internal jugular vein with unopacified are less well opacified blood due to to phase of contrast rather than thrombus. Labs Labs: Laboratory Results - last 24 hr 04/08/25 04/08/25 04/08/25 12:21 13:02 17:03 WBC 8.7 RBC 4.83 Hgb 14.6 Hct 44.2 MCV 91.5 MCH 30.2 MCHC 33.0 RDW 12.5 Plt Count 283 MPV 9.1 Immature Gran % (Auto) 0.2 Neut % (Auto) 73.7 H Lymph % (Auto) 16.9 L Tyrrell % (Auto) 8.9 H Eos % (Auto) 0.1 Baso % (Auto) 0.2 Lymph # (Auto) 1.48 Tyrrell # (Auto) 0.8 H Eos # (Auto) 0.0 Baso # (Auto) 0.0 Abs Immat Gran (auto) 0.02 Absolute Neuts (auto) 6.4 Absolute Nucleated RBC 0.000 Nucleated RBC % 0.0 PT 16.5 H INR 1.3 APTT 33.9 Sodium 136 L Potassium 4.1 Chloride 97 L Carbon Dioxide 25 Anion Gap 14 H BUN 20 Creatinine 1.16 Estim Creat Clear Calc 47 Estimated GFR > 60 Glucose 119 H POC Capillary Glucose 122 H Calcium 10.4 H Total Bilirubin 1.0 AST 43 ALT 29 Alkaline Phosphatase 91 Total Protein 7.7 Albumin 4.7 TSH (Reflex) 0.037 L Free T4 1.53 Total T3 0.97 Urine Color Yellow Urine Appearance Clear Urine pH 7.0 Ur Specific [place] 1.019 Urine Protein Trace Urine Glucose (UA) Negative Urine Ketones 2+ H Ur Blood (Man) Negative Urine Nitrate Negative Urine Bilirubin Negative Urine Urobilinogen 1.0 Leukocyte Esterase Rfl Trace H Urine RBC 0-2 Urine WBC 0-5 Ur Squamous Epith Cells None seen Urine Bacteria None seen Urine Casts 0-2 Urine Opiates Screen Negative Urine Methadone Screen Negative Ur Barbiturates Screen Negative Ur Phencyclidine Scrn Negative Ur Amphetamine Screen Negative U Benzodiazepines Scrn Negative Urine Cocaine Screen Negative U Cannabinoids Screen Negative Ethyl Alcohol < 10 04/08/25 04/09/25 04/09/25 21:46 05:10 06:12 WBC 6.8 RBC 4.40 L Hgb 13.8 L Hct 42.8 MCV 97.3 D MCH 31.4 MCHC 32.2 RDW 12.8 Plt Count 266 MPV 9.8 Immature Gran % (Auto) 0.3 Neut % (Auto) 60.9 Lymph % (Auto) 25.3 Tyrrell % (Auto) 12.2 H Eos % (Auto) 0.9 Baso % (Auto) 0.4 Lymph # (Auto) 1.72 Tyrrell # (Auto) 0.8 H Eos # (Auto) 0.1 Baso # (Auto) 0.0 Abs Immat Gran (auto) 0.02 Absolute Neuts (auto) 4.2 Absolute Nucleated RBC 0.000 Nucleated RBC % 0.0 PT INR APTT Sodium 138 Potassium 4.6 Chloride 99 Carbon Dioxide 30 Anion Gap 9 BUN 17 Creatinine 1.09 Estim Creat Clear Calc 50 Estimated GFR > 60 Glucose 116 H POC Capillary Glucose 123 H Calcium 10.0 Total Bilirubin 0.8 AST 35 ALT 22 Alkaline Phosphatase 80 Total Protein 7.2 Albumin 4.4 TSH (Reflex) Free T4 Total T3 Urine Color Urine Appearance Urine pH Ur Specific [place] Urine Protein Urine Glucose (UA) Urine Ketones Ur Blood (Man) Urine Nitrate Urine Bilirubin Urine Urobilinogen Leukocyte Esterase Rfl Urine RBC Urine WBC Ur Squamous Epith Cells Urine Bacteria Urine Casts Urine Opiates Screen Urine Methadone Screen Ur Barbiturates Screen Ur Phencyclidine Scrn Ur Amphetamine Screen U Benzodiazepines Scrn Urine Cocaine Screen U Cannabinoids Screen Ethyl Alcohol 04/09/25 07:57 WBC RBC Hgb Hct MCV MCH MCHC RDW Plt Count MPV Immature Gran % (Auto) Neut % (Auto) Lymph % (Auto) Tyrrell % (Auto) Eos % (Auto) Baso % (Auto) Lymph # (Auto) Tyrrell # (Auto) Eos # (Auto) Baso # (Auto) Abs Immat Gran (auto) Absolute Neuts (auto) Absolute Nucleated RBC Nucleated RBC % PT INR APTT Sodium Potassium Chloride Carbon Dioxide Anion Gap BUN Creatinine Estim Creat Clear Calc Estimated GFR Glucose POC Capillary Glucose 110 H Calcium Total Bilirubin AST ALT Alkaline Phosphatase Total Protein Albumin TSH (Reflex) Free T4 Total T3 Urine Color Urine Appearance Urine pH Ur Specific [place] Urine Protein Urine Glucose (UA) Urine Ketones Ur Blood (Man) Urine Nitrate Urine Bilirubin Urine Urobilinogen Leukocyte Esterase Rfl Urine RBC Urine WBC Ur Squamous Epith Cells Urine Bacteria Urine Casts Urine Opiates Screen Urine Methadone Screen Ur Barbiturates Screen Ur Phencyclidine Scrn Ur Amphetamine Screen U Benzodiazepines Scrn Urine Cocaine Screen U Cannabinoids Screen Ethyl Alcohol Quality VTE Prophylaxis VTE prophylaxis: pharmacologic ordered Hospitalist MIPS Advance Care Plan I have confirmed that the patient's Advanced Care Plan is present, code status is documented, or surrogate decision maker is listed in patient medical record.: Yes Medication Reconciliation I have utilized all available resources to obtain, update and review the patients current medications (includes all prescriptions, OTC, herbals, cannabis, and nutritional supplements).: Yes
[2025-04-09] MEDS: ACETAMINOPHEN/BUTALBITAL/CAFFEINE 325-50-40 MG TABLET (FIORICET) 1 TAB PO ×2 (11:57→20:39)
--- NOTE | 2025-04-09 16:29 | WPDNEURCNPN ---
Assessment and Plan Assessment and plan (1) Acute alteration in mental status: Code(s): R41.82 - Altered mental status, unspecified Status: Acute Assessment and Plan: Patient was confused yesterday and was wandering around and appeared somewhat different than usual. Today he is back to normal self according to the daughter. Chest x-ray shows possible pneumonia. Etiology for this change is unclear the differential diagnosis may include possible transient global amnesia, transient ischemic attack, partial complex seizures or drug side effects however he is on tramadol and a pregabalin for some time. No can cause seizures In some cases. I would suggest to continue to observe him. I agree with follow-up with the MRI of the brain. CT scan of brain and CT angiogram did not show any acute or major findings. I have explained this findings the patient's daughter. I noted that is being investigated further with regard to the possible pneumonia. A CT scan of the chest and abdomen and pelvis has also been requested. Is being treated with antibiotics. (2) Spondylosis of cervical region without myelopathy or radiculopathy: Code(s): M47.812 - Spondylosis without myelopathy or radiculopathy, cervical region Status: Acute Assessment and Plan: Patient is under care of pain management and I noted that he has had injections in the cervical as well lumbosacral spine area. (3) Lumbar radiculopathy: Code(s): M54.16 - Radiculopathy, lumbar region Status: Acute (4) Right hip pain: Code(s): M25.551 - Pain in right hip Status: Acute (5) Chronic neck pain: Code(s): M54.2 - Cervicalgia; G89.29 - Other chronic pain Status: Acute (6) Hypertension associated with diabetes: Code(s): E11.59 - Type 2 diabetes mellitus with other circulatory complications; I15.2 - Hypertension secondary to endocrine disorders Status: Chronic (7) Hyperlipidemia associated with type 2 diabetes mellitus: Code(s): E11.69 - Type 2 diabetes mellitus with other specified complication; E78.5 - Hyperlipidemia, unspecified Status: Acute (8) Hearing loss: Qualifiers: Hearing loss type: unspecified Laterality: bilateral Qualified Code(s): H91.93 - Unspecified hearing loss, bilateral Code(s): H91.90 - Unspecified hearing loss, unspecified ear Status: Acute Plan We should follow up clinically. I have taken liberty to order blood work for lipid profile, magnesium and vitamin B12 folate vitamin-D level. An EEG is also recommended. The patient is well toe and aspirin 81 mg a day and also simvastatin 40 mg a day. Consult date: 04/09/25 HPI: Jony Rice IV is a 80 year old male presented to the hospital with change in mental status. He was noted to be wandering and a confused yesterday. Today he is much better and nearly. He did take some Ultram yesterday but he has been taking some pain medication on and off in addition to that he is also on pregabalin and is under care of a pain management. She has had injections in the lumbar spine and also cervical spine area. 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 There is also history of diabetes mellitus. Chest x-ray shows suspicion of a left-sided pneumonia for which he is being treated. Regular lab send a urine analysis for drug screen did not show any significant abnormalities. Urine ketone was present at 2+. CT scan of the brain did not show any acute findings. 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 CT angiogram head and neck did not show any significant large vessel disease. An MRI of the brain has been ordered and the results are pending. He is complaining of headache mostly in the frontal area slightly to the left of the midline. He has this headache for last 3 weeks. Carotid the pain being moderate to severe. He has not had any febrile illness. No rash. No nausea or vomiting. No history of smoking or drinking alcohol. Patient lives with his daughter. He is also hard of hearing and daughter was indeed helpful in getting some history from him. Family members are present at the time of this evaluation. Patient also history of diabetes mellitus And hypothyroidism. His list of current medications were reviewed. It was noted that he has had a cervical interlaminar epidural block in January 2025. The patient has been taking Lyrica 150 mg twice a day and a model 50 mg p.r.n. Q 6 hourly. 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, on anticoagulation Primary osteoarthritis of left knee H/O facial injury BMI 25.0-25.9,adult Hyperlipidemia associated with type 2 diabetes mellitus Bone spur Sacroiliitis Tendonitis of shoulder, right Type 2 diabetes mellitus with hyperglycemia Surgical History Surgical History History of repair of right rotator cuff (06/27/19) Family History Family History Father Family history of malignant neoplasm of stomach, Onset Age: 57 Family history of lung cancer, Onset Age: 57 Family history of malignant neoplasm of esophagus, Onset Age: 57 Family history of malignant neoplasm , Onset Age: 50 exposure to dioxin. Mother Family history of dementia Septicemia Social History Social History Smoking status: Never smoker Second hand tobacco smoke exposure: No Alcohol intake: current Drinks per week: 1 Alcohol use details: 1 - 2 DRINKS PER MONTH Substance use: never Substance use type: does not use Do You Feel Safe in your Home?: Yes Lack of Transportation: No Lack of Food: Never True Current Housing: I Have Housing Concerned About Future Housing: No Difficulty Paying Gas/Electric Bills: No Difficulty Paying for Meds: No Currently Unemployed: No Education: High School Diploma/GED Difficulty w/ Childcare or Family Care: No Living arrangements: with family Additional living arrangements comments: daughter Occupation/Education: retired 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 Gender identity (if verbalized by the patient): Male Spiritual care concerns: No Meds Home Medications and Allergies Home Medications ?Medication ?Instructions ?Recorded ?Confirmed ?Type aspirin 81 mg tablet,delayed 81 mg PO DAILY 09/09/19 04/08/25 History release multivitamin 1 tablet PO DAILY 10/27/22 04/08/25 History biotin 1,000 mcg chewable tablet 1,000 mcg PO DAILY 05/06/24 04/08/25 History psyllium husk 3.4 gram oral powder 1 packet PO DAILY 05/06/24 04/08/25 History packet (Metamucil Fiber (aspartame)) levothyroxine 50 mcg tablet 50 mcg PO QAM #90 tabs 01/12/25 04/08/25 Rx metformin 750 mg tablet,extended 750 mg PO BID #180 tabs 01/12/25 04/08/25 Rx release 24 hr simvastatin 40 mg tablet See Rx Instructions .Route 01/12/25 04/08/25 Rx .COMPLEX #90 tabs pregabalin 150 mg capsule 150 mg PO Q12H 30 days #60 caps 03/06/25 04/08/25 Rx apixaban 5 mg (74 tabs) tablets in See Rx Instructions PO PER PKG DIR 03/29/25 04/08/25 Rx a dose pack ([employer] DVT-PE Treat #74 ea 30D Start) rivaroxaban 10 mg tablet (Xarelto) 15 mg (1.5 x 10 mg) PO DAILY #35 03/29/25 04/08/25 Rx tabs tramadol 50 mg tablet 50 mg PO Q6H PRN pain #30 tabs 03/29/25 04/08/25 Rx meloxicam 15 mg tablet 15 mg PO DAILY #90 tabs 04/05/25 04/08/25 Rx Allergies Allergy/AdvReac Type Severity Reaction Status Date / Time duloxetine Allergy Nausea and Verified 03/29/25 11:24 Vomiting diclofenac AdvReac Mild Nausea and Verified 03/29/25 11:24 Vomiting Vital Signs Vital Signs - 24 hr 04/08/25 17:15 04/08/25 20:00 04/08/25 20:00 Temperature 98.2 F Pulse Rate 78 78 78 Respiratory Rate 18 18 Blood Pressure 142/77 H Pulse Oximetry 99 99 Oxygen Delivery Room Air 04/08/25 20:00 04/08/25 21:40 04/09/25 00:00 Temperature 97.6 F Pulse Rate 71 78 81 Respiratory Rate 16 Blood Pressure 138/77 Pulse Oximetry 97 Oxygen Delivery 04/09/25 04:00 04/09/25 04:34 04/09/25 08:00 Temperature 97.6 F Pulse Rate 67 72 Respiratory Rate 16 Blood Pressure 157/72 H Pulse Oximetry 95 Oxygen Delivery Room Air 04/09/25 08:00 04/09/25 09:17 04/09/25 12:00 Temperature Pulse Rate 88 79 Respiratory Rate Blood Pressure Pulse Oximetry 94 Oxygen Delivery Room Air 04/09/25 14:00 Temperature 97.3 F L Pulse Rate 69 Respiratory Rate 16 Blood Pressure 153/71 H Pulse Oximetry 94 Oxygen Delivery Exam Const: General: cooperative, well developed and alert Orientation/consciousness: oriented to person, oriented to place and oriented to time Other: He was able to follow 1 and two-step commands and answered the questions appropriately. No aphasia or dysarthria. Patient hard of hearing however his daughter was helpful. HENMT: Head: atraumatic Mouth: Yes oropharynx normal Eyes: Alignment and Position: position normal Pupils: Equal, round and reactive pupils present EOM: EOMs intact bilaterally Neck: Neck: supple Resp: Effort & Inspection: normal respiratory effort Cardio: Rate: regular rate Rhythm: regular rhythm Skin: General skin exam: normal color Neuro: General: patient oriented x3 Cranial nerves: Yes CN's II-XII intact bilaterally, Yes facial sensation intact/muscles of mastication intact, Yes Equal, round and reactive pupils present, Yes Bilaterally intact EOM present, Yes Nystagmus not present, Yes facial symmetry, Yes Midline tongue present, Yes Symmetric palate elevation present and Yes Ability to bilaterally elevate shoulders present Cognition (Neuro): normal cognition Speech: normal speech Motor exam (neuro): 5/5 motor strength present throughout, Motor fasciculations not present, Normal motor muscle tone present throughout and Motor abnormalities not present Sensory Exam: normal sensation Coordination: [id number] test normal and Normal rapid alternating movements of the distal upper extremity present (Neuro) Results Labs 04/09/25 05:10 04/09/25 06:12 Labs: Short CBC 04/09/25 Range/Units 05:10 WBC 6.8 (4.5-10.0) K/mm3 Hgb 13.8 L (14.0-18.0) g/dL Hct 42.8 (42.0-52.0) % Plt Count 266 (150-375) k/mm3 BMP 04/09/25 06:12 Sodium 138 Potassium 4.6 Chloride 99 Carbon Dioxide 30 BUN 17 Creatinine 1.09 Glucose 116 H Calcium 10.0 Liver Function 04/09/25 Range/Units 06:12 Total Bilirubin 0.8 (0.2-1.3) mg/dL AST 35 (17-59) U/L ALT 22 (6-50) U/L Alkaline Phosphatase 80 (38-126) U/L Albumin 4.4 (3.5-5.1) g/dL
[2025-04-09] MEDS: RIVAROXABAN 15 MG TABLET PO (17:15)
[2025-04-09 17:42] LABS: Hemoglobin A1C 6.5 % (<5.7)
[2025-04-09 17:49] LABS: Cholesterol 141 mg/dL (0-200); HDL Direct 54 mg/dL; Magnesium 1.7 mg/dL (1.6-2.3); Triglycerides 80 mg/dL (<150)
[2025-04-09 18:24] LABS: Thyroid Stimulating Hormone 0.319 uIU/mL (0.465-4.680)
[2025-04-09 19:00] LABS: Vitamin B12 305.0 pg/mL (239-931)
--- NOTE | 2025-04-09 21:57 | P.PNCROSS_ITS ---
Event Note Event Note Event Note: - Bedside RN contacted this provider to notify that the patient CT [facility] t/abdomen/pelvis have resulted with some abnormalities. - CT showed: Multiple sub-6 mm pulmonary nodules, probably benign, consider an optional follow-up CT in 12 months if the patient is at high risk. The prior radiographic opacity in the left lower lung is likely related to prominent pericardial fat. Mild symmetric gynecomastia. Distended gallbladder with mild inflammatory change and possible wall thickening, as can be seen with acute cholecystitis. Consider right upper quadrant ultrasound. Stable cystic lesion in the body of the pancreas. Prior recommendation for surgical consultation is unchanged if not already performed. 5 x 7 mm calcification, probably within the distal right ureter, without hydronephrosis. 1.3 cm urinary bladder stone. - Flagyl added - right upper quadrant ultrasound ordered - general surgery consulted
[2025-04-09] MEDS: metroNIDAZOLE 500 MG/ISO 100ML 500 MG/100 ML BAG 100 MG IVPB (22:12)
[2025-04-10] VITALS (8 sets, daily range): BP systolic 146–151; BP diastolic 72–84; PULSE 68–80; RESP 17–20; TEMP 36.3–36.7; O2SAT 95–98
--- NOTE | 2025-04-10 | ECHO_ITS ---
Patient Info Name: Jony Rice Age: 80 years : 1945 Gender: Male Ht: 70 in Wt: 163 lbs BSA: 1.91 m2 HR: 81 bpm BP: 151 / 82 mmHg Technical Quality: Fair Exam Date: 04/10/2025 8:21 AM Patient Status: I Admit Date: 04/08/2025 Exam Type: CA echo doppler w bubble study Complete two-dimensional, color flow and Doppler transthoracic echocardiogram is performed with agitated saline. Staff Referring Physician: Zoila Tamayo Rim Technician: Kayli Slade Attending Provider: Kwame Nogueira MD Contrast/Agitated Saline Contrast/Ag. Saline: Agitated Saline Amount: 16.00 ml Existing IV Access: Yes IV Access Condition: patent with no signs of infiltration Summary 1. Left ventricular chamber dimension is normal. 2. Left ventricular systolic function is normal, estimated at 60-65. 3. The left ventricular diastolic function is grade I diastolic dysfunction. 4. E/e' 9 is minimally elevated. 5. No pulmonary hypertension, estimated pulmonary arterial systolic pressure is 30 mmHg. Left Ventricle Left ventricular chamber dimension is normal. Left ventricular systolic function is normal, estimated at 60-65. The left ventricular diastolic function is grade I diastolic dysfunction. E/e' 9 is minimally elevated. Right Ventricle Right ventricular chamber dimension is normal. Right ventricular systolic function is normal. Left Atria Left atrial chamber dimension is normal. Right Atria Right atrial chamber dimension is normal. Atrial Septum Agitated saline injection with and without valsalva maneuver opacified right side cardiac chambers without shunt to left side cardiac chambers. Intact interatrial septum visualized by 2D and agitated saline imaging. Aortic Valve The aortic valve is trileaflet. There is no aortic valve stenosis. There is no aortic valve regurgitation. Pulmonic Valve There is no pulmonic regurgitation. Mitral Valve There is no mitral valve stenosis. There is no mitral valve regurgitation. Tricuspid Valve There is no tricuspid valve regurgitation. No pulmonary hypertension, estimated pulmonary arterial systolic pressure is 30 mmHg. Pericardium/Pleural There is no pericardial effusion. Inferior Vena Cava Normal inferior vena cava with >50% collapse upon inspiration consistent with normal right atrial pressure, 5 mmHg. Aorta The aortic root size at the sinus of Valsalva is normal. Left Ventricular Outflow Tract Name Value Normal LVOT 2D LVOT Diameter 2.0 cm LVOT Doppler LVOT Peak Velocity 98 cm/s LVOT Peak Gradient 4 mmHg LVOT Mean Gradient 2 mmHg LVOT VTI 18 cm LVOT VTI/AV VTI Ratio 0.7 LVOT Stroke Volume 57 ml LVOT CO 5.0 l/min LVOT CI 2.6 l/min/m2 Pulmonic Valve Name Value Normal RVOT Doppler RVOT Peak Velocity 90 cm/s RVOT Peak Gradient 3 mmHg PV Doppler PV Peak Velocity 139 cm/s PV Peak Gradient 8 mmHg Mitral Valve Name Value Normal MV Diastolic Function MV E Peak Velocity 71 cm/s MV A Peak Velocity 104 cm/s MV E/A 0.7 MV Decel Time (PW) 129 ms Tricuspid Valve Name Value Normal TV Regurgitation Doppler TR Peak Velocity 248 cm/s TR Peak Gradient 25 mmHg Estimated PAP/RSVP RA Pressure 5 mmHg <=5 PA Systolic Pressure 30 mmHg <36 RV Systolic Pressure 30 mmHg <36 TV Annular TDI TV Lateral Elizabeth s' Velocity 15.9 cm/s >=9.5 Aorta Name Value Normal Ascending Aorta Ao Root Diameter (MM) 3.1 cm Ao Root Diam Index (MM) 1.6 cm/m2 Aortic Valve Name Value Normal AV Doppler AV Peak Velocity 137 cm/s AV Peak Gradient 7 mmHg AV Mean Gradient 5 mmHg AV VTI 26 cm AV Area (Cont Eq VTI) 2.2 cm2 >=3.0 AV Area (Cont Eq Randal) 2.2 cm2 AV DI (Randal) 0.72 AV Regurgitation 2D LVOT Area 3.1 cm2 Ventricles Name Value Normal LV Dimensions 2D/MM IVS Diastolic Thickness (2D) 0.7 cm 0.6-1.0 LVID Diastole (2D) 4.2 cm 4.2-5.8 LVIW Diastolic Thickness (2D) 0.8 cm 0.6-1.0 LVID Systole (2D) 2.6 cm 2.5-4.0 LVOT Diameter 2.0 cm LV Mass (2D Cubed) 92.32 g 88.00-224.00 LV Mass Index (2D Cubed) 48 g/m2 49-115 Relative Wall Thickness (2D) 0.37 <=0.42 LV Fractional Shortening/Ejection Fraction 2D/MM LV Fractional Shortening (2D) 38 % 25-43 LV EF (2D Teichholz) 68 % LV Diastolic Volume (4C MOD) 69 ml LV EF (4C MOD) 56 % LV Diastolic Volume (2C MOD) 67 ml LV EF (2C MOD) 69 % LV Diastolic Volume (BP MOD) 68 ml 62-150 LV Diastolic Volume Index (BP MOD) 36 ml/m2 34-74 LV Systolic Volume (BP MOD) 27 ml 21-61 LV Systolic Volume Index (BP MOD) 14 ml/m2 11-31 LV EF (BP MOD) 60 % 52-72 LV Diastolic Length (4C) 8.0 cm LV Systolic Length (4C) 6.5 cm LV Stroke Volume (4C MOD) 38 ml Atria Name Value Normal LA Dimensions LA Dimension (MM) 3.4 cm 3.0-4.0 LA Volume (4C A-L) 20 ml LA Volume (BP A-L) 22 ml RA Dimensions RA Systolic Major Perry Length (4C) 4.2 cm 2.1-2.7 RA Area (4C) 10.3 cm2 <=18.0 Report Signatures
[2025-04-10 05:17] LABS: Hematocrit 44.0 % (42.0-52.0); Hemoglobin 14.6 g/dL (14.0-18.0); Mean Corpuscular HGB Conc 33.2 g/dl (32-36); Mean Corpuscular Hemoglobin 30.9 pg (26-34); Mean Corpuscular Volume 93.2 fl (80-100); Platelet Count Result 260 k/mm3 (150-375); Red Blood Count 4.72 M/mm3 (4.6-6.20); White Blood Count 7.3 K/mm3 (4.5-10.0)
[2025-04-10 05:47] LABS: Alanine Aminotransferase 21 U/L (6-50); Albumin Level 4.2 g/dL (3.5-5.1); Alkaline Phosphatase 81 U/L (38-126); Anion Gap 10 mmol/L (4-12); Aspartate Amino Transferase 35 U/L (17-59); Bilirubin,Total 0.7 mg/dL (0.2-1.3); Blood Urea Nitrogen 14 mg/dL (9-20); Calcium 9.8 mg/dL (8.4-10.2); Carbon Dioxide 26 mmol/L (22-30); Chloride 98 mmol/L (98-107); Estimated CRCL calculation 48 ml/min; Estimated Glomerular Filt Rate > 60; Glucose 108 mg/dL (65-110); Potassium 3.7 mmol/L (3.4-5.0); Sodium 134 mmol/L (137-145); Total Protein 6.9 g/dL (6.3-8.2)
[2025-04-10] MEDS: metroNIDAZOLE 500 MG/ISO 100ML 500 MG/100 ML BAG 100 MG IVPB (06:31)
[2025-04-10] MEDS: LEVOTHYROXINE SODIUM 50 MCG TABLET PO (06:31)
[2025-04-10] MEDS: ACETAMINOPHEN/BUTALBITAL/CAFFEINE 325-50-40 MG TABLET (FIORICET) 1 TAB PO (09:05)
[2025-04-10] MEDS: MELOXICAM 7.5 MG TABLET 15 MG PO (09:06)
[2025-04-10] MEDS: ASPIRIN 81 MG ENTERIC TABLET PO (09:06)
[2025-04-10] MEDS: PREGABALIN (*CRX) 75 MG CAPSULE 150 MG PO ×2 (09:06→21:33)
[2025-04-10] MEDS: cefTRIAXone 1 GM in SODIUM CHLORIDE 0.9% IV 50 ML 100 ML IVPB (09:06)
[2025-04-10] MEDS: SIMVASTATIN 20 MG TABLET 40 MG PO (09:06)
[2025-04-10] MEDS: MULTIVITAMINS THERAPEUTIC TAB (*BKC) 1 TABLET PO (09:06)
[2025-04-10] MEDS: AZITHROMYCIN IV 500 MG in SODIUM CHLORIDE 0.9% IV 250 ML IVPB (09:36)
--- NOTE | 2025-04-10 12:14 | P.CONGS_ITS ---
Assessment and Plan Assessment and plan (1) Abnormal CT scan, gallbladder: Code(s): R93.2 - Abnormal findings on diagnostic imaging of liver and biliary tract Status: Acute Assessment and Plan: Patient presented to the ED 2 days ago with confusion after being diagnosed with left IJ thrombus on 03/20, on Xarelto. No reported trauma. A CT of the chest abdomen and pelvis was obtained due to some right CVA tenderness yesterday. Hit demonstrated ureter and bladder stones, as well as a distended gallbladder with possible wall thickening. Multiple gallstones with mild surrounding inflammatory stranding and no bile duct dilation. Abdominal exam completely benign. No tenderness to abdomen. Labs normal. Patient tolerating regular diet without nausea or vomiting. Due to patient's comorbidities, he is not a great surgical candidate. Right upper quadrant ultrasound ordered to further evaluate for cholecystitis. No immediate surgical intervention necessary today. (2) Acute internal jugular vein thrombosis: Code(s): I82.C19 - Acute embolism and thrombosis of unspecified internal jugular vein Status: Acute Assessment and Plan: Manage per hospitalist and Hematology recommendations. Plan Discussed patient's case and plan of care with Dr. Freitas. History of Present Illness Consult details Consult date: 04/10/25 Reason for consult: other (Possible acute cholecystitis) Requesting physician: Zoila Tamayo APRN Narrative: Patient is an 80-year-old male with history of type 2 diabetes, hypertension, recently diagnosed IJ thrombus (currently on Xarelto 15 mg daily) who I have been asked to see in surgical consultation for possible cholecystitis. Patient 1st presented to the ED 2 days ago with confusion. No reported trauma and patient denied any falls or head injuries. Of note, he was seen in the ED on 03/20 for left upper forehead pain that was found to be IJ thrombus. He remains on anticoagulation manage per his PCP. Has not made it into see hematology yet. Of note, patient complained of nausea/vomiting and right flank pain yesterday. CT of the chest abdomen and pelvis was ordered and demonstrated a calcification within the distal right ureter and also in the urinary bladder, as well as distended gallbladder with possible wall thickening. Multiple small gallstones. Mild surrounding inflammatory stranding. No bile ductal dilation. WBC count has remained normal. Liver enzymes normal. Upon interview today, patient denies ever having any abdominal pain. He endorses headache. No nausea or vomiting. Tolerating regular diet. Vital signs stable. Normal labs. 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, on anticoagulation Primary osteoarthritis of left knee H/O facial injury BMI 25.0-25.9,adult Hyperlipidemia associated with type 2 diabetes mellitus Bone spur Sacroiliitis Tendonitis of shoulder, right Type 2 diabetes mellitus with hyperglycemia Surgical History Surgical History History of repair of right rotator cuff (06/27/19) Family History Family History Father Family history of malignant neoplasm of stomach, Onset Age: 57 Family history of lung cancer, Onset Age: 57 Family history of malignant neoplasm of esophagus, Onset Age: 57 Family history of malignant neoplasm , Onset Age: 50 exposure to dioxin. Mother Family history of dementia Septicemia Social History Social History Smoking status: Never smoker Second hand tobacco smoke exposure: No Alcohol intake: current Drinks per week: 1 Alcohol use details: 1 - 2 DRINKS PER MONTH Substance use: never Substance use type: does not use Do You Feel Safe in your Home?: Yes Lack of Transportation: No Lack of Food: Never True Current Housing: I Have Housing Concerned About Future Housing: No Difficulty Paying Gas/Electric Bills: No Difficulty Paying for Meds: No Currently Unemployed: No Education: High School Diploma/GED Difficulty w/ Childcare or Family Care: No Living arrangements: with family Additional living arrangements comments: daughter Occupation/Education: retired 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 Gender identity (if verbalized by the patient): Male Spiritual care concerns: No Meds Home Medications and Allergies Home Medications ?Medication ?Instructions ?Recorded ?Confirmed ?Type aspirin 81 mg tablet,delayed 81 mg PO DAILY 09/09/19 04/08/25 History release multivitamin 1 tablet PO DAILY 10/27/22 04/08/25 History biotin 1,000 mcg chewable tablet 1,000 mcg PO DAILY 05/06/24 04/08/25 History psyllium husk 3.4 gram oral powder 1 packet PO DAILY 05/06/24 04/08/25 History packet (Metamucil Fiber (aspartame)) levothyroxine 50 mcg tablet 50 mcg PO QAM #90 tabs 01/12/25 04/08/25 Rx metformin 750 mg tablet,extended 750 mg PO BID #180 tabs 01/12/25 04/08/25 Rx release 24 hr simvastatin 40 mg tablet See Rx Instructions .Route 01/12/25 04/08/25 Rx .COMPLEX #90 tabs pregabalin 150 mg capsule 150 mg PO Q12H 30 days #60 caps 03/06/25 04/08/25 Rx apixaban 5 mg (74 tabs) tablets in See Rx Instructions PO PER PKG DIR 03/29/25 04/10/25 Rx a dose pack ([employer] DVT-PE Treat #74 ea 30D Start) rivaroxaban 10 mg tablet (Xarelto) 15 mg (1.5 x 10 mg) PO DAILY #35 03/29/25 04/08/25 Rx tabs tramadol 50 mg tablet 50 mg PO Q6H PRN pain #30 tabs 03/29/25 04/08/25 Rx meloxicam 15 mg tablet 15 mg PO DAILY #90 tabs 04/05/25 04/08/25 Rx Allergies Allergy/AdvReac Type Severity Reaction Status Date / Time duloxetine Allergy Nausea and Verified 03/29/25 11:24 Vomiting diclofenac AdvReac Mild Nausea and Verified 03/29/25 11:24 Vomiting Vital Signs Vital Signs - 24 hr 04/09/25 14:00 04/09/25 16:00 04/09/25 19:59 Temperature 97.3 F L 98.0 F Pulse Rate 69 78 61 Respiratory Rate 16 17 Blood Pressure 153/71 H 155/68 H Pulse Oximetry 94 100 Oxygen Delivery 04/09/25 20:00 04/09/25 20:45 04/10/25 00:03 Temperature Pulse Rate 68 68 Respiratory Rate Blood Pressure Pulse Oximetry Oxygen Delivery Room Air 04/10/25 04:00 04/10/25 04:42 04/10/25 08:00 Temperature 98.0 F Pulse Rate 75 71 80 Respiratory Rate 17 Blood Pressure 151/82 H Pulse Oximetry 96 Oxygen Delivery 04/10/25 09:05 Temperature Pulse Rate Respiratory Rate Blood Pressure Pulse Oximetry Oxygen Delivery Room Air Exam 2 Const: General: comfortable and no acute distress Eyes: General: appearance normal, both eyes and all related structures Neck: Neck: supple Resp: Effort & Inspection: normal respiratory effort Cardio: Rate: regular rate GI: Inspection: non-distended GI Palp: Yes Soft to palpation, No Tenderness to palpation present (GI) and No Guarding due to palpation present (GI) A uscultation: normal bowel sounds : General: Yes bladder normal to palpation Skin: General skin exam: normal color and no rashes or lesions noted Extrem: General: normal to inspection Psych: Mental Status: mental status grossly normal Results Labs 04/10/25 05:06 04/10/25 05:06 Labs: Abnormal lab results 04/09/25 04/09/25 04/09/25 Range/Units 16:43 17:13 19:57 Sodium (137-145) mmol/L POC Capillary Glucose 128 H 145 H (65-105) mg/dl Hemoglobin A1c 6.5 H (<5.7) % Folate > 20.0 H (2.76->20) ng/mL TSH 0.319 L (0.465-4.680) uIU/mL 04/10/25 04/10/25 Range/Units 05:06 12:05 Sodium 134 L (137-145) mmol/L POC Capillary Glucose 112 H (65-105) mg/dl Hemoglobin A1c (<5.7) % Folate (2.76->20) ng/mL TSH (0.465-4.680) uIU/mL Diabetes panel 04/09/25 04/10/25 Range/Units 17:13 05:06 Sodium 134 L (137-145) mmol/L Potassium 3.7 (3.4-5.0) mmol/L Chloride 98 (98-107) mmol/L Carbon Dioxide 26 (22-30) mmol/L BUN 14 (9-20) mg/dL Creatinine 1.12 (0.7-1.3) mg/dL Glucose 108 (65-110) mg/dL Hemoglobin A1c 6.5 H (<5.7) % Calcium 9.8 (8.4-10.2) mg/dL AST 35 (17-59) U/L ALT 21 (6-50) U/L Alkaline Phosphatase 81 (38-126) U/L Total Protein 6.9 (6.3-8.2) g/dL Albumin 4.2 (3.5-5.1) g/dL Triglycerides 80 (<150) mg/dL Thyroid panel 04/09/25 Range/Units 17:13 TSH 0.319 L (0.465-4.680) uIU/mL Calcium panel 04/10/25 Range/Units 05:06 Calcium 9.8 (8.4-10.2) mg/dL Albumin 4.2 (3.5-5.1) g/dL Pituitary panel 04/09/25 04/10/25 Range/Units 17:13 05:06 Sodium 134 L (137-145) mmol/L Potassium 3.7 (3.4-5.0) mmol/L Chloride 98 (98-107) mmol/L Carbon Dioxide 26 (22-30) mmol/L BUN 14 (9-20) mg/dL Creatinine 1.12 (0.7-1.3) mg/dL Glucose 108 (65-110) mg/dL Calcium 9.8 (8.4-10.2) mg/dL TSH 0.319 L (0.465-4.680) uIU/mL Adrenal panel 04/10/25 Range/Units 05:06 Sodium 134 L (137-145) mmol/L Potassium 3.7 (3.4-5.0) mmol/L Chloride 98 (98-107) mmol/L Carbon Dioxide 26 (22-30) mmol/L BUN 14 (9-20) mg/dL Creatinine 1.12 (0.7-1.3) mg/dL Glucose 108 (65-110) mg/dL Calcium 9.8 (8.4-10.2) mg/dL Total Bilirubin 0.7 (0.2-1.3) mg/dL AST 35 (17-59) U/L ALT 21 (6-50) U/L Alkaline Phosphatase 81 (38-126) U/L Total Protein 6.9 (6.3-8.2) g/dL Albumin 4.2 (3.5-5.1) g/dL All other labs normal.
--- NOTE | 2025-04-10 13:07 | P.CONONC_ITS ---
Assessment and Plan Assessment and plan (1) Internal jugular vein thrombosis: Code(s): I82.C19 - Acute embolism and thrombosis of unspecified internal jugular vein Status: Acute Assessment and Plan: Patient is a pleasant 80-year-old male with out any previous history of thromboembolic events including stroke and heart attack. He also denies any history of malignancy. Patient came into the hospital with mental status changes and confusion for 2-[address] scan of the head showed no acute intracranial process. CT head and neck showed possible thrombus in the left internal jugular vein. Left upper extremity Doppler study also revealed possible thrombus seen in the anterior wall of the distal left subclavian vein. He is asymptomatic without any neck pain and swelling. CT scan chest abdomen pelvis was also performed that showed no evidence of malignancy other than multiple sub 6 mm pulmonary nodules likely benign. There was also distended gallbladder. I would recommend continuation of anticoagulation therapy with Xarelto and follow-up with me in the office. Will repeat the Doppler studies in 2-3 months and perform the hypercoagulable workup subsequently. I will also repeat CT scan of the chest in 3-4 months to evaluate the pulmonary nodules. I have answered all the questions to patient's satisfaction. HPI Data of Consult Date/Time: 04/10/25 13:07 Requesting Physician: Bernardo Nogueira MD Primary Care Provider: Izzy Maradiaga APRN Consult Narrative Narrative: Jony Rice IV is a 80 year old male with history of hypertension and hyperlipidemia along with kidney stone admitted to the hospital with mental status changes and confusion were not for last 2-3 weeks duration. He has no previous history of malignancy. He denies any history of smoking. 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 Head and neck CTA showed possible thrombus in the left internal jugular vein. Doppler studies of the upper extremity on the left showed possible thrombus in the anterior wall of the distal left subclavian vein. He denies any injury and IV placement on the left side. CT chest abdomen pelvis was also performed that showed multiple sub 6 mm pulmonary nodules likely benign along with stable cystic lesion in the body of the pancreas and distended gallbladder with inflammatory changes in the wall thickening. He denies any other complaints. 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, on anticoagulation Primary osteoarthritis of left knee H/O facial injury BMI 25.0-25.9,adult Hyperlipidemia associated with type 2 diabetes mellitus Bone spur Sacroiliitis Tendonitis of shoulder, right Type 2 diabetes mellitus with hyperglycemia Surgical History Surgical History History of repair of right rotator cuff (06/27/19) Family History Family History Father Family history of malignant neoplasm of stomach, Onset Age: 57 Family history of lung cancer, Onset Age: 57 Family history of malignant neoplasm of esophagus, Onset Age: 57 Family history of malignant neoplasm , Onset Age: 50 exposure to dioxin. Mother Family history of dementia Septicemia Social History Social History Smoking status: Never smoker Second hand tobacco smoke exposure: No Alcohol intake: current Drinks per week: 1 Alcohol use details: 1 - 2 DRINKS PER MONTH Substance use: never Substance use type: does not use Do You Feel Safe in your Home?: Yes Lack of Transportation: No Lack of Food: Never True Current Housing: I Have Housing Concerned About Future Housing: No Difficulty Paying Gas/Electric Bills: No Difficulty Paying for Meds: No Currently Unemployed: No Education: High School Diploma/GED Difficulty w/ Childcare or Family Care: No Living arrangements: with family Additional living arrangements comments: daughter Occupation/Education: retired 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 Gender identity (if verbalized by the patient): Male Spiritual care concerns: No Meds Home Medications and Allergies Home Medications ?Medication ?Instructions ?Recorded ?Confirmed ?Type aspirin 81 mg tablet,delayed 81 mg PO DAILY 09/09/19 04/08/25 History release multivitamin 1 tablet PO DAILY 10/27/22 04/08/25 History biotin 1,000 mcg chewable tablet 1,000 mcg PO DAILY 05/06/24 04/08/25 History psyllium husk 3.4 gram oral powder 1 packet PO DAILY 05/06/24 04/08/25 History packet (Metamucil Fiber (aspartame)) levothyroxine 50 mcg tablet 50 mcg PO QAM #90 tabs 01/12/25 04/08/25 Rx metformin 750 mg tablet,extended 750 mg PO BID #180 tabs 01/12/25 04/08/25 Rx release 24 hr simvastatin 40 mg tablet See Rx Instructions .Route 01/12/25 04/08/25 Rx .COMPLEX #90 tabs pregabalin 150 mg capsule 150 mg PO Q12H 30 days #60 caps 03/06/25 04/08/25 Rx apixaban 5 mg (74 tabs) tablets in See Rx Instructions PO PER PKG DIR 03/29/25 04/10/25 Rx a dose pack (Eliquis DVT-PE Treat #74 ea 30D Start) rivaroxaban 10 mg tablet (Xarelto) 15 mg (1.5 x 10 mg) PO DAILY #35 03/29/25 04/08/25 Rx tabs tramadol 50 mg tablet 50 mg PO Q6H PRN pain #30 tabs 03/29/25 04/08/25 Rx meloxicam 15 mg tablet 15 mg PO DAILY #90 tabs 04/05/25 04/08/25 Rx Allergies Allergy/AdvReac Type Severity Reaction Status Date / Time duloxetine Allergy Nausea and Verified 03/29/25 11:24 Vomiting diclofenac AdvReac Mild Nausea and Verified 03/29/25 11:24 Vomiting Vital Signs Vital Signs - 24 hr 04/09/25 14:00 04/09/25 16:00 04/09/25 19:59 Temperature 36.3 C L 36.7 C Pulse Rate 69 78 61 Respiratory Rate 16 17 Blood Pressure 153/71 H 155/68 H Pulse Oximetry 94 100 Oxygen Delivery 04/09/25 20:00 04/09/25 20:45 04/10/25 00:03 Temperature Pulse Rate 68 68 Respiratory Rate Blood Pressure Pulse Oximetry Oxygen Delivery Room Air 04/10/25 04:00 04/10/25 04:42 04/10/25 08:00 Temperature 36.7 C Pulse Rate 75 71 80 Respiratory Rate 17 Blood Pressure 151/82 H Pulse Oximetry 96 Oxygen Delivery 04/10/25 09:05 Temperature Pulse Rate Respiratory Rate Blood Pressure Pulse Oximetry Oxygen Delivery Room Air Exam 2 Narrative: Lungs are clear to auscultation bilaterally Cardiovascular regular rate rhythm no murmurs Abdomen soft nontender nondistended Extremities no edema Results Labs 04/10/25 05:06 04/10/25 05:06 Labs: Short CBC 04/10/25 Range/Units 05:06 WBC 7.3 (4.5-10.0) K/mm3 Hgb 14.6 (14.0-18.0) g/dL Hct 44.0 (42.0-52.0) % Plt Count 260 (150-375) k/mm3 BMP 04/10/25 05:06 Sodium 134 L Potassium 3.7 Chloride 98 Carbon Dioxide 26 BUN 14 Creatinine 1.12 Glucose 108 Calcium 9.8 Liver Function 04/10/25 Range/Units 05:06 Total Bilirubin 0.7 (0.2-1.3) mg/dL AST 35 (17-59) U/L ALT 21 (6-50) U/L Alkaline Phosphatase 81 (38-126) U/L Albumin 4.2 (3.5-5.1) g/dL
--- NOTE | 2025-04-10 13:54 | PM.IMPN ---
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 No acute intracranial process. - CTA head/neck, 04/08: 1. Normal atherosclerotic plaque with 0% stenosis of the right and left carotid bulbs relative to normal distal artery lumen diameter (NASCET criteria). 2. Unremarkable cerebral CT angiogram with no hemodynamically significant stenosis, thrombosis or aneurysm. 3. Heterogeneous contrast in the bilateral internal jugular veins which appears much more likely to reflect mixing artifact from additional veins draining into the internal jugular vein with unopacified are less well opacified blood due to to phase of contrast rather than thrombus. - CXR, 04/08: Focal opacity at the left costophrenic angle which could represent atelectasis or less likely pneumonia. - no neck pain concerning meningitis, UA showed no signs of infection - recently transitioned from Eliquis to Xarelto around 03/29 due to cost, possible medication SE? Will continue at this time. - now reporting N/V and right flank pain, will check CT of the chest/abdomen/pelvis w/o con and bladder scan - will start broad spectrum abx for PNA as there are no other indicators or abnormalities on the patient's workup to suggest alternative etiology. 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 -as per oncologist continue anticoagulation therapy with Xarelto for 2-3 months and follow-up with oncologist for hypercoagulable workup (2) Type 2 diabetes mellitus with hyperglycemia: Qualifiers: Diabetes mellitus intermediate insulin use: without intermediate use Qualified Code(s): E11.65 - Type 2 diabetes mellitus with hyperglycemia Code(s): E11.65 - Type 2 diabetes mellitus with hyperglycemia Status: Chronic Assessment and Plan: - hypoglycemia protocol - POC blood glucose ACHS - home medication: Hold metformin in case of need for contrast - correct regimen ordered - low dose TIDWM, based off BMI - A1C 6.9% on 01/05/2025 (3) Hypothyroidism (acquired): Code(s): E03.9 - Hypothyroidism, unspecified Status: Chronic Assessment and Plan: - TSH 0.037, T4 1.53 and T3 0.97 on 04/08 - stable - continue home medication: Synthroid 50 mcg (4) Hypertension associated with diabetes: Code(s): E11.59 - Type 2 diabetes mellitus with other circulatory complications; I15.2 - Hypertension secondary to endocrine disorders Status: Chronic Assessment and Plan: - chronic, currently 156/86 - continue home medications - monitor (5) Cholecystitis: Code(s): K81.9 - Cholecystitis, unspecified Status: Acute Assessment and Plan: CT abdomen shows cholecystitis Pending right upper quadrant ultrasound Ordered Flagyl p.o. Continue ceftriaxone Surgery on board Plan Diet: regular GI Prophylaxis: n/a DVT Prophylaxis: Xarelto IV fluids: none Lines/Tubes: peripheral IV Code Status: full code Subjective Date/time seen: 04/10/25 13:54 Interval history: CT scan of the chest and abdomen shows a cholecystitis. Surgery on board. MRI shows no acute intracranial process. Patient reports a currently feeling better Review of Systems Review of Systems: All systems reviewed & are unremarkable except as noted in HPI and below (limited, confusion) Exam Narrative: A/Ox self, place, time. Poor situational recall but able to provide majority of his history. R CVA tenderness. Const: General: comfortable and no acute distress Other: , male, elderly, ill-appearing without toxic appearance HENMT: Face/Nose/Sinus: Normal nares present Mouth: Yes moist mucous membranes Eyes: General: appearance normal, both eyes and all related structures Sclera: sclerae normal Pupils: Equal, round and reactive pupils present EOM: EOMs intact bilaterally Resp: Effort & Inspection: normal respiratory effort Auscultation: clear to auscultation bilaterally Cardio: Rate: regular rate Rhythm: regular rhythm Other: S1-S2 present without murmur, rub, ectopy GI: Other: Abdomen soft, nondistended, nontender. Normoactive bowel sounds in all quadrants. : Other: Right CVA tenderness Skin: General skin exam: normal color and no rashes or lesions noted Wounds: no wounds Neuro: Cranial nerves: Yes Equal, round and reactive pupils present Speech: normal speech Motor exam (neuro): 5/5 motor strength present throughout Sensory Exam: normal sensation Other: A/Ox self, place, time. Poor situational recall but able to provide majority of his history. Extrem: General: normal to inspection Psych: Mental Status: mental status grossly normal Affect: normal affect Other: Fair to poor insight and judgment at present, pleasant Objective Data Vital Signs Vital Signs: Vital Signs - 24 hr 04/09/25 14:00 04/09/25 16:00 04/09/25 19:59 Temperature 97.3 F L 98.0 F Pulse Rate 69 78 61 Respiratory Rate 16 17 Blood Pressure 153/71 H 155/68 H Pulse Oximetry 94 100 Oxygen Delivery 04/09/25 20:00 04/09/25 20:45 04/10/25 00:03 Temperature Pulse Rate 68 68 Respiratory Rate Blood Pressure Pulse Oximetry Oxygen Delivery Room Air 04/10/25 04:00 04/10/25 04:42 04/10/25 08:00 Temperature 98.0 F Pulse Rate 75 71 80 Respiratory Rate 17 Blood Pressure 151/82 H Pulse Oximetry 96 Oxygen Delivery 04/10/25 09:05 04/10/25 12:00 Temperature Pulse Rate 78 Respiratory Rate Blood Pressure Pulse Oximetry Oxygen Delivery Room Air Intake/Output Intake/Output: Intake & Output 04/07/25 04/08/25 04/09/25 04/10/25 23:59 23:59 23:59 23:59 Intake Total 540 900 640 Balance 540 900 640 Meds/Results Medications: Active Medications Generic Name Dose Route Start Last Admin Trade Name [facility] PRN Reason Stop Dose Admin Acetaminophen 650 mg 04/08/25 14:34 04/09/25 05:23 Acetaminophen 325 Mg Tablet PO 650 mg Q4H PRN Administration Mild Pain (1-3) or Fever Acetaminophen/Butalbital/Caffeine 1 tab 04/09/25 11:36 04/10/25 09:05 Acetaminophen/Butalbital/Caffeine 325-50-40 Mg Tablet (Fioricet) PO 1 tab Q4H PRN Administration Headache Aspirin 81 mg 04/09/25 09:00 04/10/25 09:06 Aspirin 81 Mg Enteric Tablet PO 81 mg DAILY [facility] Administration Azithromycin 500 mg 04/11/25 09:00 Azithromycin 250 Mg Tablet PO 04/12/25 09:01 DAILY [facility] Dextrose 12.5 gm 04/08/25 15:00 Dextrose 50% 25 Gm/50 Ml Syringe IV PUSH PRN PRN Hypoglycemia Protocol Glucagon 1 mg 04/08/25 15:00 Glucagon For Inj 1 Mg Vial IM PRN PRN Hypoglycemia Protocol Glucose 15 gm 04/08/25 15:00 Glucose Oral Gel 15 Gm Of Glucse In 37.5 Gm Tube PO PRN PRN Hypoglycemia Protocol Ceftriaxone Sodium 1 gm/ 50 mls @ 100 mls/hr 04/09/25 09:00 04/10/25 09:36 Sodium Chloride IVPB Infused Q24H [facility] Infusion Dextrose 1,000 mls @ 100 mls/hr 04/08/25 15:00 Dextrose 5% 1,000 Ml IVPB PRN PRN Hypoglycemia Protocol Insulin Aspart 2 - 5 units 04/08/25 17:00 04/10/25 12:14 Insulin Aspart (*Bkc) 100 Units/Ml SUB-Q Not Given TIDWM [facility] Protocol Levothyroxine Sodium 50 mcg 04/09/25 06:30 04/10/25 06:31 Levothyroxine Sodium 50 Mcg Tablet PO 50 mcg DAILY@0630 [facility] Administration Meloxicam 15 mg 04/09/25 09:00 04/10/25 09:06 Meloxicam 7.5 Mg Tablet PO 15 mg DAILY [facility] Administration Metronidazole 500 mg 04/10/25 14:00 Metronidazole 500 Mg Tablet PO Q8HR [facility] Multivitamins Therapeutic 1 tablet 04/09/25 09:00 04/10/25 09:06 Multivitamins Therapeutic Tab (*Bkc) PO 1 tablet DAILY [facility] Administration Ondansetron HCl 4 mg 04/08/25 14:34 04/09/25 17:15 Ondansetron Inj 4 Mg/2 Ml Vial IV PUSH 4 mg Q4H PRN Administration Nausea Pregabalin 150 mg 04/08/25 21:00 04/10/25 09:06 Pregabalin (*Crx) 75 Mg Capsule PO 150 mg Q12HR [facility] Administration Psyllium Hydrophilic Mucilloid 1 packet 04/09/25 09:00 04/10/25 09:07 Psyllium Sugar Free Powder Packet PO Not Given DAILY [facility] Rivaroxaban 15 mg 04/08/25 17:55 04/09/25 17:15 Rivaroxaban 15 Mg Tablet PO 04/14/25 23:59 15 mg DAILY@1700 [facility] Administration Simvastatin 40 mg 04/09/25 09:00 04/10/25 09:06 Simvastatin 20 Mg Tablet PO 40 mg DAILY [facility] Administration Tramadol HCl 50 mg 04/08/25 17:33 Tramadol Hcl (*Crx) 50 Mg Tablet PO Q6H PRN PAIN RATED 4-6 Radiology Results: ITS Impressions Chest X-Ray 04/08/25 13:22 IMPRESSION: 1. Focal opacity at the left costophrenic angle which could represent atelectasis or less likely pneumonia. Head CT 04/08/25 13:33 IMPRESSION: 1. 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 No acute intracranial process. Head/Neck CTA 04/08/25 13:38 IMPRESSION: 1. Normal atherosclerotic plaque with 0% stenosis of the right and left carotid bulbs relative to normal distal artery lumen diameter (NASCET criteria). 2. Unremarkable cerebral CT angiogram with no hemodynamically significant stenosis, thrombosis or aneurysm. 3. Heterogeneous contrast in the bilateral internal jugular veins which appears much more likely to reflect mixing artifact from additional veins draining into the internal jugular vein with unopacified are less well opacified blood due to to phase of contrast rather than thrombus. Brain MRI 04/09/25 20:42 IMPRESSION: No acute intracranial process. Chest/Abdomen/Pelvis CT 04/09/25 21:22 IMPRESSION: Multiple sub-6 mm pulmonary nodules, probably benign, consider an optional follow-up CT in 12 months if the patient is at high risk. The prior radiographic opacity in the left lower lung is likely related to prominent pericardial fat. Mild symmetric gynecomastia. Distended gallbladder with mild inflammatory change and possible wall thickening, as can be seen with acute cholecystitis. Consider right upper quadrant ultrasound. Stable cystic lesion in the body of the pancreas. Prior recommendation for surgical consultation is unchanged if not already performed. 5 x 7 mm calcification, probably within the distal right ureter, without hydronephrosis. 1.3 cm urinary bladder stone. Results pertaining to possible acute cholecystitis reported telephonically to Talib Kelsey RN by Dr. Thomas at 9:39 PM on 04/09/2025. Labs Labs: Laboratory Results - last 24 hr 04/09/25 04/09/25 04/09/25 16:43 17:13 19:57 WBC RBC Hgb Hct MCV MCH MCHC RDW Plt Count MPV Sodium Potassium Chloride Carbon Dioxide Anion Gap BUN Creatinine Estim Creat Clear Calc Estimated GFR Glucose POC Capillary Glucose 128 H 145 H Hemoglobin A1c 6.5 H Calcium Magnesium 1.7 Total Bilirubin AST ALT Alkaline Phosphatase Total Protein Albumin Triglycerides 80 Cholesterol 141 LDL Cholesterol Direct 53 HDL Direct 54 Vitamin B12 305.0 Vitamin D 25-Hydroxy 28.8 Folate > 20.0 H TSH 0.319 L 04/10/25 04/10/25 04/10/25 05:06 07:42 12:05 WBC 7.3 RBC 4.72 Hgb 14.6 Hct 44.0 MCV 93.2 MCH 30.9 MCHC 33.2 RDW 12.7 Plt Count 260 MPV 9.3 Sodium 134 L Potassium 3.7 Chloride 98 Carbon Dioxide 26 Anion Gap 10 BUN 14 Creatinine 1.12 Estim Creat Clear Calc 48 Estimated GFR > 60 Glucose 108 POC Capillary Glucose 105 112 H Hemoglobin A1c Calcium 9.8 Magnesium Total Bilirubin 0.7 AST 35 ALT 21 Alkaline Phosphatase 81 Total Protein 6.9 Albumin 4.2 Triglycerides Cholesterol LDL Cholesterol Direct HDL Direct Vitamin B12 Vitamin D 25-Hydroxy Folate TSH Quality VTE Prophylaxis VTE prophylaxis: pharmacologic ordered Hospitalist MIPS Advance Care Plan I have confirmed that the patient's Advanced Care Plan is present, code status is documented, or surrogate decision maker is listed in patient medical record.: Yes Medication Reconciliation I have utilized all available resources to obtain, update and review the patients current medications (includes all prescriptions, OTC, herbals, cannabis, and nutritional supplements).: Yes
--- NOTE | 2025-04-10 15:40 | PCNEURO ---
Entered room to perform EEG. Pt had another test scheduled shortly so went to complete other EEG order. Will complete tomorrow.
[2025-04-10] MEDS: RIVAROXABAN 15 MG TABLET PO (16:58)
[2025-04-11 04:04] VITALS: BP 130/67; PULSE 70; RESP 18; TEMP 36.5; O2SAT 97
[2025-04-11 05:24] LABS: Hematocrit 46.8 % (42.0-52.0); Hemoglobin 15.3 g/dL (14.0-18.0); Mean Corpuscular HGB Conc 32.7 g/dl (32-36); Mean Corpuscular Hemoglobin 30.8 pg (26-34); Mean Corpuscular Volume 94.2 fl (80-100); Platelet Count Result 262 k/mm3 (150-375); Red Blood Count 4.97 M/mm3 (4.6-6.20); White Blood Count 6.7 K/mm3 (4.5-10.0)
[2025-04-11 05:48] LABS: Alanine Aminotransferase 22 U/L (6-50); Albumin Level 4.1 g/dL (3.5-5.1); Alkaline Phosphatase 70 U/L (38-126); Anion Gap 9 mmol/L (4-12); Aspartate Amino Transferase 33 U/L (17-59); Bilirubin,Total 0.7 mg/dL (0.2-1.3); Blood Urea Nitrogen 18 mg/dL (9-20); Calcium 9.7 mg/dL (8.4-10.2); Carbon Dioxide 26 mmol/L (22-30); Chloride 104 mmol/L (98-107); Estimated CRCL calculation 48 ml/min; Estimated Glomerular Filt Rate > 60; Glucose 110 mg/dL (65-110); Potassium 3.9 mmol/L (3.4-5.0); Sodium 139 mmol/L (137-145); Total Protein 6.7 g/dL (6.3-8.2)
[2025-04-11] MEDS: LEVOTHYROXINE SODIUM 50 MCG TABLET PO (06:23)
[2025-04-11] MEDS: ASPIRIN 81 MG ENTERIC TABLET PO (08:22)
[2025-04-11] MEDS: SIMVASTATIN 20 MG TABLET 40 MG PO (08:22)
[2025-04-11] MEDS: PREGABALIN (*CRX) 75 MG CAPSULE 150 MG PO (08:22)
[2025-04-11] MEDS: AZITHROMYCIN 250 MG TABLET 500 MG PO (08:23)
[2025-04-11] MEDS: cefTRIAXone 1 GM in SODIUM CHLORIDE 0.9% IV 50 ML 100 ML IVPB (08:23)
[2025-04-11] MEDS: MELOXICAM 7.5 MG TABLET 15 MG PO (08:23)
[2025-04-11] MEDS: MULTIVITAMINS THERAPEUTIC TAB (*BKC) 1 TABLET PO (08:23)
[2025-04-11] MEDS: ACETAMINOPHEN/BUTALBITAL/CAFFEINE 325-50-40 MG TABLET (FIORICET) 1 TAB PO (08:26)
--- NOTE | 2025-04-11 08:52 | P.CONGI_ITS ---
Assessment and Plan Assessment and plan (1) Pancreas cyst: Code(s): K86.2 - Cyst of pancreas Status: Acute (2) IPMN (intraductal papillary mucinous neoplasm): Code(s): D49.0 - Neoplasm of unspecified behavior of digestive system Status: Acute (3) Cholelithiasis: Qualifiers: Cholelithiasis location: gallbladder Cholecystitis presence: without cholecystitis Biliary obstruction: without biliary obstruction Qualified Code(s): K80.20 - Calculus of gallbladder without cholecystitis without obstruction Code(s): K80.20 - Calculus of gallbladder without cholecystitis without obstruction Status: Acute Plan 1. Pancreatic mass/ Side branch IPMN: Ultrasound and CT this admission showed irregular shaped 2.5 cm cystic mass in the pancreatic body. CT as mentioned stable cystic lesion in the body of the pancreas. This pancreatic lesion was initially found incidentally on a CT in November of 2023 at which time the lesion in the pancreas was measuring 4.7 cm. Patient was last seen in the office by BRYN Lee for pancreatic lesion in was referred to this or a Yarsani for an EUS which was performed 02/11/2024. EUS showed a cystic lesion was seen in the pancreatic body. Tissue was obtained from this exam. The preliminary diagnosis is suspicious for branched intraductal papillary mucinous neoplasm. A cystic lesion was seen in the pancreatic tail. Tissue was not obtained. However, the endoscopic appearance is suspicious for branched intraductal papillary mucus neoplasm. Following EUS, MRCP in 6 months for cyst surveillance. During his initial workup amylase and lipase were normal. * Recommended MRCP but the patient does not wish to have it done this admission and has requested it be scheduled outpatient, which our office will arrange and then he can follow up after MRCP with BRYN Lee who he previously saw 2. Cholelithiasis: Ultrasound showed gallstones and gallbladder sludge and CT showed distended gallbladder with mild inflammatory changes and possible wall thickening which could be seen with acute cholecystitis. * More detailed evaluation when MRCP performed * Patient asymptomatic, further workup can be done outpatient if indicated Thank you very much for allowing me to share in the care of this very nice patient. This report may have been done utilizing a voice recognition system. Attempts have been made to correct errors. However, there may be uncorrected grammatical, spelling, and recognition errors present. GI Consult Note Consult date/time: 04/11/25 08:52 Reason for consult: Pancreatic mass HPI: Jony Rice IV is a 80 year old male with PMSH of HTN, hypothyroidism, and internal jugular vein thrombus, osteoarthritis, HLD, diabetes type 2 and sacroiliitis. He presented to the emergency room 04/08/2025 with confusion x2 days and was admitted for altered mental status and pneumonia. GI has been consulted for pancreatic mass. Patient with known pancreatic mass that had previously been worked up in 2023. During today's visit patient denies any GI complaints. He denies any abdominal pain, nausea, vomiting, bloating odynophagia, dysphagia, reflux, regurgitation, early satiety, appetite or weight loss. Prior to admission he was having regular daily bowel movements that were formed urgent. No BM since admission. Denies diarrhea, constipation, hematochezia or melena. Patient was on Xarelto and aspirin prior to admission. He is a nondrinker nonsmoker denies marijuana use. Patient's father diagnosed and esophagus cancer. ENDOSCOPY HISTORY: EUS: 02/11/2024 performed at [facility] for pancreatic mass Findings: There was no sign of significant pathology in the common bile duct There was no evidence of significant pathology in the left lobe of the liver A cystic lesion was seen in the pancreatic body. Tissue was obtained from this exam. The preliminary diagnosis is suspicious for branched intraductal papillary mucinous neoplasm. Fine-needle aspiration of fluid performed A cystic lesion was seen in the pancreatic tail. Tissue was not obtained. However, the endoscopic appearance is suspicious for branched intraductal papillary mucus neoplasm Recommended MRCP in 6 months for cyst surveillance and was started on a 5 day course of Cipro Bx results: Pancreas, body cyst, fluid: No evidence of malignancy EGD: No prior known EGD COLONOSCOPY: Per patient last colonoscopy performed > [address] Smith was normal. LABS AND STOOL STUDIES: Labs 04/11/2025: Sodium 139, potassium 3.9, BUN 18, creatinine 1.13, GFR >60, calcium 9.7 WBC 7, Hgb 15, Hct 47, MCV 94, platelets 262 Total bilirubin 0.7, AST 33, ALT 22, Alkaline Phos 70, albumin 4.1 IMAGING: Abdominal Ultrasound 04/10/2025: IMPRESSION: 1: Cholelithiasis. Gallbladder sludge. 2: Irregular shaped 5.2 cm cystic mass of the pancreatic body. The differential diagnosis includes pseudocyst, intraductal papillary mucinous neoplasm (IPMN), mucinous cystic neoplasm (MCN), and the less common serous cystadenoma and neuroendocrine tumor. CT chest/abd/pelvis w/o contrast 04/09/2025: IMPRESSION: Multiple sub-6 mm pulmonary nodules, probably benign, consider an optional follow-up CT in 12 months if the patient is at high risk. The prior radiographic opacity in the left lower lung is likely related to prominent pericardial fat. Mild symmetric gynecomastia. Distended gallbladder with mild inflammatory change and possible wall thickening, as can be seen with acute cholecystitis. Consider right upper quadrant ultrasound. Stable cystic lesion in the body of the pancreas. Prior recommendation for surgical consultation is unchanged if not already performed. 5 x 7 mm calcification, probably within the distal right ureter, without hydronephrosis. 1.3 cm urinary bladder stone. CT abd/pelvis w/contrast 11/30/2023: IMPRESSION: 1. 5 mm stone in proximal right ureter with mild right hydronephrosis. 2. Nonobstructing kidney stones. 3. 4.7 cm cystic lesion of the body of pancreas. The differential diagnosis includes pseudocyst, intraductal papillary mucinous neoplasm (IPMN), mucinous cystic neoplasm (MCN), serous cystadenoma, and neuroendocrine tumor. Surgical consultation is recommended. Review of Systems 2 Constitutional: Constitutional: Reports as per HPI ENT: Reports as per HPI Cardiovascular: Cardiovascular: Reports as per HPI, Denies chest pain and Denies dyspnea Respiratory: Respiratory: Denies cough and Denies dyspnea Gastrointestinal: Gastrointestinal: Reports as per HPI Musculoskeletal: Musculoskeletal: Reports as per HPI Integumentary/Breasts: Skin/Breast: Reports as per HPI Psychiatric: Psychiatric: Reports as per HPI Endocrine: Endocrine: Reports no additional endocrine complaints Hematologic/Lymphatic: Hematologic/Lymphatic: Reports no additional hematologic/lymphatic complaints [facility] Past Medical History Medical History (Updated 04/11/25 @ 10:50 by Elicia Wheatley, GONZALES) Hypertension associated with diabetes Hypothyroidism (acquired) 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, on anticoagulation Primary osteoarthritis of left knee H/O facial injury BMI 25.0-25.9,adult Hyperlipidemia associated with type 2 diabetes mellitus Bone spur Sacroiliitis Tendonitis of shoulder, right Type 2 diabetes mellitus with hyperglycemia Surgical History Surgical History History of repair of right rotator cuff (06/27/19) Family History Family History Father Family history of malignant neoplasm of stomach, Onset Age: 57 Family history of lung cancer, Onset Age: 57 Family history of malignant neoplasm of esophagus, Onset Age: 57 Family history of malignant neoplasm , Onset Age: 50 exposure to dioxin. Mother Family history of dementia Septicemia Social History Social History Smoking status: Never smoker Second hand tobacco smoke exposure: No Alcohol intake: current Drinks per week: 1 Alcohol use details: 1 - 2 DRINKS PER MONTH Substance use: never Substance use type: does not use Do You Feel Safe in your Home?: Yes Lack of Transportation: No Lack of Food: Never True Current Housing: I Have Housing Concerned About Future Housing: No Difficulty Paying Gas/Electric Bills: No Difficulty Paying for Meds: No Currently Unemployed: No Education: High School Diploma/GED Difficulty w/ Childcare or Family Care: No Living arrangements: with family Additional living arrangements comments: daughter Occupation/Education: retired 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 Gender identity (if verbalized by the patient): Male Spiritual care concerns: No Meds Home Medications and Allergies Home Medications ?Medication ?Instructions ?Recorded ?Confirmed ?Type aspirin 81 mg tablet,delayed 81 mg PO DAILY 09/09/19 04/08/25 History release multivitamin 1 tablet PO DAILY 10/27/22 04/08/25 History biotin 1,000 mcg chewable tablet 1,000 mcg PO DAILY 05/06/24 04/08/25 History psyllium husk 3.4 gram oral powder 1 packet PO DAILY 05/06/24 04/08/25 History packet (Metamucil Fiber (aspartame)) levothyroxine 50 mcg tablet 50 mcg PO QAM #90 tabs 01/12/25 04/08/25 Rx metformin 750 mg tablet,extended 750 mg PO BID #180 tabs 01/12/25 04/08/25 Rx release 24 hr simvastatin 40 mg tablet See Rx Instructions .Route 01/12/25 04/08/25 Rx .COMPLEX #90 tabs pregabalin 150 mg capsule 150 mg PO Q12H 30 days #60 caps 03/06/25 04/08/25 Rx apixaban 5 mg (74 tabs) tablets in See Rx Instructions PO PER PKG DIR 03/29/25 04/10/25 Rx a dose pack ([employer] DVT-PE Treat #74 ea 30D Start) rivaroxaban 10 mg tablet (Xarelto) 15 mg (1.5 x 10 mg) PO DAILY #35 03/29/25 04/08/25 Rx tabs tramadol 50 mg tablet 50 mg PO Q6H PRN pain #30 tabs 03/29/25 04/08/25 Rx meloxicam 15 mg tablet 15 mg PO DAILY #90 tabs 04/05/25 04/08/25 Rx Allergies Allergy/AdvReac Type Severity Reaction Status Date / Time duloxetine Allergy Nausea and Verified 03/29/25 11:24 Vomiting diclofenac AdvReac Mild Nausea and Verified 03/29/25 11:24 Vomiting Vital Signs Vital Signs - 24 hr 04/10/25 09:05 04/10/25 12:00 04/10/25 14:00 Temperature 97.3 F L Pulse Rate 78 70 Respiratory Rate 18 Blood Pressure 147/72 H Pulse Oximetry 96 Oxygen Delivery Room Air Fraction of Inspired Oxygen 04/10/25 20:40 04/10/25 23:43 04/11/25 04:04 Temperature 97.6 F 97.7 F Pulse Rate 75 68 70 Respiratory Rate 18 20 18 Blood Pressure 146/84 H 130/67 Pulse Oximetry 98 95 97 Oxygen Delivery Room Air Fraction of Inspired Oxygen 21 Exam 2 Const: General: cooperative, healthy appearing, comfortable, no acute distress and well developed Orientation/consciousness: oriented to person, oriented to place, oriented to time and patient oriented x3 HENMT: Head: normal to inspection, normocephalic and atraumatic Mouth: Yes Normal oral and palatal mucosa present and Yes moist mucous membranes Eyes: General: appearance normal, both eyes and all related structures C onjunctivae: conjunctivae normal Sclera: sclerae normal Pupils: Equal, round and reactive pupils present Neck: Neck: normal visual inspection Chest: Chest palpation & inspection: normal inspection of the chest Resp: Effort & Inspection: normal respiratory effort and able to speak in complete sentences Auscultation: clear to auscultation bilaterally Cardio: Jugular venous distension: no JVD Rate: regular rate Rhythm: r egular rhythm Heart sounds: S1 normal heart sound present and S2 normal heart sound present GI: Inspection: normal to inspection GI Palp: Yes Soft to palpation and Yes No hepatosplenomegaly present Auscultation: normal bowel sounds Rectal Exam: deferred Skin: General skin exam: normal color and no rashes or lesions noted Neuro: General: oriented to person, oriented to place, oriented to time and patient oriented x3 Cranial nerves: Yes Equal, round and reactive pupils present Speech: normal speech Extrem: General: normal to inspection and no clubbing, cyanosis or edema Psych: Appearance: grossly normal and well kempt Affect: normal affect Results Labs 04/11/25 05:09 04/11/25 05:09 Labs: Short CBC 04/11/25 Range/Units 05:09 WBC 6.7 (4.5-10.0) K/mm3 Hgb 15.3 (14.0-18.0) g/dL Hct 46.8 (42.0-52.0) % Plt Count 262 (150-375) k/mm3 BMP 04/11/25 05:09 Sodium 139 Potassium 3.9 Chloride 104 Carbon Dioxide 26 BUN 18 Creatinine 1.13 Glucose 110 Calcium 9.7 Liver Function 04/11/25 Range/Units 05:09 Total Bilirubin 0.7 (0.2-1.3) mg/dL AST 33 (17-59) U/L ALT 22 (6-50) U/L Alkaline Phosphatase 70 (38-126) U/L Albumin 4.1 (3.5-5.1) g/dL
--- NOTE | 2025-04-11 09:09 | PM.PNGS ---
Progress Note: A&P Assessment and Plan (1) Abnormal CT scan, gallbladder: Code(s): R93.2 - Abnormal findings on diagnostic imaging of liver and biliary tract Status: Acute Assessment and Plan: No abdominal pain again today. RUQ US yesterday demonstrated gallbladder sludge with gallstones. CBD 2.6 mm. No sonographic Hunt's sign. Based on this imaging and patient's clinical picture, this is not likely acute cholecystitis. No immediate surgical intervention necessary. We will sign off at this time. If any issues arise, patient may call general surgery office to schedule an appointment. Of note, RUQ US also showed a cystic mass in the pancreas. Patient states that he follows with a physician at [facility] for this and gets an MRI every 3 months. (2) Acute internal jugular vein thrombosis: Code(s): I82.C19 - Acute embolism and thrombosis of unspecified internal jugular vein Status: Acute Assessment and Plan: Manage per hospitalist and Hematology recommendations. Plan Discussed patient's case and plan of care with Dr. Freitas. Subjective Subjective Date/Time Seen: 04/11/25 09:09 Patient reports: no new complaints Interval history: Patient is doing well today. Still no complaints of abdominal pain. No nausea/vomiting. Exam Const: General: comfortable and no acute distress GI: Inspection: non-distended GI Palp: Yes Soft to palpation, No Tenderness to palpation present (GI), No Guarding due to palpation present (GI) and No Hernia present Auscultation: normal bowel sounds Objective Data Vital Signs Vital Signs: Vital Signs - 24 hr 04/10/25 12:00 04/10/25 14:00 04/10/25 20:40 Temperature 97.3 F L 97.6 F Pulse Rate 78 70 75 Respiratory Rate 18 18 Blood Pressure 147/72 H 146/84 H Pulse Oximetry 96 98 Oxygen Delivery Fraction of Inspired Oxygen 04/10/25 23:43 04/11/25 04:04 Temperature 97.7 F Pulse Rate 68 70 Respiratory Rate 20 18 Blood Pressure 130/67 Pulse Oximetry 95 97 Oxygen Delivery Room Air Fraction of Inspired Oxygen 21 Intake/Output Intake/Output: Intake & Output 04/08/25 04/09/25 04/10/25 04/11/25 23:59 23:59 23:59 23:59 Intake Total 540 900 880 510 Balance 540 900 880 510 Meds/Results Medications: Active Medications Generic Name Dose Route Start Last Admin Trade Name Christopher PRN Reason Stop Dose Admin Acetaminophen 650 mg 04/08/25 14:34 04/09/25 05:23 Acetaminophen 325 Mg Tablet PO 650 mg Q4H PRN Administration Mild Pain (1-3) or Fever Acetaminophen/Butalbital/Caffeine 1 tab 04/09/25 11:36 04/11/25 08:26 Acetaminophen/Butalbital/Caffeine 325-50-40 Mg Tablet (Fioricet) PO 1 tab Q4H PRN Administration Headache Aspirin 81 mg 04/09/25 09:00 04/11/25 08:22 Aspirin 81 Mg Enteric Tablet PO 81 mg DAILY AMNA Administration Azithromycin 500 mg 04/11/25 09:00 04/11/25 08:23 Azithromycin 250 Mg Tablet PO 04/12/25 09:01 500 mg DAILY AMNA Administration Dextrose 12.5 gm 04/08/25 15:00 Dextrose 50% 25 Gm/50 Ml Syringe IV PUSH PRN PRN Hypoglycemia Protocol Glucagon 1 mg 04/08/25 15:00 Glucagon For Inj 1 Mg Vial IM PRN PRN Hypoglycemia Protocol Glucose 15 gm 04/08/25 15:00 Glucose Oral Gel 15 Gm Of Glucse In 37.5 Gm Tube PO PRN PRN Hypoglycemia Protocol Ceftriaxone Sodium 1 gm/ 50 mls @ 100 mls/hr 04/09/25 09:00 04/11/25 08:23 Sodium Chloride IVPB 100 mls/hr Q24H AMNA Administration Dextrose 1,000 mls @ 100 mls/hr 04/08/25 15:00 Dextrose 5% 1,000 Ml IVPB PRN PRN Hypoglycemia Protocol Insulin Aspart 2 - 5 units 04/08/25 17:00 04/11/25 08:22 Insulin Aspart (*Bkc) 100 Units/Ml SUB-Q Not Given TIDWM [facility] Protocol Levothyroxine Sodium 50 mcg 04/09/25 06:30 04/11/25 06:23 Levothyroxine Sodium 50 Mcg Tablet PO 50 mcg DAILY@0630 AMNA Administration Meloxicam 15 mg 04/09/25 09:00 04/11/25 08:23 Meloxicam 7.5 Mg Tablet PO 15 mg DAILY AMNA Administration Metronidazole 500 mg 04/10/25 14:00 04/11/25 06:23 Metronidazole 500 Mg Tablet PO 500 mg Q8HR AMNA Administration Multivitamins Therapeutic 1 tablet 04/09/25 09:00 04/11/25 08:23 Multivitamins Therapeutic Tab (*Bkc) PO 1 tablet DAILY AMNA Administration Ondansetron HCl 4 mg 04/08/25 14:34 04/09/25 17:15 Ondansetron Inj 4 Mg/2 Ml Vial IV PUSH 4 mg Q4H PRN Administration Nausea Pregabalin 150 mg 04/08/25 21:00 04/11/25 08:22 Pregabalin (*Crx) 75 Mg Capsule PO 150 mg Q12HR AMNA Administration Psyllium Hydrophilic Mucilloid 1 packet 04/09/25 09:00 04/11/25 08:27 Psyllium Sugar Free Powder Packet PO Not Given DAILY AMNA Rivaroxaban 15 mg 04/08/25 17:55 04/10/25 16:58 Rivaroxaban 15 Mg Tablet PO 15 mg DAILY@1700 AMNA Administration Simvastatin 40 mg 04/09/25 09:00 04/11/25 08:22 Simvastatin 20 Mg Tablet PO 40 mg DAILY AMNA Administration Tramadol HCl 50 mg 04/08/25 17:33 Tramadol Hcl (*Crx) 50 Mg Tablet PO Q6H PRN PAIN RATED 4-6 Radiology Results: ITS Impressions Chest X-Ray 04/08/25 13:22 IMPRESSION: 1. Focal opacity at the left costophrenic angle which could represent atelectasis or less likely pneumonia. Head CT 04/08/25 13:33 IMPRESSION: 1. 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 No acute intracranial process. Head/Neck CTA 04/08/25 13:38 IMPRESSION: 1. Normal atherosclerotic plaque with 0% stenosis of the right and left carotid bulbs relative to normal distal artery lumen diameter (NASCET criteria). 2. Unremarkable cerebral CT angiogram with no hemodynamically significant stenosis, thrombosis or aneurysm. 3. Heterogeneous contrast in the bilateral internal jugular veins which appears much more likely to reflect mixing artifact from additional veins draining into the internal jugular vein with unopacified are less well opacified blood due to to phase of contrast rather than thrombus. Brain MRI 04/09/25 20:42 IMPRESSION: No acute intracranial process. Chest/Abdomen/Pelvis CT 04/09/25 21:22 IMPRESSION: Multiple sub-6 mm pulmonary nodules, probably benign, consider an optional follow-up CT in 12 months if the patient is at high risk. The prior radiographic opacity in the left lower lung is likely related to prominent pericardial fat. Mild symmetric gynecomastia. Distended gallbladder with mild inflammatory change and possible wall thickening, as can be seen with acute cholecystitis. Consider right upper quadrant ultrasound. Stable cystic lesion in the body of the pancreas. Prior recommendation for surgical consultation is unchanged if not already performed. 5 x 7 mm calcification, probably within the distal right ureter, without hydronephrosis. 1.3 cm urinary bladder stone. Results pertaining to possible acute cholecystitis reported telephonically to Talib Kelsey RN by Dr. Thomas at 9:39 PM on 04/09/2025. Abdomen Ultrasound 04/10/25 15:53 IMPRESSION: 1: Cholelithiasis. Gallbladder sludge. 2: Irregular shaped 5.2 cm cystic mass of the pancreatic body. The differential diagnosis includes pseudocyst, intraductal papillary mucinous neoplasm (IPMN), mucinous cystic neoplasm (MCN), and the less common serous cystadenoma and neuroendocrine tumor. Labs Labs: Laboratory Results - last 24 hr 04/10/25 04/10/25 04/10/25 12:05 17:03 20:45 WBC RBC Hgb Hct MCV MCH MCHC RDW Plt Count MPV Sodium Potassium Chloride Carbon Dioxide Anion Gap BUN Creatinine Estim Creat Clear Calc Estimated GFR Glucose POC Capillary Glucose 112 H 91 156 H Calcium Total Bilirubin AST ALT Alkaline Phosphatase Total Protein Albumin 04/11/25 04/11/25 05:09 07:44 WBC 6.7 RBC 4.97 Hgb 15.3 Hct 46.8 MCV 94.2 MCH 30.8 MCHC 32.7 RDW 12.7 Plt Count 262 MPV 9.3 Sodium 139 Potassium 3.9 Chloride 104 Carbon Dioxide 26 Anion Gap 9 BUN 18 Creatinine 1.13 Estim Creat Clear Calc 48 Estimated GFR > 60 Glucose 110 POC Capillary Glucose 105 Calcium 9.7 Total Bilirubin 0.7 AST 33 ALT 22 Alkaline Phosphatase 70 Total Protein 6.7 Albumin 4.1
--- NOTE | 2025-04-11 13:04 | P.DS_ITS ---
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 ED workup : Initial VS at presentation: 97.5? F, HR 90, RR 20, 156/86, and 100% on RA. No leukocytosis, no anemia, INR 1.3, no significant electrolyte derangements, creatinine 1.16 and GFR >60, glucose 119, TSH 0.037 with normal T3/T4. UA showed 2+ ketones and trace leuk esterase otherwise unremarkable. UDS negative. ETOH negative. CXR showed focal opacity at the left costophrenic angle which could represent atelectasis or less likely pneumonia. 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 Head/neck CTA showed normal atherosclerotic plaque with 0% stenosis of the right and left carotid bulbs, unremarkable cervical CT angiogram, and heterogeneous contrast in the bilateral internal jugular veins which appears much more likely to reflects mixing artifact from additional vein stranding into the internal jugular vein with unopacified are less well opacified blood due to phase of contrast rather than thrombus. MRi no acute changes neurology was consulted and he recommended EEG and continuing aspirin and lipitor. Today patient is alert and oriented at bedside and no focal symptoms. Discussed with Neurology and they noted that patient can discharge and he will read the EEG adn follow up with Patient. Also managed for Internal jugular vein thrombosis, Oncology was consulted and changed Anticoagulation from Eliquis to Xarelto and will follow up outpatient for hypercoagulable studies. Patient was also managed for pneumonia which is the likely cause of his altered mental status, was placed on Rocephin, Glagyl and Azithromycin. Discharged on Augmentin and Azithromycin to complete a total of 7 and 5 days respectively. GEn surgery was consulted for Cholelithiasis they evaluated and noted benign abd exams and thus noted that patinet no a surgical candidate. Imaging on admssion showed pancreatic cysts, GI was consulted and recommended MRCP however patient statted he follows up with GI at [facility] where they are monitring it every 6 months with MRCP. Patient alert and oriented and self ambulatory today F/u wt PCP in 3-5 days F/u with Neurology , GI as instructed. COntinue follow up at [facility] as scheduled. Time Spent with Patient Time attestation: Total time spent providing and/or coordinating discharge services: DS: Data Data Completed and Pending Labs on day of discharge: Labs from last 24 hours 04/11/25 04/11/25 04/11/25 12:01 07:44 05:09 WBC 6.7 RBC 4.97 Hgb 15.3 Hct 46.8 MCV 94.2 MCH 30.8 MCHC 32.7 RDW 12.7 Plt Count 262 MPV 9.3 Sodium 139 Potassium 3.9 Chloride 104 Carbon Dioxide 26 Anion Gap 9 BUN 18 Creatinine 1.13 Estim Creat Clear Calc 48 Estimated GFR > 60 Glucose 110 POC Capillary Glucose 122 H 105 Calcium 9.7 Total Bilirubin 0.7 AST 33 ALT 22 Alkaline Phosphatase 70 Total Protein 6.7 Albumin 4.1 04/10/25 04/10/25 20:45 17:03 WBC RBC Hgb Hct MCV MCH MCHC RDW Plt Count MPV Sodium Potassium Chloride Carbon Dioxide Anion Gap BUN Creatinine Estim Creat Clear Calc Estimated GFR Glucose POC Capillary Glucose 156 H 91 Calcium Total Bilirubin AST ALT Alkaline Phosphatase Total Protein Albumin Discharge Plan Discharge Attending physician on discharge: Cameron Yarbrough Consulting providers: Tarsha Ewing; Jeremi Freitas; Cameron Yarbrough; Marky Davis; Filippo Pereira Discharging Clinician: Cameron Yarbrough Anticipated Discharge Date/Time: 04/11/25 12:59 Patient Disposition: Home Activity: as tolerated Diet: as tolerated and heart healthy Patient Instructions: Antibiotic Form, Rivaroxaban (By mouth), Blood Thinners (GEN) Patient Language: Grenadian Stand Alone Forms: General Discharge Information Follow-up/Referrals: Marky Davis MD [Physician] - (F/u with Dr Davis as instructed ) Tarsha Ewing MD [Physician] - (F/u wt neurology in 4 weeks ) Filippo Pereira MD [Physician] - (F/u with GI as instructed ) Walker,Izzy L., PNEUMATIC TUBE OPERATOR [Primary Care Provider] - (F/u with PCP in 3-5 days ) Discharge Medications: New azithromycin [Zithromax] 250 mg Tablet 500 mg PO DAILY 3 Days Qty: 6 0RF amoxicillin-pot clavulanate 875-125 mg tablet 1 tablet PO Q12H 4 Days Qty: 8 0RF Continued aspirin 81 mg tablet,delayed release (DR/EC) 81 mg PO DAILY multivitamin Tablet 1 tablet PO DAILY levothyroxine 50 mcg tablet 50 mcg PO QAM Qty: 90 1RF Rx Instructions: TAKE 1 TABLET BY MOUTH DAILY metformin 750 mg tablet extended release 24 hr 750 mg PO BID Qty: 180 1RF simvastatin 40 mg tablet See Rx Instructions .ROUTE .COMPLEX Qty: 90 1RF Dose Instruction: TAKE 1 TABLET BY MOUTH DAILY Rx Instructions: TAKE 1 TABLET BY MOUTH DAILY tramadol 50 mg tablet 50 mg PO Q6H PRN (Reason: pain) Qty: 30 0RF Metamucil Fiber (aspartame) 3.4 gram Powder In Packet 1 packet PO DAILY biotin 1,000 mcg Tablet,Chewable 1,000 mcg PO DAILY pregabalin 150 mg capsule 150 mg PO Q12H 30 Days Qty: 60 2RF Rx Instructions: take one capsule po q12 Xarelto 10 mg tablet 15 mg PO DAILY 30 Days Qty: 30 2RF Rx Instructions: for 35 days Changed meloxicam 15 mg tablet 15 mg PO DAILY PRN (Reason: Pain) Qty: 90 1RF Discontinued Eliquis DVT-PE Treat 30D Start 5 mg (74 tabs) tablets,dose pack See Rx Instructions PO PER PKG DIR Qty: 74 0RF Patient Comments: to start after 35 days of xarelto Rx Instructions: PO PER PKG DIR Date of admission: 04/10/25 15:24 Primary Care Provider: Izzy Maradiaga Admitting Provider: Kwame Nogueira Attending physician on admission: Kwame Nogueira Condition: Stable
--- NOTE | 2025-04-13 13:08 | P.NEURO_ITS ---
Neurology EEG Report General Information Date of Study: 04/11/25 TEST Electroencephalogram DIAGNOSIS episodes of altered mental status CONDITION OF RECORDING bedside recording EEG NUMBER [id number] CLINICAL HISTORY 80 years old found confused and wandering around the house. He also has c omplaints of headache. EEG DESCRIPTION The background activity consists of posterior dominant alpha rhythm at 10 hertz with an amplitude of 20-40 microvolts which appears well-formed and reactive to eye opening. Anteriorly low amplitude mixed frequency activity was seen. Hyperventilation or photic stimulation were not performed. Patient did not progress to stage 2 sleep however during drowsiness attenuation of background activity was seen. Occasional sharp wave transients were noted over left temporal area however these appeared poorly defined our IMPRESSION this is a borderline abnormal EEG due to presence of rare sharp transients noted over the left temporal area. These are considered nonspecific focal abnormality and may be seen in many asymptomatic elderly subjects and hence clinical correlation is recommended.
== END 2025-04-11 13:45 | disposition home or self-care (01) | DRG 194 ==
LOC: ANHED 14:43 → ANH2MED 16:44
PROVIDERS: General Practice; Psychiatry & Neurology Neurology; Student in an Organized Health Care Education/Training Program; Admitting Provider Internal Medicine; Emergency Provider Student in an Organized Health Care Education/Training Program; PCP Nurse Practitioner Family; Visit Provider Internal Medicine
DX: J18.9 Pneumonia, unspecified organism (principal); I82.C12 Acute embolism and thrombosis of left internal jugular vein; K86.2 Cyst of pancreas; K80.20 Calculus of gallbladder without cholecystitis without obstruction; R41.0 Disorientation, unspecified; E78.5 Hyperlipidemia, unspecified; E11.65 Type 2 diabetes mellitus with hyperglycemia; E03.9 Hypothyroidism, unspecified; G89.29 Other chronic pain; H91.93 Unspecified hearing loss, bilateral; I10 Essential (primary) hypertension; M17.12 Unilateral primary osteoarthritis, left knee; M54.2 Cervicalgia; M54.16 Radiculopathy, lumbar region; M47.812 Spondylosis without myelopathy or radiculopathy, cervical region; R91.8 Other nonspecific abnormal finding of lung field; Z79.01 Long term (current) use of anticoagulants; Z79.84 Long term (current) use of oral hypoglycemic drugs; Z79.82 Long term (current) use of aspirin; Z86.73 Personal history of transient ischemic attack (TIA), and cerebral infarction without residual deficits
CPT/HCPCS: 36415; 70450; 70496; 70498; 70551; 71045; 71250; 74176; 76705; 80053; 80061; 80307; 81001; 82077; 82306; 82607; 82746; 82948; 83036; 83735; 83921; 84439; 84443; 84480; 85025; 85027; 85610; 85730; 93005; 93306; 95816; 96365; 96366; 96367; 96375; 96376; 99285; A9270; G0378; J0456; J0696; J1836; J2405; J7050; Q9967

== ENCOUNTER 2025-06-27 09:06 | Emergency (ER) | payer MEDICARE, SELFPAY ==
--- NOTE | ~2025-06-27 | XR_ITS ---
EXAMINATION: XR knee RT 3V DATE: 06/27/2025 09:57 INDICATION: Right knee pain TECHNIQUE: Anteroposterior, oblique and crosstable lateral views of the right knee were obtained COMPARISON: None. FINDINGS: Alignment is normal. No fracture. Tricompartmental osteoarthritis at the right knee, severe at the lateral and patellofemoral compartments with joint space narrowing is appreciated on the lateral projection and the prior imaging. No joint effusion/layering lipohemarthrosis. Chronic heterotopic ossicle at mild soft tissue swelling anterior to the inferior patella. IMPRESSION: 1. Severe lateral and patellofemoral predominant tricompartmental osteoarthritis at the right knee. Reviewed, dictated and finalized at location A. IMPRESSION: 1. Severe lateral and patellofemoral predominant tricompartmental osteoarthriti s at the right knee.
--- NOTE | ~2025-06-27 | US_ITS ---
EXAMINATION:US venous doppler LE RT INDICATION:Right leg pain TECHNIQUE: Multiple grayscale, color flow and Doppler images of the right lower extremity deep venous systems were obtained and reviewed. COMPARISON:No prior studies for comparison. FINDINGS: The common femoral, superficial femoral and popliteal veins demonstrate normal respiratory variation, augmentation and compressibility. Color flow is also seen within the posterior tibial, peroneal, greater saphenous and profunda veins. IMPRESSION: 1: No lower extremity deep venous thrombosis. Reviewed, dictated and finalized at location O.
[2025-06-27 09:10] VITALS: BP 151/79; PULSE 78; RESP 16; TEMP 36.3; O2SAT 99
--- NOTE | 2025-06-27 09:40 | ED.EXTPRO ---
HPI - Extremity Problem General Chief complaint: Extremity Problem,Nontraumatic Stated complaint: right leg pain Time Seen by Provider: 06/27/25 09:21 Source: patient and RN notes reviewed Mode of arrival: ambulatory Limitations: no limitations History of Present Illness HPI Narrative: [age] Year old male presents to the ER complaining of right leg pain. Patient says the pain is gone for approximally 1 week. Patient denies any falls or injuries. Patient says it feels the pain primarily from his right knee down to the bottom of his right leg. Patient reports shooting pains is sometimes muscle spasms. Patient reports pain with movement of his right knee. Patient denies any chest pain or shortness of breath, dizziness, lightheadedness, nausea vomiting, fevers, or any other symptoms. Patient has been taking help with the pain. Patient says he has a history of blood clots but never in his leg. Related Data Home Medications ?Medication ?Instructions ?Recorded ?Confirmed ?Last Taken ?Type multivitamin 1 tablet PO DAILY 10/27/22 06/16/25 01/30/25 History biotin 1,000 mcg chewable tablet 1,000 mcg PO DAILY 05/06/24 06/16/25 01/30/25 History psyllium husk 3.4 gram oral powder 1 packet PO DAILY 05/06/24 06/16/25 01/30/25 History packet (Metamucil Fiber (aspartame)) Allergies Allergy/AdvReac Type Severity Reaction Status Date / Time duloxetine Allergy Nausea and Verified 06/27/25 09:10 Vomiting diclofenac AdvReac Mild Nausea and Verified 06/27/25 09:10 Vomiting Review of Systems Review of Systems: CONSTITUTIONAL: Denies fever, chills, or sweats. EYES: Denies visual changes, redness, or discharge. ENT: Denies rhinorrhea, congestion, sore throat, or otalgia. CARDIOVASCULAR: Denies chest pain, palpitations, dizziness, lightheadedness or edema. RESPIRATORY: Denies cough or dyspnea. GASTROINTESTINAL: Denies abdominal pain, nausea, vomiting, or diarrhea. GENITOURINARY: Denies dysuria or hematuria. SKIN: Denies rash or itching. MUSCULOSKELETAL: Denies back pain, joint pain, or myalgia. Positive for leg pain. NEUROLOGIC: Denies headache, numbness, or weakness. PSYCHIATRIC: Denies anxiety or depression. All other systems reviewed are negative, except as documented in HPI. 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 Mother Family history of dementia Septicemia Social History Social History Smoking status: Never smoker Second hand tobacco smoke exposure: No Alcohol intake: current Drinks per week: 1 Alcohol use details: 1 - 2 DRINKS PER MONTH Substance use: never Substance use type: does not use Do You Feel Safe in your Home?: Yes Lack of Transportation: No Lack of Food: Never True Current Housing: I Have Housing Concerned About Future Housing: No Difficulty Paying Gas/Electric Bills: No Difficulty Paying for Meds: No Currently Unemployed: No Education: High School Diploma/GED Difficulty w/ Childcare or Family Care: No Living arrangements: with family Additional living arrangements comments: daughter Occupation/Education: retired 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 There is no relevant family history pertinent to the patient complaint. Exam Narrative: GENERAL: This is a well-nourished, well-developed adult, in no apparent distress. They are non ill-appearing, nontoxic appearing. HEAD: normocephalic, atraumatic. EYES: Sclera clear/white. Conjunctiva normal. Vision is grossly intact. Extraocular movements intact EARS: External ears normal. Hearing grossly intact. NOSE: External nose normal THROAT: Mucous membranes moist, NECK: Neck supple, CARDIOVASCULAR: Regular rate and rhythm RESPIRATORY: Respiratory rate normal, respiratory effort nonlabored, no respiratory distress SKIN: warm, Dry, intact with no suspicious lesions or rash, good texture and turgor. NEURO: awake, alert, and oriented to person, place and time. There were no obvious focal neurologic abnormalities. EXTREMITIES: Right lower extremity: No obvious deformity, bruising, redness, swelling, or injury. No valgus or varus laxity. Mild pain through full range of motion of the knee. No hip pain. No bony tenderness. No palpable Cord. Right pedal pulse 2 +and palpable. Capillary refill less than 2 seconds. Sensation intact. Neurovascular status intact to lower extremity. Course Course Emergency Course: Portions of this record may have been created with voice recognition software Vital Signs Vital signs: Vital Signs Temperature 97.4 F L 06/27/25 09:10 Pulse Rate 78 06/27/25 09:10 Respiratory Rate 16 06/27/25 09:10 Blood Pressure 151/79 H 06/27/25 09:10 Pulse Oximetry 99 06/27/25 09:10 Oxygen Delivery Room Air 06/27/25 09:10 Temperature 97.4 F L 06/27/25 09:10 Pulse Rate 56 L 06/27/25 10:51 Respiratory Rate 20 06/27/25 10:51 Blood Pressure 128/77 06/27/25 10:51 Pulse Oximetry 99 06/27/25 10:51 Oxygen Delivery Room Air 06/27/25 09:10 Reviewed MDM - Extremity (Nontraumatic) MDM Narrative Medical decision making narrative: Patient reports pain primary to his knee and radiates down to his leg. There is pain with movement of the right knee. Will rule out blood clot given his history with ultrasound and obtain imaging of his right knee. Patient given a dose of Tylenol for pain. X-ray right knee reveals severe arthritis changes to his knee. Otherwise no fractures or other acute findings. Ultrasound right lower extremity reveals no evidence of blood clot. Pain is likely related to his knee arthritis. Discussed physical exam findings. Advised supportive measures and signs/symptoms to go to the ER. Pt is appropriate for outpt treatment and f/u. Differential Diagnosis Differential diagnosis: Likely cellulitis, deep vein thrombosis of lower extremity and other (Arthritis, knee sprain, knee fracture) Imaging Data Radiologist's impression: ITS Impressions Knee X-Ray 06/27/25 10:03 IMPRESSION: 1. Severe lateral and patellofemoral predominant tricompartmental osteoarthritis at the right knee. Venous Doppler Study 06/27/25 10:35 IMPRESSION: 1: No lower extremity deep venous thrombosis. Critical Care Time Critical Care Time Critical Care Time: No Discharge Plan Discharge Clinical Impression: Arthritis of knee, right Patient Disposition: Home Condition: Stable Instructions: Arthritis (ED) Additional Instructions: The x-ray right knee shows severe arthritis changes. There is no blood clot in your right lower extremity. Rest and elevate the leg; bear weight as tolerated Apply ice 15-20 minute intervals several times a day Keep it wrapped with PATY or any brace You may take up to 1000 mg Tylenol every 6-8 hours. Do not exceed 1000 mg per dose, do exceed more than 4000 mg of Tylenol in a day. May take [place] as needed for severe pain, [place] already contains 325 mg of Tylenol so do not exceed the amount of recommended Tylenol per day. [place] may also make you drowsy so do not drive or operate machinery while taking it. Follow-up with orthopedist in 1 week for further evaluation management of your knee. Return to the ER if you develops severe leg swelling, pain, fevers, chest pain, shortness of breath, or any serious concerns. Patient Language: Turkish Prescriptions: New hydrocodone-acetaminophen 5-325 mg tablet 1 tablet PO Q6H PRN (Reason: pain) Qty: 10 0RF No Action hydrocodone-acetaminophen 5-325 mg tablet 1 tablet PO Q8H PRN (Reason: pain) Qty: 90 0RF multivitamin Tablet 1 tablet PO DAILY meloxicam 15 mg tablet 15 mg PO DAILY PRN (Reason: Pain) Qty: 90 1RF atorvastatin [Lipitor] 20 mg tablet 20 mg PO HS 30 Days Qty: 30 0RF Metamucil Fiber (aspartame) 3.4 gram Powder In Packet 1 packet PO DAILY biotin 1,000 mcg Tablet,Chewable 1,000 mcg PO DAILY tramadol 50 mg tablet 50 mg PO Q6H PRN (Reason: pain) Qty: 30 0RF Rx Instructions: do not combine with hydrocodone metformin 750 mg tablet extended release 24 hr 750 mg PO BID Qty: 180 1RF pregabalin 150 mg capsule 150 mg PO Q12H 30 Days Qty: 60 2RF Rx Instructions: take one capsule po q12 simvastatin 40 mg tablet See Rx Instructions .ROUTE .COMPLEX Qty: 90 1RF Dose Instruction: TAKE 1 TABLET BY MOUTH DAILY Rx Instructions: TAKE 1 TABLET BY MOUTH DAILY levothyroxine 50 mcg tablet 50 mcg PO QAM Qty: 90 1RF Rx Instructions: TAKE 1 TABLET BY MOUTH DAILY Follow-up/Referrals: Buster Brown MD [Physician, Orthopedics] Izzy Maradiaga APRN [Primary Care Provider, Family Practice] Time of Disposition: 10:45
[2025-06-27] MEDS: ACETAMINOPHEN 500 MG TABLET 1000 MG PO (09:48)
--- OUTSIDE RECORDS SUMMARY | 2025-06-27 09:59 | XMS_ITS | Encounter Summary ---
Author Organization [facility] Address [address] [place] [address] Phone Care Team Providers Care Claims Support Specialist Name Role Phone Referral, Self Primary Care Provider Judy e Fidel Ferguson MD Primary Care Provider [phone] Encounter Details Date Type Department Care Team [...] on filedocumented in this encounter Care Teams Claims Support Specialist Relationship Specialty Start Date End Date Referral, Self PCP - General 02/02/24 06/15/24 Fidel Ferguson MD [id number] [place] [address] PCP - General Family Medicine 06/16/24 documented as of this encounter
--- OUTSIDE RECORDS SUMMARY | 2025-06-27 09:59 | XMS_ITS | Clinical Summary ---
Author Organization [facility] Saurabh novoa Rodriguez Address [address] [place] [address] Care Team Providers Care Glass Vial Bending Conveyor Feeder Name Role Phone Unavailable Primary Care Provider [...] st Contact Info) Description 07/19/2025 1:30 PM VACUUM CASTER Office Visit [facility] Oncology and Hematology - [place] [address] [place] [address] Cely Zheng MD [address] [place] [address] Health Maintenance Due Date Last Done Comments DTAP/TDAP/TD VACCINES (1 - Tdap) 1964 PNEUMOCOCCAL VACCINE 50+ YEARS (1 of 1 - PCV) 03/05/19 95 ZOSTER VACCINE (1 of 2) 1995 RSV VACCINE (60+ or ) (1 - 1-dose 75+ series) 2020 INFLUENZA VACCINE (#1) 2025 Insurance [facility] [id number]
--- OUTSIDE RECORDS SUMMARY | 2025-06-27 09:59 | XMS_ITS | Clinical Summary ---
Author Organization [facility] Address [address] [place] [address] Care Team Providers Care Elevator Service Mechanic Name Role Phone Fidel Ferguson MD Primary Care Provider [phone] Allergies Active Allergy Reactions Criticality Noted Date Comments Diclofenac Nausea & Vomiting Low 08/02/2024 Medications levothyroxine (SYNTHROID) 50 mcg tablet 01/24/2024 Active simvastatin (ZOCOR) 40 mg tablet 01/24/2024 Active metFORMIN XR (GLUCOPHAGE XR) 750 mg 24 hr tablet 01/29/2024 Active meloxicam (MOBIC) 15 mg tablet 01/29/2024 Active Eliquis DVT-PE Treat 30D Start 5 mg (74 tabs) tablets,dose pack Take 5 mg by mouth 2 (two) times a day 03/30/2025 Active Active Problems Problem Noted Date Diagnosed Date Cyst of pancreas 02/02/2024 Encounters Date Type Department Care Team Description 05/19/2025 11:30 AM CDT Lab [facility] at [address] [place] [id number] IPMN (intraductal papillary mucinous neoplasm); 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 05/19/2025 11:00 AM CDT Office Visit [facility] Medicine Surgery [address] [place] [address] [address] [place] [id number] Melida Chen PA IPMN (intraductal papillary mucinous neoplasm) (Primary Dx); 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; Intractable headache, unspecified chronicity pattern, unspecified headache type; Altered mental status, unspecified altered mental status type 05/19/2025 7:27 AM CDT - 05/19/2025 11:59 PM CDT Hospital Encounter [facility] [address] [place] [address] IPMN (intraductal papillary mucinous neoplasm) Discharge Disposition: [...] Comments Heart block atrioventricular Hyperlipidemia Hypothyroidism Diabetes Arthritis History of transfusion Social History Tobacco [...] Sign Reading Time Taken Comments Blood Pressure 135/79 05/19/2025 10:56 AM CDT Pulse 72 05/19/2025 10:56 AM CDT Temperature 36.1 C (97 F) 05/19/2025 10:56 AM CDT Respiratory Rate 16 05/19/2025 10:56 AM CDT Oxygen Saturation 98% 05/19/2025 10:56 AM CDT Inhaled Oxygen Concentration - - Weight 78 kg (171 lb 15.3 oz) 05/19/2025 10:56 A M CDT Height 169.9 cm (5' 6.89) 02/10/2025 2:13 PM CD T Body Mass Index 27.02 02/10/2025 2:13 PM CDT Plan of Treatment Health Maintenance Due Date Last Done Comments Depression Screening 1945 Hepatitis B Screening 1963 Well Visit 65+ 2010 Pneumococcal vaccine 65+ (3 of 3 - PCV20 or PCV21) 10/24/2019 10/24/2014, 02/20/2010 Fall Risk Assessment 02/10/2025 02/11/2024 Covid-19 Vaccine ( - 2024-2 6 season) 2025 06/29/2023, 05/29/2022, 12/17/2021, Additional history exists Influenza Vaccine (#1) 2025 , 06/11/2023, 06/19/2022, Additional history exists DTaP/Tdap/Td Vaccine (4 - Td or Tdap) 08/23/2026 08/23/2016, 06/13/2013, 06/06/2013, Additional history exists Zoster Vaccine Completed 04/09/2023, 01/30/2023 Medical Devices Implanted Type Area Copying Machine Repairer Device Identifier Shelf Expiration Date Model / Serial / Lot Left Knee Replacement Knee Metal Wire In Jaw Mandible Procedures Procedure Name Priority Date/Time Associated Diagnosis Comments CANCER ANTIGEN 19-9 Routine 05/19/2025 11:28 AM CDT IPMN (intraductal papillary mucinous neoplasm) 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 MRI ABDOMEN MRCP W WO CONTRAST Schedule Routine, Read Routine (OP Routine) 05/19/2025 8:16 AM CDT IPMN (intraductal papillary mucinous neoplasm) from Last 3 Months Results * (ABNORMAL) Cancer antigen 19-9 (05/19/2025 11:28 AM CDT) CA 19-9 ag 45.4(H) 0.0 - 35.0 units/mL Comment: Interpretive Data The [employer] CA 19-9 assay procedure was used. Results from different manufacturers or methods may not be comparable. Serial testing should be performed using the same method. Testing performed by: [facility], [facility] [facility], [place]., [address] Blood 05/19/2025 11:2 8 AM CDT 05/19/2025 2:23 PM CDT Melida ESTRADA LAB BLOOD ORDERABLES Yin kumar Result Performing Organization Address City/State/[facility] Co de Phone Number [facility] [id number] [facility]. [employer] [place] [employer] [place] [address] * MRI Abdomen MRCP W WO Contrast (05/19/2025 8:16 AM CDT) Anatomical Region Laterality Modality Body N/A Magnetic Resonan ce 05/19/2025 11:2 5 AM CDT Impressions 05/19/2025 12:54 PM CDT Pancreatic cystic lesion likely representing main ductal type with side-branch involvement IPMN within the neck and body without evidence of enhancing mural nodularity (no new or worsening high-risk features). This is unchanged from prior examinations dating back to 03/03/2024. 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 The radiology attending physician has personally reviewed this study, and had reviewed and/or edited this written report and agrees with it. Electronically signed by: Maninder Ortiz M.D. Narrative 05/19/2025 12:54 PM CDT EXAMINATION: 1. MAGNETIC RESONANCE IMAGING OF THE ABDOMEN WITH AND WITHOUT CONTRAST 2. THREE DIMENSIONAL RECONSTRUCTION OF THE BILIARY TREE AND PANCREATIC DUCT HISTORY: 80-year-old man with IPMN. TECHNIQUE: Magnetic resonance imaging of the abdomen was performed prior to and following the administration of intravenous contrast. The raw data was processed on the scanner by the technologist for 3 dimensional reconstructions of the intrahepatic ducts, extrahepatics ducts, and pancreatic duct. Protocol: Liver MRCP Contrast: Dotarem (gadoterate) 15 mL COMPARISON: Multiple prior MRCP examinations, most recently 02/10/2025 FINDINGS: Liver: Normal liver morphology without steatosis or iron deposition. - Bile ducts: No biliary obstruction. - Focal liver lesions: None. - Vasculature: Patent portal and hepatic veins. Gallbladder: Normal. Pancreas: Pancreatic parenchyma: Diffusely atrophic. Peripancreatic soft tissues: normal Main pancreatic duct (MPD): Dilated up to 1.5 cm at and upstream of the cystic lesion. MPD wall thickening or mural nodularity: absent Solid pancreatic mass: none Pancreatic cystic lesion(s): - Number of lesions: 1 Lesion 1: * Location: body, series 26, image 31 * Size (outer wall to outer wall): 5.5 cm in longest dimension * Morphology: multilocular; macrocystic * Shape: pleomorphic (containing 3 or more cysts or bunch of grapes appearance) * Communication with MPD: present * Wall thickening, septae or mural nodule within cyst: absent Spleen: Normal. Adrenals: Normal. Kidneys: Hemorrhagic cysts in the right kidney. Normal left kidney. No hydronephrosis. Other Findings: No abdominal lymphadenopathy. No ascites. No marrow replacing osseous lesion. Procedure Note Maninder Ortiz MD - 05/19/2025 EXAMINATION: 1. MAGNETIC RESONANCE IMAGING OF THE ABDOMEN WITH AND WITHOUT CONTRAST 2. THREE DIMENSIONAL RECONSTRUCTION OF THE BILIARY TREE AND PANCREATIC DUCT HISTORY: 80-year-old man with IPMN. TECHNIQUE: Magnetic resonance imaging of the abdomen was performed prior to and following the administration of intravenous contrast. The raw data was processed on the scanner by the technologist for 3 dimensional reconstructions of the intrahepatic ducts, extrahepatics ducts, and pancreatic duct. Protocol: Liver MRCP Contrast: Dotarem (gadoterate) 15 mL COMPARISON: Multiple prior MRCP examinations, most recently 02/10/2025 FINDINGS: Liver: Normal liver morphology without steatosis or iron deposition. - Bile ducts: No biliary obstruction. - Focal liver lesions: None. - Vasculature: Patent portal and hepatic veins. Gallbladder: Normal. Pancreas: Pancreatic parenchyma: Diffusely atrophic. Peripancreatic soft tissues: normal Main pancreatic duct (MPD): Dilated up to 1.5 cm at and upstream of the cystic lesion. MPD wall thickening or mural nodularity: absent Solid pancreatic mass: none Pancreatic cystic lesion(s): - Number of lesions: 1 Lesion 1: * Location: body, series 26, image 31 * Size (outer wall to outer wall): 5.5 cm in longest dimension * Morphology: multilocular; macrocystic * Shape: pleomorphic (containing 3 or more cysts or bunch of grapes appearance) * Communication with MPD: present * Wall thickening, septae or mural nodule within cyst: absent Spleen: Normal. Adrenals: Normal. Kidneys: Hemorrhagic cysts in the right kidney. Normal left kidney. No hydronephrosis. Other Findings: No abdominal lymphadenopathy. No ascites. No marrow replacing osseous lesion. 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 This is unchanged from prior examinations dating back to 03/03/2024. 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 The radiology attending physician has personally reviewed this study, and had reviewed and/or edited this written report and agrees with it. Electronically signed by: Maninder Ortiz M.D. Melida ESTRADA IMG MRI PROCEDURES Final Result from Last 3 Months Insurance [facility] Advance Directives For more information, please contact: [phone] * Full Code (Latest Code Status on File) Date Activated Date Inactivated Comments 02/11/2024 12:25 PM 02/11/2024 7:22 PM Care Teams Elevator Service Mechanic Relationship Specialty Start Date End Date Fidel Ferguson MD [address] [place] [address] PCP - General Family Medicine 06/16/24
[2025-06-27 10:51] VITALS: BP 128/77; PULSE 56; RESP 20; O2SAT 99
== END 2025-06-27 11:01 | disposition home or self-care (01) ==
PROVIDERS: PCP Nurse Practitioner Family
DX: M17.0 Bilateral primary osteoarthritis of knee (principal); E11.9 Type 2 diabetes mellitus without complications; E78.5 Hyperlipidemia, unspecified; I15.2 Hypertension secondary to endocrine disorders; E03.9 Hypothyroidism, unspecified; Z79.899 Other long term (current) drug therapy; Z79.84 Long term (current) use of oral hypoglycemic drugs
CPT/HCPCS: 73562; 93971; 99284; A9270

== ENCOUNTER 2025-07-24 08:55 | Emergency (ER) | payer MEDICARE, SELFPAY ==
--- NOTE | ~2025-07-24 | US_ITS ---
EXAMINATION: US right upper quadrant DATE: 07/24/2025 15:02 INDICATION: Cholecystitis TECHNIQUE: April 10, 2025 COMPARISON: None FINDINGS: Cystic mass in the pancreas not grossly changed, measuring 5.3 x 2.1 x 3.6 cm The liver measures 16.1 cm Hepatopedal flow noted in the portal vein Echogenic foci in the gallbladder consistent with cholelithiasis. Gallbladder wall thickness appears within normal limits. No pericholecystic fluid seen. Common bile duct: 3.9 mm IMPRESSION: 1. Cholelithiasis with no gross sonographic evidence of acute cholecystitis. 2. 5.3 cm cystic pancreatic mass with differential considerations discussed on the April 10 exam. Reviewed, dictated and finalized at location A. OARD ACTION ASSEMBLER
--- NOTE | ~2025-07-24 | XR_ITS ---
EXAMINATION: XR chest 1V, 07/24/2025 14:51 PRESS TENDER SHORT GOODS HISTORY: Right upper quadrant pain COMPARISON: No comparisons available. Technique: Single view. Findings: The lungs are clear, no effusion. No pneumothorax. Heart is normal size. Mediastinal and hilar contours are within normal limits. Bony thorax no acute abnormality. Impression: No acute cardiopulmonary abnormality. Reviewed, dictated and finalized at location P. S TENDER SHORT GOODS Impression: No acute cardiopulmonary abnormality.
--- NOTE | ~2025-07-24 | CT_ITS ---
EXAM/PROCEDURE: CT abdomen pelvis w con HISTORY: Right upper quadrant right flank pain COMPARISON: April 09, 2025 TECHNIQUE: IV contrast enhanced CT of the abdomen and pelvis FINDINGS: The bowel gas pattern is nonobstructive with no free air free fluid or pneumatosis seen. Normal size appendix, and aorta. The gallbladder is mildly distended with cholelithiasis. No gross biliary ductal dilatation. Pancreas spleen stomach and liver as well as adrenal glands stable. No hydroureteronephrosis. Urinary bladder is unopacified and nondistended but appears grossly normal. Moderately enlarged prostate. Bilateral nonobstructing kidney stones. Splenic and hepatic granuloma. Diffuse degenerative changes throughout the spine. Moderately severe diverticular disease with no gross acute diverticulitis. IMPRESSION: 1. Cholelithiasis with mildly distended gallbladder. Correlation with right lower quadrant ultrasound may provide additional beneficial information. 2. Other chronic appearing findings as above. Reviewed, dictated and finalized at location A. FORGER IMPRESSION: 1. Cholelithiasis with mildly distended gallbladder. Correlation with right low er quadrant ultrasound may provide additional beneficial information. 2. Other chronic appearing findings as above.
[2025-07-24 08:57] VITALS: BP 136/65; PULSE 92; RESP 18; TEMP 36.5; O2SAT 100
[2025-07-24 11:42] VITALS: BP 147/84; PULSE 98; RESP 18; TEMP 36.6; O2SAT 100
--- NOTE | 2025-07-24 12:09 | ED_ITS ---
HPI - Abdominal Pain General Chief Complaint: Abdominal Pain Stated Complaint: RLQ abd pain Time Seen by Provider: 07/24/25 12:07 Source: patient Mode of arrival: ambulatory Limitations: no limitations History of Present Illness HPI narrative: 80 years old white male drove himself to the emergency room from home complaining of right upper quadrant sharp pain for 1 week. Worse with movement, better if he does not move. He denies any recent trauma, fever, chills, nausea vomiting, coughing, chest pain or back pain or radiation of pain. History of diabetes hyperlipidemia hypo thyroidism. Currently on Eliquis because of jugular thrombosis. Patient reported that he have right knee problem for a while, getting out of the car required twisting his chest and trunk sometime. Related Data Home Medications ?Medication ?Instructions ?Recorded ?Confirmed ?Last Taken ?Type multivitamin 1 tablet PO DAILY 10/27/22 1 01/30/25 History biotin 1,000 mcg chewable tablet 1,000 mcg PO DAILY 06/16/25 01/30/25 History psyllium husk 3.4 gram oral powder 1 packet PO DAILY 0 05/06/24 06/16/25 01/30/25 History packet (Metamucil Fiber (aspartame)) Allergies Allergy/AdvReac Type Severity Reaction Status Date / Time diclofenac AdvReac Mild Nausea and Verified 06/27/25 09:10 Vomiting duloxetine AdvReac Nausea and Verified 07/24/25 12:13 Vomiting Review of Systems 2 Review of Systems: All systems reviewed & are unremarkable except as noted in HPI and below PMFSH Past Medical History Medical History Tendonitis of shoulder, right Hypertension associated with diabetes Hypothyroidism (acquired) 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 Mother Family history of dementia Septicemia Social History Social History Smoking status: Never smoker Second hand tobacco smoke exposure: No Alcohol intake: current Drinks per week: 1 Alcohol use details: 1 - 2 DRINKS PER MONTH Substance use: never Substance use type: does not use Do You Feel Safe in your Home?: Yes Lack of Transportation: No Lack of Food: Never True Current Housing: I Have Housing Concerned About Future Housing: No Difficulty Paying Gas/Electric Bills: No Difficulty Paying for Meds: No Currently Unemployed: No Education: High School Diploma/GED Difficulty w/ Childcare or Family Care: No Living arrangements: with family Additional living arrangements comments: daughter Occupation/Education: retired 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 Musculoskeletal: Normal range of motion, nontender back Neurologic: Alert and oriented ?3, CLERK ENTRY LEVEL is normal as tested, no gross motor deficit Course Vital Signs Vital signs: Vital Signs Temperature 36.5 C 07/24/25 08:57 Pulse Rate 92 07/24/25 08:57 Respiratory Rate 18 07/24/25 08:57 Blood Pressure 136/65 07/24/25 08:57 Pulse Oximetry 100 07/24/25 08:57 Oxygen Delivery Room Air 07/24/25 08:57 Temperature 36.6 C 07/24/25 11:42 Pulse Rate 72 07/24/25 13:55 Respiratory Rate 16 07/24/25 13:55 Blood Pressure 123/63 07/24/25 13:55 Pulse Oximetry 100 07/24/25 13:55 Oxygen Delivery Room Air 07/24/25 11:42 MDM - Abdominal Pain MDM Narrative Medical decision making narrative: Patient came with right upper quadrant sharp pain worse with movement Vital signs are stable Physical examination showing no significant finding Differential diagnosis include musculoskeletal, pneumonia, cholecystitis, constipation, urinary tract infection, kidney stone. Blood workup today includes CBC, CMP, lipase showed insignificant abnormality Urinalysis showed insignificant abnormality no significant abnormality Chest x-ray showed no acute abnormality CT abdomen and pelvis with IV contrast showed 1. Cholelithiasis with mildly distended gallbladder. Correlation with right lower quadrant ultrasound may provide additional beneficial information. 2. Other chronic appearing findings as above. Gallbladder ultrasound showed 1. Cholelithiasis with no gross sonographic evidence of acute cholecystitis. 2. 5.3 cm cystic pancreatic mass with differential considerations discussed on the April 10 exam. Diagnosis: Abdominal pain of unknown etiology, pancreatic cystic mass The pt was discharged to home.the pt,s condition upon discharge was fair,education was provided to the pt in reference to the final impression,discharge study results,treatment,prognosis and need for follow up . Differential Diagnosis Differential diagnosis: Likely other (As above) Medical Records Attestation: I reviewed the patient's medical records. Lab Data Attestation: I reviewed the patient's lab results. 07/24/25 12:18 07/24/25 12:18 Labs: Lab Results 07/24/25 07/24/25 Range/Units 12:18 12:47 WBC 7.4 (4.5-10.0) K/mm3 RBC 4.67 (4.6-6.20) M/mm3 Hgb 14.3 (14.0-18.0) g/dL Hct 43.0 (42.0-52.0) % MCV 92.1 (80-100) fl MCH 30.6 (26-34) pg MCHC 33.3 (32-36) g/dl RDW 13.0 (11.5-14.5) % Plt Count 271 (150-375) k/mm3 MPV 9.3 (7.4-10.4) fl Immature Gran % (Auto) 0.3 (0-0.5) % Neut % (Auto) 70.5 (45.5-73.1) % Lymph % (Auto) 20.1 (18.3-44.2) % [place] % (Auto) 8.4 (2.6-8.5) % Eos % (Auto) 0.4 (0-4.4) % Baso % (Auto) 0.3 (0.2-1.2) % Lymph # (Auto) 1.48 (0.9-3.2) K/mm3 [place] # (Auto) 0.6 (0.1-0.6) K/mm3 Eos # (Auto) 0.0 (0-0.3) K/mm3 Baso # (Auto) 0.0 (0.0-0.1) K/mm3 Abs Immat Gran (auto) 0.02 (0.00-0.031) K/mm3 Absolute Neuts (auto) 5.2 (1.3-6.7) K/mm3 Absolute Nucleated RBC 0.000 (0.0-0.012) K/mm3 Nucleated RBC % 0.0 (0.0-0.2) % Sodium 136 L (137-145) mmol/L Potassium 3.5 (3.4-5.0) mmol/L Chloride 99 (98-107) mmol/L Carbon Dioxide 28 (22-30) mmol/L Anion Gap 9 (4-12) mmol/L BUN 16 (9-20) mg/dL Creatinine 1.05 (0.7-1.3) mg/dL Estim Creat Clear Calc 46 ml/min Estimated GFR > 60 (59 - ) Glucose 126 H (65-110) mg/dL Calcium 9.6 (8.4-10.2) mg/dL Total Bilirubin 0.7 (0.2-1.3) mg/dL AST 33 (17-59) U/L ALT 20 (6-50) U/L Alkaline Phosphatase 88 (38-126) U/L Total Protein 7.7 (6.3-8.2) g/dL Albumin 4.8 (3.5-5.1) g/dL Lipase 42 (23-300) U/L Urine Color Yellow (Yellow) Urine Appearance Clear (Clear) Urine pH 6.5 (5.0-9.0) Ur Specific [place] 1.018 (1.001-1.035) Urine Protein Negative (Negative) mg/dL Urine Glucose (UA) Negative (Negative) mg/dL Urine Ketones Negative (Negative) mg/dL Ur Blood (Man) Negative (Negative) Urine Nitrate Negative (Negative) Urine Bilirubin Negative (Negative) Urine Urobilinogen 0.2 (<2.0) mg/dL Leukocyte Esterase Rfl Trace H (Negative) RENAE/UL Urine RBC 0-2 (0-2) /hpf Urine WBC 0-5 (0-3) /hpf Ur Squamous Epith Cells None seen (Few) /hpf Urine Bacteria None seen /hpf Urine Casts 0-2 Imaging Data Radiologist's impression: ITS Impressions Abdomen/Pelvis CT 07/24/25 13:12 IMPRESSION: 1. Cholelithiasis with mildly distended gallbladder. Correlation with right lower quadrant ultrasound may provide additional beneficial information. 2. Other chronic appearing findings as above. Chest X-Ray 07/24/25 14:55 Impression: No acute cardiopulmonary abnormality. Upper Quadrant Ultrasound 07/24/25 15:08 IMPRESSION: 1. Cholelithiasis with no gross sonographic evidence of acute cholecystitis. 2. 5.3 cm cystic pancreatic mass with differential considerations discussed on the April 10 exam. Critical Care Time Critical Care Time Critical Care Time: No Discharge Plan Discharge Clinical Impression: Abdominal pain, Cystic mass of pancreas Patient Disposition: Home Condition: Stable Instructions: Abdominal Pain (ED) Additional Instructions: Return if symptoms are worsening , call your family physician, Gastroenterology for appointment, take Tylenol as as needed for aches and pain, continue home medications. Patient Language: German Prescriptions: No Action hydrocodone-acetaminophen 5-325 mg tablet 1 tablet PO Q8H PRN (Reason: pain) Qty: 90 0RF multivitamin Tablet 1 tablet PO DAILY meloxicam 15 mg tablet 15 mg PO DAILY PRN (Reason: Pain) Qty: 90 1RF atorvastatin [Lipitor] 20 mg tablet 20 mg PO HS 30 Days Qty: 30 0RF hydrocodone-acetaminophen 5-325 mg tablet 1 tablet PO Q6H PRN (Reason: pain) Qty: 10 0RF Metamucil Fiber (aspartame) 3.4 gram Powder In Packet 1 packet PO DAILY biotin 1,000 mcg Tablet,Chewable 1,000 mcg PO DAILY metformin 750 mg tablet extended release 24 hr 750 mg PO BID Qty: 180 1RF pregabalin 150 mg capsule 150 mg PO Q12H 30 Days Qty: 60 2RF Rx Instructions: take one capsule po q12 simvastatin 40 mg tablet See Rx Instructions .ROUTE .COMPLEX Qty: 90 1RF Dose Instruction: TAKE 1 TABLET BY MOUTH DAILY Rx Instructions: TAKE 1 TABLET BY MOUTH DAILY levothyroxine 50 mcg tablet 50 mcg PO QAM Qty: 90 1RF Rx Instructions: TAKE 1 TABLET BY MOUTH DAILY tramadol 50 mg tablet 50 mg PO Q6H PRN (Reason: pain) Qty: 30 0RF Rx Instructions: do not combine with hydrocodone Follow-up/Referrals: Filippo Pereira MD [Physician, Gastroenterology] - 07/25/25 Izzy Maradiaga APRN [Primary Care Provider, Family Practice]
[2025-07-24 12:24] LABS: Hematocrit 43.0 % (42.0-52.0); Hemoglobin 14.3 g/dL (14.0-18.0); Immature Granulocyte Percent A 0.3 % (0-0.5); Lymphocytes Absolute Auto 1.48 K/mm3 (0.9-3.2); Mean Corpuscular HGB Conc 33.3 g/dl (32-36); Mean Corpuscular Hemoglobin 30.6 pg (26-34); Mean Corpuscular Volume 92.1 fl (80-100); Nucleated Red Blood Cells Absolute Auto 0.000 K/mm3 (0.0-0.012); Nucleated Red Blood Cells Perc 0.0 % (0.0-0.2); Platelet Count Result 271 k/mm3 (150-375); Red Blood Count 4.67 M/mm3 (4.6-6.20); White Blood Count 7.4 K/mm3 (4.5-10.0)
[2025-07-24] MEDS: fentaNYL CITRATE INJ (*CRX) 100 MCG/2 ML VIAL 25 MCG IV PUSH (12:29)
[2025-07-24] MEDS: SODIUM CHLORIDE 0.9% IV 1,000 ML 999 ML IV CONT (12:29)
[2025-07-24] MEDS: TAMSULOSIN HCL 0.4 MG CAPSULE PO (12:29)
[2025-07-24] MEDS: ONDANSETRON INJ 4 MG/2 ML VIAL IV PUSH (12:30)
[2025-07-24 12:45] LABS: Alanine Aminotransferase 20 U/L (6-50); Albumin Level 4.8 g/dL (3.5-5.1); Alkaline Phosphatase 88 U/L (38-126); Anion Gap 9 mmol/L (4-12); Aspartate Amino Transferase 33 U/L (17-59); Bilirubin,Total 0.7 mg/dL (0.2-1.3); Blood Urea Nitrogen 16 mg/dL (9-20); Calcium 9.6 mg/dL (8.4-10.2); Carbon Dioxide 28 mmol/L (22-30); Chloride 99 mmol/L (98-107); Estimated CRCL calculation 46 ml/min; Estimated Glomerular Filt Rate > 60; Glucose 126 mg/dL (65-110); Lipase 42 U/L (23-300); Potassium 3.5 mmol/L (3.4-5.0); Sodium 136 mmol/L (137-145); Total Protein 7.7 g/dL (6.3-8.2)
[2025-07-24 12:58] LABS: Add Urine Microscopic? YES; Appearance Urine Clear (Clear); Glucose Urine UA Negative (Negative); Leukocyte Esterase Ur Trace LEU/UL (Negative); Nitrate Urine Negative (Negative); Non Pathogenic Casts 0-2; Specific Grav Ur 1.018 (1.001-1.035)
[2025-07-24 13:55] VITALS: BP 123/63; PULSE 72; RESP 16; O2SAT 100
== END 2025-07-24 16:03 | disposition home or self-care (01) ==
PROVIDERS: Emergency Medicine; Emergency Provider Emergency Medicine; PCP Nurse Practitioner Family
DX: R10.11 Right upper quadrant pain (principal); K86.2 Cyst of pancreas; I15.2 Hypertension secondary to endocrine disorders; E11.69 Type 2 diabetes mellitus with other specified complication; E78.5 Hyperlipidemia, unspecified; E03.9 Hypothyroidism, unspecified; M17.12 Unilateral primary osteoarthritis, left knee; Z86.718 Personal history of other venous thrombosis and embolism; Z79.01 Long term (current) use of anticoagulants; Z79.899 Other long term (current) drug therapy; Z79.84 Long term (current) use of oral hypoglycemic drugs; K80.20 Calculus of gallbladder without cholecystitis without obstruction
CPT/HCPCS: 36415; 71045; 74177; 76705; 80053; 81001; 83690; 85025; 96361; 96374; 96375; 99284; A9270; J2405; J3010; J7030; Q9967

== ENCOUNTER 2025-07-27 13:34 | Outpatient (CLI) | payer MEDICARE, SELFPAY ==
--- NOTE | ~2025-07-27 | XR_ITS ---
EXAMINATION: XR shoulder RT min 2V, 07/27/2025 13:55 SEA SHELL GATHERER HISTORY: ROTATOR CUFF SURGERY 2019/PAIN/LIMITED ROM FOR 3 WEEKS COMPARISON: No comparisons available. Findings: No acute fracture or malalignment. Moderate degenerative changes Soft tissues unremarkable. Impression: No acute fracture or malalignment. Reviewed, dictated and finalized at location P. SHELL GATHERER Impression: No acute fracture or malalignment.
--- OUTSIDE RECORDS SUMMARY | 2025-07-27 16:45 | XMS_ITS | Encounter Summary ---
Author Organization [facility] Healthcare Address [address] [place] [address] Care Team Providers Care Rib Puller Name Role Phone Fidel Ferguson MD Primary Care Provider [phone] Encounter Details Date Type Department Care Team (Late st Contact Info) Description 07/19/2025 Results Follow-Up [facility] Medical Group Neurology [address] [address] Kayleen Valiente NP [address] [place] [id number] Erythrocyte sedimentation rate Social History Tobacco Use Types Packs/Day Years Used Date Smoking Tobacco: Never AUDIT-C Answer Date Recorded Q1: How often [...] AM CDT documented as of this encounter Functional Status * BP Location Answer Date of Assessment Author Left arm 07/19/2025 10:47 AM Jennifer Pierce MA * BP Location Answer Date of Assessment Author Left arm 07/19/2025 10:47 AM Jennifer Pierce MA documented as of this encounter Plan of Treatment Not on file documented as of this encounter Visit Diagnoses Not on filedocumented in this encounter Care Teams Rib Puller Relationship Specialty Start Date End Date Fidel Ferguson MD [facility] [place], [place] [id number] PCP - General Family Medicine 06/16/24 documented as of this encounter
--- OUTSIDE RECORDS SUMMARY | 2025-07-27 16:45 | XMS_ITS | Clinical Summary ---
Author Organization [facility] Address [address], [facility] [address] [place] [address] Phone Care Team Providers Care Steel Pan Form Placing Supervisor Name Role Phone Izzy Maradiaga APRN, PIN BALL MACHINE MECHANIC Primary Care Provide r Allergies Active Allergy Reactions Criticality Noted Date Comments Diclofenac Nausea,Vomiting Low 08/02/2024 Duloxetine Nausea 03/29/2025 Medications levothyroxine (SYNTHROID) 50 MCG Tablet Take 50 mcg by mouth daily. 01/24/2024 Active metFORMIN (GLUCOPHAGE-XR) 750 MG TABLET SR 24 HR Take 750 mg by mouth daily. 01/29/2024 Active simvastatin (ZOCOR) 40 MG Tablet Take 40 mg by mouth daily. 01/24/2024 Active traMADol (ULTRAM) 50 MG Tablet Take 50 mg by mouth every 6 hours as needed for Mild or more severe pain. 04/20/2025 Active meloxicam (MOBIC) 15 MG Tablet Take 15 mg by mouth daily. 01/29/2024 Active Eliquis DVT/PE Starter Pack 5 MG Tablet Therapy Pack Take 5 mg by mouth 2 times daily. 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 (Primary Dx) 06/23/2025 Travel 06/02/2025 11:30 AM CDT Office Visit [facility] [address] [phone] Ronny Slater MD 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 (HCC) (Primary Dx) 06/02/2025 Travel from Last 3 Months Family History Relation Name Status Comments Child 1 Alive Child 2 Alive Father Mother Other Alive Social History Tobacco Use Types Packs/Day Years Used Date Smoking Tobacco: Never Smokeless Tobacco: Never Alcohol Use Standard Drinks/Week Comments Not Currently 0 (1 standard drink = 0.6 oz pur e alcohol) Sex and Gender Information Value Date Recorded Sex Assigned at Not on file Legal Sex Male 12:34 PM CDT Gender Identity Not on file Sexual Orientation Not on file Last Filed Vital Signs Vital Sign Reading Time Taken Comments Blood Pressure 130/68 06/02/2025 11:24 AM CDT Pulse 77 06/02/2025 11:24 AM CDT Temperature 36.7 C (98 F) 06/02/2025 11:24 AM CDT Respiratory Rate 18 06/02/2025 11:2 4 AM CDT Oxygen Saturation 97% 06/02/2025 11: 24 AM CDT Inhaled Oxygen Concentration - - Weight 78.9 kg (173 lb 14.4 oz) 025 11:24 AM CDT Height 172.7 cm (5' 8) 06/02/2025 11:2 4 AM CDT Body Mass Index 26.44 06/02/2025 11:24 AM CDT Plan of Treatment Upcoming Encounters Date Type Department Care Team (Late st Contact Info) Description 08/25/2025 11:00 AM MECHANICAL EQUIPMENT SALES ENGINEER Office Visit [facility] [address] [phone] Ronny Slater MD [facility] [place] [address] [place] [phone] Health Maintenance Due Date Last Done Comments Hepatitis C Virus (HCV) Screening 1945 Pneumococcal Immunization (50+ years) (3 of 3 - PCV20 or PCV21) 10/24/2019 10/24/2014, 02/20/2010 Welcome to Medicare (IPPE) G0402 11/05/2024 Influenza Immunization (#1) 05/08/202506/07, 06/11/2023, 06/19/2022, Additional history exists SARS-COV-2 Immunization ( season) 2025 06/17/2024, 06/29/2023, 05/29/2022, Additional history exists TdaP Immunization Completed 08/23/2016, 06/06/2013 Zoster Immunization Completed 04/09/2023, Respiratory Syncytial Virus (RSV) Immunization (Adult) Completed 06/11/2023 Hepatitis B Immunization Aged Out No longer eligible based on patient's age to complete this topic Human Papillomavirus (HPV) Immunization Aged Out No longer eligible based on patient's age to complete this topic Meningococcal Immunization (ACWY) Aged Out No longer eligible based on patient's age to complete this topic Rotavirus Immunization Aged Out No lo nger eligible based on patient's age to complete this topic Insurance MEDICARE [facility] Care Teams Steel Pan Form Placing Supervisor Relationship Specialty Start Date End Date Izzy Maradiaga, PEOPLESOFT FUNCTIONAL ANALYST, PIN BALL MACHINE MECHANIC [address] [place] [address] PCP - General Advanced Practice Nurse 05/18/25
--- OUTSIDE RECORDS SUMMARY | 2025-07-27 16:45 | XMS_ITS | Encounter Summary ---
Author Organization [facility] Address [address] [place] [address] Phone Care Team Providers Care Chemistry Laboratory Technician Name Role Phone Referral, Self Primary Care Provider Judy e Fidel Ferguson MD Primary Care Provider [phone] Encounter Details Date Type Department Care Team [...] on filedocumented in this encounter Care Teams Chemistry Laboratory Technician Relationship Specialty Start Date End Date Referral, Self PCP - General 02/02/24 06/15/24 Fidel Ferguson MD [address] [facility] [place] [address] PCP - General Family Medicine 06/16/24 documented as of this encounter
--- OUTSIDE RECORDS SUMMARY | 2025-07-27 16:45 | XMS_ITS | Clinical Summary ---
Author Organization [facility] Address [address] [place] [address] Care Team Providers Care In Service Educator Name Role Phone Fidel Ferguson MD Primary Care Provider [phone] Allergies Active Allergy Reactions Criticality Noted Date [...] 2 (two) times a day 03/30/2025 Active rimegepant (NURTEC ODT) tablet,disintegr ating Take 1 tablet (75 mg total) by mouth daily as needed (migraine) 8 tablet 5 07/21/2025 Active Active Problems Problem Noted Date Diagnosed Date Transient alteration of awareness 07/21/2025 New onset of headaches after age 50 07/21/2025 Cyst of pancreas 02/02/2024 Encounters Date Type Department Care Team Description 07/19/2025 12:00 PM ZINC FURNACE CHARGER Lab [facility] Medical Office Bldg [address] [place] [address] New onset of headaches after age 50 07/19/2025 11:00 AM ZINC FURNACE CHARGER Office Visit [facility] Medical [facility] Neurology [address] [place] [address] [address] [place] [address] Kayleen Valiente NP Transient alteration of awareness (Primary Dx); New onset of headaches after age 50 07/19/2025 Results Follow-Up [facility] Neurology [address] [place] [address] [address] [place] [address] Kayleen Valiente NP Erythrocyte sedimentation rate 05/19/2025 11:30 AM CDT Lab [facility] [address] [facility] [place] [phone] IPMN (intraductal papillary mucinous neoplasm); 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 05/19/2025 11:00 AM CDT [facility] [address] [facility] [address] [place] [address] Melida Chen PA IPMN (intraductal papillary mucinous neoplasm) (Primary Dx); 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; Intractable headache, unspecified chronicity pattern, unspecified headache type; Altered mental status, unspecified altered mental status type 05/19/2025 7:27 AM CDT - 05/19/2025 11:59 PM CDT Hospital Encounter [facility] Imaging [address] [address] IPMN (intraductal papillary mucinous neoplasm) Discharge Disposition: [...] Sign Reading Time Taken Comments Blood Pressure 130/72 07/19/2025 10:47 AM ZINC FURNACE CHARGER Pulse 87 07/19/2025 10:47 AM ZINC FURNACE CHARGER Temperature 36.1 C (97 F) 05/19/2025 10:56 AM CDT Respiratory Rate 16 05/19/2025 10:56 AM CDT Oxygen Saturation 98% 07/19/2025 10:47 AM ZINC FURNACE CHARGER Inhaled Oxygen Concentration - - Weight 77.6 kg (171 lb) 07/19/2025 10:47 AM ZINC FURNACE CHARGER Height 169.9 cm (5' 6.89) 07/19/2025 10:[address] Body Mass Index 26.87 07/19/2025 10:47 AM ZINC FURNACE CHARGER Plan of Treatment Health Maintenance Due Date Last Done Comments Depression Screening 1945 Hepatitis B Screening 1963 Well Visit 65+ 2010 Pneumococcal vaccine 65+ (3 of 3 - PCV20 or PCV21) 10/24/2019 10/24/2014, 02/20/2010 Fall Risk Assessment 02/10/2025 02/11/2024 Covid-19 Vaccine (2024-2 6 season) 2025 06/29/2023, 05/29/2022, 12/17/2021, Additional history exists Influenza Vaccine (#1) 2025 4, 06/11/2023, 06/19/2022, Additional history exists DTaP/Tdap/Td Vaccine (4 - Td or Tdap) 08/23/2026 08/23/2016, 06/13/2013, 06/06/2013, Additional history exists Zoster Vaccine Completed 04/09/2023, 01/30/2023 Medical Devices Implanted Type Area Velvet Steamer Device Identifier Shelf Expiration Date Model / Serial / Lot Left Knee Replacement Knee Metal Wire In Jaw Mandible Procedures Procedure Name Priority Date/Time Associated Diagnosis Comments ERYTHROCYTE SEDIMENTATION RATE Routine 07/19/2025 12:02 PM ZINC FURNACE CHARGER New onset of headaches after age 50 CANCER ANTIGEN 19-9 Routine 05/19/2025 1 1:28 AM CDT IPMN (intraductal papillary mucinous neoplasm) 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 MRI ABDOMEN MRCP W WO CONTRAST Schedule Routine, Read Routine (OP Routine) 05/19/2025 8:16 AM CDT IPMN (intraductal papillary mucinous neoplasm) from Last 3 Months Results * Erythrocyte sedimentation rate (07/19/2025 12:02 PM ZINC FURNACE CHARGER) Erythrocyte sedimentation rate 8 1 - 20 mm/hr Blood 07/19/2025 12:0 2 PM ZINC FURNACE CHARGER 07/19/2025 12:23 PM ZINC FURNACE CHARGER us Kayleen Valiente NP LAB BLOOD ORDERABLES Final R esult [facility] [address] [facility] [place] [address] * (ABNORMAL) Cancer antigen 19-9 (05/19/2025 11:28 AM CDT) CA 19-9 ag 45.4(H) 0.0 - 35.0 units/mL Comment: Interpretive Data The [employer] CA 19-9 assay procedure was used. Results from different manufacturers or methods may not be comparable. Serial testing should be performed using the same method. Testing performed by: [facility], [address] [facility], [place]., [address] Blood 05/19/2025 11:2 8 AM CDT 05/19/2025 2:23 PM CDT Melida ESTRADA LAB BLOOD ORDERABLES Yin josé Result [facility] [id number] [facility]. [place] [address] * MRI Abdomen MRCP W WO Contrast [...] signed by: Maninder Ortiz M.D. Melida ESTRADA IM MRI PROCEDURES Final Result from Last 3 Months Insurance [facility] MEDICARE ADVANTAGE [facility] Address: [address] [address] [place] [address] [facility] Address: [address] [address] [place] [address] Advance Directives For more information, please contact: [phone] * Full Code (Latest Code Status on File) Date Activated Date Inactivated Comments 02/11/2024 12:25 PM 02/11/2024 7:22 PM Care Teams In Service Educator Relationship Specialty Start Date End Date Fidel Ferguson MD [address] [place] [address] [place] [address] PCP - General Family Medicine 06/16/24
== END 2025-07-27 13:35 | disposition home or self-care (01) ==
PROVIDERS: PCP Nurse Practitioner Family; Visit Provider Orthopaedic Surgery
DX: Z98.890 Other specified postprocedural states (principal)
CPT/HCPCS: 73030